=== PATIENT | female | born 1955 | race Caucasian/White ===

== ENCOUNTER → 2017-09-01 | Outpatient (CLI) | payer BC ==
--- NOTE | 2017-09-01 18:57 | RADIOLOGY REPORT (SQ) ---
EXAM DESCRIPTION: KNEE LEFT 4 VIEW COMPLETED DATE/TIME: 09/01/2017 5:53 pm REASON FOR STUDY: CHRONIC PAIN OF BOTH KNEES COMPARISON: None. NUMBER OF VIEWS: Four views. TECHNIQUE: AP, lateral, and both oblique radiographic images acquired of the left knee. LIMITATIONS: None. FINDINGS: MINERALIZATION: Normal. BONES: No acute fracture or dislocation. Benign osteoma posterior aspect of the distal femoral metad iaphysis. No worrisome bone lesions. JOINT: Mild to moderate tricompartmental osteoarthritis. No significant joint effusion. SOFT TISSUES: No soft tissue swelling. No radio-opaque foreign body. OTHER: No other significant finding. IMPRESSION: MILD TO MODERATE TRICOMPARTMENTAL OSTEOARTHRITIS WITHOUT ACUTE ABNORMALITY IDENTIFIED. TECHNICAL DOCUMENTATION: JOB ID: [id number] [employer]- All Rights Reserved
--- NOTE | 2017-09-01 18:57 | RADIOLOGY REPORT (SQ) ---
EXAM DESCRIPTION: KNEE RIGHT 4 VIEWS COMPLETED DATE/TIME: 09/01/2017 5:53 pm REASON FOR STUDY: CHRONIC PAIN OF BOTH KNEES COMPARISON: None. NUMBER OF VIEWS: Four views. TECHNIQUE: AP, lateral, and both oblique radiographic images acquired of the right knee. LIMITATIONS: None. FINDINGS: MINERALIZATION: Normal. BONES: No acute fracture or dislocation. No worrisome bone lesions. JOINT: Mild tricompartmental osteoarthritis. SOFT TISSUES: No soft tissue swelling. No radio-opaque foreign body. OTHER: No other significant finding. IMPRESSION: MILD TRICOMPARTMENTAL OSTEOARTHRITIS. NO RADIOGRAPHIC EVIDENCE OF ACUTE INJURY. TECHNICAL DOCUMENTATION: JOB ID: [id number] [employer]- All Rights Reserved
== END ==
LOC: RAD 16:57
PROVIDERS: ATTEND Nurse Practitioner
DX: M25.561 Pain in right knee (principal); M25.562 Pain in left knee; M17.0 Bilateral primary osteoarthritis of knee

== ENCOUNTER → 2017-09-03 | Outpatient (CLI) | payer BC ==
--- NOTE | 2017-09-03 16:05 | WOMENS IMAGING REPORT ---
EXAM DESCRIPTION: BILAT SCREENING MAMMO W/CAD COMPLETED DATE/TIME: 09/03/2017 3:44 pm REASON FOR STUDY: ROUTINE SCREENING; Z12.31 Z12.31 ENCNTR SCREEN MAMMOGRAM FOR MALIGNANT NEOPLASM O F MARY COMPARISON: 2015 TECHNIQUE: Standard craniocaudal and mediolateral oblique views of each breast recorded using digita l acquisition. LIMITATIONS: None. FINDINGS: No masses, calcifications or architectural distortion. No areas of suspicion. Read with the assistance of CAD. .[facility] - R2 Cenova Version 1.3 .[facility] Imaging - R2 Cenova Version 1.3 .[facility] Imaging - R2 Cenova Version 2.4 .[facility] - R2 Cenova Version 2.4 .[facility] - R2 Construction [employer]orer Version 9.2 IMPRESSION: NORMAL MAMMOGRAM. BIRADS 1. BREAST DENSITY: b. There are scattered areas of fibroglandular density. BIRAD: 1 NEGATIVE RECOMMENDATION: ROUTINE SCREENING COMMENT: The patient has been notified of the results by letter per SA requirements. Additional no tification policies are in place for contacting patient with suspicious or incomplete findings. Quality ID #[id number]: The [employer] recommends an annual screening mammogram for women aged 40 years or over. This facility utilizes a reminder system to ensure that all patients receive reminder letters, and/or direct phone calls for appointments. This includes reminders for routine scr eening mammograms, diagnostic mammograms, or other Breast Imaging Interventions when appropriate. Th is patient will be placed in the appropriate reminder system. The [employer] (ACR) has developed recommendations for screening MRI of the breast s in certain patient populations, to be used in conjunction with mammography. Breast MRI surveillanc e may be appropriate for women with more than 20% lifetime risk of developing breast cancer as deter mined by genetic testing, significant family history of the disease, or history of mantle radiation f or Hodgkins Disease. ACR Practice Guidelines 2008. TECHNICAL DOCUMENTATION: FINDING NUMBER: (1) ASSESSMENT: (1) JOB ID: [id number] [employer]- All Rights Reserved
== END ==
LOC: WI 15:37
PROVIDERS: ATTEND Nurse Practitioner
DX: Z12.31 Encounter for screening mammogram for malignant neoplasm of breast (principal)
CPT/HCPCS: 77067

== ENCOUNTER → 2018-03-04 | Outpatient (CLI) | payer BC ==
[2018-03-04 18:05] LABS: ABSOLUTE EOSINOPHILS # (AUTO) 0.3 10^3/uL (0.0-0.6); ABSOLUTE MONOCYTES (AUTO) 0.7 10^3/uL (0.1-1.4); ABSOLUTE NEUT (AUTO) 3.2 10^3/uL (1.7-8.2); BASOPHILS % (AUTO) 0.3 % (0-2); EOSINOPHILS % (AUTO) 4.3 % (0-6); HEMATOCRIT 39.1 % (36.0-47.0); LYMPHOCYTES % (AUTO) 32.7 % (13-45); MEAN CORPUSCULAR HEMOGLOBIN 27.1 pg (27.0-33.4); MEAN CORPUSCULAR HGB CONC 33.2 g/dL (32.0-36.0); MEAN CORPUSCULAR VOLUME 82 fl (80-97); MONOCYTES % (AUTO) 11.1 % (3-13); PLATELET COUNT 217 10^3/uL (150-450); RED BLOOD COUNT 4.78 10^6/uL (3.72-5.28); RED CELL DISTRIBUTION WIDTH 13.8 % (11.5-14.0); SEGMENTED NEUTROPHILS % (AUTO) 51.6 % (42-78); TOTAL CELLS COUNTED % (AUTO) 100 %; WHITE BLOOD COUNT 6.1 10^3/uL (4.0-10.5)
[2018-03-06 07:42] LABS: HEPATITIS C VIRUS AB <0.1 s/co ratio (0.0-0.9)
== END ==
LOC: OD 16:45
PROVIDERS: ATTEND Nurse Practitioner
DX: E78.5 Hyperlipidemia, unspecified (principal); E55.9 Vitamin D deficiency, unspecified; Z79.899 Other long term (current) drug therapy; M05.79 Rheumatoid arthritis with rheumatoid factor of multiple sites without organ or systems involvement; Z11.59 Encounter for screening for other viral diseases
CPT/HCPCS: 36415; 82306; 82607; 83036; 84443; 85025; 86803; 86804

== ENCOUNTER → 2018-03-16 | Outpatient (CLI) | payer BC ==
--- NOTE | 2018-03-17 12:22 | RADIOLOGY REPORT (SQ) ---
EXAM DESCRIPTION: U/S EXTREMITY NONVASCULAR LTD COMPLETED DATE/TIME: 03/16/2018 6:00 pm REASON FOR STUDY: M25.562 PAIN IN LEFT KNEE G89.29 OTHER CHRONIC PAIN M25.562 PAIN IN LEFT KNEE G89 .29 OTHER CHRONIC PAIN COMPARISON: None. TECHNIQUE: Static and real time lopez scale ultrasound Doppler spectral analysis, and color Doppler a cquired in the popliteal fossa on the left. LIMITATIONS: None. FINDINGS: POPLITEAL ARTERY: Popliteal artery is normal. No aneurysm. No significant stenosis. POPLITEAL VEIN:Popliteal vein is normal. No thrombosis. SOFT TISSUES: Probable Ayala's cyst with debris in the upper calf, about 3 x 1 cm size. OTHER:No other significant findings. IMPRESSION: Palpable abnormality likely correlates with a residua of a Ayala's cyst in the popliteal fossa. Consider MRI for further evaluation TECHNICAL DOCUMENTATION: JOB ID: [id number] [employer]- All Rights Reserved Reading location - IP/workstation name: [email or web address]
== END ==
LOC: RAD 17:45
PROVIDERS: ATTEND Nurse Practitioner
DX: M25.562 Pain in left knee (principal); G89.29 Other chronic pain
CPT/HCPCS: 76882

== ENCOUNTER → 2018-09-15 | Outpatient (CLI) | payer BC ==
--- NOTE | 2018-09-15 14:41 | WOMENS IMAGING REPORT ---
EXAM DESCRIPTION: 3D SCREENING MAMMO BILAT COMPLETED DATE/TIME: 09/15/2018 9:26 am REASON FOR STUDY: ROUTINE 3D BILATERAL SCREENING,Z12.31 Z12.31 ENCNTR SCREEN MAMMOGRAM FOR MALIGNAN T NEOPLASM OF MARY COMPARISON: 2018 TECHNIQUE: Standard craniocaudal and mediolateral oblique views of each breast recorded using digita l acquisition and breast tomosynthesis. LIMITATIONS: None. FINDINGS: No masses, calcifications or architectural distortion. No areas of suspicion. Read with the assistance of CAD. .[facility] - R2 Cenova Version 1.3 .[facility] Imaging - R2 Cenova Version 2.1 .[facility] Imaging - R2 Cenova Version 2.4 .[facility] - R2 Cenova Version 2.4 .[facility] - R2 Unit Tender Version 9.2 IMPRESSION: NORMAL MAMMOGRAM. BIRADS 1. BREAST DENSITY: b. There are scattered areas of fibroglandular density. BIRAD: 1 NEGATIVE RECOMMENDATION: ROUTINE SCREENING COMMENT: The patient has been notified of the results by letter per SA requirements. Additional no tification policies are in place for contacting patient with suspicious or incomplete findings. Quality ID #225: The [employer] recommends an annual screening mammogram for women aged 40 years or over. This facility utilizes a reminder system to ensure that all patients receive reminder letters, and/or direct phone calls for appointments. This includes reminders for routine scr eening mammograms, diagnostic mammograms, or other Breast Imaging Interventions when appropriate. Th is patient will be placed in the appropriate reminder system. The [employer] (ACR) has developed recommendations for screening MRI of the breast s in certain patient populations, to be used in conjunction with mammography. Breast MRI surveillanc e may be appropriate for women with more than 20% lifetime risk of developing breast cancer as deter mined by genetic testing, significant family history of the disease, or history of mantle radiation f or Hodgkins Disease. ACR Practice Guidelines 2008. DBT Technology DBT is a type of tomographic mammography. With conventional mammography, overlapping breast tissue ma y make lesions difficult to detect, even with good compression. DBT uses an x-ray tube that rotates a round the breast, taking images at different angles. These images are then combined to create thin sl ices of the breast that the radiologist can view as a 3D reconstruction. The Team[employer] unit can perform full-field digital mammograms (2D imaging); or DBT (3D imaging); or both, in a combination mode that quickly performs both the mammogram and the tomosynthesis scan while the breast is still compressed. PQRS 6045F: Fluoroscopic imaging is not utilized for breast tomosynthesis. TECHNICAL DOCUMENTATION: FINDING NUMBER: (1) ASSESSMENT: (1) JOB ID: [id number] [employer]- All Rights Reserved Reading location - IP/workstation name: [email or web address]-
== END ==
LOC: WI 08:55
PROVIDERS: ATTEND Nurse Practitioner
DX: Z12.31 Encounter for screening mammogram for malignant neoplasm of breast (principal)
CPT/HCPCS: 77063; 77067

== ENCOUNTER → 2019-02-02 | Outpatient (CLI) | payer BC ==
--- NOTE | 2019-02-03 10:07 | RADIOLOGY REPORT (SQ) ---
EXAM DESCRIPTION: SHOULDER LEFT 2 OR MORE VIEWS; SHOULDER RIGHT 2 OR MORE VIEWS COMPLETED DATE/TIME: 02/02/2019 5:46 pm REASON FOR STUDY: M25.511 PAIN IN RIGHT SHOULDER COMPARISON: None. FINDINGS: Three views right shoulder: Osteopenic. Otherwise no significant bone, joint or soft tis tim abnormality. Three views left shoulder: Osteopenic. Otherwise no significant bone, joint or soft tissue abnormal ity. TECHNICAL DOCUMENTATION: JOB ID: [id number] Reading location - IP/workstation name: [email or web address]
--- NOTE | 2019-02-03 10:07 | RADIOLOGY REPORT (SQ) ---
EXAM DESCRIPTION: SHOULDER LEFT 2 OR MORE VIEWS; SHOULDER RIGHT 2 OR MORE VIEWS COMPLETED DATE/TIME: 02/02/2019 5:46 pm REASON FOR STUDY: M25.511 PAIN IN RIGHT SHOULDER COMPARISON: None. FINDINGS: Three views right shoulder: Osteopenic. Otherwise no significant bone, joint or soft tis tim abnormality. Three views left shoulder: Osteopenic. Otherwise no significant bone, joint or soft tissue abnormal ity. TECHNICAL DOCUMENTATION: JOB ID: [id number] Reading location - IP/workstation name: [email or web address]
== END ==
LOC: RAD 17:15
PROVIDERS: ATTEND Physician Assistant
DX: M25.511 Pain in right shoulder (principal); W01.0XXA Fall on same level from slipping, tripping and stumbling without subsequent striking against object, initial encounter; M85.88 Other specified disorders of bone density and structure, other site

== ENCOUNTER → 2019-02-24 | Outpatient (CLI) | payer BC ==
--- NOTE | 2019-02-25 13:07 | RADIOLOGY REPORT (SQ) ---
EXAM DESCRIPTION: MRI RT UPPER JOINT WITHOUT COMPLETED DATE/TIME: 02/24/2019 7:25 pm REASON FOR STUDY: M25.511 PAIN IN RIGHT SHOULDER M25.511 PAIN IN RIGHT SHOULDER COMPARISON: None. TECHNIQUE: Right shoulder images acquired and stored on PACS. Multiplanar imaging to include fat sen sitive sequences such as T1, water sensitive sequences such as FST2/STIR, cartilage sensitive sequenc es such as FSPD/gradient-echo sequences. LIMITATIONS: None. FINDINGS: BONE MARROW AND CORTEX: No marrow signal abnormalities worrisome for occult fracture. Sma ll subcortical cysts are present in the anterior right humeral head medial to the bicipital groove, l ikely indicating impingement. JOINT OR BURSAL EFFUSION: Physiologic glenohumeral joint space fluid. There is fluid in the subacrom ial/subdeltoid bursa and along the biceps tendon sheath GLENO-HUMERAL ARTICULATION: Normal articulation. No subluxation. No cystic change. No osteophytes or cartilage loss. ACROMION AND AC JOINT: Type 1 acromion with mild acromioclavicular joint hypertrophy and synovial th ickening. Mild bony spurring narrows the subacromial space. Small amount of fluid in the subacromia l/subdeltoid bursa ROTATOR CUFF AND INTERVAL: There is a diffuse tear throughout the distal supraspinatus tendon at its greater tuberosity attachment, best shown on coronal image 13, axial image 6, and sagittal images 3-5 . There is diffuse tendinopathy of the infraspinatus tendon with a small full-thickness tear along i ts posterior at attachment best shown on coronal image 7. Subscapularis is intact. No supra or infr aspinatus muscle atrophy. No rotator interval tear. No rotator interval thickening to suggest adhesive capsulitis. LABRUM AND BICEPS LABRAL COMPLEX: Intra-articular long head biceps tendon is difficult to visualize within the groove and along the intra-articular portion. Long head biceps tendon tear with proximal retraction is suspected. Superior labrum grossly intact. Short head biceps tendon attachment to th e coracoid process is intact on coronal image 15. REMAINDER OF LABRUM AND IGHL : No gross tear or paralabral cyst formation. Labral evaluation is less than optimal without joint distention. No thickening of IGHL to suggest adhesive capsulitis. PERIARTICULAR AND ADJACENT SOFT TISSUES: No masses or abnormal nodes. OTHER: No other significant finding. IMPRESSION: Full-thickness diffuse supraspinatus tendon tear distally Infraspinatus tendinopathy with small full-thickness tear along its posterior attachment Long head biceps tendon not visualized. Suspect full-thickness tear with proximal retraction TECHNICAL DOCUMENTATION: JOB ID: [id number] [employer]- All Rights Reserved Reading location - IP/workstation name: [email or web address]
== END ==
LOC: RAD 17:21
PROVIDERS: ATTEND Nurse Practitioner
DX: M75.121 Complete rotator cuff tear or rupture of right shoulder, not specified as traumatic (principal); M25.511 Pain in right shoulder

== ENCOUNTER → 2019-08-27 | Outpatient (CLI) | payer BC ==
--- NOTE | 2019-08-27 15:49 | RADIOLOGY REPORT (SQ) ---
EXAM DESCRIPTION: CT ABD/PELVIS COMBO COMPLETED DATE/TIME: 08/27/2019 3:33 pm REASON FOR STUDY: N13.30 UNSPECIFIED HYDRONEPHROSIS N13.30 UNSPECIFIED HYDRONEPHROSIS COMPARISON: None. TECHNIQUE: CT scan of the abdomen and pelvis performed with and without intravenous contrast, and wi thout oral contrast. Contrasted imaging performed helical scanning technique and dynamic intravenous contrast injection. Images reviewed with lung, soft tissue, and bone windows. Reconstructed coronal a nd sagittal MPR images reviewed. Delayed images for evaluation of the urinary system also acquired. A ll images stored on PACS. All CT scanners at this facility use dose modulation, iterative reconstruction, and/or weight based d osing when appropriate to reduce radiation dose to as low as reasonably achievable (ALARA). [facility]: Dose Right [facility]: CareDose [facility]: Dose Right [facility]: Teradose 4D [facility]: Next Big Sound CONTRAST TYPE AND DOSE: contrast/concentration: Isovue 350.00 mg/ml; Total Contrast Delivered: 88.0 ml; Total Saline Delivered: 70.0 ml RENAL FUNCTION: Creatinine 0.7 RADIATION DOSE: CT Rad equipment meets quality standard of care and radiation dose reduction techniq ues were employed. CTDIvol: 10.9 - 12.0 mGy. DLP: 1747 mGy-cm. . LIMITATIONS: None. FINDINGS: LOWER CHEST: Cardiomegaly. No acute findings. LIVER: Normal size. No masses. No dilated ducts. SPLEEN: Normal size. No focal lesions. PANCREAS: No masses. No significant calcifications. No adjacent inflammation or peripancreatic fluid collections. Pancreatic duct not dilated. GALLBLADDER: No identified stones by CT criteria. No inflammatory changes to suggest cholecystitis. ADRENAL GLANDS: No significant masses or asymmetry. RIGHT KIDNEY AND URETER: No solid masses. No significant calcifications. Mild fullness of the ext rarenal pelvis. No caliceal dilation. LEFT KIDNEY AND URETER: No solid masses. Extrarenal pelvis and Peripelvic cyst. No caliceal dilatio n. No significant calcifications. AORTA AND VESSELS: Aortoiliac atherosclerosis without aneurysm. No dissection. Renal arteries, SMA, c eliac without stenosis. RETROPERITONEUM: No retroperitoneal adenopathy, hemorrhage or masses. BOWEL AND PERITONEAL CAVITY: Scattered colonic diverticula. No focal bowel wall thickening. No evid ence of intestinal obstruction. APPENDIX: Normal. PELVIS: Decompressed urinary bladder. No free fluid. No adenopathy. ABDOMINAL WALL: No masses. No hernias. BONES: No significant or acute findings. OTHER: No other significant finding. IMPRESSION: 1. No significant hydronephrosis. Bilateral extrarenal pelves and left peripelvic cyst s which account for ultrasound findings. 2. No other evidence of acute intra-abdominal/pelvic process. TECHNICAL DOCUMENTATION: JOB ID: [id number] Quality ID # [id number]: Final reports with documentation of one or more dose reduction techniques (e.g., Au tomated exposure control, adjustment of the mA and/or kV according to patient size, use of iterative reconstruction technique) 2010 [employer]- All Rights Reserved Reading location - IP/workstation name: [email or web address]
== END ==
LOC: RAD 14:56
PROVIDERS: ATTEND Urology
DX: N13.30 Unspecified hydronephrosis (principal); N28.1 Cyst of kidney, acquired
CPT/HCPCS: 74178; 82565

== ENCOUNTER → 2019-09-16 | Outpatient (CLI) | payer BC ==
--- NOTE | 2019-09-17 08:42 | WOMENS IMAGING REPORT ---
EXAM DESCRIPTION: 3D SCREENING MAMMO BILAT COMPLETED DATE/TIME: 09/16/2019 3:22 pm REASON FOR STUDY: Z12.31 ENCOUNTER FOR SCREENING MAMMOGRAM FOR MALIGNANT NEOPLASM OF BREAST Z12.31 ENCNTR SCREEN MAMMOGRAM FOR MALIGNANT NEOPLASM OF MARY COMPARISON: 2018, 2017 EXAM PARAMETERS: Standard craniocaudal and mediolateral oblique views of each breast recorded using digital acquisition and breast tomosynthesis. Read with the assistance of CAD. .[facility] - [employer]er Version 9.2 LIMITATIONS: None. FINDINGS: RIGHT BREAST MASSES: In the right breast 11 o'clock position about 10 cm from the nipple, a 15 mm mammographic mas s is present with architectural distortion. A second, smaller 6 to 7 mm satellite mass may be presen t. This requires further evaluation with cone compression in the MLO and exaggerated craniocaudad po sition, and ultrasound CALCIFICATIONS: No new or suspicious calcifications. ARCHITECTURAL DISTORTION: None. ASYMMETRY: None noted. OTHER: No other significant findings. LEFT BREAST MASSES: No suspicious masses. CALCIFICATIONS: No new or suspicious calcifications. ARCHITECTURAL DISTORTION: None. ASYMMETRY: None noted. OTHER: No other significant findings. IMPRESSION: Mammographic mass right breast 11 to 12 o'clock position for which additional cone compr ession mammograms and ultrasound are recommended 0 Incomplete: Needs Additional Imaging Evaluation and/or prior Mammograms for Comparison. BREAST DENSITY: b. There are scattered areas of fibroglandular density. BIRAD: ASSESSMENT: 0 Incomplete: Needs Additional Imaging Evaluation and/or prior Mammograms for C omparison. RECOMMENDATION: RECOMMENDED FOLLOW-UP: Additional right breast diagnostic mammograms and ultrasound The patient will be contacted for additional imaging. COMMENT: The patient has been notified of the results by letter per MQSA requirements. Additional no tification policies are in place for contacting patient with suspicious or incomplete findings. Quality ID #225: The [employer] recommends an annual screening mammogram for women aged 40 years or over. This facility utilizes a reminder system to ensure that all patients receive reminder letters, and/or direct phone calls for appointments. This includes reminders for routine scr eening mammograms, diagnostic mammograms, or other Breast Imaging Interventions when appropriate. Th is patient will be placed in the appropriate reminder system. TECHNICAL DOCUMENTATION: FINDING NUMBER: (1) ASSESSMENT: (1) JOB ID: [id number] 2010 [employer]- All Rights Reserved Reading location - IP/workstation name: [email or web address]
== END ==
LOC: WI 14:52
PROVIDERS: ATTEND Nurse Practitioner
DX: Z12.31 Encounter for screening mammogram for malignant neoplasm of breast (principal); N63.10 Unspecified lump in the right breast, unspecified quadrant
CPT/HCPCS: 77063; 77067

== ENCOUNTER → 2019-09-30 | Outpatient (CLI) | payer BC ==
--- NOTE | 2019-09-30 13:19 | WOMENS IMAGING REPORT ---
EXAM DESCRIPTION: RIGHT DIAGNOSTIC MAMMO W/CAD; U/S BREAST UNILAT LIMITED COMPLETED DATE/TIME: 09/30/2019 11:28 am; 09/30/2019 12:23 pm REASON FOR STUDY: R92.2 RIGHT DX; R92.2 RIGHT BREAST R92.2 INCONCLUSIVE MAMMOGRAM COMPARISON: 09/16/2019 EXAM PARAMETERS: True lateral, exaggerated CC and cone compression views. LIMITATIONS: None. FINDINGS: BREAST LATERALITY: right MASSES: Mass in the approximate 12 o'clock position posterior 3rd persists with cone compression. CALCIFICATIONS: No new or suspicious calcifications. ARCHITECTURAL DISTORTION: None. ASYMMETRY: None noted. OTHER: No other significant findings. Ultrasound the right breast demonstrates no solid cystic lesion in the area question. IMPRESSION: Indeterminate mammographic finding without ultrasound correlate. BREAST DENSITY: b. There are scattered areas of fibroglandular density. BIRAD: ASSESSMENT: 0 Incomplete: Needs additional imaging evaluation and/or prior mammograms for co mparison. RECOMMENDATION: RECOMMENDED FOLLOW UP: Birads 0: Mammographic and Ultrasound imaging did not solve t he problem. SPECIFIC INTERVENTION/IMAGING/CONSULTATION RECOMMENDED:Routine breast imaging is inconclusive. Breast MRI may be helpful. COMMUNICATION:The imaging findings were not discussed with the patient. Her referring provider has be en notified of the findings. COMMENT: The patient has been notified of the results by letter per MQSA requirements. Additional no tification policies are in place for contacting patient with suspicious or incomplete findings. Quality ID #225: The [employer] recommends an annual screening mammogram for women aged 40 years or over. This facility utilizes a reminder system to ensure that all patients receive reminder letters, and/or direct phone calls for appointments. This includes reminders for routine scr eening mammograms, diagnostic mammograms, or other Breast Imaging Interventions when appropriate. Th is patient will be placed in the appropriate reminder system. TECHNICAL DOCUMENTATION: FINDING NUMBER: (1) ASSESSMENT: (1) JOB ID: [id number] 2010 [employer]- All Rights Reserved Reading location - IP/workstation name: [email or web address]
== END ==
LOC: WI 11:00
PROVIDERS: ATTEND Nurse Practitioner
DX: N63.10 Unspecified lump in the right breast, unspecified quadrant (principal)
CPT/HCPCS: 76642; 77065

== ENCOUNTER → 2019-11-03 | Outpatient (CLI) | payer BC ==
--- NOTE | 2019-11-04 09:52 | RADIOLOGY REPORT (SQ) ---
EXAM DESCRIPTION: MRI BREAST UNILATERAL W/WO IMAGES COMPLETED DATE/TIME: 11/03/2019 9:52 am REASON FOR STUDY: (N63.10)UNSPECIFIED LUMP IN THE RIGHT BREAST, UNSPECIFIED QUADRANT N63.10 UNSPECI FIED LUMP IN THE RIGHT BREAST, UNSPECIFIED ARNOLDO COMPARISON: None. PATHOLOGIC CORRELATION: Mammograms and right breast ultrasound 09/30/2019. CONTRAST TYPE AND DOSE: 20 mL Dotarem. RENAL FUNCTION: Not indicated. TECHNIQUE: MR imaging performed with a dedicated breast coil. Pre contrast T1 and T2 weighted images . Pre contrast and post contrast enhanced T1 weighted images with fat saturation. Subtraction images, 3D thick and thin MIPS, and kinetic analysis performed on an independent workstat ion. ([employer] workstation) Magnet strength: 3.0 T LIMITATIONS: None. FINDINGS: BREAST DENSITY: b. There are scattered areas of fibroglandular density. BACKGROUND PARENCHYMAL ENHANCEMENT:Minimal. RIGHT BREAST: Focal dense tissue approximately 12 o'clock posterior 3rd corresponding to the mammogra phic finding. No underlying mass. No clumped, regional/segmental ductal enhancement. CHEST WALL: Normal tissue planes. No abnormal internal mammary nodes. AXILLA: Normal axillary and retro-pectoral nodes. LEFT BREAST:No enhancing or suspicious masses. No clumped, regional/segmental ductal enhancement. CHEST WALL: Normal tissue planes. No abnormal internal mammary nodes. AXILLA: Normal axillary and retro-pectoral nodes. OTHER:No identified liver, bone, or lung lesions. No other significant incidental findings. IMPRESSION: Benign dense tissue. BIRAD: RIGHT BREAST: 2 Benign findings. LEFT BREAST: 1 Negative. RECOMMENDATION: RECOMMENDED FOLLOW-UP: Annual mammographic follow-up. TECHNICAL DOCUMENTATION: JOB ID: [id number] 2010 [employer]- All Rights Reserved Reading location - IP/workstation name: [email or web address]
== END ==
LOC: RAD 07:20
PROVIDERS: ATTEND Nurse Practitioner
DX: N63.10 Unspecified lump in the right breast, unspecified quadrant (principal)
CPT/HCPCS: 82565; 77048; A9576

== ENCOUNTER → 2020-04-01 | Outpatient (CLI) | payer BC ==
--- NOTE | 2020-04-01 16:56 | RADIOLOGY REPORT (SQ) ---
EXAM DESCRIPTION: MRI LT LOWER JOINT WITHOUT IMAGES COMPLETED DATE/TIME: 04/01/2020 3:03 pm REASON FOR STUDY: M76.62 ACHILLES TENDONITIS, LEFT LEG M66.872 SPONTANEOUS RUPTURE OF OTHER T M76.62 ACHILLES TENDINITIS, LEFT LEG M66.872 SPONTANEOUS RUPTURE OF OTHER TENDONS, LEFT ANKLE AND COMPARISON: None. TECHNIQUE: Left ankle images acquired and stored on PACS. Multiplanar images include fat sensitive s equences as T1, fluid sensitive sequences as FST2/STIR, cartilage sensitive sequences as FSPD, and gr adient echo sequences. LIMITATIONS: None. FINDINGS: BONE MARROW: Subcortical cystic changes are seen of the posterior aspect of the distal fib mando. Trace marrow edema is seen of the posterior calcaneus. Marrow signal is otherwise normal. EFFUSIONS: No subtalar or tibiotalar effusions. No loose bodies. OSSEOUS ARTICULATIONS: Normal tibiotalar, subtalar, talonavicular and calcaneocuboid joints. TALAR DOME AND TIBIAL PLAFOND: Normal cartilage. No osteochondral defect. ACHILLES TENDON: Full-thickness tear of the Achilles tendon from its insertion on the posterior calca neus with approximately 4.5 cm of fiber retraction. TIBIALIS ANTERIOR TENDON: Intact without edema at the 1st MT attachment. TIBIALIS POSTERIOR TENDON: Normal morphology and no edema at the navicular attachment. No tendon keita th fluid. FLEXOR HALLUCIS LONGUS AND FLEXOR DIGITORUM TENDONS: Normal morphology and no tendon sheath fluid. No edema of the os trigonum. PERONEUS LONGUS AND BREVIS TENDON: The peroneus longus and brevis tendons appear thickened with incre ased intrasubstance signal. Distal attachments are maintained as visualized. ATFL, CFL, PTFL: Intact. No thickening or signal alteration. No shayy-ligamentous fluid. DELTOID LIGAMENT: Visualized components intact. TARSAL TUNNEL: No masses. No muscle atrophy. SINUS TARSI: No fluid. No reactive marrow edema or erosions. PLANTAR FASCIA: No signal alteration or tear. ADJACENT SOFT TISSUES: No masses. OTHER: No other significant finding. IMPRESSION: Distal Achilles tendon rupture with approximately 4.5 cm of fiber retraction. Tendinosi s of the peroneus longus and brevis tendons. Otherwise normal MR appearance of the ankle. TECHNICAL DOCUMENTATION: JOB ID: [id number] 2011 [employer]- All Rights Reserved Reading location - IP/workstation name: [email or web address]
== END ==
LOC: RAD 14:02
PROVIDERS: ATTEND Preventive Medicine Undersea and Hyperbaric Medicine
DX: M76.62 Achilles tendinitis, left leg (principal); M66.872 Spontaneous rupture of other tendons, left ankle and foot

== ENCOUNTER 2020-04-04 08:12 | Day surgery (SDC) | payer BC ==
[~2020-04-04 08:12] MED LIST: BUPIVACAINE HCL 0.75% INJ/PF (7.5 MG/1 ML) 10 ML SDV OS PRN; CHONDR SU A NA/HYALUR INTRAOC KIT (SURGICARE) ONE; EPINEPHRINE INJ/PF 1 MG/1 ML AMPULE ONE; KETOROLAC TROMETHAMINE 0.45% 4 DROP/0.4 ML DROPERETTE OS PRN; LIDOCAINE 1% INJ-PF (10 MG/ML) 30 ML SDV ONE; LIDOCAINE 4% INJ/PF (40 MG/ML) 5 ML AMPUL OS PRN
[2020-04-04] MEDS: CYCLOPENTOLATE 0.2%/PHENYLEPHRINE 1% OPH SOLN 2 ML OS PRN ×3 (08:46→08:54)
[2020-04-04] MEDS: TETRACAINE HCL 0.5% OPH SOLN 4 ML OS PRN ×3 (08:46→09:22)
[2020-04-04] MEDS: TROPICAMIDE 1% OPH SOLN 15 ML OS PRN ×3 (08:46→08:54)
[2020-04-04] MEDS: BESIFLOXACIN HCL 0.6% OPH SUSP 5 ML BOTTLE OS PRN ×4 (08:47→09:50)
[2020-04-04] MEDS ORDERED: FENTANYL CITRATE INJ/PF 100 MCG/2 ML AMPUL ONE (09:03)
[2020-04-04] MEDS ORDERED: MIDAZOLAM 2 MG/2 ML INJ ONE (09:03)
[2020-04-04] MEDS: DORZOLAMIDE HCL 2%/TIMOLOL MALEAT 0.5% OPH SOLN 10 ML OS PRN ×2 (09:50)
[2020-04-04] MEDS: PREDNISOLONE ACETATE 1% OPH SUSP 5 ML OS PRN ×2 (09:50)
--- NOTE | 2020-04-04 13:06 | Operative Report ---
Operative Report-[facility] Operative Report: DATE OF SURGERY: 04/04/2020 PREOPERATIVE DIAGNOSIS: CATARACT, LEFT EYE. POSTOPERATIVE DIAGNOSIS: CATARACT, LEFT EYE. PROCEDURE PERFORMED: PHACOEMULSIFICATION WITH POSTERIOR CHAMBER INTRAOCULAR LENS, LEFT EYE. Intraocular Lens Model : ZCBOO 23.5 Total Phaco Time: 3.22 CDE SURGEON: TOI HOOKER MD ANESTHESIA: TOPICAL WITH MAC. INDICATIONS FOR SURGERY: Difficultly driving at night PROCEDURE: The patient was brought to the Operating Room and placed on the operative table. Following tetracaine drops, topical anesthesia was administered. This consisted of instrument wipe pledgets soaked in a solution of 4% Xylocaine mixed with 0.75% Marcaine in a 1:2 ratio. A 2 x 1 cm pledget was placed in the superior fornix. A 1 x 1 cm pledget was placed in the inferior fornix. The eye was patched shut for 5 minutes. The patch was removed. The eye was sterilely prepped and draped in the usual manner. Lid speculum was placed in the eye. The pledgets were removed. 4-0 black silk sutures were placed around the superior and the inferior rectus muscles to be used as traction. A conjunctival peritomy was made at the 10 o'clock position. Hemostasis was obtained with bipolar cautery. A posterior limbal groove was created using a crescent knife and dissected anteriorly towards the cornea. A sharp point blade was used to create a paracentesis site at the 2 o'clock position. 0.2 cc non preserved Lidocaine was injected into the anterior chamber. A 2.4 mm keratome was used to enter the anterior chamber through the groove. Viscoelastic was injected into the anterior chamber. An anterior capsulotomy was performed using Utrata forceps in a capsulorrhexis fashion. Hydrodissection and hydrodelineation were performed. Phacoemulsification was performed in [id number] technique. Following this, the I/A unit was used to remove residual cortex. Viscoelastic was injected into the capsular bag. The Intraocular lens was placed in the capsular bag. The I/A unit was used to remove residual viscoelastic. The wound was seen to be watertight under high and low pressure, and no sutures were placed. The intraocular lens was well centered. The pressure was adjusted in the eye to normal pressure. The 4-0 black silk sutures and lid speculum were removed. The eye was shielded after Besivance,prednisolone, and Cosopt drops were placed. The patient tolerated the procedure well and was sent to the Recovery Room in good condition.
== END 2020-04-04 10:29 | disposition home or self-care (01) ==
LOC: SC 08:12
PROVIDERS: ATTEND Ophthalmology
DX: H25.813 Combined forms of age-related cataract, bilateral (principal); H43.813 Vitreous degeneration, bilateral; H35.361 Drusen (degenerative) of macula, right eye; E78.00 Pure hypercholesterolemia, unspecified; Z79.82 Long term (current) use of aspirin; Z79.899 Other long term (current) drug therapy; M06.9 Rheumatoid arthritis, unspecified
CPT/HCPCS: 00142; 66984; V2632; J2250; J3490 ×5; J0171; J3010; 142

== ENCOUNTER 2020-05-16 07:36 | Day surgery (SDC) | payer BC ==
[~2020-05-16 07:36] MED LIST changes: +BUPIVACAINE HCL 0.75% INJ/PF (7.5 MG/1 ML) 10 ML SDV OD PRN; -BUPIVACAINE HCL 0.75% INJ/PF (7.5 MG/1 ML) 10 ML SDV OS PRN; +KETOROLAC TROMETHAMINE 0.45% 4 DROP/0.4 ML DROPERETTE OD PRN; -KETOROLAC TROMETHAMINE 0.45% 4 DROP/0.4 ML DROPERETTE OS PRN; +LIDOCAINE 4% INJ/PF (40 MG/ML) 5 ML AMPUL OD PRN; -LIDOCAINE 4% INJ/PF (40 MG/ML) 5 ML AMPUL OS PRN
[2020-05-16] MEDS: CYCLOPENTOLATE 0.2%/PHENYLEPHRINE 1% OPH SOLN 2 ML OD PRN ×3 (08:12→08:32)
[2020-05-16] MEDS: BESIFLOXACIN HCL 0.6% OPH SUSP 5 ML BOTTLE OD PRN ×4 (08:12→09:21)
[2020-05-16] MEDS: TETRACAINE HCL 0.5% OPH SOLN 4 ML OD PRN ×3 (08:12→08:56)
[2020-05-16] MEDS: TROPICAMIDE 1% OPH SOLN 15 ML OD PRN ×3 (08:12→08:32)
[2020-05-16] MEDS ORDERED: MIDAZOLAM 2 MG/2 ML INJ ONE (09:03)
[2020-05-16] MEDS ORDERED: FENTANYL CITRATE INJ/PF 100 MCG/2 ML AMPUL ONE (09:04)
[2020-05-16] MEDS: PREDNISOLONE ACETATE 1% OPH SUSP 5 ML OD PRN ×2 (09:21)
[2020-05-16] MEDS: DORZOLAMIDE HCL 2%/TIMOLOL MALEAT 0.5% OPH SOLN 10 ML OD PRN ×2 (09:21)
--- NOTE | 2020-05-16 12:03 | Operative Report ---
Operative Report-[facility] Operative Report: DATE OF SURGERY: 05/16/2020 PREOPERATIVE DIAGNOSIS: CATARACT, RIGHT EYE. POSTOPERATIVE DIAGNOSIS: CATARACT, RIGHT EYE. PROCEDURE PERFORMED: PHACOEMULSIFICATION WITH POSTERIOR CHAMBER INTRAOCULAR LENS, RIGHT EYE. Intraocular Lens Model : DCBOO 24.0 Total Phaco Time: 3.94 CDE SURGEON: TOI HOOKER MD ANESTHESIA: TOPICAL WITH MAC. INDICATIONS FOR SURGERY: []. PROCEDURE: The patient was brought to the Operating Room and placed on the operative table. Following tetracaine drops, topical anesthesia was administered. This consisted of instrument wipe pledgets soaked in a solution of 4% Xylocaine mixed with 0.75% Marcaine in a 1:2 ratio. A 2 x 1 cm pledget was placed in the superior fornix. A 1 x 1 cm pledget was placed in the inferior fornix. The eye was patched shut for 5 minutes. The patch was removed. The eye was sterilely prepped and draped in the usual manner. Lid speculum was placed in the eye. The pledgets were removed. 4-0 black silk sutures were placed around the superior and the inferior rectus muscles to be used as traction. A conjunctival peritomy was made at the 10 o'clock position. Hemostasis was obtained with bipolar cautery. A posterior limbal groove was created using a crescent knife and dissected anteriorly towards the cornea. A sharp point blade was used to create a paracentesis site at the 2 o'clock position. 0.2 cc non preserved Lidocaine was injected into the anterior chamber. A 2.4 mm keratome was used to enter the anterior chamber through the groove. Viscoelastic was injected into the anterior chamber. An anterior capsulotomy was performed using Utrata forceps in a capsulorrhexis fashion. Hydrodissection and hydrodelineation were performed. Phacoemulsification was performed in [id number] technique. Following this, the I/A unit was used to remove residual cortex. Viscoelastic was injected into the capsular bag. The Intraocular lens was placed in the capsular bag. The I/A unit was used to remove residual viscoelastic. The wound was seen to be watertight under high and low pressure, and no sutures were placed. The intraocular lens was well centered. The pressure was adjusted in the eye to normal pressure. The 4-0 black silk sutures and lid speculum were removed. The eye was shielded after Besivance. prednisolone, and Cosopt drops were placed. The patient tolerated the procedure well and was sent to the Recovery Room in good condition.
== END 2020-05-16 09:53 | disposition home or self-care (01) ==
LOC: SC 07:36
PROVIDERS: ATTEND Ophthalmology
DX: H25.811 Combined forms of age-related cataract, right eye (principal); Z96.1 Presence of intraocular lens; Z79.82 Long term (current) use of aspirin; E78.00 Pure hypercholesterolemia, unspecified; M06.9 Rheumatoid arthritis, unspecified; K21.9 Gastro-esophageal reflux disease without esophagitis; G47.33 Obstructive sleep apnea (adult) (pediatric)
CPT/HCPCS: 66984; V2632; J2250; J3490 ×5; J0171; J3010; 142

== ENCOUNTER 2020-05-19 15:13 | Inpatient (IN) | payer BC ==
[~2020-05-19 15:13] MED LIST changes: -BUPIVACAINE HCL 0.75% INJ/PF (7.5 MG/1 ML) 10 ML SDV OD PRN; -CHONDR SU A NA/HYALUR INTRAOC KIT (SURGICARE) ONE; +DEXAMETHASONE SOD PHOSPHATE INJ 4 MG/1 ML VIAL ONE; -EPINEPHRINE INJ/PF 1 MG/1 ML AMPULE ONE; +GLYCOPYRROLATE 1 MG/5 ML VIAL ONE; -KETOROLAC TROMETHAMINE 0.45% 4 DROP/0.4 ML DROPERETTE OD PRN; +KETOROLAC TROMETHAMINE 60 MG/2 ML SDV ONE; -LIDOCAINE 1% INJ-PF (10 MG/ML) 30 ML SDV ONE; +LIDOCAINE 2% INJ-PF (20 MG/ML) 2 ML AMPUL ONE; -LIDOCAINE 4% INJ/PF (40 MG/ML) 5 ML AMPUL OD PRN; +NEOSTIGMINE METHYLSULFATE 10 MG/10 ML VIAL ONE; +ONDANSETRON HCL INJ/PF 4 MG/2 ML SDV ONE; +ROCURONIUM BROMIDE INJ 50 MG/5 ML VIAL IV ONE
[2020-05-19] MEDS ORDERED: ONDANSETRON HCL INJ/PF 4 MG/2 ML SDV IV ONE ×2 (16:34→20:09)
--- NOTE | 2020-05-19 16:50 | ER Document Report ---
ED Medical Screen (RME) - General Chief Complaint: Constipation Stated Complaint: CONSTIPATED/VOMITING/FEVER/CHILLS Time Seen by Provider: 05/19/20 16:23 Primary Care Provider: DAVI KINSEY NP [Primary Care Provider] - Follow up as needed TRAVEL OUTSIDE OF THE [place] IN LAST 30 DAYS: No - HPI Notes: 05/19/20 16:35 64-year-old female to the emergency department with complaints of allover abdominal pain, difficulty having a bowel movement, fevers T-max of 102, headache, body aches, neck pain, sore throat, mild cough that began on Friday and is gotten worse. She states she is not been able to hold anything down. She states it first initially started with abdominal pain. She does not think that she has had an exposure to Covid. She denies any blood in her vomit. She states she tried to give herself an enema this morning and only had some small amount of stool come out. She has TTP all over her abdomen with palpation on brief medical screening exam. I performed a brief medical screening exam on the patient determined that the patient needs further evaluation and management by main side provider. I have placed initial orders to help expedite care. - Related Data Allergies/Adverse Reactions: No Known Allergies Allergy (Verified 05/19/20 16:30) Past Medical History - Social History Chew tobacco use (# tins/day): No Drug Abuse: None - Past Medical History Cardiac Medical History: Denies: Hx Heart Attack, Hx Hypertension Pulmonary Medical History: Denies: Hx Asthma Neurological Medical History: Denies: Hx Cerebrovascular Accident, Hx Seizures GI Medical History: Reports: Hx Hiatal Hernia. Denies: Hx Hepatitis, Hx Ulcer Infectious Medical History: Denies: Hx Hepatitis Past Surgical History: Denies: Hx Hysterectomy, Hx Mastectomy, Hx Open Heart Surgery, Hx Pacemaker Physical Exam - Vital signs Vitals: Temp Pulse Resp BP Pulse Ox 98.4 F 102 H 20 117/57 L 95 05/19/20 15:22 05/19/20 15:22 05/19/20 15:22 05/19/20 15:22 05/19/20 15:22 Course - Vital Signs Vital signs: Temp Pulse Resp BP Pulse Ox 98.4 F 102 H 20 117/57 L 95 05/19/20 15:22 05/19/20 15:22 05/19/20 15:22 05/19/20 15:22 05/19/20 15:22 Doctor's Discharge - Discharge Referrals: DAVI KINSEY NP [Primary Care Provider] - Follow up as needed
--- NOTE | 2020-05-19 18:43 | RADIOLOGY REPORT (SQ) ---
EXAM DESCRIPTION: CHEST SINGLE VIEW IMAGES COMPLETED DATE/TIME: 05/19/2020 5:18 pm REASON FOR STUDY: cough. COMPARISON: None. EXAM PARAMETERS: NUMBER OF VIEWS: One view. TECHNIQUE: Single frontal radiographic view of the chest acquired. RADIATION DOSE: NA LIMITATIONS: None. FINDINGS: LUNGS AND PLEURA: Linear atelectasis left lung base. No opacities, masses or pneumothorax . No pleural effusion. MEDIASTINUM AND HILAR STRUCTURES: No masses. Contour normal. HEART AND VASCULAR STRUCTURES: Heart normal in size. Normal vasculature. BONES: Postoperative changes right shoulder. HARDWARE: None in the chest. OTHER: No other significant finding. IMPRESSION: NO ACUTE RADIOGRAPHIC FINDING IN THE CHEST. TECHNICAL DOCUMENTATION: JOB ID: [id number] 2010 [employer]- All Rights Reserved Reading location - IP/workstation name: [email or web address]
[2020-05-19 18:48] LABS: HEMOGLOBIN 13.1 g/dL (12.0-15.5); MEAN CORPUSCULAR HGB CONC 32.9 g/dL (32.0-36.0); MEAN CORPUSCULAR VOLUME 85 fl (80-97); PLATELET COUNT 258 10^3/uL (150-450); RED BLOOD COUNT 4.69 10^6/uL (3.72-5.28); RED CELL DISTRIBUTION WIDTH 14.8 % (11.5-14.0); WHITE BLOOD COUNT 28.7 10^3/uL (4.0-10.5)
[2020-05-19 18:55] LABS: APPEARANCE,URINE SLIGHTLY-CLOUDY; BILIRUBIN,URINE NEGATIVE (NEGATIVE); COLOR,URINE AMBER; GLUCOSE, URINE NEGATIVE (NEGATIVE); KETONES,URINE TRACE mg/dL (NEGATIVE); LEUKOCYTE ESTERASE,URINE NEGATIVE (NEGATIVE); NITRITE,URINE NEGATIVE (NEGATIVE); PROTEIN,URINE 100 mg/dL (NEGATIVE); URINE SPECIFIC GRAVITY 1.028; UROBILINOGEN,URINE NEGATIVE mg/dL (<2.0)
[2020-05-19 19:05] LABS: ALBUMIN 4.3 g/dL (3.5-5.0); ALKALINE PHOSPHATASE 141 U/L (38-126); ANION GAP 14 (5-19); ASPARTATE AMINO TRANSFERASE 25 U/L (14-36); BILIRUBIN,DIRECT 0.1 mg/dL (0.0-0.4); BLOOD UREA NITROGEN 15 mg/dL (7-20); CALCIUM 10.4 mg/dL (8.4-10.2); CARBON DIOXIDE 27 mmol/L (22-30); CHLORIDE 96 mmol/L (98-107); GLUCOSE 140 mg/dL (75-110); POTASSIUM 3.7 mmol/L (3.6-5.0); TOTAL PROTEIN 7.4 g/dL (6.3-8.2)
[2020-05-19 19:20] LABS: ABSOLUTE LYMPHOCYTES# (MANUAL) 1.4 10^3/uL (0.5-4.7); BAND NEUTROPHILS % (MANUAL) 1 % (3-5); BASOPHILS % (MANUAL) 0 % (0-2); EOSINOPHILS % (MANUAL) 0 % (0-6); HYPERSEGMENTED NEUTROPHILS PRESENT; LYMPHOCYTES % (MANUAL) 5 % (13-45); MONOCYTES % (MANUAL) 7 % (3-13); SEGMENTED NEUTROPHILS % (MAN) 87 % (42-78); TOTAL CELLS COUNTED 100
[2020-05-19 19:21] LABS: ANISOCYTOSIS SLIGHT; PLATELET COMMENT ADEQUATE
[2020-05-19 19:23] LABS: OVALOCYTES SLIGHT
[2020-05-19 19:24] LABS: BURR CELLS SLIGHT
[2020-05-19] MEDS ORDERED: NORMAL SALINE 1000 ML 1,000 ML IV ONE (19:29)
[2020-05-19] MEDS ORDERED: ACETAMINOPHEN 325 MG TABLET PO ONE (20:09)
[2020-05-19] MEDS ORDERED: FENTANYL CITRATE INJ/PF 100 MCG/2 ML AMPUL IV ONE (20:10)
--- NOTE | 2020-05-19 20:11 | ER Document Report ---
ED GI/ - General Chief Complaint: Constipation Stated Complaint: CONSTIPATED/VOMITING/FEVER/CHILLS Time Seen by Provider: 05/19/20 16:23 Information source: Patient Notes: Patient presents complaining of abdominal pain for the past week. Patient states that today she had a fever of 100.2. Patient states she is also had mild cough and generalized body aches. Patient states that she has not had a bowel movement for the past 6 days. Patient denies any urinary symptoms. Patient reports nausea vomiting x1 episode today and one episode yesterday. Patient complains of headache and chronic low back pain. Patient does have a history of rheumatoid arthritis although states that she was recently taken off of her Humira due to recent cataract surgery earlier this week. TRAVEL OUTSIDE OF THE [place] IN LAST 30 DAYS: No - HPI Patient complains to provider of: Abdominal pain, Vomiting Onset: Last week Timing/Duration: Worse Quality of pain: Sharp Pain Level: 5 Location: Pelvis Vaginal bleeding (Compared to normal period): None Associated symptoms: Constipation, Fever, Nausea, Vomiting. denies: Dysuria, Urinary hesitancy, Urinary frequency, Urinary retention, Urinary urgency, Vaginal discharge Exacerbated by: Movement Relieved by: Denies Similar symptoms previously: No Recently seen / treated by doctor: Yes - Related Data Allergies/Adverse Reactions: No Known Allergies Allergy (Verified 05/19/20 16:30) Past Medical History - General Information source: Patient - Social History Smoking Status: Never Smoker Chew tobacco use (# tins/day): No Drug Abuse: None Occupation: Housekeeping Lives with: Family Family History: Reviewed & Not Pertinent Patient has homicidal ideation: No - Past Medical History Cardiac Medical History: Reports: Hx Hypercholesterolemia Denies: Hx Heart Attack, Hx Hypertension Pulmonary Medical History: Denies: Hx Asthma Neurological Medical History: Denies: Hx Cerebrovascular Accident, Hx Seizures GI Medical History: Reports: Hx Gastroesophageal Reflux Disease, Hx Hiatal Hernia. Denies: Hx Hepatitis, Hx Ulcer Musculoskeletal Medical History: Reports Hx Arthritis - Rheumatoid arthritis Infectious Medical History: Denies: Hx Hepatitis Past Surgical History: Reports: Other - Cataract surgery. Denies: Hx Hysterectomy, Hx Mastectomy, Hx Open Heart Surgery, Hx Pacemaker Review of Systems - Review of Systems Constitutional: Fever EENT: No symptoms reported Cardiovascular: No symptoms reported. denies: Chest pain Respiratory: Cough. denies: Short of breath Gastrointestinal: Abdominal pain, Nausea, Vomiting, Constipation. denies: Diarrhea Genitourinary: No symptoms reported. denies: Dysuria, Flank pain Female Genitourinary: No symptoms reported Musculoskeletal: Back pain Skin: No symptoms reported Hematologic/Lymphatic: No symptoms reported Neurological/Psychological: Headaches. denies: Confusion, Weakness Physical Exam - Vital signs Vitals: Temp Pulse Resp BP Pulse Ox 98.4 F 102 H 20 117/57 L 95 05/19/20 15:22 05/19/20 15:22 05/19/20 15:22 05/19/20 15:22 05/19/20 15:22 - General General appearance: Alert In distress: Mild - HEENT Head: Normocephalic, Atraumatic Eyes: Normal Conjunctiva: Normal Nasal: Normal Mouth/Lips: Normal Mucous membranes: Normal Neck: Normal, Supple. No: Lymphadenopathy, Meningismus - Respiratory Respiratory status: No respiratory distress Chest status: Nontender Breath sounds: Nonproductive cough Chest palpation: Normal - Cardiovascular Rhythm: Regular Heart sounds: S1 appreciated, S2 appreciated - Abdominal Inspection: Normal Distension: No distension Bowel sounds: Normal Tenderness: Tender - Diffuse lower abdominal tenderness, Guarding Organomegaly: No organomegaly - Back Back: Normal, Nontender. No: CVA tenderness - Extremities General upper extremity: Normal inspection, Normal strength General lower extremity: Other - Walking boot to left lower extremity - Neurological Neuro grossly intact: Yes Cognition: Normal Aaliyah Coma Scale Eye Opening: Spontaneous Aaliyah Coma Scale Verbal: Oriented [place] Coma Scale Motor: Obeys Commands [place] Coma Scale Total: 15 - Psychological Associated symptoms: Normal affect, Normal mood - Skin Skin Temperature: Warm Skin Moisture: Dry Skin Color: Normal Course - Re-evaluation Re-evalutation: 05/19/20 20:00 Vital signs were rechecked, patient's oxygen saturation 87% on room air. Patient repositioned in bed, patient's oxygen saturation ranged from 89-92. Orders for oxygen were placed. Additional pain medication ordered as patient continues with lower pelvic tenderness. 05/19/20 20:[address] report, patient with acute perforated diverticulum. Call placed to Dr. Roca who agrees to come and evaluate patient. 05/19/20 21:09 Dr. Roca into room to evaluate patient, plans to take patient to the OR although is requesting a rapid Covid test given patient's respiratory symptoms. Call placed to supervisor plastics who agrees to provide a rapid Covid test. - Vital Signs Vital signs: Temp Pulse Resp BP Pulse Ox 98.7 F 91 22 H 125/59 L 94 05/19/20 23:06 05/19/20 23:06 05/19/20 23:06 05/19/20 23:06 05/19/20 23:06 - Laboratory Result Diagrams: 05/19/20 18:00 05/19/20 18:00 Laboratory results interpreted by me: 05/19/20 05/19/20 05/19/20 17:50 18:00 18:00 WBC 28.7 H RDW 14.8 H Seg Neuts % (Manual) 87 H Band Neutrophils % 1 L Lymphocytes % (Manual) 5 L Abs Neuts (Manual) 25.3 H Abs Monocytes (Manual) 2.0 H ABG pO2 ABG HCO3 ABG Total CO2 ABG O2 Saturation Sodium 136.9 L Chloride 96 L Glucose 140 H Calcium 10.4 H Alkaline Phosphatase 141 H Urine Protein 100 H Urine Ketones TRACE H Urine Ascorbic Acid 40 H 05/19/20 20:35 WBC RDW Seg Neuts % (Manual) Band Neutrophils % Lymphocytes % (Manual) Abs Neuts (Manual) Abs Monocytes (Manual) ABG pO2 52.0 L ABG HCO3 26.1 H ABG Total CO2 27.3 H ABG O2 Saturation 87.8 L Sodium Chloride Glucose Calcium Alkaline Phosphatase Urine Protein Urine Ketones Urine Ascorbic Acid 05/19/20 20:48 Labs- All tests 24 hr 05/19/20 05/19/20 05/19/20 17:50 18:00 18:00 WBC 28.7 H RBC 4.69 Hgb 13.1 Hct 40.0 MCV 85 MCH 28.0 MCHC 32.9 RDW 14.8 H Plt Count 258 Lymph % (Auto) Not Reportable [place] % (Auto) Not Reportable Eos % (Auto) Not Reportable Baso % (Auto) Not Reportable Absolute Neuts (auto) Not Reportable Absolute Lymphs (auto) Not Reportable Absolute Monos (auto) Not Reportable Absolute Eos (auto) Not Reportable Absolute Basos (auto) Not Reportable Total Counted 100 Seg Neutrophils % Not Reportable Seg Neuts % (Manual) 87 H Band Neutrophils % 1 L Lymphocytes % (Manual) 5 L Monocytes % (Manual) 7 Eosinophils % (Manual) 0 Basophils % (Manual) 0 Abs Neuts (Manual) 25.3 H Abs Lymphs (Manual) 1.4 Abs Monocytes (Manual) 2.0 H Absolute Eos (Manual) 0.0 Abs Basophils (Manual) 0.0 Hypersegmented Neuts PRESENT Platelet Comment ADEQUATE Anisocytosis SLIGHT Ovalocytes SLIGHT [place] Cells SLIGHT Sodium 136.9 L Potassium 3.7 Chloride 96 L Carbon Dioxide 27 Anion Gap 14 BUN 15 Creatinine 0.80 Est GFR ( Amer) > 60 Est GFR (MDRD) Non-Af > 60 Glucose 140 H Calcium 10.4 H Total Bilirubin 1.0 Direct Bilirubin 0.1 Neonat Total Bilirubin Not Reportable Neonat Direct Bilirubin Not Reportable Neonat Indirect Bili Not Reportable AST 25 ALT 26 Alkaline Phosphatase 141 H Total Protein 7.4 Albumin 4.3 Lipase 40.3 Urine Color CARL Urine Appearance SLIGHTLY-CLOUDY Urine pH 5.0 Ur Specific [place] 1.028 Urine Protein 100 H Urine Glucose (UA) NEGATIVE Urine Ketones TRACE H Urine Blood NEGATIVE Urine Nitrite NEGATIVE Urine Bilirubin NEGATIVE Urine Urobilinogen NEGATIVE Ur Leukocyte Esterase NEGATIVE Urine WBC (Auto) 5 Urine RBC (Auto) 5 U Hyaline Cast (Auto) 7 Squamous Epi Cells Auto 2 Urine Mucus (Auto) MANY Urine Ascorbic Acid 40 H COVID-19 Source 05/19/20 18:10 WBC RBC Hgb Hct MCV MCH MCHC RDW Plt Count Lymph % (Auto) [facility] % (Auto) Eos % (Auto) Baso % (Auto) Absolute Neuts (auto) Absolute Lymphs (auto) Absolute Monos (auto) Absolute Eos (auto) Absolute Basos (auto) Total Counted Seg Neutrophils % Seg Neuts % (Manual) Band Neutrophils % Lymphocytes % (Manual) Monocytes % (Manual) Eosinophils % (Manual) Basophils % (Manual) Abs Neuts (Manual) Abs Lymphs (Manual) Abs Monocytes (Manual) Absolute Eos (Manual) Abs Basophils (Manual) Hypersegmented Neuts Platelet Comment Anisocytosis Ovalocytes [place] Cells Sodium Potassium Chloride Carbon Dioxide Anion Gap BUN Creatinine Est GFR ( Amer) Est GFR (MDRD) Non-Af Glucose Calcium Total Bilirubin Direct Bilirubin Neonat Total Bilirubin Neonat Direct Bilirubin Neonat Indirect Bili AST ALT Alkaline Phosphatase Total Protein Albumin Lipase Urine Color Urine Appearance Urine pH Ur Specific [place] Urine Protein Urine Glucose (UA) Urine Ketones Urine Blood Urine Nitrite Urine Bilirubin Urine Urobilinogen Ur Leukocyte Esterase Urine WBC (Auto) Urine RBC (Auto) U Hyaline Cast (Auto) Squamous Epi Cells Auto Urine Mucus (Auto) Urine Ascorbic Acid COVID-19 Source See comment - Diagnostic Test Radiology reviewed: Reports reviewed Discharge - Discharge Clinical Impression: Perforated diverticulum, Hypoxia Abdominal pain Qualifiers: Abdominal location: lower abdomen, unspecified Qualified Code(s): R10.30 - Lower abdominal pain, unspecified Condition: Fair Disposition: ADMITTED INPATIENT Admitting Provider: Surgicalist Unit Admitted: Surgical Floor
--- NOTE | 2020-05-19 20:25 | RADIOLOGY REPORT (SQ) ---
COMPLETED DATE/TME: 05/19/2020 16:35 EXAM: CT abdomen and pelvis with contrast. INDICATION: Abdominal pain, acute. TECHNIQUE: Contiguous axial CT images of the abdomen and pelvis. Intravenous contrast: Present. Oral contrast: Absent. DLP 1077 mGy-cm. This exam was performed according to our departmental dose-optimization program, which includes automated exposure control, adjustment of the mA and/or kV according to patient size and/or use of iterative reconstruction technique. COMPARISON: 08/27/2019. FINDINGS: Lower chest: Partially imaged. Lung bases: Unremarkable. Cardiac apex: Unremarkable. Solid abdominal viscera: Liver: Mild fatty infiltration. Gallbladder: Unremarkable. Pancreas: Unremarkable. Spleen: Unremarkable. Adrenal glands: Unremarkable. Right kidney: No hydronephrosis. Parapelvic cysts are noted. Left kidney: No hydronephrosis. Parapelvic cysts are noted. Urinary bladder: Unremarkable. Abdominal aorta: Unremarkable. Peritoneal: Free fluid: None. Free air: Moderate Other: No pathologic sized lymph nodes in the upper abdomen. Bowel: Stomach: Unremarkable. Small bowel: Measures up to 4.1 cm in diameter along the left upper quadrant with no transition point. Appendix: Unremarkable. Colon: Perforated sigmoid diverticulitis of the proximal sigmoid colon. No evidence of an abscess formation. Rectum: Unremarkable. Uterus: Unremarkable. Bones: Unremarkable. IMPRESSION: Acute perforated sigmoid diverticulitis. Mildly dilated loops of small bowel likely secondary to an ileus.
[2020-05-19] MEDS ORDERED: PIPERACILLIN/TAZOBACTAM 3.375 GM VIAL IV ONE (20:41)
[2020-05-19 21:01] LABS: ARTERIAL BLOOD BASE EXCESS 1.7 mmol/L; ARTERIAL BLOOD H2CO3 1.21 mmol/L (1.05-1.35); ARTERIAL BLOOD HCO3 26.1 mmol/L (20-24); ARTERIAL BLOOD O2 SATURATION 87.8 % (94-98); ARTERIAL BLOOD PCO2 40.3 mmHg (35-45); ARTERIAL BLOOD PH 7.43 (7.35-7.45); ARTERIAL BLOOD TOTAL CO2 27.3 mmol/L (21-25)
[2020-05-19 21:03] LABS: ARTERIAL BLOOD FIO2 ROOM AIR
[2020-05-19] MEDS ORDERED: MORPHINE SULFATE 10 MG/ML INJ IV ONE (21:17)
[2020-05-19] MEDS ORDERED: DEXTROSE 40% GEL 15 GM TUBE PO PRN ×2 (22:24)
[2020-05-19] MEDS ORDERED: GLUCAGON,HUMAN RECOMB 1 MG INJ SUBCUT PRN (22:24)
[2020-05-19] MEDS ORDERED: DEXTROSE 50%-WATER 25 GM/50 ML DISP.SYRIN IV PRN ×2 (22:24)
--- NOTE | 2020-05-19 22:24 | PDOC H&P ---
History of Present Illness Admission Date/PCP: 05/19/20 21:34 DAVI KISNEY NP Patient complains of: Lower abdominal pain History of Present Illness: YVETTE HOYT is a 64 year old female with a history of rheumatoid arthritis, on Humira, presenting with abdominal pain. Abdominal pain started approximately 2 days ago, and has significantly worsened over the last 48 hours. Her pain began in her lower abdomen, and has now spread throughout. She reports nausea and vomiting. She also reports fevers and chills. She finds it difficult to take a deep breath, due to the abdominal pain. The pain is sharp and stabbing, and 10 out of 10. It radiates throughout her abdomen. Nothing makes it better. Movement and palpation make it worse. Past Medical History Cardiac Medical History: Denies: Myocardial Infarction, Hypertension Pulmonary Medical History: Denies: Asthma Neurological Medical History: Denies: Seizures GI Medical History: Reports: Hiatal Hernia Denies: Hepatitis Hematology: Denies: Anemia, Sickle Cell Disease Past Surgical History Past Surgical History: Denies: Amputation, Hysterectomy, Mastectomy, Pacemaker Social History Smoking Status: Never Smoker Electronic Cigarette use?: No Family History Parental Family History Reviewed: Yes Children Family History Reviewed: Yes Sibling(s) Family History Reviewed.: Yes Medication/Allergy Home Medications: Adalimumab [Humira] 40 mg SQ .Q 2 WKS 03/30/20 Aspirin [Aspirin 81 mg Chewable Tablet] 81 mg PO DAILY 03/30/20 Atorvastatin Calcium [Lipitor 40 mg Tablet] 40 mg PO QHS 03/30/20 Besifloxacin HCl [Besivance 0.6% Oph Susp 5 ml] 1 drop OP ASDIR PRN 03/30/20 Bromfenac Sodium [Prolensa] 1 drop OP ASDIR 03/30/20 Cholecalciferol (Vitamin D3) [Vitamin D3] 50 mcg PO DAILY 03/30/20 Difluprednate [Durezol] 1 drop OP ASDIR 03/30/20 Lutein/Zeaxanthin [Ocuvite Lutein 25-5 mg Softgel] 1 each PO BID 03/30/20 Meloxicam [Mobic] 7.5 mg PO DAILY 03/30/20 Methylprednisolone [Medrol] 4 mg PO ASDIR PRN 03/30/20 Pantoprazole Sodium 40 mg PO DAILY 03/30/20 Tramadol HCl [Ultram] 50 mg PO ASDIR PRN 03/30/20 Cetirizine HCl [Cetirizine 5 mg Tablet] 5 mg PO DAILY 05/09/20 Oxycodone HCl [Oxy-Ir 5 mg Tablet] 5 mg PO Q6HP PRN 05/09/20 Allergies/Adverse Reactions: No Known Allergies Allergy (Verified 05/19/20 16:30) Review of Systems Constitutional: PRESENT: anorexia, chills, fatigue, fever(s). ABSENT: headache(s), weakness Eyes: ABSENT: visual disturbances Ears: ABSENT: hearing changes Nose, Mouth, and Throat: ABSENT: sore throat Cardiovascular: ABSENT: chest pain Respiratory: ABSENT: cough Gastrointestinal: PRESENT: abdominal pain, bloating, nausea, vomiting Genitourinary: ABSENT: dysuria Musculoskeletal: ABSENT: back pain Integumentary: ABSENT: pruritus, rash Neurological: ABSENT: confusion, convulsions, dizziness Psychiatric: ABSENT: anxiety, depression Endocrine: ABSENT: cold intolerance, heat intolerance Hematologic/Lymphatic: ABSENT: easy bleeding, easy bruising Physical Exam Vital Signs: Temp Pulse Resp BP Pulse Ox 100.1 F 103 H 20 131/68 H 87 L 05/19/20 20:07 05/19/20 20:07 05/19/20 20:07 05/19/20 20:07 05/19/20 20:07 Intake & Output 05/18/20 05/19/20 05/20/20 06:59 06:59 06:59 Intake Total 100 Balance 100 Weight 74.2 kg General appearance: PRESENT: cooperative, mild distress - Abdominal pain Head exam: PRESENT: atraumatic, normocephalic Eye exam: PRESENT: EOMI, PERRLA. ABSENT: scleral icterus Mouth exam: PRESENT: moist, neck supple Neck exam: ABSENT: meningismus, tenderness, thyromegaly, tracheal deviation Respiratory exam: PRESENT: clear to auscultation juliocesar, tachypnea - Mild. ABSENT: wheezes Cardiovascular exam: PRESENT: tachycardia - Mild Vascular exam: PRESENT: normal capillary refill GI/Abdominal exam: PRESENT: guarding, rebound, tenderness - All 4 abdominal quadrants, worst in the left lower quadrant. ABSENT: distended Rectal exam: PRESENT: deferred Extremities exam: ABSENT: clubbing Musculoskeletal exam: ABSENT: deformity Neurological exam: PRESENT: alert, awake, oriented to person, oriented to place, oriented to time, oriented to situation Psychiatric exam: PRESENT: anxious. ABSENT: agitated, depressed Focused psych exam: ABSENT: delusional Skin exam: ABSENT: cyanosis, erythema, jaundice Results Laboratory Results: 05/19/20 18:00 05/19/20 18:00 05/19/20 05/19/20 05/19/20 17:50 18:00 18:00 WBC 28.7 H RBC 4.69 Hgb 13.1 Hct 40.0 MCV 85 MCH 28.0 MCHC 32.9 RDW 14.8 H Plt Count 258 Seg Neutrophils % Not Reportable Carbonic Acid HCO3/H2CO3 Ratio ABG pH ABG pCO2 ABG pO2 ABG HCO3 ABG O2 Saturation ABG Base Excess FiO2 Sodium 136.9 L Potassium 3.7 Chloride 96 L Carbon Dioxide 27 Anion Gap 14 BUN 15 Creatinine 0.80 Est GFR ( Amer) > 60 Glucose 140 H Calcium 10.4 H Total Bilirubin 1.0 AST 25 Alkaline Phosphatase 141 H Total Protein 7.4 Albumin 4.3 Lipase 40.3 Urine Color CARL Urine Appearance SLIGHTLY-CLOUDY Urine pH 5.0 Ur Specific [place] 1.028 Urine Protein 100 H Urine Glucose (UA) NEGATIVE Urine Ketones TRACE H Urine Blood NEGATIVE Urine Nitrite NEGATIVE Ur Leukocyte Esterase NEGATIVE Urine WBC (Auto) 5 Urine RBC (Auto) 5 05/19/20 20:35 WBC RBC Hgb Hct MCV MCH MCHC RDW Plt Count Seg Neutrophils % Carbonic Acid 1.21 HCO3/H2CO3 Ratio 21:1 ABG pH 7.43 ABG pCO2 40.3 ABG pO2 52.0 L ABG HCO3 26.1 H ABG O2 Saturation 87.8 L ABG Base Excess 1.7 FiO2 ROOM AIR Sodium Potassium Chloride Carbon Dioxide Anion Gap BUN Creatinine Est GFR ( Amer) Glucose Calcium Total Bilirubin AST Alkaline Phosphatase Total Protein Albumin Lipase Urine Color Urine Appearance Urine pH Ur Specific [place] Urine Protein Urine Glucose (UA) Urine Ketones Urine Blood Urine Nitrite Ur Leukocyte Esterase Urine WBC (Auto) Urine RBC (Auto) Impressions: Abdomen/Pelvis CT 05/19/20 16:35 IMPRESSION: Acute perforated sigmoid diverticulitis. Mildly dilated loops of small bowel likely secondary to an ileus. Chest X-Ray 05/19/20 17:31 IMPRESSION: NO ACUTE RADIOGRAPHIC FINDING IN THE CHEST. Assessment & Plan - Diagnosis (1) Acute abdomen Is this a current diagnosis for this admission?: Yes (2) Colon perforation Is this a current diagnosis for this admission?: Yes - Time Anticipated Discharge Disposition: unknown Anticipated Discharge Timeframe: unknown - Plan Summary Plan Summary: This is a 64-year-old female presenting with abdominal pain and acute abdomen. She has involuntary guarding, and signs of peritonitis. She has a CT scan showing free air throughout the abdomen. The majority of the area surrounding the sigmoid colon. I suspect this represents perforated diverticulitis. I have recommended exploration with sigmoid colectomy and ascending colostomy. I have discussed this with the patient, and several of her family members. They are in agreement with the treatment plan. Risks/benefits discussed, informed consent obtained, and all questions answered.
[2020-05-19] MEDS ORDERED: MIDAZOLAM 2 MG/2 ML INJ ONE (22:41)
[2020-05-19] MEDS ORDERED: PROPOFOL INJ 200 MG/20 ML VIAL IV ONE (22:41)
[2020-05-19] MEDS ORDERED: HYDROMORPHONE HCL INJ/PF 2 MG/ML AMPULE ONE (22:41)
[2020-05-19] MEDS ORDERED: BUPIVACAINE HCL 0.25 % INJ/PF (2.5 MG/1 ML) 30 ML VIAL ONE (23:19)
[2020-05-19] MEDS ORDERED: DEXAMETHASONE SOD PHOSPHATE INJ 4 MG/1 ML VIAL ONE (23:44)
[2020-05-19] MEDS ORDERED: MEPERIDINE HCL/PF INJ 25 MG/1 ML DISP.SYRIN IV PRN (23:59)
[2020-05-19] MEDS ORDERED: ONDANSETRON HCL INJ/PF 4 MG/2 ML SDV IV PRN (23:59)
[2020-05-19] MEDS ORDERED: DIPHENHYDRAMINE HCL 50 MG/ML VIAL IV PRN (23:59)
[2020-05-19] MEDS ORDERED: PROMETHAZINE HCL INJ 25 MG/1 ML VIAL IV PRN ×2 (23:59)
[2020-05-19] MEDS ORDERED: OXYCODONE-ACETAMINOPHEN 5-325 MG TABLET PO PRN ×2 (23:59)
[2020-05-19] MEDS ORDERED: FENTANYL CITRATE INJ/PF 100 MCG/2 ML AMPUL IV PRN ×3 (23:59)
[2020-05-20] MEDS ORDERED: FENTANYL CITRATE INJ/PF 100 MCG/2 ML AMPUL ONE (01:47)
[2020-05-20] MEDS ORDERED: PIPERACILLIN/TAZOBACTAM 3.375 GM VIAL IV PRN (02:09)
[2020-05-20] MEDS: DEXTROSE 5%-LACTATED RINGERS 1,000 ML IV PRN ×3 (02:44→23:52)
[2020-05-20 03:14] LABS: MEAN CORPUSCULAR HEMOGLOBIN 29.1 pg (27.0-33.4); MEAN CORPUSCULAR HGB CONC 34.3 g/dL (32.0-36.0); MEAN CORPUSCULAR VOLUME 85 fl (80-97); PLATELET COUNT 186 10^3/uL (150-450); RED BLOOD COUNT 4.12 10^6/uL (3.72-5.28); RED CELL DISTRIBUTION WIDTH 15.1 % (11.5-14.0); WHITE BLOOD COUNT 9.3 10^3/uL (4.0-10.5)
[2020-05-20 03:30] LABS: ABSOLUTE LYMPHOCYTES# (MANUAL) 0.9 10^3/uL (0.5-4.7); ABSOLUTE MONOCYTES # (MANUAL) 0.8 10^3/uL (0.1-1.4); ANION GAP 8 (5-19); BASOPHILS % (MANUAL) 0 % (0-2); BLOOD UREA NITROGEN 15 mg/dL (7-20); CALCIUM 8.6 mg/dL (8.4-10.2); CARBON DIOXIDE 25 mmol/L (22-30); CHLORIDE 103 mmol/L (98-107); EOSINOPHILS % (MANUAL) 0 % (0-6); GLUCOSE 165 mg/dL (75-110); LYMPHOCYTES % (MANUAL) 10 % (13-45); MONOCYTES % (MANUAL) 9 % (3-13); POTASSIUM 3.8 mmol/L (3.6-5.0); SEGMENTED NEUTROPHILS % (MAN) 81 % (42-78); TOTAL CELLS COUNTED 100
[2020-05-20 03:31] LABS: BURR CELLS 1+; OVALOCYTES 1+; PLATELET COMMENT ADEQUATE; POIKILOCYTOSIS 1+
[2020-05-20] MEDS ORDERED: PIPERACILLIN/TAZOBACTAM 3.375 GM VIAL IV ONE (05:00)
[2020-05-20] MEDS ORDERED: ACETAMINOPHEN 1,000 MG/100 ML RTUPB IV ONE (05:00)
[2020-05-20] MEDS: KETOROLAC TROMETHAMINE INJ/PF 30 MG/1 ML SDV IV SCH ×3 (05:14→21:10)
[2020-05-20] MEDS: ACETAMINOPHEN 1,000 MG/100 ML RTUPB IV SCH ×3 (05:18→21:12)
[2020-05-20] MEDS: PIPERACILLIN SODIUM/TAZOBACTAM 3.375 GM in NORMAL SALINE 100 ML IV SCH ×4 (06:26→23:51)
--- NOTE | 2020-05-20 08:21 | Operative Report ---
Nonrecallable Operative Report DATE OF SURGERY: 05/20/20 PREOPERATIVE DIAGNOSIS: 1. Free air. 2. Acute abdomen POSTOPERATIVE DIAGNOSIS: Sigmoid perforation on the antimesenteric side, causing feculent peritonitis. OPERATION: 1. Exploratory laparotomy. 2. Sigmoid colectomy with end colostomy (Blackmon's procedure). 3. Mobilization of the splenic flexure SURGEON: JUDSON JENSEN ANESTHESIA: GA TISSUE REMOVED OR ALTERED: Sigmoid colon COMPLICATIONS: None apparent ESTIMATED BLOOD LOSS: 50 cc PROCEDURE: Drains/implants: None. Procedure in detail: After informed consent was obtained, the patient was brought to the operating room and laid in the supine position. The area of the abdomen was prepped and draped in a normal sterile fashion. An incision was created from just above the umbilicus, down to the pubic symphysis. Dissection was carried through the subcutaneous tissues using sharp and blunt dissection. The linea alba fascia was incised sharply, the abdomen was entered sharply. Upon entry into the abdomen, there was noted to be feculent/turbid fluid present. The abdomen was opened, and copiously irrigated with saline solution. There was a large amount of inflammation in the sigmoid colon. The contour stapler was then used to divide the distal sigmoid colon, distal to the area of inflammation. This was then marked with a #1 Prolene suture for later identification. Next attention was turned to exposure and mobilization of the colon. The white line of Toldt was taken down using Metzenbaum scissors. The colon was rotated medially. A portion on the distal descending colon was found to be free of any active inflammation. This was divided using the contour stapler. The sigmoid colon was then removed from its mesentery using the LigaSure device. A large, greater than 1 cm perforation was identified on the mesenteric border of the sigmoid colon. This is the cause of her free air and feculent peritonitis. The bowel was inspected. There is no evidence for colon cancer or tumor. After the diseased colon was removed, the abdomen was copiously irrigated and suctioned, until the effluent was clear. Next attention was turned to placement of the colostomy. The cut end of the distal descending colon would not reach up and out of the abdominal wall. In light of this, mobilization of the splenic flexure would be necessary. The white line of Toldt was further divided proximally, the omentum was freed from the distal transverse colon. The splenic flexure was freed using a mixture of blunt dissection, sharp dissection, and electrocautery. Once the splenic flexure was fully mobilized, the descending colon would have no problem reaching the anterior abdominal wall for a colostomy. A point between the umbilicus and ASIS was chosen for the colostomy. A small ring of skin was removed. Dissection was carried down to the fascia using blunt dissection. A cruciate incision was created in the anterior fascia. The rectus muscle was spread, and a cruciate incision was performed on the posterior layers. The colon was brought out through the newly created defect. Attention was then turned to more irrigation of the abdomen, and closure. The abdomen was again copiously irrigated and suctioned. The midline fascia was closed using #1 double-stranded looped PDS suture in simple running fashion. The overlying skin was closed using skin eloy with intervening packing. Next, the colostomy was matured in Marleni fashion. This was performed using 3-0 Vicryl pop-off sutures. Once the colostomy was matured, an ostomy appliance was placed. Next, dressings were fabricated, and the procedure was concluded. All sponge, instrument, and needle counts were correct x2. Condition: Stable.
[2020-05-20] MEDS: ENOXAPARIN SODIUM INJ 40 MG/0.4 ML DISP.SYRIN SUBCUT SCH (10:12)
[2020-05-20] MEDS: FAMOTIDINE INJ/PF 20 MG/2 ML SDV IV SCH ×4 (10:16→21:10)
[2020-05-20] MEDS: ONDANSETRON HCL INJ/PF 4 MG/2 ML SDV IV PRN (14:40)
--- NOTE | 2020-05-20 18:27 | RADIOLOGY REPORT (SQ) ---
EXAM DESCRIPTION: KUB/ABDOMEN (SINGLE VIEW) IMAGES COMPLETED DATE/TIME: 05/20/2020 6:15 pm REASON FOR STUDY: NGT PLACEMENT COMPARISON: None. NUMBER OF VIEWS: One view. TECHNIQUE: Supine radiographic image of the abdomen acquired. LIMITATIONS: None. FINDINGS: BOWEL GAS PATTERN: Mildly dilated loops of small bowel to left of midline most likely post op ileus. CALCIFICATIONS: No suspicious calcifications. SOFT TISSUES: No gross mass or suggestion of organomegaly. HARDWARE: None in the abdomen. BONES: No acute fracture. No worrisome bone lesions. OTHER: Lower midline skin eloy. Nasogastric tube tip overlying stomach. IMPRESSION: Good position of nasogastric tube. TECHNICAL DOCUMENTATION: JOB ID: [id number] 2010 [employer]- All Rights Reserved Reading location - IP/workstation name: [email or web address]
[2020-05-20] MEDS: MORPHINE SULFATE 10 MG/ML INJ IV PRN (18:40)
[2020-05-21] MEDS: MORPHINE SULFATE 10 MG/ML INJ IV PRN ×3 (03:12→21:35)
[2020-05-21] MEDS: ACETAMINOPHEN 1,000 MG/100 ML RTUPB IV SCH ×3 (05:05→21:36)
[2020-05-21] MEDS: PIPERACILLIN SODIUM/TAZOBACTAM 3.375 GM in NORMAL SALINE 100 ML IV SCH ×4 (05:19→23:54)
[2020-05-21] MEDS: KETOROLAC TROMETHAMINE INJ/PF 30 MG/1 ML SDV IV SCH ×3 (05:19→21:36)
--- NOTE | 2020-05-21 08:03 | PDOC PROGRESS REPORT ---
Subjective Progress Note for:: 05/21/20 Subjective:: vomited yesterday, required ng tube Reason For Visit: COLONIC PERFORATION,FREE AIR,ACUTE ABDOMEN Physical Exam Vital Signs: Temp Pulse Resp BP Pulse Ox 97.5 F 88 17 140/77 H 90 L 05/21/20 04:52 05/21/20 04:52 05/21/20 04:52 05/21/20 04:52 05/21/20 04:52 Intake & Output 05/20/20 05/21/20 05/22/20 07:59 06:59 06:59 Intake Total Output Total Balance Weight General appearance: PRESENT: no acute distress, obese Head exam: PRESENT: normocephalic Eye exam: PRESENT: EOMI Ear exam: PRESENT: normal external ear exam Mouth exam: PRESENT: moist Neck exam: PRESENT: full ROM Respiratory exam: PRESENT: clear to auscultation juliocesar Cardiovascular exam: PRESENT: RRR Pulses: PRESENT: normal radial pulses, normal femoral pulses Vascular exam: PRESENT: normal capillary refill Breast: PRESENT: Normal GI/Abdominal exam: PRESENT: soft, other - stoma pink, productive of gas Rectal exam: PRESENT: deferred Gentrourinary exam: PRESENT: indwelling catheter Extremities exam: PRESENT: full ROM Musculoskeletal exam: PRESENT: full ROM Neurological exam: PRESENT: alert, awake, oriented to person, oriented to place Psychiatric exam: PRESENT: appropriate affect Skin exam: PRESENT: dry Results Laboratory Results: 05/20/20 03:01 05/20/20 03:01 Impressions: Abdomen/Pelvis CT 05/19/20 16:35 IMPRESSION: Acute perforated sigmoid diverticulitis. Mildly dilated loops of small bowel likely secondary to an ileus. Chest X-Ray 05/19/20 17:31 IMPRESSION: NO ACUTE RADIOGRAPHIC FINDING IN THE CHEST. KUB X-Ray 05/20/20 00:00 IMPRESSION: Good position of nasogastric tube. Assessment & Plan - Time Anticipated Discharge Disposition: Home, Self Care Anticipated Discharge Timeframe: unk - Plan Summary Plan Summary: pod 1 s/p sigmoid colectomy doing ok required ng yesterday for vomiting, however feels sbetter today passing flatus via stoma plan cont ng today, cont viveros and abx out of bed today dressing changed and nilda removed.
[2020-05-21] MEDS: DEXTROSE 5%-LACTATED RINGERS 1,000 ML IV PRN ×2 (09:01→19:49)
[2020-05-21] MEDS: ENOXAPARIN SODIUM INJ 40 MG/0.4 ML DISP.SYRIN SUBCUT SCH (09:04)
[2020-05-21] MEDS: FAMOTIDINE INJ/PF 20 MG/2 ML SDV IV SCH ×2 (09:04→21:36)
[2020-05-22] MEDS: DEXTROSE 5%-LACTATED RINGERS 1,000 ML IV PRN (05:04)
[2020-05-22] MEDS: KETOROLAC TROMETHAMINE INJ/PF 30 MG/1 ML SDV IV SCH ×3 (05:05→23:08)
[2020-05-22] MEDS: ACETAMINOPHEN 1,000 MG/100 ML RTUPB IV SCH ×2 (05:06→13:31)
[2020-05-22] MEDS: PIPERACILLIN SODIUM/TAZOBACTAM 3.375 GM in NORMAL SALINE 100 ML IV SCH ×4 (05:06→23:09)
[2020-05-22 08:53] LABS: ABSOLUTE EOSINOPHILS # (AUTO) 0.5 10^3/uL (0.0-0.6); ABSOLUTE LYMPHOCYTES (AUTO) 0.9 10^3/uL (0.5-4.7); ABSOLUTE MONOCYTES (AUTO) 0.6 10^3/uL (0.1-1.4); ABSOLUTE NEUT (AUTO) 6.2 10^3/uL (1.7-8.2); BASOPHILS % (AUTO) 0.2 % (0-2); EOSINOPHILS % (AUTO) 5.6 % (0-6); HEMATOCRIT 28.9 % (36.0-47.0); LYMPHOCYTES % (AUTO) 11.5 % (13-45); MEAN CORPUSCULAR HEMOGLOBIN 28.5 pg (27.0-33.4); MEAN CORPUSCULAR HGB CONC 33.6 g/dL (32.0-36.0); MEAN CORPUSCULAR VOLUME 85 fl (80-97); MONOCYTES % (AUTO) 6.9 % (3-13); PLATELET COUNT 220 10^3/uL (150-450); RED BLOOD COUNT 3.41 10^6/uL (3.72-5.28); RED CELL DISTRIBUTION WIDTH 15.7 % (11.5-14.0); SEGMENTED NEUTROPHILS % (AUTO) 75.8 % (42-78); TOTAL CELLS COUNTED % (AUTO) 100 %; WHITE BLOOD COUNT 8.1 10^3/uL (4.0-10.5)
[2020-05-22 08:57] LABS: ANION GAP 5 (5-19); BLOOD UREA NITROGEN 14 mg/dL (7-20); CALCIUM 8.3 mg/dL (8.4-10.2); CARBON DIOXIDE 29 mmol/L (22-30); CHLORIDE 106 mmol/L (98-107); GLUCOSE 84 mg/dL (75-110); POTASSIUM 3.6 mmol/L (3.6-5.0)
[2020-05-22 08:59] LABS: HEMOGLOBIN 9.7 g/dL (12.0-15.5)
[2020-05-22] MEDS: MORPHINE SULFATE 10 MG/ML INJ IV PRN (11:47)
[2020-05-22] MEDS: FAMOTIDINE INJ/PF 20 MG/2 ML SDV IV SCH ×2 (11:47→23:09)
[2020-05-22] MEDS: ENOXAPARIN SODIUM INJ 40 MG/0.4 ML DISP.SYRIN SUBCUT SCH (11:48)
--- NOTE | 2020-05-22 18:26 | PDOC PROGRESS REPORT ---
Subjective Progress Note for:: 05/22/20 Reason For Visit: COLONIC PERFORATION,FREE AIR,ACUTE ABDOMEN Physical Exam Vital Signs: Temp Pulse Resp BP Pulse Ox 97.6 F 78 17 101/58 L 90 L 05/22/20 15:28 05/22/20 15:28 05/22/20 15:28 05/22/20 15:28 05/22/20 15:28 Intake & Output 05/21/20 05/22/20 05/23/20 06:59 06:59 06:59 Intake Total 2750 Output Total 1025 400 Balance 1725 -400 Weight 80.2 kg Results Laboratory Results: 05/22/20 08:19 05/22/20 08:19 05/22/20 05/22/20 08:19 08:19 WBC 8.1 RBC 3.41 L Hgb 9.7 L D Hct 28.9 L MCV 85 MCH 28.5 MCHC 33.6 RDW 15.7 H Plt Count 220 Seg Neutrophils % 75.8 Sodium 140.1 Potassium 3.6 Chloride 106 Carbon Dioxide 29 Anion Gap 5 BUN 14 Creatinine 0.66 Est GFR ( Amer) > 60 Glucose 84 Calcium 8.3 L 05/19/20 21:45 Blood Blood Culture - Final Escherichia Coli Impressions: Abdomen/Pelvis CT 05/19/20 16:35 IMPRESSION: Acute perforated sigmoid diverticulitis. Mildly dilated loops of small bowel likely secondary to an ileus. Chest X-Ray 05/19/20 17:31 IMPRESSION: NO ACUTE RADIOGRAPHIC FINDING IN THE CHEST. KUB X-Ray 05/20/20 00:00 IMPRESSION: Good position of nasogastric tube. Assessment & Plan - Diagnosis (1) Acute abdomen Is this a current diagnosis for this admission?: Yes (2) Colon perforation Is this a current diagnosis for this admission?: Yes - Time Anticipated Discharge Disposition: Home, Self Care Anticipated Discharge Timeframe: within 72 hours - Plan Summary Plan Summary: 64-year-old female status post Blackmon's procedure for perforated diverticulitis. Her ostomy is pink. Her NG tube is minimally productive. She is seeing flatus in the colostomy bag. There is no stool yet. I will discontinue her NG tube, and allow her to have ice chips, popsicles, and sips of clear liquids. No tray yet. Discontinue Kitchen. Awaiting bowel function. Out of bed, ambulate. Aggressive pulmonary toilet. Lovenox for DVT prophylaxis. Add oral pain medicine.
[2020-05-22] MEDS: HYDROCODONE/ACETAMINOPHEN 10-325 MG TABLET PO PRN ×2 (18:56→23:07)
[2020-05-23] MEDS: DEXTROSE 5%-LACTATED RINGERS 1,000 ML IV PRN ×2 (01:45→23:34)
[2020-05-23] MEDS: KETOROLAC TROMETHAMINE INJ/PF 30 MG/1 ML SDV IV SCH ×3 (06:06→22:00)
[2020-05-23] MEDS: PIPERACILLIN SODIUM/TAZOBACTAM 3.375 GM in NORMAL SALINE 100 ML IV SCH ×4 (06:06→23:34)
[2020-05-23 07:53] LABS: ANION GAP 6 (5-19); BLOOD UREA NITROGEN 15 mg/dL (7-20); CALCIUM 8.4 mg/dL (8.4-10.2); CARBON DIOXIDE 29 mmol/L (22-30); CHLORIDE 107 mmol/L (98-107); GLUCOSE 100 mg/dL (75-110); POTASSIUM 3.2 mmol/L (3.6-5.0)
--- NOTE | 2020-05-23 09:16 | PDOC PROGRESS REPORT ---
Subjective Progress Note for:: 05/23/20 Subjective:: Has gas in colostomy bag per nurses. Mild LLQ pains Reason For Visit: COLONIC PERFORATION,FREE AIR,ACUTE ABDOMEN Physical Exam Vital Signs: Temp Pulse Resp BP Pulse Ox 97.8 F 89 17 131/59 H 92 05/23/20 00:10 05/23/20 00:10 05/23/20 00:10 05/23/20 00:10 05/23/20 00:10 Intake & Output 05/22/20 05/23/20 05/24/20 06:59 06:59 06:59 Intake Total 2750 1620 Output Total 1025 400 Balance 1725 1220 Weight 80.2 kg 85.1 kg Exam: Afrebrile,Colostomy pink with 5 ccs of clear light bloody drainage. About 3 are as in the abdominal incision skin open 1-2". Results Laboratory Results: 05/22/20 08:19 05/23/20 06:28 05/23/20 06:28 Sodium 142.2 Potassium 3.2 L Chloride 107 Carbon Dioxide 29 Anion Gap 6 BUN 15 Creatinine 0.59 Est GFR ( Amer) > 60 Glucose 100 Calcium 8.4 05/19/20 21:45 Blood Blood Culture - Final Escherichia Coli Impressions: Abdomen/Pelvis CT 05/19/20 16:35 IMPRESSION: Acute perforated sigmoid diverticulitis. Mildly dilated loops of small bowel likely secondary to an ileus. Chest X-Ray 05/19/20 17:31 IMPRESSION: NO ACUTE RADIOGRAPHIC FINDING IN THE CHEST. KUB X-Ray 05/20/20 00:00 IMPRESSION: Good position of nasogastric tube. Assessment & Plan - Diagnosis (1) Perforateed acute diverticulitis Is this a current diagnosis for this admission?: Yes (2) Peritonitis Is this a current diagnosis for this admission?: Yes - Time Critical Time spent with patient: 15-24 minutes Anticipated Discharge Disposition: Home, Self Care Anticipated Discharge Timeframe: 1 week - Inpatient Certification Medical Necessity: Need for IV Antibiotics - Plan Summary Plan Summary: POD 4. open sigmoid resection with colostomy. Has passed gas in colostomy bag. WBC normal Plans: Start clears and increase as tolerated. Continue IV [id number] hrs.
[2020-05-23] MEDS ORDERED: POTASSI CL 20 MEQ/50 ML RIDER 20 MEQ/50 ML RTUPB IV ONE (09:30)
[2020-05-23] MEDS: FAMOTIDINE INJ/PF 20 MG/2 ML SDV IV SCH ×2 (10:33→22:00)
[2020-05-23] MEDS: ENOXAPARIN SODIUM INJ 40 MG/0.4 ML DISP.SYRIN SUBCUT SCH (10:34)
[2020-05-23] MEDS: ONDANSETRON HCL INJ/PF 4 MG/2 ML SDV IV PRN (10:59)
[2020-05-23] MEDS: HYDROCODONE/ACETAMINOPHEN 10-325 MG TABLET PO PRN (23:49)
[2020-05-24] MEDS: PIPERACILLIN SODIUM/TAZOBACTAM 3.375 GM in NORMAL SALINE 100 ML IV SCH ×4 (06:00→23:05)
[2020-05-24] MEDS: KETOROLAC TROMETHAMINE INJ/PF 30 MG/1 ML SDV IV SCH ×3 (06:01→22:59)
[2020-05-24] MEDS: ENOXAPARIN SODIUM INJ 40 MG/0.4 ML DISP.SYRIN SUBCUT SCH (10:22)
[2020-05-24] MEDS: FAMOTIDINE INJ/PF 20 MG/2 ML SDV IV SCH ×2 (10:23→22:59)
[2020-05-24] MEDS: MORPHINE SULFATE 10 MG/ML INJ IV PRN ×2 (12:36→22:59)
[2020-05-24] MEDS: DEXTROSE 5%-LACTATED RINGERS 1,000 ML IV PRN ×2 (14:14→14:17)
--- NOTE | 2020-05-24 21:46 | PDOC PROGRESS REPORT ---
Subjective Progress Note for:: 05/24/20 Subjective:: Less pains. Some discomfort on the pubic area. Colostomies appears to be functioning well with saw formed stool and gas. Reason For Visit: COLONIC PERFORATION,FREE AIR,ACUTE ABDOMEN Physical Exam Vital Signs: Temp Pulse Resp BP Pulse Ox 98.6 F 89 16 145/62 H 90 L 05/24/20 19:21 05/24/20 19:21 05/24/20 19:21 05/24/20 19:21 05/24/20 19:21 Intake & Output 05/23/20 05/24/20 05/25/20 06:59 06:59 06:59 Intake Total 1620 1450 1526 Output Total 400 950 Balance 1220 1450 576 Weight 85.1 kg 87.2 kg Exam: The incision site appears to be erythematous and old incision eloy were removed except for a couple on the umbilical area. There was some slight purulent material that was removed and the wound was then packed with wet-to-dry saline dressings. There is some mild redness on the skin on the pubic area with mild tenderness. Results Laboratory Results: 05/22/20 08:19 05/23/20 06:28 Impressions: Abdomen/Pelvis CT 05/19/20 16:35 IMPRESSION: Acute perforated sigmoid diverticulitis. Mildly dilated loops of small bowel likely secondary to an ileus. Chest X-Ray 05/19/20 17:31 IMPRESSION: NO ACUTE RADIOGRAPHIC FINDING IN THE CHEST. KUB X-Ray 05/20/20 00:00 IMPRESSION: Good position of nasogastric tube. Assessment & Plan - Diagnosis (1) Perforateed acute diverticulitis Is this a current diagnosis for this admission?: Yes (2) Peritonitis Is this a current diagnosis for this admission?: Yes - Time Critical Time spent with patient: 15-24 minutes Anticipated Discharge Disposition: Home, Self Care Anticipated Discharge Timeframe: within 72 hours - Inpatient Certification Medical Necessity: Need for IV Antibiotics - Plan Summary Plan Summary: Fourth postop day post sigmoid colon resection with end sigmoid colostomy for perforated diverticulitis with peritonitis. Patient is doing fairly well with her colostomy starting to function well today. We will increase her diet to regular. The wound appears to be infected but appears to be not involving the fascia after removal of practically all the eloy. Continue with wet-to-dry dressings twice a day. Continue with IV antibiotics for the next 48 to 72 hours.
[2020-05-25] MEDS: HYDROCODONE/ACETAMINOPHEN 10-325 MG TABLET PO PRN ×4 (05:34→21:13)
[2020-05-25] MEDS: PIPERACILLIN SODIUM/TAZOBACTAM 3.375 GM in NORMAL SALINE 100 ML IV SCH ×4 (05:34→23:42)
[2020-05-25] MEDS: FAMOTIDINE INJ/PF 20 MG/2 ML SDV IV SCH ×2 (09:39→21:13)
[2020-05-25] MEDS: ENOXAPARIN SODIUM INJ 40 MG/0.4 ML DISP.SYRIN SUBCUT SCH (09:40)
[2020-05-25] MEDS: MORPHINE SULFATE 10 MG/ML INJ IV PRN (15:43)
--- NOTE | 2020-05-25 16:22 | PDOC PROGRESS REPORT ---
Subjective Progress Note for:: 05/25/20 Reason For Visit: COLONIC PERFORATION,FREE AIR,ACUTE ABDOMEN Patient tolerating p.o., having some ostomy output; complaining of abdominal pain. Voiding with Kitchen out; no drains. Physical Exam Vital Signs: Temp Pulse Resp BP Pulse Ox 98.3 F 90 16 138/67 H 92 05/25/20 11:24 05/25/20 11:24 05/25/20 11:24 05/25/20 11:24 05/25/20 11:24 Intake & Output 05/24/20 05/25/20 05/26/20 06:59 06:59 06:59 Intake Total 1450 1926 557 Output Total 950 Balance 1450 976 557 Weight 87.2 kg 83.7 kg General appearance: PRESENT: other - Mild distress GI/Abdominal exam: PRESENT: other - Abdominal wall dressing removed. Marked edema and erythema in various areas of the abdominal wall including supraumbilical skin flaps, suprapubic area and between the open midline incision and the colostomy. All packing removed, remaining eloy removed, and at bedside all subcutaneous loculations and purulent discharge broken up, wound irrigated with peroxide and repacked. Results Laboratory Results: 05/22/20 08:19 05/23/20 06:28 05/20/20 03:01 Blood Blood Culture - Final NO GROWTH IN 5 DAYS Impressions: Abdomen/Pelvis CT 05/19/20 16:35 IMPRESSION: Acute perforated sigmoid diverticulitis. Mildly dilated loops of small bowel likely secondary to an ileus. Chest X-Ray 05/19/20 17:31 IMPRESSION: NO ACUTE RADIOGRAPHIC FINDING IN THE CHEST. KUB X-Ray 05/20/20 00:00 IMPRESSION: Good position of nasogastric tube. Assessment & Plan - Diagnosis (1) Wound, surgical, infected Is this a current diagnosis for this admission?: Yes Plan: Impression: Anterior abdominal wall of cellulitis, and superficial surgical wound site infection, now open to the fascia, with wound packed. Patient otherwise doing well with ostomy functioning. Plan: 1. Explained to patient she now has an open wound which will require packing and closure by secondary intention. Patient understands she will be here through the weekend 2. We will increase antibiotic spectrum by adding Flagyl IV every 8 hours 3. Formal dressing changes have been ordered. (2) Status post exploratory laparotomy Is this a current diagnosis for this admission?: Yes (3) Colon perforation Is this a current diagnosis for this admission?: Yes - Time Time Spent: 30 to 50 Minutes Critical Time spent with patient: 15-24 minutes Smoking Cessation Education: 3 to 10 minutes Medications reviewed and adjusted accordingly: Yes Anticipated Discharge Disposition: Home, Self Care Anticipated Discharge Timeframe: within 72 hours
[2020-05-25] MEDS: METRONIDAZOLE 500 MG/NS RTU 500 MG/100 ML RTUPB IV SCH (17:07)
[2020-05-26] MEDS: METRONIDAZOLE 500 MG/NS RTU 500 MG/100 ML RTUPB IV SCH ×3 (02:50→17:35)
[2020-05-26] MEDS: MORPHINE SULFATE 10 MG/ML INJ IV PRN (05:18)
[2020-05-26] MEDS: PIPERACILLIN SODIUM/TAZOBACTAM 3.375 GM in NORMAL SALINE 100 ML IV SCH ×4 (05:18→23:19)
[2020-05-26] MEDS: FAMOTIDINE INJ/PF 20 MG/2 ML SDV IV SCH ×2 (09:00→21:05)
[2020-05-26] MEDS: ENOXAPARIN SODIUM INJ 40 MG/0.4 ML DISP.SYRIN SUBCUT SCH (09:00)
[2020-05-26] MEDS: HYDROCODONE/ACETAMINOPHEN 10-325 MG TABLET PO PRN ×4 (09:16→23:20)
[2020-05-26] MEDS: DEXTROSE 5%-LACTATED RINGERS 1,000 ML IV PRN ×2 (13:17→23:19)
--- NOTE | 2020-05-26 14:42 | PDOC PROGRESS REPORT ---
Subjective Progress Note for:: 05/26/20 Subjective:: Abdominal incisional pains. Colostomy has been functioning a lot better today. Patient tolerating regular diet but has some anorexia or she does not really like the food I told her to order what food she wants to eat Reason For Visit: COLONIC PERFORATION,FREE AIR,ACUTE ABDOMEN Physical Exam Vital Signs: Temp Pulse Resp BP Pulse Ox 97.9 F 80 17 144/68 H 92 05/26/20 11:30 05/26/20 11:30 05/26/20 11:30 05/26/20 11:30 05/26/20 11:30 Intake & Output 05/25/20 05/26/20 05/27/20 06:59 06:59 06:59 Intake Total 2926 1565 556 Output Total 950 100 Balance 1975 1565 456 Weight 83.7 kg 84.7 kg 84.7 kg Exam: Abdominal skin incision opened up completely by Dr. Hunter yesterday. The wound looks relatively good. The bottom part appears to be intact. The subcu part is red. No drainage. Results Laboratory Results: 05/22/20 08:19 05/23/20 06:28 Impressions: Abdomen/Pelvis CT 05/19/20 16:35 IMPRESSION: Acute perforated sigmoid diverticulitis. Mildly dilated loops of small bowel likely secondary to an ileus. Chest X-Ray 05/19/20 17:31 IMPRESSION: NO ACUTE RADIOGRAPHIC FINDING IN THE CHEST. KUB X-Ray 05/20/20 00:00 IMPRESSION: Good position of nasogastric tube. Assessment & Plan - Diagnosis (1) Perforateed acute diverticulitis Is this a current diagnosis for this admission?: Yes (2) Peritonitis Is this a current diagnosis for this admission?: Yes - Time Critical Time spent with patient: 15-24 minutes Anticipated Discharge Disposition: Home, Self Care Anticipated Discharge Timeframe: 1 week - Inpatient Certification Medical Necessity: Need for IV Antibiotics, Risk of Complication if Not Cared For in Hospital - Plan Summary Plan Summary: Postop day #7 post Blackmon's procedure. Cellulitis of the abdominal incision and all the eloy were removed and undergoing wet-to-dry dressings every 12 hours. Colostomy is functioning well and patient able to tolerate a regular diet. However intake is still quite low since she does not like the food. I told her she can order the food that she likes. Plans: Continue to increase her diet. Wet-to-dry dressings to abdominal incision every 12 hours. Continue IV antibiotics for now
[2020-05-27] MEDS: METRONIDAZOLE 500 MG/NS RTU 500 MG/100 ML RTUPB IV SCH ×2 (03:29→09:21)
[2020-05-27] MEDS: HYDROCODONE/ACETAMINOPHEN 10-325 MG TABLET PO PRN ×2 (03:29→09:25)
[2020-05-27 06:35] LABS: HEMATOCRIT 28.4 % (36.0-47.0); HEMOGLOBIN 9.5 g/dL (12.0-15.5); MEAN CORPUSCULAR HGB CONC 33.5 g/dL (32.0-36.0); MEAN CORPUSCULAR VOLUME 84 fl (80-97); PLATELET COUNT 429 10^3/uL (150-450); RED BLOOD COUNT 3.39 10^6/uL (3.72-5.28); RED CELL DISTRIBUTION WIDTH 15.4 % (11.5-14.0); WHITE BLOOD COUNT 12.6 10^3/uL (4.0-10.5)
[2020-05-27 07:21] LABS: ABSOLUTE LYMPHOCYTES# (MANUAL) 1.6 10^3/uL (0.5-4.7); ABSOLUTE MONOCYTES # (MANUAL) 1.3 10^3/uL (0.1-1.4); BASOPHILS % (MANUAL) 0 % (0-2); EOSINOPHILS % (MANUAL) 1 % (0-6); LYMPHOCYTES % (MANUAL) 13 % (13-45); MONOCYTES % (MANUAL) 10 % (3-13); SEGMENTED NEUTROPHILS % (MAN) 76 % (42-78); TOTAL CELLS COUNTED 100
[2020-05-27 07:26] LABS: ANISOCYTOSIS SLIGHT; PLATELET COMMENT ADEQUATE
[2020-05-27] MEDS: ONDANSETRON HCL INJ/PF 4 MG/2 ML SDV IV PRN ×2 (08:04→17:28)
[2020-05-27] MEDS: ENOXAPARIN SODIUM INJ 40 MG/0.4 ML DISP.SYRIN SUBCUT SCH (09:21)
[2020-05-27] MEDS: FAMOTIDINE INJ/PF 20 MG/2 ML SDV IV SCH (09:21)
[2020-05-27] MEDS: DEXTROSE 5%-LACTATED RINGERS 1,000 ML IV PRN (09:29)
[2020-05-27] MEDS ORDERED: ACETAMINOPHEN 325 MG TABLET PO PRN (10:19)
--- NOTE | 2020-05-27 10:36 | PDOC PROGRESS REPORT ---
Subjective Progress Note for:: 05/27/20 Subjective:: Patient comfortable, ready to be discharged to home, tolerating p.o. well, reports to be able to replace the colostomy bag, she feels uncomfortable in replacing the wet-to-dry dressings of the abdominal wound Reason For Visit: COLONIC PERFORATION,FREE AIR,ACUTE ABDOMEN Physical Exam Vital Signs: Temp Pulse Resp BP Pulse Ox 98.3 F 78 18 167/81 H 100 05/27/20 07:24 05/27/20 07:24 05/27/20 07:24 05/27/20 07:24 05/27/20 07:24 Intake & Output 05/26/20 05/27/20 05/28/20 06:59 06:59 06:59 Intake Total 1565 2256 1000 Output Total 150 Balance 1565 2106 1000 Weight 84.7 kg 83.7 kg General appearance: PRESENT: no acute distress Head exam: PRESENT: atraumatic Respiratory exam: PRESENT: clear to auscultation [email or web address] Cardiovascular exam: PRESENT: RRR GI/Abdominal exam: PRESENT: soft, other - Midline incision open, fascia visible underneath and dehisced, no evidence of evisceration, wound edges granulating wi th no drainage and no odor, no surrounding erythema; colostomy pink, viable, with gas and stool in the colostomy bag Results Laboratory Results: 05/27/20 05:46 05/23/20 06:28 05/27/20 05:46 WBC 12.6 H RBC 3.39 L Hgb 9.5 L Hct 28.4 L MCV 84 MCH 28.0 MCHC 33.5 RDW 15.4 H Plt Count 429 Seg Neutrophils % Not Reportable Impressions: Abdomen/Pelvis CT 05/19/20 16:35 IMPRESSION: Acute perforated sigmoid diverticulitis. Mildly dilated loops of small bowel likely secondary to an ileus. Chest X-Ray 05/19/20 17:31 IMPRESSION: NO ACUTE RADIOGRAPHIC FINDING IN THE CHEST. KUB X-Ray 05/20/20 00:00 IMPRESSION: Good position of nasogastric tube. Assessment & Plan - Diagnosis (1) Perforateed acute diverticulitis Is this a current diagnosis for this admission?: Yes (2) Wound, surgical, infected Is this a current diagnosis for this admission?: Yes - Time Anticipated Discharge Disposition: Home with Home Health Anticipated Discharge Timeframe: within 72 hours - Plan Summary Plan Summary: Assessment: Postop day #8 following sigmoidectomy with Suzanna pouch for perforated sigmoid diverticulitis Patient feeling well Vital signs stable, patient afebrile Physical exam demonstrates a soft abdomen with midline incision completely open, fascia visible dehisced without evisceration, granulating Colostomy pink and well working Slight leukocytosis 12.1, cause unknown Patient uncomfortable with dressing changes by herself Plan: Hep-Lock IV fluids Stop narcotics Start Tylenol and Aleve as needed for pain Ambulate 3 times a day Incentive spirometer to be used 10 times each hour Stop Flagyl Start Augmentin 875 mg p.o. twice a day Obtain chest x-ray PA and lateral views stat Obtain UA with reflex test start Teach patient and family members colostomy bag replacement as well as dressing changes technique Home health involved Plan discharge on Friday
--- NOTE | 2020-05-27 12:04 | RADIOLOGY REPORT (SQ) ---
EXAM DESCRIPTION: CHEST 2 VIEWS IMAGES COMPLETED DATE/TIME: 05/27/2020 11:49 am REASON FOR STUDY: S/p colostomy, leukocytosis, rule out pneumonia COMPARISON: 05/19/2020 EXAM PARAMETERS: NUMBER OF VIEWS: two views TECHNIQUE: Digital Frontal and Lateral radiographic views of the chest acquired. RADIATION DOSE: NA LIMITATIONS: none FINDINGS: LUNGS AND PLEURA: Linear atelectasis at the bases. No acute opacities. MEDIASTINUM AND HILAR STRUCTURES: No masses or contour abnormalities. HEART AND VASCULAR STRUCTURES: Heart normal size. No evidence for failure. BONES: No acute findings. HARDWARE: None in the chest. OTHER: No other significant finding. IMPRESSION: Linear atelectasis at the lung bases. TECHNICAL DOCUMENTATION: JOB ID: [id number] 2010 [employer]- All Rights Reserved Reading location - IP/workstation name: [email or web address]
[2020-05-27] MEDS: AMOXICILLIN TR/POT CLAVULANATE 875-125 MG TAB PO SCH ×2 (12:14→21:24)
[2020-05-27] MEDS: HYDROCODONE/ACETAMINOPHEN 5-325 MG TABLET PO PRN (17:24)
[2020-05-27] MEDS: NAPROXEN 250 MG TABLET PO SCH (18:06)
[2020-05-27] MEDS: FAMOTIDINE 20 MG TABLET PO SCH (21:24)
[2020-05-28] MEDS: HYDROCODONE/ACETAMINOPHEN 5-325 MG TABLET PO PRN ×4 (00:45→22:16)
--- NOTE | 2020-05-28 09:08 | PDOC PROGRESS REPORT ---
Subjective Progress Note for:: 05/28/20 Subjective:: Patient comfortable, without complaints tolerating p.o. well Reason For Visit: COLONIC PERFORATION,FREE AIR,ACUTE ABDOMEN Physical Exam Vital Signs: Temp Pulse Resp BP Pulse Ox 98.1 F 91 18 170/84 H 94 05/28/20 08:28 05/28/20 07:43 05/28/20 07:43 05/28/20 07:43 05/28/20 07:43 Intake & Output 05/27/20 05/28/20 05/29/20 06:59 06:59 06:59 Intake Total 2256 2625 Output Total 150 1150 Balance 2106 1475 Weight 83.7 kg 83.3 kg General appearance: PRESENT: no acute distress, obese Respiratory exam: PRESENT: clear to auscultation [email or web address] Cardiovascular exam: PRESENT: RRR GI/Abdominal exam: PRESENT: soft, other - Obese, not distended, not tender, midline incision pink and granulating without erythema, colostomy pink and viable with gas and stools in the colostomy bag Results Laboratory Results: 05/27/20 05:46 05/23/20 06:28 Impressions: Abdomen/Pelvis CT 05/19/20 16:35 IMPRESSION: Acute perforated sigmoid diverticulitis. Mildly dilated loops of small bowel likely secondary to an ileus. KUB X-Ray 05/20/20 00:00 IMPRESSION: Good position of nasogastric tube. Chest X-Ray 05/27/20 00:00 IMPRESSION: Linear atelectasis at the lung bases. Assessment & Plan - Diagnosis (1) Perforateed acute diverticulitis Is this a current diagnosis for this admission?: Yes (2) Wound, surgical, infected Is this a current diagnosis for this admission?: Yes - Time Anticipated Discharge Disposition: Home with Home Health Anticipated Discharge Timeframe: within 24 hours - Plan Summary Plan Summary: Assessment: Postop day #9 following sigmoidectomy with Suzanna pouch for perforated sigmoid diverticulitis Patient feeling well Vital signs stable, patient afebrile Physical exam demonstrates a soft abdomen with midline incision completely open, fascia visible dehisced without evisceration, granulating Colostomy pink and well working Chest x-ray negative UA negative Line: Patient to start training for dressing changes by herself with the assistance Continue current care Patient to be discharged home tomorrow Home health on consult
[2020-05-28] MEDS: FAMOTIDINE 20 MG TABLET PO SCH ×2 (09:25→22:16)
[2020-05-28] MEDS: ENOXAPARIN SODIUM INJ 40 MG/0.4 ML DISP.SYRIN SUBCUT SCH (09:25)
[2020-05-28] MEDS: AMOXICILLIN TR/POT CLAVULANATE 875-125 MG TAB PO SCH ×2 (09:25→22:16)
[2020-05-28] MEDS: NAPROXEN 250 MG TABLET PO SCH ×2 (09:31→17:12)
[2020-05-29] MEDS: HYDROCODONE/ACETAMINOPHEN 5-325 MG TABLET PO PRN ×3 (04:23→18:16)
[2020-05-29] MEDS: FAMOTIDINE 20 MG TABLET PO SCH ×2 (09:13→23:25)
[2020-05-29] MEDS: NAPROXEN 250 MG TABLET PO SCH ×2 (09:14→18:17)
[2020-05-29] MEDS: ENOXAPARIN SODIUM INJ 40 MG/0.4 ML DISP.SYRIN SUBCUT SCH (09:15)
[2020-05-29] MEDS: AMOXICILLIN TR/POT CLAVULANATE 875-125 MG TAB PO SCH ×2 (10:36→23:24)
--- NOTE | 2020-05-29 16:01 | PDOC PROGRESS REPORT ---
Subjective Date:: 05/29/20 Reason For Visit: COLONIC PERFORATION,FREE AIR,ACUTE ABDOMEN Patient complaining of some abdominal wall; diet, voiding. States she is not ready to go home yet Physical Exam Vital Signs: Temp Pulse Resp BP Pulse Ox 98.1 F 90 16 140/80 H 98 05/29/20 08:15 05/29/20 08:15 05/29/20 08:15 05/29/20 08:15 05/29/20 08:15 Intake & Output 05/28/20 05/29/20 05/30/20 06:59 06:59 06:59 Intake Total 2625 1085 Output Total 1150 Balance 1475 1085 Weight 83.3 kg 77.2 kg General appearance: PRESENT: no acute distress GI/Abdominal exam: PRESENT: other - Abdominal exam reveals midline wound with all packing removed. This is a contained, partially dehisced midline wound, clean, with no foul smell and emerging granulation tissue; ostomy functioning satisfactorily Results Laboratory Results: 05/27/20 05:46 05/23/20 06:28 Impressions: Abdomen/Pelvis CT 05/19/20 16:35 IMPRESSION: Acute perforated sigmoid diverticulitis. Mildly dilated loops of small bowel likely secondary to an ileus. KUB X-Ray 05/20/20 00:00 IMPRESSION: Good position of nasogastric tube. Chest X-Ray 05/27/20 00:00 IMPRESSION: Linear atelectasis at the lung bases. Assessment & Plan - Diagnosis (1) Wound, surgical, infected Is this a current diagnosis for this admission?: Yes (2) Status post exploratory laparotomy Is this a current diagnosis for this admission?: Yes Plan: Impression: Patient is 10 days status post oratory laparotomy, sigmoid colectomy, colostomy for complicated diverticulitis with partially dehisced wound, contained, with good bowel function, no evidence of sepsis. Plan: 1. Patient can be managed on outpatient basis with local wound care under home health supervision which has been arranged for her to start tomorrow. Patient wants to go home tomorrow not today due to domestic reasons 2. This is a metastable wound. Hopefully we can keep her from dehiscing completely with an abdominal binder. 3. Anticipate discharge home tomorrow (3) Colon perforation Is this a current diagnosis for this admission?: Yes - Time Anticipated Discharge Disposition: Home with Home Health Anticipated Discharge Timeframe: within 24 hours Time Spent: 30 to 50 Minutes Critical Time spent with patient: Less than 15 minutes Smoking Cessation Education: 3 to 10 minutes Medications reviewed and adjusted accordingly: Yes
--- NOTE | 2020-05-30 09:14 | PDOC DISCHARGE SUMMARY ---
General - Admit/Disc Date/PCP Admission Date/Primary Care Provider: 05/19/20 21:34 DAVI KINSEY NP Discharge Date: 05/30/20 - Discharge Diagnosis Final Diagnosis: Perforated colon diverticulitis, abdominal wound dehiscence - Assessment Summary: 64-year-old female admitted on April for perforated colonic diverticulitis, she underwent surgery on the same day she underwent a colectomy Suzanna pouch and colostomy. The abdominal wound was closed. However, postop with abdominal wound opened and she presented with dehiscence of the abdominal wall fascia and she was treated conservatively with IV antibiotics as well as local wound care with frequent dressing changes. On the day of discharge, the patient was doing well, tolerating p.o. well, vital signs are stable, physical exam revealed a soft abdomen with abdominal wound granulating clean, minimal odor, remaining physical exam unremarkable, colostomy pink, viable, and working. She was given discharge orders of dressing changes twice a day wet-to-dry technique, follow-up with Dr. Roca in the office in 2 weeks, Augmentin 875 mg by mouth twice a day for 7 days. Tylenol and Aleve for pain needed. - Additional Information Resuscitation Status: Full Code Discharge Diet: Regular Discharge Activity: Activity As Tolerated, Balance Activity w/Rest, No Lifting Over 10 Pounds, No Lifting/Push/Pulling, No tub bath - Patient can shower after she removes the bandages to be replaced after shower, Other - Saline wet-to-dry dressing changes of the abdominal wound twice a day Referrals: DAVI KINSEY NP [Primary Care Provider] - 06/19/20 8:30 am Prescriptions: Acetaminophen 500 mg PO Q6 PRN #60 capsule PRN Reason: Amoxicillin/Potassium Clav [Augmentin 875-125 Tablet] 1 tab PO Q12 #20 tablet Home Medications: Atorvastatin Calcium [Lipitor 40 mg Tablet] 40 mg PO QHS 03/30/20 Bromfenac Sodium [Prolensa] 1 drop OP DAILY 03/30/20 Lutein/Zeaxanthin [Ocuvite Lutein 25-5 mg Softgel] 1 each PO BID 03/30/20 Meloxicam [Mobic] 7.5 mg PO DAILY 03/30/20 Methylprednisolone [Medrol] 4 mg PO ASDIR PRN 03/30/20 Pantoprazole Sodium 40 mg PO DAILY 03/30/20 Cholecalciferol (Vitamin D3) [Vitamin D3 1000 Unit Tablet] 2,000 unit PO DAILY 05/20/20 Moxifloxacin HCl [Moxifloxacin] 1 drop OP TID 05/20/20 Multivitamin [Tab-A-Candido] 1 each PO DAILY 05/20/20 Ondansetron HCl [Zofran 8 mg Tablet] 4 mg PO BIDP PRN 05/20/20 Prednisolone Acetate [Pred Forte] 1 drop OS TID 05/20/20 Acetaminophen 500 mg PO Q6 PRN #60 capsule 05/30/20 Amoxicillin/Potassium Clav [Augmentin 875-125 Tablet] 1 tab PO Q12 #20 tablet 05/30/20 Naproxen [Naprosyn 250 mg Tablet] 250 mg PO BID tablet 05/30/20 Additional Information: Follow-up with surgery office Dr. Roca in 2 weeks Normal saline wet-to-dry dressing changes of the abdominal wall twice a day or 3 times a day if tolerated History of Present Illiness History of Present Illness: YVETTE HOYT is a 64 year old female Physical Exam Vital Signs: Temp Pulse Resp BP Pulse Ox 98.2 F 84 18 142/79 H 96 05/30/20 00:42 05/30/20 00:42 05/30/20 00:42 05/30/20 00:42 05/30/20 00:42 Intake & Output 05/29/20 05/30/20 05/31/20 06:59 06:59 06:59 Intake Total 1085 1075 Balance 1085 1075 Weight 77.2 kg 72.4 kg Results Laboratory Results: WBC 12.6 10^3/uL (4.0-10.5) H 05/27/20 05:46 RBC 3.39 10^6/uL (3.72-5.28) L 05/27/20 05:46 Hgb 9.5 g/dL (12.0-15.5) L 05/27/20 05:46 Hct 28.4 % (36.0-47.0) L 05/27/20 05:46 MCV 84 fl (80-97) 05/27/20 05:46 MCH 28.0 pg (27.0-33.4) 05/27/20 05:46 MCHC 33.5 g/dL (32.0-36.0) 05/27/20 05:46 RDW 15.4 % (11.5-14.0) H 05/27/20 05:46 Plt Count 429 10^3/uL (150-450) 05/27/20 05:46 Lymph % (Auto) Not Reportable 05/27/20 05:46 [place]y % (Auto) Not Reportable 05/27/20 05:46 Eos % (Auto) Not Reportable 05/27/20 05:46 Baso % (Auto) Not Reportable 05/27/20 05:46 Absolute Neuts (auto) Not Reportable 05/27/20 05:46 Absolute Lymphs (auto) Not Reportable 05/27/20 05:46 Absolute Monos (auto) Not Reportable 05/27/20 05:46 Absolute Eos (auto) Not Reportable 05/27/20 05:46 Absolute Basos (auto) Not Reportable 05/27/20 05:46 Total Counted 100 05/27/20 05:46 Seg Neutrophils % Not Reportable 05/27/20 05:46 Seg Neuts % (Manual) 76 % (42-78) 05/27/20 05:46 Band Neutrophils % 1 % (3-5) L 05/19/20 18:00 Lymphocytes % (Manual) 13 % (13-45) 05/27/20 05:46 Monocytes % (Manual) 10 % (3-13) 05/27/20 05:46 Eosinophils % (Manual) 1 % (0-6) 05/27/20 05:46 Basophils % (Manual) 0 % (0-2) 05/27/20 05:46 Abs Neuts (Manual) 9.6 10^3/uL (1.7-8.2) H 05/27/20 05:46 Abs Lymphs (Manual) 1.6 10^3/uL (0.5-4.7) 05/27/20 05:46 Abs Monocytes (Manual) 1.3 10^3/uL (0.1-1.4) 05/27/20 05:46 Absolute Eos (Manual) 0.1 10^3/uL (0.0-0.6) 05/27/20 05:46 Abs Basophils (Manual) 0.0 10^3/uL (0.0-0.2) 05/27/20 05:46 Hypersegmented Neuts PRESENT 05/19/20 18:00 Platelet Comment ADEQUATE 05/27/20 05:46 Poikilocytosis 1+ 05/20/20 03:01 Anisocytosis SLIGHT 05/27/20 05:46 Ovalocytes 1+ 05/20/20 03:01 Bryson Cells 1+ 05/20/20 03:01 Carbonic Acid 1.21 mmol/L (1.05-1.35) 05/19/20 20:35 HCO3/H2CO3 Ratio 21:1 05/19/20 20:35 ABG pH 7.43 (7.35-7.45) 05/19/20 20:35 ABG pCO2 40.3 mmHg (35-45) 05/19/20 20:35 ABG pO2 52.0 mmHg (80-100) L 05/19/20 20:35 ABG HCO3 26.1 mmol/L (20-24) H 05/19/20 20:35 ABG Total CO2 27.3 mmol/L (21-25) H 05/19/20 20:35 ABG O2 Saturation 87.8 % (94-98) L 05/19/20 20:35 ABG Base Excess 1.7 mmol/L 05/19/20 20:35 FiO2 ROOM AIR 05/19/20 20:35 Sodium 142.2 mmol/L (137-145) 05/23/20 06:28 Potassium 3.2 mmol/L (3.6-5.0) L 05/23/20 06:28 Chloride 107 mmol/L (98-107) 05/23/20 06:28 Carbon Dioxide 29 mmol/L (22-30) 05/23/20 06:28 Anion Gap 6 (5-19) 05/23/20 06:28 BUN 15 mg/dL (7-20) 05/23/20 06:28 Creatinine 0.59 mg/dL (0.52-1.25) 05/23/20 06:28 Est GFR ( Amer) > 60 (>60) 05/23/20 06:28 Est GFR (MDRD) Non-Af > 60 (>60) 05/23/20 06:28 Glucose 100 mg/dL (75-110) 05/23/20 06:28 POC Glucose 118 mg/dL (70-110) H 05/27/20 07:26 Calcium 8.4 mg/dL (8.4-10.2) 05/23/20 06:28 Total Bilirubin 1.0 mg/dL (0.2-1.3) 05/19/20 18:00 Direct Bilirubin 0.1 mg/dL (0.0-0.4) 05/19/20 18:00 Neonat Total Bilirubin Not Reportable 05/19/20 18:00 Neonat Direct Bilirubin Not Reportable 05/19/20 18:00 Neonat Indirect Bili Not Reportable 05/19/20 18:00 AST 25 U/L (14-36) 05/19/20 18:00 ALT 26 U/L (<35) 05/19/20 18:00 Alkaline Phosphatase 141 U/L (38-126) H 05/19/20 18:00 Total Protein 7.4 g/dL (6.3-8.2) 05/19/20 18:00 Albumin 4.3 g/dL (3.5-5.0) 05/19/20 18:00 Lipase 40.3 U/L (23-300) 05/19/20 18:00 Urine Color CARL 05/19/20 17:50 Urine Appearance SLIGHTLY-CLOUDY 05/19/20 17:50 Urine pH 5.0 (5.0-9.0) 05/19/20 17:50 Ur Specific [place] 1.028 05/19/20 17:50 Urine Protein 100 mg/dL (NEGATIVE) H 05/19/20 17:50 Urine Glucose (UA) NEGATIVE mg/dL (NEGATIVE) 05/19/20 17:50 Urine Ketones TRACE mg/dL (NEGATIVE) H 05/19/20 17:50 Urine Blood NEGATIVE (NEGATIVE) 05/19/20 17:50 Urine Nitrite NEGATIVE (NEGATIVE) 05/19/20 17:50 Urine Bilirubin NEGATIVE (NEGATIVE) 05/19/20 17:50 Urine Urobilinogen NEGATIVE mg/dL (<2.0) 05/19/20 17:50 Ur Leukocyte Esterase NEGATIVE (NEGATIVE) 05/19/20 17:50 Urine WBC (Auto) 5 /HPF 05/19/20 17:50 Urine RBC (Auto) 5 /HPF 05/19/20 17:50 U Hyaline Cast (Auto) 7 /LPF 05/19/20 17:50 Squamous Epi Cells Auto 2 /HPF 05/19/20 17:50 Urine Mucus (Auto) MANY /LPF 05/19/20 17:50 Urine Ascorbic Acid 40 (NEGATIVE) H 05/19/20 17:50 COVID-19 Source Cancelled 05/19/20 18:10 COVID-19 ([facility]) Cancelled 05/19/20 18:10 SARS-CoV-2 (PCR) NEGATIVE (NEGATIVE) 05/19/20 18:10 Impressions: Abdomen/Pelvis CT 05/19/20 16:35 IMPRESSION: Acute perforated sigmoid diverticulitis. Mildly dilated loops of small bowel likely secondary to an ileus. Chest X-Ray 05/19/20 17:31 IMPRESSION: NO ACUTE RADIOGRAPHIC FINDING IN THE CHEST. KUB X-Ray 05/20/20 00:00 IMPRESSION: Good position of nasogastric tube. Chest X-Ray 05/27/20 00:00 IMPRESSION: Linear atelectasis at the lung bases.
[2020-05-30] MEDS: HYDROCODONE/ACETAMINOPHEN 5-325 MG TABLET PO PRN (09:26)
[2020-05-30] MEDS: FAMOTIDINE 20 MG TABLET PO SCH (09:26)
[2020-05-30] MEDS: AMOXICILLIN TR/POT CLAVULANATE 875-125 MG TAB PO SCH (09:26)
[2020-05-30] MEDS: NAPROXEN 250 MG TABLET PO SCH (09:40)
[2020-05-30] MEDS: ENOXAPARIN SODIUM INJ 40 MG/0.4 ML DISP.SYRIN SUBCUT SCH (09:40)
[2020-05-30 10:44] VITALS: BP 137/63
== END 2020-05-30 14:00 | disposition home health service (06) | DRG 329 ==
LOC: ER 15:13 → EH 21:34 → 5 05-20 02:57
PROVIDERS: ADMIT Surgery; ATTEND Surgery
PROC: 0DTN0ZZ Resection of Sigmoid Colon, Open Approach (ICD-10-PCS; principal; 2020-05-20 00:15)
PROC: 0D1N0Z4 Bypass Sigmoid Colon to Cutaneous, Open Approach (ICD-10-PCS; 2020-05-20 00:15)
DX: K57.20 Diverticulitis of large intestine with perforation and abscess without bleeding (principal); K65.9 Peritonitis, unspecified; T81.31XA Disruption of external operation (surgical) wound, not elsewhere classified, initial encounter; B96.20 Unspecified Escherichia coli [E. coli] as the cause of diseases classified elsewhere; M06.9 Rheumatoid arthritis, unspecified; E78.00 Pure hypercholesterolemia, unspecified; R09.02 Hypoxemia; K21.9 Gastro-esophageal reflux disease without esophagitis; Z79.899 Other long term (current) drug therapy; Z79.82 Long term (current) use of aspirin
CPT/HCPCS: 00840; 36415; 71045; 71046; 74018; 74177; 80048; 80053; 81001; 82803; 82962; 83690; 85025; 87040; 87077; 87186; 87635; 88305; 94799; 96361; 96365; 96375; 99140; 99285; C1758; C9803; J0131; J1100; J1170; J1650; J1885; J2250; J2270; J2405; J2543; J2704; J2710; J3010; J3480; J3490; J7030; J7050; J7121; S0028

== ENCOUNTER 2020-05-31 15:18 | Inpatient (IN) | payer BC ==
[2020-05-31] MEDS ORDERED: RINGERS SOLUTION,LACTATED 1,000 ML IV ONE (15:55)
[2020-05-31] MEDS ORDERED: ONDANSETRON HCL INJ/PF 4 MG/2 ML SDV IV ONE ×2 (15:55→20:22)
--- NOTE | 2020-05-31 16:01 | ER Document Report ---
ED Medical Screen (RME) - General Chief Complaint: Nausea Stated Complaint: NAUSEA Time Seen by Provider: 05/31/20 15:51 Primary Care Provider: DAVI KINSEY NP [Primary Care Provider] - Follow up as needed Mode of Arrival: Wheelchair Information source: Patient Notes: HPI; 64-year-old female postop colostomy presents to the emergency room complaining of nausea that started earlier this morning. States she does not have any medication at home. Also complaining of worsening abdominal pain. Taking Tylenol without relief. Denies fevers. Denies chest pain, denies shortness of breath, denies any urinary symptoms. States she is past due for a dressing change to her abdomen. States home health came out and was told they could not see her as she is already being seen for a chronic foot issue and they are unable to combine the 2 services. Patient states she called her surgeon he was in the OR and was referred to the emergency room. PE: Alert and oriented x3. Mild distress noted. Lungs: Scattered rhonchi no wheezes no rales. Heart: Regular rate rhythm without murmurs, rubs, gallops. I have greeted and performed a rapid initial assessment of this patient. A comprehensive ED assessment and evaluation of the patient, analysis of test results and completion of the medical decision making process will be conducted by additional ED providers. I have specifically instructed the patient or family members with the patient to immediately return to any nursing staff should anything change in the patient's condition or with their chief complaint. TRAVEL OUTSIDE OF THE [place] IN LAST 30 DAYS: No - Related Data Allergies/Adverse Reactions: No Known Allergies Allergy (Verified 05/19/20 16:30) Past Medical History - Past Medical History Cardiac Medical History: Reports: Hx Hypercholesterolemia Denies: Hx Heart Attack, Hx Hypertension Pulmonary Medical History: Denies: Hx Asthma Neurological Medical History: Denies: Hx Cerebrovascular Accident, Hx Seizures GI Medical History: Reports: Hx Gastroesophageal Reflux Disease, Hx Hiatal Hernia. Denies: Hx Hepatitis, Hx Ulcer Musculoskeltal Medical History: Reports Hx Arthritis - Rheumatoid arthritis Psychiatric Medical History: Denies: Hx Depression Infectious Medical History: Denies: Hx Hepatitis Past Surgical History: Reports: Other - Cataract surgery. Denies: Hx Hysterectomy, Hx Mastectomy, Hx Open Heart Surgery, Hx Pacemaker Physical Exam - Vital signs Vitals: Temp Pulse Resp BP Pulse Ox 98.4 F 99 24 H 125/72 97 05/31/20 15:34 05/31/20 15:34 05/31/20 15:34 05/31/20 15:34 05/31/20 15:34 Course - Vital Signs Vital signs: Temp Pulse Resp BP Pulse Ox 98.4 F 99 24 H 125/72 97 05/31/20 15:34 05/31/20 15:34 05/31/20 15:34 05/31/20 15:34 05/31/20 15:34 Doctor's Discharge - Discharge Referrals: DVAI KINSEY NP [Primary Care Provider] - Follow up as needed
--- NOTE | 2020-05-31 16:29 | RADIOLOGY REPORT (SQ) ---
EXAM DESCRIPTION: CHEST SINGLE VIEW IMAGES COMPLETED DATE/TIME: 05/31/2020 4:19 pm REASON FOR STUDY: cough COMPARISON: 05/27/2020 EXAM PARAMETERS: NUMBER OF VIEWS: One view. TECHNIQUE: Single frontal radiographic view of the chest acquired. RADIATION DOSE: NA LIMITATIONS: None. FINDINGS: LUNGS AND PLEURA: Linear atelectasis in the left base. Lung fuentes are otherwise clear. No consolidation. No effusions or pneumothorax. MEDIASTINUM AND HILAR STRUCTURES: No masses. Contour normal. HEART AND VASCULAR STRUCTURES: Heart normal in size. Normal vasculature. BONES: No acute findings. HARDWARE: None in the chest. OTHER: No other significant finding. IMPRESSION: Linear atelectasis in the left base. No other significant findings. TECHNICAL DOCUMENTATION: JOB ID: [id number] 2010 [employer]- All Rights Reserved Reading location - IP/workstation name: [email or web address]
[2020-05-31 17:12] LABS: HEMATOCRIT 34.1 % (36.0-47.0); HEMOGLOBIN 11.4 g/dL (12.0-15.5); MEAN CORPUSCULAR HEMOGLOBIN 28.2 pg (27.0-33.4); MEAN CORPUSCULAR HGB CONC 33.4 g/dL (32.0-36.0); MEAN CORPUSCULAR VOLUME 85 fl (80-97); PLATELET COUNT 867 10^3/uL (150-450); RED BLOOD COUNT 4.04 10^6/uL (3.72-5.28); RED CELL DISTRIBUTION WIDTH 15.7 % (11.5-14.0); WHITE BLOOD COUNT 14.3 10^3/uL (4.0-10.5)
[2020-05-31 17:30] LABS: ALBUMIN 3.6 g/dL (3.5-5.0); ALKALINE PHOSPHATASE 218 U/L (38-126); ANION GAP 10 (5-19); ASPARTATE AMINO TRANSFERASE 33 U/L (14-36); BILIRUBIN,TOTAL 0.3 mg/dL (0.2-1.3); BLOOD UREA NITROGEN 9 mg/dL (7-20); CALCIUM 9.7 mg/dL (8.4-10.2); CARBON DIOXIDE 23 mmol/L (22-30); CHLORIDE 107 mmol/L (98-107); GLUCOSE 123 mg/dL (75-110); POTASSIUM 4.5 mmol/L (3.6-5.0)
[2020-05-31 17:43] LABS: ABSOLUTE LYMPHOCYTES# (MANUAL) 1.1 10^3/uL (0.5-4.7); ABSOLUTE MONOCYTES # (MANUAL) 1.4 10^3/uL (0.1-1.4); ANISOCYTOSIS SLIGHT; BASOPHILS % (MANUAL) 0 % (0-2); EOSINOPHILS % (MANUAL) 0 % (0-6); LYMPHOCYTES % (MANUAL) 8 % (13-45); MONOCYTES % (MANUAL) 10 % (3-13); NUCLEATED RED BLOOD CELLS 1 /100 WBC (0); PLATELET COMMENT INCREASED; SEGMENTED NEUTROPHILS % (MAN) 82 % (42-78); TOTAL CELLS COUNTED 100
[2020-05-31 17:44] LABS: OVALOCYTES SLIGHT; POLYCHROMASIA SLIGHT
[2020-05-31 17:45] LABS: TOXIC VACUOLATION PRESENT
[2020-05-31 18:25] LABS: APPEARANCE,URINE CLOUDY; BILIRUBIN,URINE NEGATIVE (NEGATIVE); COLOR,URINE YELLOW; GLUCOSE, URINE NEGATIVE (NEGATIVE); KETONES,URINE NEGATIVE (NEGATIVE); LEUKOCYTE ESTERASE,URINE NEGATIVE (NEGATIVE); NITRITE,URINE NEGATIVE (NEGATIVE); PROTEIN,URINE 30 mg/dL (NEGATIVE); URINE SPECIFIC GRAVITY 1.019; UROBILINOGEN,URINE NEGATIVE mg/dL (<2.0)
[2020-05-31] MEDS ORDERED: MORPHINE SULFATE 10 MG/ML INJ IV ONE (20:22)
[2020-05-31] MEDS ORDERED: SODIUM HYPOCHLORITE 0.25% SOLN 473 ML BOTTLE TP ONE (20:32)
[2020-05-31] MEDS ORDERED: SILVER SULFADIAZINE 1% CREAM 400 GM TP ONE (20:33)
--- NOTE | 2020-05-31 20:55 | ER Document Report ---
ED General - General Chief Complaint: Post Surgical Pain Stated Complaint: NAUSEA Time Seen by Provider: 05/31/20 15:51 Mode of Arrival: Wheelchair TRAVEL OUTSIDE OF THE [place] IN LAST 30 DAYS: No - HPI Notes: Patient is a 64-year-old female who presents to the emergency department for evaluation of abdominal pain, nausea, problems with her abdominal wound. The patient had a perforated sigmoid diverticulitis, resultant colostomy. The wound dehisced, and she has been receiving wound care inpatient. She was sent home with home health nursing to help change the bandage. It has not been changed since she left the hospital yesterday. She states that the home health nurse "r efused to touch it." She relates something about the physical therapy she is receiving for her left foot injury. The patient states she is had some chills today some nausea but no emesis. She really does not feel much different from yesterday, but there is worsened smelling drainage from the area so she comes to the ER for further evaluation. She has been able to change the ostomy site without difficulty. She is getting good output there. - Related Data Allergies/Adverse Reactions: No Known Allergies Allergy (Verified 05/19/20 16:30) Home Medications: Augmentin, Tylenol Past Medical History - General Information source: Patient - Social History Smoking Status: Never Smoker Family History: Reviewed & Not Pertinent Patient has homicidal ideation: No - Past Medical History Cardiac Medical History: Reports: Hx Hypercholesterolemia Denies: Hx Heart Attack, Hx Hypertension Pulmonary Medical History: Denies: Hx Asthma Neurological Medical History: Denies: Hx Cerebrovascular Accident, Hx Seizures GI Medical History: Reports: Hx Diverticulitis, Hx Gastroesophageal Reflux Disease, Hx Hiatal Hernia. Denies: Hx Hepatitis, Hx Ulcer Musculoskeletal Medical History: Reports Hx Arthritis - Rheumatoid arthritis Psychiatric Medical History: Denies: Hx Depression Infectious Medical History: Denies: Hx Hepatitis Past Surgical History: Reports: Hx Colostomy, Other - Cataract surgery. Denies: Hx Hysterectomy, Hx Mastectomy, Hx Open Heart Surgery, Hx Pacemaker Review of Systems - Review of Systems Constitutional: See HPI EENT: No symptoms reported Cardiovascular: No symptoms reported Respiratory: No symptoms reported Gastrointestinal: See HPI Genitourinary: No symptoms reported Musculoskeletal: No symptoms reported Skin: See HPI Neurological/Psychological: No symptoms reported Physical Exam - Vital signs Vitals: Temp Pulse Resp BP Pulse Ox 98.4 F 99 24 H 125/72 97 05/31/20 15:34 05/31/20 15:34 05/31/20 15:34 05/31/20 15:34 05/31/20 15:34 - Notes Notes: This is a 64-year-old female who appears her stated age, no acute distress. Vital signs reviewed, please refer to chart. Head is normocephalic, atraumatic. Pupils equal round, reactive to light. Neck is supple without meningismus. Heart is regular rate and rhythm. Lungs are clear to auscultation bilaterally. Abdomen i reveals ostomy site to the left abdomen with pink stoma. Open wound with granulation tissue, pink and viable edges, and extremely foul-smelling bandages in place noted to the abdominal wall. Abdomen is diffusely tender without rebound or guarding. Extremities without cyanosis, clubbing. Posterior calves are nontender. Walking boot on left foot in place. Patient is awake alert, cooperative with examiner. Course - Re-evaluation Re-evalutation: 05/31/20 20:59 Patient presents to the emergency department for evaluation. She has a dehisced wound status post colostomy for perforated diverticulitis. She just went home 24 hours ago. She is only taken 1 dose of her antibiotics. She has not been vomiting. She is having difficulty with dressing changes. Dr. Klein was kind enough to come to the department. He asked that Dakin's solution and Silvadene be available to help her with dressing change, continue to educate her, and he will follow-up with wound care/home health care for home. Otherwise, blood work shows mild leukocytosis, but again she has not been taking her antibiotic. I will order her dose of Augmentin here. 05/31/20 21:39 Dr. Klein came and evaluated the patient. He reviewed her chart. She does in fact have a new leukocytosis. Her heart rate was 99. Her respiratory rate is increased. He is concerned about the possibility of an occult infection. He requests that at CT the abdomen contrast with IV and oral contrast be performed. 05/31/20 21:48 Wound culture obtained. Patient took part in wound care and dressing change with the nurse. She has started drinking oral contrast. 05/31/20 22:39 Dr. Klein had an opportunity to review the chart personally. He is concerned about her leukocytosis and the possibility of sepsis/wound infection. Admission orders placed. CAT scan still not performed at this time. We will contact him with results. - Vital Signs Vital signs: Temp Pulse Resp BP Pulse Ox 98.4 F 99 24 H 125/72 97 05/31/20 15:34 05/31/20 15:34 05/31/20 15:34 05/31/20 15:34 05/31/20 15:34 - Laboratory Result Diagrams: 05/31/20 16:52 05/31/20 16:52 Laboratory results interpreted by me: 05/31/20 05/31/20 05/31/20 16:52 16:52 17:52 WBC 14.3 H Hgb 11.4 L Hct 34.1 L RDW 15.7 H Plt Count 867 H Seg Neuts % (Manual) 82 H Lymphocytes % (Manual) 8 L Abs Neuts (Manual) 11.7 H Glucose 123 H ALT 44 H Alkaline Phosphatase 218 H Urine Protein 30 H Discharge - Discharge Clinical Impression: Wound, surgical, infected Condition: Stable Disposition: ADMITTED INPATIENT Admitting Provider: Surgicalist - Dr. Klein Unit Admitted: Surgical Floor
[2020-05-31] MEDS ORDERED: AMOXICILLIN TR/POT CLAVULANATE 875-125 MG TAB PO ONE (21:00)
[2020-05-31] MEDS ORDERED: ACETAMINOPHEN 325 MG TABLET PO ONE (21:00)
[2020-05-31] MEDS: SILVER SULFADIAZINE 1% CREAM 400 GM TP SCH (22:41)
--- NOTE | 2020-05-31 22:50 | PDOC CONSULTATION ---
Consultation Consult Date: 05/31/20 Attending physician:: GUNJAN GALINDO Provider Consulted: TORRI LEONARDO Consult reason:: rheumatoid arthritis History of Present Illness Admission Date/PCP: 05/31/20 22:13 DAVI KINSEY NP History of Present Illness: YVETTE HOYT is a 64 year old female with past medical history significant for rheumatoid arthritis, HLD, chronic pain who presents to the ED with a complication related to her recent admission for bowel perforation which resulted in a colostomy. Per my discussion with Dr. Galindo and with the patient, she experienced a wound dehiscence and surgical site infection after she was discharged yesterday. Patient states she has had a great deal of increased pain at the surgical site and it has become foul-smelling with purulent discharge. Patient was readmitted by Dr. Galindo. According to patient, she has been off all of her rheumatoid arthritis medications which included Humira and a steroid taper for the past few weeks at the instruction of her surgeon to ensure the best chance of wound healing. Per general surgery, hospital medicine consult is requested for management of rheumatoid arthritis and hyperlipidemia. Past Medical History Cardiac Medical History: Reports: Hyperlipidema Denies: Myocardial Infarction, Hypertension Pulmonary Medical History: Denies: Asthma Neurological Medical History: Denies: Seizures GI Medical History: Reports: Diverticulitis, Gastroesophageal Reflux Disease, Hiatal Hernia Denies: Hepatitis Musculoskeltal Medical History: Reports: Arthritis - Rheumatoid arthritis Psychiatric Medical History: Denies: Depression Hematology: Denies: Anemia, Sickle Cell Disease Past Surgical History Past Surgical History: Reports: Colostomy, Other - Cataract surgery Denies: Amputation, Hysterectomy, Mastectomy, Pacemaker Social History Information Source: Patient, Emergency Med Personnel Smoking Status: Never Smoker Hx Recreational Drug Use: No Drugs: None Hx Prescription Drug Abuse: No - Advance Directive Resuscitation Status: Full Code Surrogate healthcare decision maker:: Admitting diagnosis: Bowel perforation with colostomy wound dehiscence All aspects of code status discussed with patient/POA including cardioversion, chest compressions, and intubation and the patient/POA indicated they wish to be full code MPOA is designated as: , Dickson Time spent: Greater than 16 minutes Family History Family History: Reviewed & Not Pertinent, CAD, CVA Parental Family History Reviewed: Yes Children Family History Reviewed: Yes Sibling(s) Family History Reviewed.: Yes Medication/Allergy Home Medications: Atorvastatin Calcium [Lipitor 40 mg Tablet] 40 mg PO QHS 03/30/20 Bromfenac Sodium [Prolensa] 1 drop OP DAILY 03/30/20 Lutein/Zeaxanthin [Ocuvite Lutein 25-5 mg Softgel] 1 each PO BID 03/30/20 Meloxicam [Mobic] 7.5 mg PO DAILY 03/30/20 Methylprednisolone [Medrol] 4 mg PO ASDIR PRN 03/30/20 Pantoprazole Sodium 40 mg PO DAILY 03/30/20 Cholecalciferol (Vitamin D3) [Vitamin D3 1000 Unit Tablet] 2,000 unit PO DAILY 05/20/20 Moxifloxacin HCl [Moxifloxacin] 1 drop OP TID 05/20/20 Multivitamin [Tab-A-Candido] 1 each PO DAILY 05/20/20 Ondansetron HCl [Zofran 8 mg Tablet] 4 mg PO BIDP PRN 05/20/20 Prednisolone Acetate [Pred Forte] 1 drop OS TID 05/20/20 Acetaminophen 500 mg PO Q6 PRN #60 capsule 05/30/20 Amoxicillin/Potassium Clav [Augmentin 875-125 Tablet] 1 tab PO Q12 #20 tablet 05/30/20 Naproxen [Naprosyn 250 mg Tablet] 250 mg PO BID tablet 05/30/20 Allergies/Adverse Reactions: No Known Allergies Allergy (Verified 05/19/20 16:30) Review of Systems All systems: reviewed and no additional remarkable complaints except as stated - Per HPI otherwise negative Physical Exam Vital Signs: Temp Pulse Resp BP Pulse Ox 98.4 F 99 24 H 125/72 97 05/31/20 15:34 05/31/20 15:34 05/31/20 15:34 05/31/20 15:34 05/31/20 15:34 Intake & Output 05/30/20 05/31/20 06/01/20 06:59 06:59 06:59 Intake Total 1000 Balance 1000 Weight 69 kg Exam: General appearance: PRESENT: no acute distress, well-developed, well-nourished, white female Head exam: PRESENT: atraumatic, normocephalic Eye exam: PRESENT: conjunctiva pink. ABSENT: scleral icterus Mouth exam: PRESENT: moist Respiratory exam: PRESENT: clear to auscultation juliocesar. ABSENT: rales, rhonchi, wheezes Cardiovascular exam: PRESENT: RRR. ABSENT: diastolic murmur, rubs, systolic murmur GI/Abdominal exam: PRESENT: normal bowel sounds, soft, moderate tenderness along midline surgical site which appears infected, colostomy pink and healthy- appearing ABSENT: distended, guarding, mass, organolmegaly, rebound Neurological exam: PRESENT: alert, awake, oriented to person, oriented to place, oriented to time, oriented to situation Psychiatric exam: PRESENT: appropriate affect, normal mood Skin exam: PRESENT: dry, intact, warm Results Laboratory Results: 05/31/20 16:52 05/31/20 16:52 05/31/20 05/31/20 05/31/20 16:52 16:52 17:52 WBC 14.3 H RBC 4.04 Hgb 11.4 L Hct 34.1 L MCV 85 MCH 28.2 MCHC 33.4 RDW 15.7 H Plt Count 867 H Seg Neutrophils % Not Reportable Sodium 139.8 Potassium 4.5 Chloride 107 Carbon Dioxide 23 Anion Gap 10 BUN 9 Creatinine 0.54 Est GFR ( Amer) > 60 Glucose 123 H Calcium 9.7 Total Bilirubin 0.3 AST 33 Alkaline Phosphatase 218 H Total Protein 7.0 Albumin 3.6 Urine Color YELLOW Urine Appearance CLOUDY Urine pH 6.0 Ur Specific [place] 1.019 Urine Protein 30 H Urine Glucose (UA) NEGATIVE Urine Ketones NEGATIVE Urine Blood NEGATIVE Urine Nitrite NEGATIVE Ur Leukocyte Esterase NEGATIVE Urine WBC (Auto) 5 Urine RBC (Auto) 4 Impressions: Chest X-Ray 05/31/20 16:01 IMPRESSION: Linear atelectasis in the left base. No other significant findings. Assessment and Plan - Diagnosis (1) Wound, surgical, infected Is this a current diagnosis for this admission?: Yes Plan: Recent admission for perforated bowel status post colostomy and exploratory laparotomy; readmitted 05/31 for wound dehiscence by general surgery General surgery is primary, medicine is consulted Agree with antibiotics to include gram-negative anaerobic coverage No fevers but white blood cell count is 14.7 Blood culture Surgical site culture Consider wound care consult (2) Rheumatoid arthritis Is this a current diagnosis for this admission?: Yes Plan: Per patient, complicated by Achilles tendinitis Okay to continue Mobic Patient has been off rheumatoid arthritis medications including Humira and prednisone for approximately 2 weeks per patient Continue holding RA specific medications that will impair wound healing Needs follow-up with rheumatology after surgical wound infection is cleared Per patient, she is not on long-term steroids (3) HLD (hyperlipidemia) Is this a current diagnosis for this admission?: Yes Plan: Continue statin (4) Chronic pain Is this a current diagnosis for this admission?: Yes Plan: Continue home pain medication, tramadol, when she is able to take p.o. Okay to use IV narcotics while she is n.p.o. Specific pain management medications per general surgery discretion - Time Time Spent with patient: 35 or more minutes Medications reviewed and adjusted accordingly: Yes Anticipated Discharge Disposition: Home with Home Health Anticipated Discharge Timeframe: within 72 hours
[2020-05-31] MEDS: NORMAL SALINE 1000 ML 1,000 ML IV PRN (23:05)
[2020-05-31] MEDS: FAMOTIDINE INJ/PF 20 MG/2 ML SDV IV SCH (23:07)
[2020-05-31] MEDS: CLINDAMYCIN 600 MG/D5W RTU 600 MG/50 ML RTUPB IV SCH (23:10)
[2020-06-01] MEDS: CEFTRIAXONE 1 GM/D5W RTU 1 GM/50 ML RTUPB IV SCH ×3 (01:14→21:16)
--- NOTE | 2020-06-01 01:29 | RADIOLOGY REPORT (SQ) ---
EXAM DESCRIPTION: CT ABD/PELVIS WITH IV ORAL CLINICAL HISTORY: 64 years Female; leukocytosis, abdominal pain, recent surgery colostomy 05/12/20 TECHNIQUE: CT of the abdomen and pelvis with intravenous contrast.. Oral contrast was used. Delayed imaging of the abdomen and pelvis was also performed. All CT scans at this facility use dose modulation, iterative reconstruction, and/or weight based dosing when appropriate to reduce radiation dose to as low as reasonably achievable. This exam was performed according to our department optimization program which includes automated exposure control, adjustment of the mA and/or kv according to patient size and/or use of iterative reconstruction technique. COMPARISON: CT scan of the abdomen and pelvis May 19, 2020 FINDINGS: Lower chest: Minimal linear volume loss in the lung bases. No pneumothorax or pleural effusion. Heart size is within normal limits. Abdomen: Liver and biliary tree: Mild diffuse fatty infiltration of the liver. The gallbladder is unremarkable. Portal vein is patent. Pancreas: Normal Spleen:Within normal limits Kidneys: There are multiple parapelvic renal cysts. Kidneys are normal in size shape and position. No stones or hydronephrosis. Symmetric renal enhancement. On delayed images there is symmetric contrast excretion. Adrenal glands:Within normal limits Vascular structures:Within normal limits Retroperitoneum: Small amount of edema is present in the retroperitoneum predominantly in the left lower abdomen. No mass or lymphadenopathy Abdominal wall: In the interval the patient is undergone laparotomy and there is a large midline open wound involving the subcutaneous fat and extending to the level of the abdominal wall fascia. In addition there is a left lower quadrant colostomy. GI: There is been interval resection of the sigmoid colon with placement of a left lower quadrant diverting colostomy. Some residual stool is seen in the Blackmon's pouch. No bowel obstruction. There is oral contrast which extends from the stomach through the small bowel, the right colon and out the ostomy. No contrast extravasation into the retroperitoneum. Appendix: The appendix is not clearly seen General: In the previous examination there was free intraperitoneal air as well as retroperitoneal air related to the colonic perforation. This is not identified. There is a small amount of fluid in the left paracolic gutter and this may have mildly enhancing bryan raising the possibility of postop abscess. This area of fluid measures 3.6 x 2.1 x 2.3 cm. So that the level of the mid left abdomen. In the operative bed in the pelvis there is no loculated fluid collection seen. Pelvis: Lymph nodes: No mass or lymphadenopathy Bladder: Unremarkable. Pelvis: No pelvic mass or adenopathy. Bones: No acute bone findings. IMPRESSION: 1. Interval laparotomy with Blackmon's pouch procedure and left lower quadrant diverting colostomy. There is no bowel obstruction. 2. Small loculated fluid collection with mild enhancing rim in the left side of the abdomen which may represent residual postop fluid versus an abscess. This area measures 3.6 x 2.1 x 2.3 cm. 3. Large midline ventral abdominal wall soft tissue wound which extends to the level of the fascia but does not extend through the fascia.
[2020-06-01] MEDS: CLINDAMYCIN 600 MG/D5W RTU 600 MG/50 ML RTUPB IV SCH ×3 (05:48→21:21)
[2020-06-01 07:04] LABS: ABSOLUTE BASOPHILS # (AUTO) 0.1 10^3/uL (0.0-0.2); ABSOLUTE EOSINOPHILS # (AUTO) 0.2 10^3/uL (0.0-0.6); ABSOLUTE LYMPHOCYTES (AUTO) 1.6 10^3/uL (0.5-4.7); ABSOLUTE MONOCYTES (AUTO) 1.6 10^3/uL (0.1-1.4); ABSOLUTE NEUT (AUTO) 8.4 10^3/uL (1.7-8.2); BASOPHILS % (AUTO) 0.5 % (0-2); EOSINOPHILS % (AUTO) 1.5 % (0-6); HEMATOCRIT 29.3 % (36.0-47.0); HEMOGLOBIN 10.1 g/dL (12.0-15.5); LYMPHOCYTES % (AUTO) 13.6 % (13-45); MEAN CORPUSCULAR HGB CONC 34.5 g/dL (32.0-36.0); MEAN CORPUSCULAR VOLUME 84 fl (80-97); MONOCYTES % (AUTO) 13.5 % (3-13); PLATELET COUNT 775 10^3/uL (150-450); RED BLOOD COUNT 3.49 10^6/uL (3.72-5.28); RED CELL DISTRIBUTION WIDTH 15.3 % (11.5-14.0); SEGMENTED NEUTROPHILS % (AUTO) 70.9 % (42-78); TOTAL CELLS COUNTED % (AUTO) 100 %; WHITE BLOOD COUNT 11.8 10^3/uL (4.0-10.5)
[2020-06-01 07:28] LABS: ANION GAP 12 (5-19); BLOOD UREA NITROGEN 6 mg/dL (7-20); CALCIUM 9.2 mg/dL (8.4-10.2); CARBON DIOXIDE 21 mmol/L (22-30); CHLORIDE 108 mmol/L (98-107); GLUCOSE 101 mg/dL (75-110); POTASSIUM 4.3 mmol/L (3.6-5.0)
[2020-06-01] MEDS: FAMOTIDINE INJ/PF 20 MG/2 ML SDV IV SCH ×2 (09:01→21:19)
[2020-06-01] MEDS: SILVER SULFADIAZINE 1% CREAM 400 GM TP SCH ×2 (09:02→21:09)
--- NOTE | 2020-06-01 09:38 | PDOC H&P ---
History of Present Illness Admission Date/PCP: DAVI KINSEY NP Patient complains of: Foul odor from abdominal wound History of Present Illness: YVETTE HOYT is a 64 year old female, with history of rheumatoid arthritis on Humira and oral prednisone, hypertension, hypercholesterolemia, chronic pain, who presents to the emergency room 1 day following discharge on May 30, 2020. The patient was seen on May 19, 2020 because of a history of severe abdominal pain found to have a fair and peritonitis due to perforated sigmoid diverticulitis. She underwent sigmoidectomy with Suzanna pouch and colostomy on May 20, 2020 and she was admitted after melgar. Her postop course was complicated by wound infection with fascial dehiscence and controlled evisceration. Her colostomy was pink and working. She was discharged to home in satisfactory conditions on May 30, 2020, on oral Augmentin 875 mg p.o. twice daily and dressing changes twice a day with normal saline wet-to-dry technique to be done with assistance of the home health nurse. This patient was also instructed to resume her home oral medications. The patient returns to the emergency room today complaining of drainage and a foul smell from the abdominal wound. She denies any fever chills sweats or systemic symptoms. Blood work reveals a white blood cell count 14.6. Past Medical History Cardiac Medical History: Reports: Hyperlipidema Denies: Myocardial Infarction, Hypertension Pulmonary Medical History: Denies: Asthma Neurological Medical History: Denies: Seizures GI Medical History: Reports: Diverticulitis, Gastroesophageal Reflux Disease, Hiatal Hernia Denies: Hepatitis Musculoskeltal Medical History: Reports: Arthritis - Rheumatoid arthritis Psychiatric Medical History: Denies: Depression Hematology: Denies: Anemia, Sickle Cell Disease Past Surgical History Past Surgical History: Reports: Colostomy, Other - Cataract surgery Denies: Amputation, Hysterectomy, Mastectomy, Pacemaker Social History Smoking Status: Never Smoker Family History Family History: Reviewed & Not Pertinent Parental Family History Reviewed: No Children Family History Reviewed: No Sibling(s) Family History Reviewed.: No Medication/Allergy Home Medications: Atorvastatin Calcium [Lipitor 40 mg Tablet] 40 mg PO QHS 03/30/20 Bromfenac Sodium [Prolensa] 1 drop OP DAILY 03/30/20 Meloxicam [Mobic] 7.5 mg PO DAILY 03/30/20 Pantoprazole Sodium 40 mg PO DAILY 03/30/20 Cholecalciferol (Vitamin D3) [Vitamin D3 1000 Unit Tablet] 2,000 unit PO DAILY 05/20/20 Moxifloxacin HCl [Moxifloxacin] 1 drop OP TID 05/20/20 Multivitamin [Tab-A-Candido] 1 each PO DAILY 05/20/20 Ondansetron HCl [Zofran 8 mg Tablet] 4 mg PO BIDP PRN 05/20/20 Prednisolone Acetate [Pred Forte] 1 drop OS TID 05/20/20 Amoxicillin/Potassium Clav [Augmentin 875-125 Tablet] 1 tab PO Q12 #20 tablet 05/30/20 Acetaminophen 500 mg PO Q6HP PRN 06/01/20 Aspirin [Adult Aspirin Regimen] 81 mg PO DAILY 06/01/20 Tramadol HCl [Ultram 50 mg Tablet] 50 mg PO DAILYP PRN 06/01/20 Allergies/Adverse Reactions: No Known Allergies Allergy (Verified 05/19/20 16:30) Physical Exam Vital Signs: Temp Pulse Resp BP Pulse Ox 98.4 F 99 24 H 125/72 97 05/31/20 15:34 05/31/20 15:34 05/31/20 15:34 05/31/20 15:34 05/31/20 15:34 Intake & Output 05/30/20 05/31/20 06/01/20 06:59 06:59 06:59 Intake Total 1000 Balance 1000 Weight 69 kg General appearance: PRESENT: no acute distress, obese Head exam: PRESENT: atraumatic, normocephalic Eye exam: PRESENT: EOMI Mouth exam: PRESENT: moist, neck supple Teeth exam: PRESENT: poor dentation Neck exam: PRESENT: full ROM Respiratory exam: PRESENT: clear to auscultation juliocesar Cardiovascular exam: PRESENT: RRR GI/Abdominal exam: PRESENT: normal bowel sounds, soft, tenderness - None, other - Midline incision open, granulating, with serous drainage and foul smell, dehisced abdominal wall muscle fascia with granulation on the bottom of the wound as well as fibrinous material. Rectal exam: PRESENT: deferred Extremities exam: PRESENT: full ROM Musculoskeletal exam: PRESENT: full ROM Neurological exam: PRESENT: alert, awake, oriented to time, CN II-XII grossly intact Psychiatric exam: PRESENT: appropriate affect Skin exam: PRESENT: warm Results Laboratory Results: 05/31/20 16:52 05/31/20 16:52 05/31/20 05/31/20 05/31/20 16:52 16:52 17:52 WBC 14.3 H RBC 4.04 Hgb 11.4 L Hct 34.1 L MCV 85 MCH 28.2 MCHC 33.4 RDW 15.7 H Plt Count 867 H Seg Neutrophils % Not Reportable Sodium 139.8 Potassium 4.5 Chloride 107 Carbon Dioxide 23 Anion Gap 10 BUN 9 Creatinine 0.54 Est GFR ( Amer) > 60 Glucose 123 H Calcium 9.7 Total Bilirubin 0.3 AST 33 Alkaline Phosphatase 218 H Total Protein 7.0 Albumin 3.6 Urine Color YELLOW Urine Appearance CLOUDY Urine pH 6.0 Ur Specific [place] 1.019 Urine Protein 30 H Urine Glucose (UA) NEGATIVE Urine Ketones NEGATIVE Urine Blood NEGATIVE Urine Nitrite NEGATIVE Ur Leukocyte Esterase NEGATIVE Urine WBC (Auto) 5 Urine RBC (Auto) 4 Impressions: Chest X-Ray 05/31/20 16:01 IMPRESSION: Linear atelectasis in the left base. No other significant findings. Assessment & Plan - Diagnosis (1) Wound, surgical, infected Is this a current diagnosis for this admission?: Yes (2) Perforateed acute diverticulitis Is this a current diagnosis for this admission?: Yes (3) Status post exploratory laparotomy Is this a current diagnosis for this admission?: Yes - Time Anticipated Discharge Disposition: Home with Home Health Anticipated Discharge Timeframe: when medically stable - Plan Summary Plan Summary: Assessment: 64-year-old female postop day #11 follow laparotomy, sigmoidectomy, Suzanna pouch, and colostomy secondary to perforated sigmoid diverticulitis, done on May 10, 2020 Operative course complicated by laparotomy wound infection and fascial dehiscence Wound is currently treated with normal saline wet-to-dry dressing changes twice a day Augmentin 875 mg p.o. twice a day Patient discharged to home on May 30 and sterile dressings Kerlix roll with recommendation to continue dressing changes and oral antibiotics with follow-up in the surgical office in 2 weeks Patient returns to the office today complaining of foul-smelling wound drainage Physical exam demonstrates a soft abdomen with a granulating abdominal wound Blood work reveals a white blood cell count 14.3, H&H of 11 and 3 4, respectively Normal BMP except for slight elevated fasting blood sugar (123) and alkaline phosphatase (218), normal urinalysis (except for proteinuria) and normal chest x-ray Plan: Obtain wound culture Dress wound with Silvadene soaked Kerlix roll, followed by ABDs and tape Obtain CT scan abdomen pelvis with IV and oral contrast to r/o intra-abdominal process Admit NPO IVF IV Rocephin/Clindamycin
--- NOTE | 2020-06-01 10:16 | PDOC CONSULTATION ---
Consultation Consult Date: 06/01/20 Provider Consulted: ERASMO SHARP JR History of Present Illness Admission Date/PCP: 05/31/20 22:13 DAVI KINSEY NP History of Present Illness: YVETTE HOYT is a 64 year old female who presents to the emergency department for ongoing care from the general surgery team. In addition she has a prior left Achilles tendon repair that was performed by Dr. Escobar in [place] late in March. She last saw him on 11 May and was placed in a cam walker boot and was told his protocol which included subsequently removing the boot approximately 2 weeks after her visit with ongoing passive and active range of motion. However the patient explains that she has been in the boot since that time without removal. Given that she is now hospitalized and will potentially go to a rehab, she is concerned that her ability to follow-up with Dr. Escobar for further instructions or proceed with physical therapy as he had previously instructed. She denies any pain in the left lower extremity, she denies any interval symptoms of infection. She has occasionally weight bared in her cam walker boot. Past Medical History Cardiac Medical History: Reports: Hyperlipidema Denies: Myocardial Infarction, Hypertension Pulmonary Medical History: Denies: Asthma Neurological Medical History: Denies: Seizures GI Medical History: Reports: Diverticulitis, Gastroesophageal Reflux Disease, Hiatal Hernia Denies: Hepatitis Musculoskeltal Medical History: Reports: Arthritis - Rheumatoid arthritis Psychiatric Medical History: Denies: Depression Hematology: Denies: Anemia, Sickle Cell Disease Past Surgical History Past Surgical History: Reports: Colostomy, Other - Cataract surgery Denies: Amputation, Hysterectomy, Mastectomy, Pacemaker Social History Smoking Status: Never Smoker Hx Recreational Drug Use: No Drugs: None Hx Prescription Drug Abuse: No - Advance Directive Resuscitation Status: Full Code Family History Family History: Reviewed & Not Pertinent Parental Family History Reviewed: No Children Family History Reviewed: NA Sibling(s) Family History Reviewed.: NA Medication/Allergy Home Medications: Atorvastatin Calcium [Lipitor 40 mg Tablet] 40 mg PO QHS 03/30/20 Bromfenac Sodium [Prolensa] 1 drop OP DAILY 03/30/20 Meloxicam [Mobic] 7.5 mg PO DAILY 03/30/20 Pantoprazole Sodium 40 mg PO DAILY 03/30/20 Cholecalciferol (Vitamin D3) [Vitamin D3 1000 Unit Tablet] 2,000 unit PO DAILY 05/20/20 Moxifloxacin HCl [Moxifloxacin] 1 drop OP TID 05/20/20 Multivitamin [Tab-A-Candido] 1 each PO DAILY 05/20/20 Ondansetron HCl [Zofran 8 mg Tablet] 4 mg PO BIDP PRN 05/20/20 Prednisolone Acetate [Pred Forte] 1 drop OS TID 05/20/20 Amoxicillin/Potassium Clav [Augmentin 875-125 Tablet] 1 tab PO Q12 #20 tablet 05/30/20 Acetaminophen 500 mg PO Q6HP PRN 06/01/20 Aspirin [Adult Aspirin Regimen] 81 mg PO DAILY 06/01/20 Tramadol HCl [Ultram 50 mg Tablet] 50 mg PO DAILYP PRN 06/01/20 Allergies/Adverse Reactions: No Known Allergies Allergy (Verified 05/19/20 16:30) Review of Systems Review of Systems: Constitutional: ABSENT: anorexia, chills, night sweats Cardiovascular: ABSENT: chest pain Respiratory: ABSENT: dyspnea Gastrointestinal: ABSENT: vomiting Genitourinary: ABSENT: dysuria Integumentary: ABSENT: rash Neurological: ABSENT: confusion, memory loss, numbness Psychiatric: ABSENT: hallucinations Hematologic/Lymphatic: ABSENT: easy bleeding Physical Exam Vital Signs: Temp Pulse Resp BP Pulse Ox 98.2 F 90 18 147/75 H 96 06/01/20 05:45 06/01/20 05:45 06/01/20 05:45 06/01/20 05:45 06/01/20 05:45 Intake & Output 05/31/20 06/01/20 06/02/20 06:59 06:59 06:59 Intake Total 1100 1050 Balance 1100 1050 Weight 69 kg Physical Exam: General appearance: PRESENT: no acute distress, cooperative, well-nourished Head exam: PRESENT: atraumatic, normocephalic Eye exam: PRESENT: EOMI Ear exam: PRESENT: normal external ear exam Mouth exam: PRESENT: neck supple Neck exam: ABSENT: tracheal deviation Respiratory exam: PRESENT: symmetrical, unlabored. ABSENT: accessory muscle use, wheezes Pulses: PRESENT: normal radial pulses, normal dorsalis pedis pulse Vascular exam: PRESENT: normal capillary refill GI/Abdominal exam: ABSENT: distended, firm Extremities exam: PRESENT: full ROM of bilateral shoulders, elbows wrists, knees, hips and ankles without pain Musculoskeletal exam: PRESENT: full ROM, normal inspection of all 4 extremities aside from that noted below. Neurological exam: PRESENT: alert, awake, oriented to person, oriented to place, oriented to time Psychiatric exam: PRESENT: appropriate affect. ABSENT: agitated Focused psych exam: ABSENT: catatonic Skin exam: PRESENT: intact. ABSENT: dry All as above aside from that noted in the HPI and the following: Left lower extremity exam The boot was removed in the hospital today. The wound was explored. There is no signs of infection. This is well-healed at this time without any drainage. She has dorsiflexion to approximately 5 degrees plantar flexion to approximately 10 degrees with pain at the endpoints. There is minimal swelling. The Achilles repair appears to be intact. Results Laboratory Results: 06/01/20 06:10 06/01/20 06:10 05/31/20 05/31/20 05/31/20 16:52 16:52 17:52 WBC 14.3 H RBC 4.04 Hgb 11.4 L Hct 34.1 L MCV 85 MCH 28.2 MCHC 33.4 RDW 15.7 H Plt Count 867 H Seg Neutrophils % Not Reportable Sodium 139.8 Potassium 4.5 Chloride 107 Carbon Dioxide 23 Anion Gap 10 BUN 9 Creatinine 0.54 Est GFR ( Amer) > 60 Glucose 123 H Calcium 9.7 Total Bilirubin 0.3 AST 33 Alkaline Phosphatase 218 H Total Protein 7.0 Albumin 3.6 Urine Color YELLOW Urine Appearance CLOUDY Urine pH 6.0 Ur Specific [place] 1.019 Urine Protein 30 H Urine Glucose (UA) NEGATIVE Urine Ketones NEGATIVE Urine Blood NEGATIVE Urine Nitrite NEGATIVE Ur Leukocyte Esterase NEGATIVE Urine WBC (Auto) 5 Urine RBC (Auto) 4 06/01/20 06/01/20 06:10 06:10 WBC 11.8 H RBC 3.49 L Hgb 10.1 L Hct 29.3 L MCV 84 MCH 29.0 MCHC 34.5 RDW 15.3 H Plt Count 775 H Seg Neutrophils % 70.9 Sodium 140.6 Potassium 4.3 Chloride 108 H Carbon Dioxide 21 L Anion Gap 12 BUN 6 L Creatinine 0.52 Est GFR ( Amer) > 60 Glucose 101 Calcium 9.2 Total Bilirubin AST Alkaline Phosphatase Total Protein Albumin Urine Color Urine Appearance Urine pH Ur Specific [place] Urine Protein Urine Glucose (UA) Urine Ketones Urine Blood Urine Nitrite Ur Leukocyte Esterase Urine WBC (Auto) Urine RBC (Auto) Impressions: Chest X-Ray 05/31/20 16:01 IMPRESSION: Linear atelectasis in the left base. No other significant findings. Abdomen/Pelvis CT 06/01/20 00:00 IMPRESSION: 1. Interval laparotomy with Blackmon's pouch procedure and left lower quadrant diverting colostomy. There is no bowel obstruction. 2. Small loculated fluid collection with mild enhancing rim in the left side of the abdomen which may represent residual postop fluid versus an abscess. This area measures 3.6 x 2.1 x 2.3 cm. 3. Large midline ventral abdominal wall soft tissue wound which extends to the level of the fascia but does not extend through the fascia. Assessment & Plan - Diagnosis (1) Achilles rupture, left Is this a current diagnosis for this admission?: Yes Plan: Patient is status post left Achilles repair I discussed with her my protocol for postoperative management of Achilles repair She has approximately 6 weeks out and as per my protocol, she is now allowed to be full weightbearing in a sneaker. She is encouraged to do passive range of motion, active range of motion, active assisted range of motion of the ankle with progressive dorsiflexion up to 10 degree intervals. By postop week 8 she should be at 10 degrees of dorsiflexion followed by 20 degrees at postoperative week 10 followed by 30 degrees at postoperative week 12. She is encouraged to perform standing heel raises, single-leg eccentric l owering, step ups, sidesteps, proprioception exercises on a balance board I would encourage the patient have physical therapy ordered and they can follow the above
[2020-06-01] MEDS: NORMAL SALINE 1000 ML 1,000 ML IV PRN (13:50)
[2020-06-01] MEDS: ONDANSETRON HCL INJ/PF 4 MG/2 ML SDV IV PRN (13:51)
[2020-06-01] MEDS ORDERED: MORPHINE SULFATE 10 MG/ML INJ IV ONE (17:15)
[2020-06-01] MEDS ORDERED: TRAMADOL HCL 50 MG TABLET PO PRN (17:27)
--- NOTE | 2020-06-01 17:31 | PDOC PROGRESS REPORT ---
Subjective Date:: 06/01/20 Subjective:: Patient is just getting ready to eat dinner. She is having pain. Most of it is due to the aggressive cleansing of the wound bed. Reason For Visit: INFECTED ABDOMINAL WOUND Physical Exam Vital Signs: Temp Pulse Resp BP Pulse Ox 97.9 F 88 18 116/64 94 06/01/20 15:21 06/01/20 15:21 06/01/20 15:21 06/01/20 15:21 06/01/20 15:21 Intake & Output 05/31/20 06/01/20 06/02/20 06:59 06:59 06:59 Intake Total 1100 1272 Balance 1100 1272 Weight 69 kg General appearance: PRESENT: cooperative, mild distress, well-developed Head exam: PRESENT: atraumatic, normocephalic Ear exam: PRESENT: normal external ear exam. ABSENT: bleeding, drainage Mouth exam: PRESENT: moist, tongue midline Neck exam: ABSENT: carotid bruit, JVD, lymphadenopathy Respiratory exam: PRESENT: clear to auscultation juliocesar, symmetrical, unlabored. ABSENT: rales, rhonchi, tachypnea, wheezes Cardiovascular exam: PRESENT: RRR, +S1, +S2. ABSENT: bradycardia, diastolic murmur, irregular rhythm, systolic murmur, tachycardia GI/Abdominal exam: PRESENT: normal bowel sounds, soft, tenderness Rectal exam: PRESENT: deferred Gentrourinary exam: ABSENT: indwelling catheter Extremities exam: ABSENT: pedal edema Musculoskeletal exam: PRESENT: ambulatory. ABSENT: deformity, dislocation Neurological exam: PRESENT: alert, awake, oriented to person, oriented to place, oriented to time, oriented to situation, CN II-XII grossly intact. ABSENT: altered Psychiatric exam: PRESENT: appropriate affect - Affect reflects her clinical state. ABSENT: agitated, anxious Focused psych exam: ABSENT: delusional, paranoid, restlessness Results Laboratory Results: 06/01/20 06:10 06/01/20 06:10 05/31/20 05/31/20 05/31/20 16:52 16:52 17:52 WBC 14.3 H RBC 4.04 Hgb 11.4 L Hct 34.1 L MCV 85 MCH 28.2 MCHC 33.4 RDW 15.7 H Plt Count 867 H Seg Neutrophils % Not Reportable Sodium 139.8 Potassium 4.5 Chloride 107 Carbon Dioxide 23 Anion Gap 10 BUN 9 Creatinine 0.54 Est GFR ( Amer) > 60 Glucose 123 H Calcium 9.7 Total Bilirubin 0.3 AST 33 Alkaline Phosphatase 218 H Total Protein 7.0 Albumin 3.6 Urine Color YELLOW Urine Appearance CLOUDY Urine pH 6.0 Ur Specific [place] 1.019 Urine Protein 30 H Urine Glucose (UA) NEGATIVE Urine Ketones NEGATIVE Urine Blood NEGATIVE Urine Nitrite NEGATIVE Ur Leukocyte Esterase NEGATIVE Urine WBC (Auto) 5 Urine RBC (Auto) 4 06/01/20 06/01/20 06:10 06:10 WBC 11.8 H RBC 3.49 L Hgb 10.1 L Hct 29.3 L MCV 84 MCH 29.0 MCHC 34.5 RDW 15.3 H Plt Count 775 H Seg Neutrophils % 70.9 Sodium 140.6 Potassium 4.3 Chloride 108 H Carbon Dioxide 21 L Anion Gap 12 BUN 6 L Creatinine 0.52 Est GFR ( Amer) > 60 Glucose 101 Calcium 9.2 Total Bilirubin AST Alkaline Phosphatase Total Protein Albumin Urine Color Urine Appearance Urine pH Ur Specific [place] Urine Protein Urine Glucose (UA) Urine Ketones Urine Blood Urine Nitrite Ur Leukocyte Esterase Urine WBC (Auto) Urine RBC (Auto) Impressions: Chest X-Ray 05/31/20 16:01 IMPRESSION: Linear atelectasis in the left base. No other significant findings. Abdomen/Pelvis CT 06/01/20 00:00 IMPRESSION: 1. Interval laparotomy with Blackmon's pouch procedure and left lower quadrant diverting colostomy. There is no bowel obstruction. 2. Small loculated fluid collection with mild enhancing rim in the left side of the abdomen which may represent residual postop fluid versus an abscess. This area measures 3.6 x 2.1 x 2.3 cm. 3. Large midline ventral abdominal wall soft tissue wound which extends to the level of the fascia but does not extend through the fascia. Assessment and Plan - Diagnosis (1) Wound, surgical, infected Is this a current diagnosis for this admission?: Yes (2) Rheumatoid arthritis Qualifiers: Rheumatoid arthritis location: multiple sites Rheumatoid factor presence: unspecified presence Qualified Code(s): M06.9 - Rheumatoid arthritis, unspecified Is this a current diagnosis for this admission?: Yes (3) Chronic pain Qualifiers: Chronic pain type: other chronic pain Qualified Code(s): G89.29 - Other chronic pain Is this a current diagnosis for this admission?: Yes (4) HLD (hyperlipidemia) Qualifiers: Hyperlipidemia type: unspecified Qualified Code(s): E78.5 - Hyperlipidemia, unspecified Is this a current diagnosis for this admission?: Yes (5) Achilles rupture, left Is this a current diagnosis for this admission?: Yes - Plan Summary Summary: (1) Wound, surgical, infected Is this a current diagnosis for this admission?: Yes Plan: Recent admission for perforated bowel status post colostomy and exploratory laparotomy; readmitted 05/31 for wound dehiscence by general surgery General surgery is primary, medicine is consulted Agree with antibiotics to include gram-negative anaerobic coverage No fevers but white blood cell count is 14.7 Blood culture Surgical site culture Consider wound care consult 06/01/2020-I have added zinc, vitamin C and the patient is already on a multivitamin to maximize healing. I also added protein drinks to her meal trays. (2) Rheumatoid arthritis Is this a current diagnosis for this admission?: Yes Plan: Per patient, complicated by Achilles tendinitis Okay to continue Mobic Patient has been off rheumatoid arthritis medications including Humira and prednisone for approximately 2 weeks per patient Continue holding RA specific medications that will impair wound healing Needs follow-up with rheumatology after surgical wound infection is cleared Per patient, she is not on long-term steroids 06/01/2020-we will focus on NSAIDs for the time being. (3) HLD (hyperlipidemia) Is this a current diagnosis for this admission?: Yes Plan: Continue statin (4) Chronic pain Is this a current diagnosis for this admission?: Yes Plan: Continue home pain medication, tramadol, when she is able to take p.o. Okay to use IV narcotics while she is n.p.o. Specific pain management medications per general surgery discretion 06/01/2020-I did expand her tramadol dosing somewhat. Will monitor closely and courage minimal use. (5) Ruptured achilles tendon left The patient was seen by Dr. Wheeler. Will work with physical therapy. She is keeping the walking boot off at this time. - Time Time Spent with patient: 15-24 minutes Medications reviewed and adjusted accordingly: Yes Anticipated Discharge Disposition: Home with Home Health Anticipated Discharge Timeframe: Unknown
[2020-06-01] MEDS ORDERED: MOXIFLOXACIN HCL OP SCH (18:00)
[2020-06-01] MEDS: ASCORBIC ACID 500 MG TABLET PO SCH (18:21)
[2020-06-01] MEDS: PREDNISOLONE ACETATE 1% OPH SUSP 5 ML OS SCH (18:25)
[2020-06-01] MEDS: PANTOT AC/MIN OIL/PET HY-PHL OINT 50 GM TOP SCH (18:33)
--- NOTE | 2020-06-01 19:42 | PDOC PROGRESS REPORT ---
Subjective Date:: 06/01/20 Subjective:: 64-year old female readmitted for a postoperative wound infection. The wound is open. She reports that she cannot care for herself at home. Her is on the phone today, and relays similar information. Currently, she reports abdominal pain, but denies headache, nausea, vomiting, fevers, chills, chest pain, shortness of breath, dizziness, orthostasis. She is concerned about the walking boot on her left foot. Reason For Visit: INFECTED ABDOMINAL WOUND Physical Exam Vital Signs: Temp Pulse Resp BP Pulse Ox 97.9 F 88 18 116/64 94 06/01/20 15:21 06/01/20 15:21 06/01/20 15:21 06/01/20 15:21 06/01/20 15:21 Intake & Output 05/31/20 06/01/20 06/02/20 06:59 06:59 06:59 Intake Total 1100 1608 Balance 1100 1608 Weight 69 kg General appearance: PRESENT: no acute distress, cooperative Head exam: PRESENT: atraumatic, normocephalic Eye exam: PRESENT: EOMI, PERRLA Mouth exam: PRESENT: moist, neck supple Neck exam: ABSENT: meningismus, tenderness, thyromegaly, tracheal deviation Respiratory exam: PRESENT: unlabored. ABSENT: tachypnea, wheezes Cardiovascular exam: ABSENT: tachycardia GI/Abdominal exam: PRESENT: other - Lower quadrant colostomy is pink. Her midline wound is open with fibrinous slough in the base.. ABSENT: distended, firm Rectal exam: PRESENT: deferred Extremities exam: ABSENT: clubbing Musculoskeletal exam: PRESENT: other - Boot on the left foot. Neurological exam: PRESENT: alert, awake, oriented to person, oriented to place, oriented to time, oriented to situation, CN II-XII grossly intact Psychiatric exam: ABSENT: agitated, anxious, depressed Focused psych exam: ABSENT: delusional Skin exam: ABSENT: cyanosis, jaundice Results Laboratory Results: 06/01/20 06:10 06/01/20 06:10 06/01/20 06/01/20 06:10 06:10 WBC 11.8 H RBC 3.49 L Hgb 10.1 L Hct 29.3 L MCV 84 MCH 29.0 MCHC 34.5 RDW 15.3 H Plt Count 775 H Seg Neutrophils % 70.9 Sodium 140.6 Potassium 4.3 Chloride 108 H Carbon Dioxide 21 L Anion Gap 12 BUN 6 L Creatinine 0.52 Est GFR ( Amer) > 60 Glucose 101 Calcium 9.2 Impressions: Chest X-Ray 05/31/20 16:01 IMPRESSION: Linear atelectasis in the left base. No other significant findings. Abdomen/Pelvis CT 06/01/20 00:00 IMPRESSION: 1. Interval laparotomy with Blackmon's pouch procedure and left lower quadrant diverting colostomy. There is no bowel obstruction. 2. Small loculated fluid collection with mild enhancing rim in the left side of the abdomen which may represent residual postop fluid versus an abscess. This area measures 3.6 x 2.1 x 2.3 cm. 3. Large midline ventral abdominal wall soft tissue wound which extends to the level of the fascia but does not extend through the fascia. Assessment & Plan - Diagnosis (1) Wound, surgical, infected Is this a current diagnosis for this admission?: Yes - Time Anticipated Discharge Disposition: Longterm Facility Anticipated Discharge Timeframe: within 48 hours - Plan Summary Plan Summary: 64-year-old female with a postoperative surgical wound infection. The wound is open. There is a large amount of fibrinous slough, but it is easily cleaned at the bedside today. Initiate damp to dry dressing changes 3 times daily. Consult social work for SNF placement. Medicine following. I will consult orthopedics for help with management of her left lower extremity (previous Achilles tendon rupture).
[2020-06-01] MEDS: ATORVASTATIN CALCIUM 40 MG TABLET PO SCH (21:16)
[2020-06-01] MEDS: TRAMADOL HCL 50 MG TABLET PO PRN (21:25)
[2020-06-02] MEDS: TRAMADOL HCL 50 MG TABLET PO PRN ×2 (05:16→22:59)
[2020-06-02] MEDS: CLINDAMYCIN 600 MG/D5W RTU 600 MG/50 ML RTUPB IV SCH ×3 (05:16→22:58)
[2020-06-02 05:53] LABS: ABSOLUTE BASOPHILS # (AUTO) 0.1 10^3/uL (0.0-0.2); ABSOLUTE EOSINOPHILS # (AUTO) 0.4 10^3/uL (0.0-0.6); ABSOLUTE LYMPHOCYTES (AUTO) 2.6 10^3/uL (0.5-4.7); ABSOLUTE MONOCYTES (AUTO) 1.6 10^3/uL (0.1-1.4); ABSOLUTE NEUT (AUTO) 6.6 10^3/uL (1.7-8.2); BASOPHILS % (AUTO) 0.5 % (0-2); EOSINOPHILS % (AUTO) 3.6 % (0-6); HEMATOCRIT 31.5 % (36.0-47.0); HEMOGLOBIN 10.3 g/dL (12.0-15.5); LYMPHOCYTES % (AUTO) 23.1 % (13-45); MEAN CORPUSCULAR HEMOGLOBIN 27.8 pg (27.0-33.4); MEAN CORPUSCULAR HGB CONC 32.7 g/dL (32.0-36.0); MEAN CORPUSCULAR VOLUME 85 fl (80-97); PLATELET COUNT 583 10^3/uL (150-450); RED BLOOD COUNT 3.71 10^6/uL (3.72-5.28); RED CELL DISTRIBUTION WIDTH 15.4 % (11.5-14.0); SEGMENTED NEUTROPHILS % (AUTO) 58.8 % (42-78); TOTAL CELLS COUNTED % (AUTO) 100 %; WHITE BLOOD COUNT 11.2 10^3/uL (4.0-10.5)
[2020-06-02 06:14] LABS: ANION GAP 12 (5-19); BLOOD UREA NITROGEN 7 mg/dL (7-20); CALCIUM 9.2 mg/dL (8.4-10.2); CARBON DIOXIDE 21 mmol/L (22-30); CHLORIDE 104 mmol/L (98-107); GLUCOSE 102 mg/dL (75-110); POTASSIUM 4.4 mmol/L (3.6-5.0)
[2020-06-02] MEDS: CHOLECALCIFEROL (D3) 1,000 UNIT (25 MCG) TABLET PO SCH (09:34)
[2020-06-02] MEDS: ASCORBIC ACID 500 MG TABLET PO SCH ×2 (09:34→18:41)
[2020-06-02] MEDS: ASPIRIN 81 MG TABLET, ENT COATED PO SCH (09:34)
[2020-06-02] MEDS: PANTOPRAZOLE SODIUM 40 MG TABLET.DR PO SCH (09:34)
[2020-06-02] MEDS: MELOXICAM 7.5 MG TABLET PO SCH (09:34)
[2020-06-02] MEDS: ZINC SULFATE 220 MG CAPSULE PO SCH (09:34)
[2020-06-02] MEDS: MULTIVITAMIN TABLET PO SCH (09:34)
[2020-06-02] MEDS: PANTOT AC/MIN OIL/PET HY-PHL OINT 50 GM TOP SCH ×2 (09:35→18:40)
[2020-06-02] MEDS: FAMOTIDINE INJ/PF 20 MG/2 ML SDV IV SCH ×2 (09:35→22:58)
[2020-06-02] MEDS: PREDNISOLONE ACETATE 1% OPH SUSP 5 ML OS SCH ×3 (09:35→18:41)
[2020-06-02] MEDS: CEFTRIAXONE 1 GM/D5W RTU 1 GM/50 ML RTUPB IV SCH ×2 (09:36→22:58)
[2020-06-02] MEDS ORDERED: (PENDING PHARMACY ID) (Bromfenac Sodium [Prolensa] 1 DROP) OP SCH (10:00)
[2020-06-02] MEDS: KETOROLAC TROMETHAMINE INJ/PF 30 MG/1 ML SDV IV PRN (11:38)
[2020-06-02] MEDS ORDERED: METHOCARBAMOL 500 MG TABLET PO PRN (12:35)
--- NOTE | 2020-06-02 12:35 | PDOC PROGRESS REPORT ---
Subjective Date:: 06/02/20 Subjective:: She is complaining of back stiffness. Her Humira and steroid therapies have been on hold for her abdominal surgery. Reason For Visit: INFECTED ABDOMINAL WOUND Physical Exam Vital Signs: Temp Pulse Resp BP Pulse Ox 98.2 F 90 18 130/67 H 92 06/01/20 23:59 06/01/20 23:59 06/01/20 23:59 06/01/20 23:59 06/01/20 23:59 Intake & Output 06/01/20 06/02/20 06/03/20 06:59 06:59 06:59 Intake Total 1100 2858 100 Balance 1100 2858 100 Weight 69 kg 70.2 kg 70.2 kg Respiratory exam: PRESENT: clear to auscultation juliocesar Cardiovascular exam: PRESENT: RRR. ABSENT: systolic murmur GI/Abdominal exam: PRESENT: soft. ABSENT: tenderness Results Laboratory Results: 06/02/20 04:48 06/02/20 04:48 06/02/20 06/02/20 04:48 04:48 WBC 11.2 H RBC 3.71 L Hgb 10.3 L Hct 31.5 L MCV 85 MCH 27.8 MCHC 32.7 RDW 15.4 H Plt Count 583 H Seg Neutrophils % 58.8 Sodium 136.7 L Potassium 4.4 Chloride 104 Carbon Dioxide 21 L Anion Gap 12 BUN 7 Creatinine 0.55 Est GFR ( Amer) > 60 Glucose 102 Calcium 9.2 05/31/20 21:30 Abdomen - Post Surgical Site Gram Stain - Final Impressions: Chest X-Ray 05/31/20 16:01 IMPRESSION: Linear atelectasis in the left base. No other significant findings. Abdomen/Pelvis CT 06/01/20 00:00 IMPRESSION: 1. Interval laparotomy with Blackmon's pouch procedure and left lower quadrant diverting colostomy. There is no bowel obstruction. 2. Small loculated fluid collection with mild enhancing rim in the left side of the abdomen which may represent residual postop fluid versus an abscess. This area measures 3.6 x 2.1 x 2.3 cm. 3. Large midline ventral abdominal wall soft tissue wound which extends to the level of the fascia but does not extend through the fascia. Assessment and Plan - Diagnosis (1) Wound, surgical, infected Is this a current diagnosis for this admission?: Yes (2) Rheumatoid arthritis Qualifiers: Rheumatoid arthritis location: multiple sites Rheumatoid factor presence: unspecified presence Qualified Code(s): M06.9 - Rheumatoid arthritis, unspecified Is this a current diagnosis for this admission?: Yes (3) Chronic pain Qualifiers: Chronic pain type: other chronic pain Qualified Code(s): G89.29 - Other chronic pain Is this a current diagnosis for this admission?: Yes (4) HLD (hyperlipidemia) Qualifiers: Hyperlipidemia type: unspecified Qualified Code(s): E78.5 - Hyperlipidemia, unspecified Is this a current diagnosis for this admission?: Yes (5) Achilles rupture, left Is this a current diagnosis for this admission?: Yes - Plan Summary Summary: (1) Wound, surgical, infected Is this a current diagnosis for this admission?: Yes Plan: Recent admission for perforated bowel status post colostomy and exploratory laparotomy; readmitted 05/31 for wound dehiscence by general surgery General surgery is primary, medicine is consulted Agree with antibiotics to include gram-negative anaerobic coverage No fevers but white blood cell count is 14.7 Blood culture Surgical site culture Consider wound care consult 06/01/2020-I have added zinc, vitamin C and the patient is already on a multivitamin to maximize healing. I also added protein drinks to her meal trays. (2) Rheumatoid arthritis Is this a current diagnosis for this admission?: Yes Plan: Per patient, complicated by Achilles tendinitis Okay to continue Mobic Patient has been off rheumatoid arthritis medications including Humira and prednisone for approximately 2 weeks per patient Continue holding RA specific medications that will impair wound healing Needs follow-up with rheumatology after surgical wound infection is cleared Per patient, she is not on long-term steroids 06/01/2020-we will focus on NSAIDs for the time being. (3) HLD (hyperlipidemia) Is this a current diagnosis for this admission?: Yes Plan: Continue statin (4) Chronic pain Is this a current diagnosis for this admission?: Yes Plan: Continue home pain medication, tramadol, when she is able to take p.o. Okay to use IV narcotics while she is n.p.o. Specific pain management medications per general surgery discretion 06/01/2020-I did expand her tramadol dosing somewhat. Will monitor closely and courage minimal use. (5) Ruptured achilles tendon left The patient was seen by Dr. Wheeler. Will work with physical therapy. She is keeping the walking boot off at this time.
--- OUTSIDE RECORDS SUMMARY | 2020-06-02 14:47 | XMS REPORT ---
:1955 [facility] [address] [place] [address] Care Team Providers Name Role Phone Zaria Primary Care Physician Unavailable Allergies, Adverse Reactions, Alerts Allergy Allergy Status Severity Reaction(s) Onset Inactive Treating C omments Name Type Date Date Clinician No Known Allergy to Active Allergies substance Medications Ordered Filled Start Stop Current Ordering Indication Dosage Frequency Signature Comments Components Medication Medication Date Date Medication? Clinician (SIG) Name Name pantoprazol No pantoprazo e 40 mg 8-21 le 40 mg tablet,vinicius 00:00: tablet,del yed release 00 ayed TAKE ONE release TABLET BY TAKE ONE MOUTH EVERY TABLET BY DAY STOP MOUTH OMEPRAZOLE EVERY DAY STOP OMEPRAZOLE meloxicam 2020- 7.5mg meloxicam 7.5 mg - 03-04 7.5 mg tablet 7.5 00:00: 00:00 tablet 7.5 mg by oral 00 :00 mg by oral route. route. atorvastati No atorvastat n 40 mg in 40 mg tablet TAKE tablet ONE TABLET TAKE ONE BY MOUTH TABLET BY EVERY DAY MOUTH FOR EVERY DAY CHOLESTEROL FOR CHOLESTERO L Humira Pen No Humira Pen Humira(CF) No Humira(CF) Pen 40 Pen 40 mg/0.4 mL mg/0.4 mL subcutaneou subcutaneo s kit us kit hydrocodone No hydrocodon 5 e 5 mg-acetamin mg-acetami ophen 325 nophen 325 mg tablet mg tablet TAKE 1 TO 2 TAKE 1 TO TABLETS BY 2 TABLETS MOUTH EVERY BY MOUTH 4 HOURS EVERY 4 NEEDED FOR HOURS PAIN NEEDED FOR PAIN meloxicam No meloxicam 15 mg 15 mg tablet TAKE tablet 1 - 2 TAKE 1 - 2 TABLETS TABLETS daily WITH daily WITH food food needed needed omeprazole No omeprazole 20 mg 20 mg capsule,del capsule,de ayed layed release release TAKE 1 TAKE 1 CAPSULE CAPSULE DAILY 1/2 DAILY 1/2 HOUR PRIOR HOUR PRIOR TO TO BREAKFAST BREAKFAST omeprazole No omeprazole 20 mg 20 mg tablet,vinicius tablet,del yed release ayed release prednisone No prednisone 5 mg tablet 5 mg TAKE 1/2 tablet TABLET BY TAKE 1/2 MOUTH EVERY TABLET BY DAY WITH MOUTH FOOD EVERY DAY WITH FOOD tramadol 50 No tramadol mg tablet 50 mg Take 1 tablet tablet (50 Take 1 mg total) tablet (50 by mouth mg total) every 8 by mouth (eight) every 8 hours as (eight) needed for hours as Pain. needed for Pain. pantoprazol No pantoprazo e 40 mg le 40 mg tablet,vinicius tablet,del yed release ayed TAKE ONE release TABLET BY TAKE ONE MOUTH EVERY TABLET BY DAY STOP MOUTH OMEPRAZOLE EVERY DAY STOP OMEPRAZOLE amoxicillin No amoxicilli 500 mg n 500 mg capsule capsule TAKE 2 TAKE 2 CAPSULES BY CAPSULES MOUTH TWICE BY MOUTH DAILY for TWICE 10 DAYS DAILY for 10 DAYS Claritin-D No Claritin-D 12 Hour 5 12 Hour 5 mg-120 mg mg-120 mg tablet,exte tablet,ext nded ended release release Take 1 Take 1 tablet by tablet by mouth 2 mouth 2 (two) times (two) daily.For times sinus daily.For congestion sinus and congestion allergies; and drink lots allergies; of water drink lots of water gentamicin No gentamicin 0.3 % eye 0.3 % eye drops Place drops [address] 1 both eyes 4 drop into (four) both eyes times 4 (four) daily. times daily. meloxicam No meloxicam 7.5 mg 7.5 mg tablet TAKE tablet ONE TABLET TAKE ONE BY MOUTH TABLET BY EVERY DAY MOUTH EVERY DAY oxycodone 5 No oxycodone mg tablet 5 mg Take 1 tablet tablet Take 1 EVERY 6-8 tablet HOURS by EVERY 6-8 oral route. HOURS by FOR USE oral AFTER route. FOR SURGERY USE AFTER ONLY SURGERY ONLY prednisolon No prednisolo e acetate 1 ne acetate % eye 1 % eye drops,suspe drops,susp nsion ension Prolensa No Prolensa 0.07 % eye 0.07 % eye drops drops Instill 1 Instill 1 drop in drop in left eye left eye daily daily beginning beginning one day one day prior to prior to surgery surgery Zofran 4 mg No 1 BID Zofran 4 tablet Take mg tablet 1 tablet Take 1 twice a day tablet by oral twice a route as day by needed for oral route nausea. as needed for nausea. ciprofloxac No ciprofloxa in 500 mg shayy 500 mg tablet tablet aspirin 81 No 81mg aspirin 81 mg mg tablet,vinicius tablet,del yed release ayed 81 mg by release 81 oral route. mg by oral route. cholecalcif No 1000U cholecalci viviana ferol (vitamin (vitamin D3) 25 mcg D3) 25 mcg (1,000 (1,000 unit) unit) tablet tablet 1000 units 1000 units by oral by oral route. route. Humira 40 No 40mg Q2W Humira 40 mg/0.8 mL mg/0.8 mL subcutaneou subcutaneo s syringe us syringe kit 40 mg kit 40 mg every 2 every 2 weeks by weeks by sub-q sub-q route. route. Keflex 500 No Keflex 500 mg capsule mg capsule Take 1 Take 1 capsule(s) capsule(s) EVERY 6 EVERY 6 hours for 2 hours for days 2 days following following surgery surgery methylpredn No methylpred isolone 4 nisolone 4 mg tablet mg tablet TAKE ONE TAKE ONE TABLET BY TABLET BY MOUTH EVERY MOUTH DAY EVERY DAY DIRECTED DIRECTED moxifloxaci No moxifloxac n 0.5 % eye in 0.5 % drops eye drops Instill 1 Instill 1 drop in drop in left eye left eye three times three a day times a beginning day one day beginning prior to one day surgery prior to replaces surgery besivance replaces besivance oxybutynin No oxybutynin chloride ER chloride 10 mg ER 10 mg tablet,exte tablet,ext nded ended release 24 release 24 hr TAKE ONE hr TAKE TABLET BY ONE TABLET MOUTH EVERY BY MOUTH DAY EVERY DAY oxybutynin No oxybutynin chloride ER chloride 5 mg ER 5 mg tablet,exte tablet,ext nded ended release 24 release 24 hr hr Problems Condition Condition Condition Status Onset Resolution Last Treatin g Comments Name Details Category Date Date Treatment Clinician Date Obstructive Obstructive Problem Active sleep apnea Sleep Apnea 01-17 syndrome Syndrome 00:00: 00 Urinary Urinary Problem Active incontinenc Incontinenc 01-06 e e 00:00: 00 Breast Breast Problem Active finding Finding 6-19 00:00: 00 Lump in Lump in Problem Active right Right 3-17 breast Breast 00:00: 00 Full Full Problem Active thickness Thickness 9-09 rotator Rotator 00:00: cuff tear Cuff Tear 00 Osteopenia Osteopenia Problem Active 7-19 00:00: 00 Family Family Problem Active history of History of 4-11 premature Premature 00:00: coronary Coronary 00 heart Heart disease Disease Knee pain Knee Pain Problem Active 2-09 00:00: 00 Atypical Atypical Problem Active chest pain Chest Pain 2 00:00: 00 Finding Finding Problem Active related to Related to 209 ability to Ability to 00:00: cope with [place] with 00 pain Pain Shoulder Shoulder Problem Active 2016-07 pain Pain 0-17 00:00: 00 Bilateral Bilateral Problem Active heel pain Heel Pain 9 00:00: 00 Vitamin D Vitamin D Problem Active deficiency Deficiency 2-07 00:00: 00 Dyslipidemi Dyslipidemi Problem Active a a 2-07 00:00: 00 Rheumatoid Rheumatoid Problem Active arthritis Arthritis 2-07 of multiple of Multiple 00:00: joints Joints 00 Bilateral Bilateral Problem Active osteoarthri Osteoarthri 2-07 tis of tis of 00:00: knees Knees 00 Patient Patient Problem Active encounter Encounter 2-07 status Status 00:00: 00 Procedures Procedure Date / Time Performed Performing Clinician Devic e orthopaedic surgery (SURG) 2020-04-18 00:00:00 XR, ankle 2020-04-10 00:00:00 XR, shoulder 2019-10-28 00:00:00 XR, shoulder 2019-07-29 00:00:00 Shoulder Arthroscopy (Surg) 2019-03-29 00:00:00 Colonoscopy 2018-07-21 00:00:00 Other 2018-07-21 00:00:00 Results This patient has no known results. Assessments Condition Name Status Diagnosis Date Treating Clinici an Postoperative visit Active 2020-05-17 15:26:38 Postoperative visit Active 2020-05-02 16:24:36 Ankle pain Active 2020-04-10 14:44:07 Rupture of left Achilles tendon Active 2020-04-10 15:29 :27 Shoulder pain Active 2019-10-28 10:13:27 Partial thickness rotator cuff tear Active 2019-10-28 1 4:27:27 Arthritis of acromioclavicular joint Active 2019-10-28 14:27:35 Shoulder pain Active 2019-07-28 13:35:55 History of arthroscopic procedure on Active 2019-07-28 13:36:24 shoulder Biceps tendinitis Active 2019-07-29 10:05:04 Shoulder pain Active 2019-07-20 08:41:08 Shoulder stiff Active 2019-07-20 08:41:08 Difficulty lifting Active 2019-07-20 08:41:08 Difficulty carrying Active 2019-07-20 08:41:08 Shoulder pain Active 2019-07-13 09:12:33 Shoulder stiff Active 2019-07-13 09:12:33 Difficulty lifting Active 2019-07-13 09:12:33 Difficulty carrying Active 2019-07-13 09:12:33 Shoulder pain Active 2019-07-06 07:58:44 Shoulder stiff Active 2019-07-06 07:58:44 Difficulty lifting Active 2019-07-06 07:58:44 Difficulty carrying Active 2019-07-06 07:58:44 Shoulder pain Active 2019-06-29 09:03:11 Shoulder stiff Active 2019-06-29 09:03:11 Difficulty lifting Active 2019-06-29 09:03:11 Difficulty carrying Active 2019-06-29 09:03:11 Shoulder pain Active 2019-06-22 08:54:13 Shoulder stiff Active 2019-06-22 08:54:13 Difficulty lifting Active 2019-06-22 08:54:13 Difficulty carrying Active 2019-06-22 08:54:13 Shoulder pain Active 2019-06-15 08:18:03 Shoulder stiff Active 2019-06-15 08:18:03 Difficulty lifting Active 2019-06-15 08:18:03 Difficulty carrying Active 2019-06-15 08:18:03 Shoulder pain Active 2019-06-08 07:47:30 Shoulder stiff Active 2019-06-08 07:47:30 Difficulty lifting Active 2019-06-08 07:47:30 Difficulty carrying Active 2019-06-08 07:47:30 Shoulder pain Active 2019-06-01 07:37:00 Shoulder stiff Active 2019-06-01 07:37:00 Difficulty lifting Active 2019-06-01 07:37:00 Difficulty carrying Active 2019-06-01 07:37:00 Shoulder pain Active 2019-05-25 07:32:50 Shoulder stiff Active 2019-05-25 07:32:50 Difficulty lifting Active 2019-05-25 07:32:50 Difficulty carrying Active 2019-05-25 07:32:50 Shoulder pain Active 2019-05-18 08:15:33 Shoulder stiff Active 2019-05-18 08:15:33 Difficulty lifting Active 2019-05-18 08:15:33 Difficulty carrying Active 2019-05-18 08:15:33 Shoulder pain Active 2019-05-14 08:18:16 Shoulder stiff Active 2019-05-14 08:18:16 Difficulty lifting Active 2019-05-14 08:18:16 Difficulty carrying Active 2019-05-14 08:18:16 Shoulder pain Active 2019-05-13 08:13:15 History of arthroscopic procedure on Active 2019-05-14 10:58:54 shoulder Full thickness rotator cuff tear Active 2019-05-14 10:5 8:59 Shoulder stiff Active 2019-05-11 08:37:08 Difficulty lifting Active 2019-05-11 08:37:08 Difficulty carrying Active 2019-05-11 08:37:08 Shoulder pain Active 2019-05-11 08:37:08 Shoulder pain Active 2019-05-06 08:12:11 Shoulder stiff Active 2019-05-06 08:12:11 Difficulty lifting Active 2019-05-06 08:12:11 Difficulty carrying Active 2019-05-06 08:12:11 Shoulder pain Active 2019-05-04 07:47:42 Shoulder stiff Active 2019-05-04 07:47:42 Difficulty lifting Active 2019-05-04 07:47:42 Difficulty carrying Active 2019-05-04 07:47:42 Shoulder pain Active 2019-04-29 07:40:43 Shoulder stiff Active 2019-04-29 07:40:43 Difficulty lifting Active 2019-04-29 07:40:43 Difficulty carrying Active 2019-04-29 07:40:43 Shoulder pain Active 2019-04-27 07:31:50 Shoulder stiff Active 2019-04-27 07:31:50 Difficulty lifting Active 2019-04-27 07:31:50 Difficulty carrying Active 2019-04-27 07:31:50 Encounters Start End Encounter Admission Attending Care Care Encounter Date/Time Date/Time Type Type Clinicians Facility Department ID 2020-05-18 2020-05-18 [facility] [id number] 00:00:00 00:00:00 MD Shawn: Nessa edwards , P.A. [id number] [address] [place] [address], Ph. 2020-05-03 2020-05-03 Mirza Jeffrey [facility] 1 [id number] 00:00:00 00:00:00 grace Esquivel P.A. , P.A. [id number] MD: [address] [place] [phone], Ph. 2020-05-02 2020-05-02 Sami Oquendo [facility] [id number] 00:00:00 00:00:00 grace Moe P.A. , P.A. [id number] PA-C: [address] [place] [phone], Ph. 2020-04-10 2020-04-10 Sami Oquendo [facility] [id number] 00:00:00 00:00:00 grace Moe P.A. , P.A. [id number] PA-C: [address] [place] [address], Ph. 2019-10-28 2019-10-28 Rogelio [facility] [id number] 00:00:00 00:00:00 MD Charley: Nessa edwards , P.A. [id number] [address] [address], Ph. 2019-07-29 2019-07-29 Rogelio [facility] [id number] 00:00:00 00:00:00 MD Charley: Nessa edwards , P.A. [id number] [address] [address], Ph. 2019-07-20 2019-07-20 Priscilla [facility] [id number] 00:00:00 00:00:00 grace Gomez P.A. , P.A. [id number] [facility] [address] [facility] [place] [address], Ph. 2019-07-13 2019-07-13 Susan [facility] [id number] 00:00:00 00:00:00 grace Reyes P.A. , P.A. [id number] DICTAPHONE TRANSCRIBER: [address] [facility] [place] [address], Ph. 2019-07-06 2019-07-06 Priscilla Valdez [facility] [id number] 00:00:00 00:00:00 grace Gomez P.A. , P.A. [id number] PT: [address] [facility] [place] [address], Ph. 2019-06-29 2019-06-29 Susan Valdez [facility] [id number] 00:00:00 00:00:00 grace Reyes P.A. , P.A. [id number] DICTAPHONE TRANSCRIBER: [address] [facility] [place] [address], Ph. 2019-06-22 2019-06-22 Priscilla [facility] [id number] 00:00:00 00:00:00 grace Gomez P.A. , P.A. [id number] PT: [address] [facility] [address], [facility] [place] [address], Ph. 2019-06-15 2019-06-15 Susan Valdez [facility] [id number] 00:00:00 00:00:00 grace Reyes P.A. , P.A. [id number] DICTAPHONE TRANSCRIBER: [address] [facility] [place] [address], Ph. 2019-06-08 2019-06-08 Priscilla [facility] [id number] 00:00:00 00:00:00 grace Gomez P.A. , P.A. [id number] PT: [address] [facility] [address], [place] [address], Ph. 2019-06-01 2019-06-01 Priscilla [facility] [id number] 00:00:00 00:00:00 grace Gomez P.A. , P.A. [id number] PT: [address] [facility] [address], [place] [address], Ph. 2019-05-25 2019-05-25 Priscilla [facility] [id number] 00:00:00 00:00:00 grace Gomez P.A. , P.A. [id number] PT: [address] [facility] [address], [place] [address], Ph. 2019-05-18 2019-05-18 Priscilla [facility] [id number] 00:00:00 00:00:00 grace Gomez P.A. , P.A. [id number] PT: [address] [address], [place] [address], Ph. 2019-05-14 2019-05-14 Susan [facility] [id number] 00:00:00 00:00:00 grace Reyes P.A. , P.A. [id number] DICTAPHONE TRANSCRIBER: [address] [address], Ph. 2019-05-13 2019-05-13 Rogelio [facility] [id number]_20 00:00:00 00:00:00 MD Charley: Nessa edwards , P.A. [id number] [address] [place] [address], Ph. 2019-05-11 2019-05-11 Susan [facility] [id number] 101_20 00:00:00 00:00:00 grace Reyes P.A. , P.A. [id number] DICTAPHONE TRANSCRIBER: [address] [facility], [place] [address], Ph. 2019-05-06 2019-05-06 [facility] [id number]_20 00:00:00 00:00:00 grace Reyes P.A. , P.A. [id number] DICTAPHONE TRANSCRIBER: [address] [facility] [address], [place] [address], Ph. 2019-05-04 2019-05-04 [facility] [id number] 101_20 00:00:00 00:00:00 grace Reyes P.A. , P.A. [id number] DICTAPHONE TRANSCRIBER: [address] [facility], [place] [address], Ph. 2019-04-29 2019-04-29 [facility]20 00:00:00 00:00:00 grace Gomez P.A. , P.A. [id number] PT: [address] [facility] [address], [place] [address], Ph. 2019-04-27 2019-04-27 [facility] 101_20 00:00:00 00:00:00 grace Reyes P.A. , P.A. [id number] DICTAPHONE TRANSCRIBER: [address] [facility] [address], [place] [address], Ph. Immunizations Ordered Immunization Filled Immunization Date Status Commen ts Refusal Reason Name Name influenza, 2019-04-28 Completed injectable, 00:00:00 quadrivalent Plan of Treatment Planned Activity Planned Date Details Comments Future Appointment 2020-06-13 14:00:00 Sami Moe, [address] [place] [address] Social History Smoking Status Start Date Stop Date Never Smoker Vital Signs Vital Name Observation Time Observation Value Comments Height 2020-05-18 00:00:00 62 [in_i] BMI (Body Mass Index) 2020-05-18 00:00:00 29.6 kg/m2 Body Weight 2020-05-18 00:00:00 162 [lb_av] Height 2020-05-03 00:00:00 62 [in_i] BMI (Body Mass Index) 2020-05-03 00:00:00 29.6 kg/m2 Body Weight 2020-05-03 00:00:00 162 [lb_av] Height 2019-10-28 00:00:00 62 [in_i] BMI (Body Mass Index) 2019-10-28 00:00:00 29.6 kg/m2 Body Weight 2019-10-28 00:00:00 162 [lb_av] Height 2019-07-29 00:00:00 62 [in_i] BMI (Body Mass Index) 2019-07-29 00:00:00 29.3 kg/m2 Body Weight 2019-07-29 00:00:00 160 [lb_av] Hospital Discharge Instructions 1. Ankle pain XR, ankle 2. Rupture of left Achilles tendon orthopaedic surgery (SURG) Keflex 500 mg capsule Zofran 4 mg tablet oxycodone 5 mg tablet Discussion Note: None recorded. Patient educational handouts: No information available.1. Shoulder pain XR, shoulder 2. Partial thickness rotator cuff tear 3. Arthritis of acromioclavicular joint Discussion Note: None recorded. Patient educational handouts: No information available.
[2020-06-02] MEDS: SILVER SULFADIAZINE 1% CREAM 400 GM TP SCH ×2 (16:27→23:25)
--- NOTE | 2020-06-02 20:11 | PDOC PROGRESS REPORT ---
Subjective Date:: 06/02/20 Subjective:: 64-year old female readmitted for a postoperative wound infection. The wound is open. She reports that she cannot care for herself at home. Currently, she reports abdominal pain, but denies headache, nausea, vomiting, fevers, chills, chest pain, shortness of breath, dizziness, orthostasis. Reason For Visit: INFECTED ABDOMINAL WOUND Physical Exam Vital Signs: Temp Pulse Resp BP Pulse Ox 98.2 F 91 17 129/61 H 95 06/02/20 15:31 06/02/20 15:31 06/02/20 15:31 06/02/20 15:31 06/02/20 15:31 Intake & Output 06/01/20 06/02/20 06/03/20 06:59 06:59 06:59 Intake Total 1100 2858 1260 Output Total 100 Balance 1100 2858 1160 Weight 69 kg 70.2 kg 70.2 kg Exam: General appearance: PRESENT: no acute distress, cooperative Head exam: PRESENT: atraumatic, normocephalic Eye exam: PRESENT: EOMI, PERRLA Mouth exam: PRESENT: moist, neck supple Neck exam: ABSENT: meningismus, tenderness, thyromegaly, tracheal deviation Respiratory exam: PRESENT: unlabored. ABSENT: tachypnea, wheezes Cardiovascular exam: ABSENT: tachycardia GI/Abdominal exam: PRESENT: other - Lower quadrant colostomy is pink. Her midline wound is open with granulation present. ABSENT: distended, firm Rectal exam: PRESENT: deferred Extremities exam: ABSENT: clubbing Musculoskeletal exam: PRESENT: other - Boot on the left foot. Neurological exam: PRESENT: alert, awake, oriented to person, oriented to place, oriented to time, oriented to situation, CN II-XII grossly intact Psychiatric exam: ABSENT: agitated, anxious, depressed Focused psych exam: ABSENT: delusional Skin exam: ABSENT: cyanosis, jaundice Results Laboratory Results: 06/02/20 04:48 06/02/20 04:48 06/02/20 06/02/20 04:48 04:48 WBC 11.2 H RBC 3.71 L Hgb 10.3 L Hct 31.5 L MCV 85 MCH 27.8 MCHC 32.7 RDW 15.4 H Plt Count 583 H Seg Neutrophils % 58.8 Sodium 136.7 L Potassium 4.4 Chloride 104 Carbon Dioxide 21 L Anion Gap 12 BUN 7 Creatinine 0.55 Est GFR ( Amer) > 60 Glucose 102 Calcium 9.2 05/31/20 21:30 Abdomen - Post Surgical Site Gram Stain - Final Impressions: Chest X-Ray 05/31/20 16:01 IMPRESSION: Linear atelectasis in the left base. No other significant findings. Abdomen/Pelvis CT 06/01/20 00:00 IMPRESSION: 1. Interval laparotomy with Blackmon's pouch procedure and left lower quadrant diverting colostomy. There is no bowel obstruction. 2. Small loculated fluid collection with mild enhancing rim in the left side of the abdomen which may represent residual postop fluid versus an abscess. This area measures 3.6 x 2.1 x 2.3 cm. 3. Large midline ventral abdominal wall soft tissue wound which extends to the level of the fascia but does not extend through the fascia. Assessment & Plan - Diagnosis (1) Wound, surgical, infected Is this a current diagnosis for this admission?: Yes - Time Anticipated Discharge Disposition: Alf Facility Anticipated Discharge Timeframe: when bed available - Plan Summary Plan Summary: 64-year-old female with a postoperative surgical wound infection. The wound is open. There is granulation tissue at the base. Marginal tissue at the wound edge was debrided at the bedside today. Cont damp to dry dressing changes 3 times daily. Awaiting SNF placement. Medicine following.
--- NOTE | 2020-06-02 22:30 | PDOC PROGRESS REPORT ---
Subjective Date:: 06/02/20 Subjective:: Patient was just up to the bathroom and is now sitting in a chair eating lunch. She states that her back is stiff and sore. She is not on the Humira for her rheumatoid arthritis due to the wound healing issues. Reason For Visit: INFECTED ABDOMINAL WOUND Physical Exam Vital Signs: Temp Pulse Resp BP Pulse Ox 98.2 F 91 17 129/61 H 95 06/02/20 15:31 06/02/20 15:31 06/02/20 15:31 06/02/20 15:31 06/02/20 15:31 Intake & Output 06/01/20 06/02/20 06/03/20 06:59 06:59 06:59 Intake Total 1100 2858 1260 Output Total 100 Balance 1100 2858 1160 Weight 69 kg 70.2 kg 70.2 kg General appearance: PRESENT: cooperative, mild distress, well-developed Head exam: PRESENT: atraumatic, normocephalic Respiratory exam: PRESENT: clear to auscultation juliocesar, symmetrical, unlabored. A BSENT: rales, rhonchi, tachypnea, wheezes Cardiovascular exam: PRESENT: RRR, +S1, +S2. ABSENT: bradycardia, diastolic murmur, systolic murmur, tachycardia GI/Abdominal exam: PRESENT: normal bowel sounds, soft, tenderness, other - Surgical dressing in place. Colostomy in place. Rectal exam: PRESENT: deferred Gentrourinary exam: ABSENT: indwelling catheter Extremities exam: ABSENT: pedal edema Musculoskeletal exam: PRESENT: ambulatory, other - Cam walking boot on the left leg. ABSENT: deformity, dislocation Neurological exam: PRESENT: alert, awake, oriented to person, oriented to place, oriented to time, oriented to situation, CN II-XII grossly intact. ABSENT: altered Psychiatric exam: PRESENT: appropriate affect. ABSENT: agitated, anxious Focused psych exam: ABSENT: delusional, paranoid, restlessness Results Laboratory Results: 06/02/20 04:48 06/02/20 04:48 06/02/20 06/02/20 04:48 04:48 WBC 11.2 H RBC 3.71 L Hgb 10.3 L Hct 31.5 L MCV 85 MCH 27.8 MCHC 32.7 RDW 15.4 H Plt Count 583 H Seg Neutrophils % 58.8 Sodium 136.7 L Potassium 4.4 Chloride 104 Carbon Dioxide 21 L Anion Gap 12 BUN 7 Creatinine 0.55 Est GFR ( Amer) > 60 Glucose 102 Calcium 9.2 05/31/20 21:30 Abdomen - Post Surgical Site Gram Stain - Final Impressions: Chest X-Ray 05/31/20 16:01 IMPRESSION: Linear atelectasis in the left base. No other significant findings. Abdomen/Pelvis CT 06/01/20 00:00 IMPRESSION: 1. Interval laparotomy with Blackmon's pouch procedure and left lower quadrant diverting colostomy. There is no bowel obstruction. 2. Small loculated fluid collection with mild enhancing rim in the left side of the abdomen which may represent residual postop fluid versus an abscess. This area measures 3.6 x 2.1 x 2.3 cm. 3. Large midline ventral abdominal wall soft tissue wound which extends to the level of the fascia but does not extend through the fascia. Assessment and Plan - Diagnosis (1) Wound, surgical, infected Is this a current diagnosis for this admission?: Yes (2) Rheumatoid arthritis Qualifiers: Rheumatoid arthritis location: multiple sites Rheumatoid factor presence: unspecified presence Qualified Code(s): M06.9 - Rheumatoid arthritis, unspecif ied Is this a current diagnosis for this admission?: Yes (3) Chronic pain Qualifiers: Chronic pain type: other chronic pain Qualified Code(s): G89.29 - Other chronic pain Is this a current diagnosis for this admission?: Yes (4) HLD (hyperlipidemia) Qualifiers: Hyperlipidemia type: unspecified Qualified Code(s): E78.5 - Hyperlipidemia, unspecified Is this a current diagnosis for this admission?: Yes (5) Achilles rupture, left Is this a current diagnosis for this admission?: Yes - Plan Summary Summary: (1) Wound, surgical, infected Is this a current diagnosis for this admission?: Yes Plan: Recent admission for perforated bowel status post colostomy and exploratory laparotomy; readmitted 05/31 for wound dehiscence by general surgery General surgery is primary, medicine is consulted Agree with antibiotics to include gram-negative anaerobic coverage No fevers but white blood cell count is 14.7 Blood culture Surgical site culture Consider wound care consult 06/01/2020-I have added zinc, vitamin C and the patient is already on a multivitamin to maximize healing. I also added protein drinks to her meal trays. (2) Rheumatoid arthritis Is this a current diagnosis for this admission?: Yes Plan: Per patient, complicated by Achilles tendinitis Okay to continue Mobic Patient has been off rheumatoid arthritis medications including Humira and prednisone for approximately 2 weeks per patient Continue holding RA specific medications that will impair wound healing Needs follow-up with rheumatology after surgical wound infection is cleared Per patient, she is not on long-term steroids 06/01/2020-we will focus on NSAIDs for the time being. (3) HLD (hyperlipidemia) Is this a current diagnosis for this admission?: Yes Plan: Continue statin (4) Chronic pain Is this a current diagnosis for this admission?: Yes Plan: Continue home pain medication, tramadol, when she is able to take p.o. Okay to use IV narcotics while she is n.p.o. Specific pain management medications per general surgery discretion 06/01/2020-I did expand her tramadol dosing somewhat. Will monitor closely and courage minimal use. 06/02/2020-we will add K pad for her back pain. (5) Ruptured achilles tendon left The patient was seen by Dr. Wheeler. Will work with physical therapy. She is keeping the walking boot off at this time. - Time Time Spent with patient: Less than 15 minutes Medications reviewed and adjusted accordingly: Yes Anticipated Discharge Disposition: Home with Home Health Anticipated Discharge Timeframe: within 72 hours
[2020-06-02] MEDS: ATORVASTATIN CALCIUM 40 MG TABLET PO SCH (22:59)
[2020-06-03] MEDS: TRAMADOL HCL 50 MG TABLET PO PRN ×2 (05:22→18:07)
[2020-06-03] MEDS: CLINDAMYCIN 600 MG/D5W RTU 600 MG/50 ML RTUPB IV SCH ×3 (05:22→22:43)
[2020-06-03] MEDS: KETOROLAC TROMETHAMINE INJ/PF 30 MG/1 ML SDV IV PRN ×2 (06:22→22:43)
[2020-06-03 07:19] LABS: ABSOLUTE BASOPHILS # (AUTO) 0.1 10^3/uL (0.0-0.2); ABSOLUTE EOSINOPHILS # (AUTO) 0.5 10^3/uL (0.0-0.6); ABSOLUTE LYMPHOCYTES (AUTO) 1.9 10^3/uL (0.5-4.7); ABSOLUTE MONOCYTES (AUTO) 1.6 10^3/uL (0.1-1.4); ABSOLUTE NEUT (AUTO) 7.5 10^3/uL (1.7-8.2); EOSINOPHILS % (AUTO) 3.9 % (0-6); HEMATOCRIT 29.6 % (36.0-47.0); HEMOGLOBIN 9.4 g/dL (12.0-15.5); LYMPHOCYTES % (AUTO) 16.2 % (13-45); MEAN CORPUSCULAR HEMOGLOBIN 27.2 pg (27.0-33.4); MEAN CORPUSCULAR HGB CONC 31.9 g/dL (32.0-36.0); MEAN CORPUSCULAR VOLUME 85 fl (80-97); PLATELET COUNT 734 10^3/uL (150-450); RED BLOOD COUNT 3.47 10^6/uL (3.72-5.28); RED CELL DISTRIBUTION WIDTH 15.3 % (11.5-14.0); SEGMENTED NEUTROPHILS % (AUTO) 64.9 % (42-78); TOTAL CELLS COUNTED % (AUTO) 100 %; WHITE BLOOD COUNT 11.5 10^3/uL (4.0-10.5)
[2020-06-03 07:45] LABS: ANION GAP 10 (5-19); BLOOD UREA NITROGEN 6 mg/dL (7-20); CARBON DIOXIDE 21 mmol/L (22-30); CHLORIDE 106 mmol/L (98-107); GLUCOSE 105 mg/dL (75-110); POTASSIUM 4.2 mmol/L (3.6-5.0)
--- NOTE | 2020-06-03 09:08 | PDOC PROGRESS REPORT ---
Subjective Date:: 06/03/20 Subjective:: 64-year old female readmitted for a postoperative wound infection. The wound is open. She reports that she cannot care for herself at home. Currently, she reports abdominal pain, but denies headache, nausea, vomiting, fevers, chills, chest pain, shortness of breath, dizziness, orthostasis. Reason For Visit: INFECTED ABDOMINAL WOUND Physical Exam Vital Signs: Temp Pulse Resp BP Pulse Ox 93 F L 93 18 141/67 H 93 06/03/20 07:45 06/03/20 01:00 06/03/20 01:00 06/03/20 01:00 06/03/20 01:00 Intake & Output 06/02/20 06/03/20 06/04/20 06:59 06:59 06:59 Intake Total 2858 1810 Output Total 115 Balance 2858 1695 Weight 70.2 kg 71.1 kg Exam: General appearance: PRESENT: no acute distress, cooperative Head exam: PRESENT: atraumatic, normocephalic Eye exam: PRESENT: EOMI, PERRLA Mouth exam: PRESENT: moist, neck supple Neck exam: ABSENT: meningismus, tenderness, thyromegaly, tracheal deviation Respiratory exam: PRESENT: unlabored. ABSENT: tachypnea, wheezes Cardiovascular exam: ABSENT: tachycardia GI/Abdominal exam: PRESENT: other - Lower quadrant colostomy is pink. Her midline wound is open with granulation present. ABSENT: distended, firm Rectal exam: PRESENT: deferred Extremities exam: ABSENT: clubbing Musculoskeletal exam: PRESENT: other - Boot on the left foot. Neurological exam: PRESENT: alert, awake, oriented to person, oriented to place, oriented to time, oriented to situation, CN II-XII grossly intact Psychiatric exam: ABSENT: agitated, anxious, depressed Focused psych exam: ABSENT: delusional Skin exam: ABSENT: cyanosis, jaundice Results Laboratory Results: 06/03/20 06:43 06/03/20 06:43 06/03/20 06/03/20 06:43 06:43 WBC 11.5 H RBC 3.47 L Hgb 9.4 L Hct 29.6 L MCV 85 MCH 27.2 MCHC 31.9 L RDW 15.3 H Plt Count 734 H Seg Neutrophils % 64.9 Sodium 136.9 L Potassium 4.2 Chloride 106 Carbon Dioxide 21 L Anion Gap 10 BUN 6 L Creatinine 0.43 L Est GFR ( Amer) > 60 Glucose 105 Calcium 9.0 05/31/20 21:30 Abdomen - Post Surgical Site Gram Stain - Final 05/31/20 21:30 Abdomen - Post Surgical Site Wound Culture - Final Proteus Mirabilis Enterobacter Cloacae Bacteroides Fragilis Group Impressions: Chest X-Ray 05/31/20 16:01 IMPRESSION: Linear atelectasis in the left base. No other significant findings. Abdomen/Pelvis CT 06/01/20 00:00 IMPRESSION: 1. Interval laparotomy with Blackmon's pouch procedure and left lower quadrant diverting colostomy. There is no bowel obstruction. 2. Small loculated fluid collection with mild enhancing rim in the left side of the abdomen which may represent residual postop fluid versus an abscess. This area measures 3.6 x 2.1 x 2.3 cm. 3. Large midline ventral abdominal wall soft tissue wound which extends to the level of the fascia but does not extend through the fascia. Assessment & Plan - Diagnosis (1) Wound, surgical, infected Is this a current diagnosis for this admission?: Yes - Time Anticipated Discharge Disposition: Custodial Facility Anticipated Discharge Timeframe: when bed available - Plan Summary Plan Summary: 64-year-old female with a postoperative surgical wound infection. The wound is open. There is granulation tissue at the base. Cont damp to dry dressing changes 3 times daily. Awaiting SNF placement. Medicine following.
[2020-06-03] MEDS: SILVER SULFADIAZINE 1% CREAM 400 GM TP SCH ×2 (09:41→17:23)
[2020-06-03] MEDS: FAMOTIDINE INJ/PF 20 MG/2 ML SDV IV SCH ×2 (09:45→22:42)
[2020-06-03] MEDS: ASCORBIC ACID 500 MG TABLET PO SCH ×2 (09:45→17:26)
[2020-06-03] MEDS: ZINC SULFATE 220 MG CAPSULE PO SCH (09:45)
[2020-06-03] MEDS: MULTIVITAMIN TABLET PO SCH (09:45)
[2020-06-03] MEDS: CHOLECALCIFEROL (D3) 1,000 UNIT (25 MCG) TABLET PO SCH (09:45)
[2020-06-03] MEDS: MELOXICAM 7.5 MG TABLET PO SCH (09:45)
[2020-06-03] MEDS: ASPIRIN 81 MG TABLET, ENT COATED PO SCH (09:45)
[2020-06-03] MEDS: CEFTRIAXONE 1 GM/D5W RTU 1 GM/50 ML RTUPB IV SCH ×2 (09:45→22:42)
[2020-06-03] MEDS: PANTOPRAZOLE SODIUM 40 MG TABLET.DR PO SCH (09:45)
[2020-06-03] MEDS: PREDNISOLONE ACETATE 1% OPH SUSP 5 ML OS SCH ×3 (09:46→17:26)
[2020-06-03] MEDS: PANTOT AC/MIN OIL/PET HY-PHL OINT 50 GM TOP SCH ×2 (09:46→17:26)
--- NOTE | 2020-06-03 11:31 | PDOC PROGRESS REPORT ---
Subjective Date:: 06/03/20 Subjective:: Patient still with discomfort. Pain with the abdominal wound but also musculosk eletal pain. Chronic back pain is her primary affliction. Reason For Visit: INFECTED ABDOMINAL WOUND Physical Exam Vital Signs: Temp Pulse Resp BP Pulse Ox 97.7 F 88 16 116/64 95 06/03/20 07:58 06/03/20 07:58 06/03/20 07:58 06/03/20 07:58 06/03/20 07:58 Intake & Output 06/02/20 06/03/20 06/04/20 06:59 06:59 06:59 Intake Total 2858 1810 50 Output Total 115 Balance 2858 1695 50 Weight 70.2 kg 71.1 kg General appearance: PRESENT: cooperative, mild distress, well-developed Head exam: PRESENT: atraumatic, normocephalic Ear exam: PRESENT: normal external ear exam. ABSENT: bleeding, drainage Mouth exam: PRESENT: moist, tongue midline Neck exam: ABSENT: carotid bruit, JVD, lymphadenopathy Respiratory exam: PRESENT: clear to auscultation juliocesar, symmetrical, unlabored. ABSENT: rales, rhonchi, tachypnea, wheezes Cardiovascular exam: PRESENT: RRR, +S1, +S2 GI/Abdominal exam: PRESENT: normal bowel sounds, soft, tenderness, other - Open wound down to the peritoneum. Good granulation tissue is forming. Deep recesses on either side of the opening. Rectal exam: PRESENT: other - Colostomy present. Gentrourinary exam: ABSENT: indwelling catheter Extremities exam: ABSENT: pedal edema Musculoskeletal exam: PRESENT: ambulatory, normal inspection Neurological exam: PRESENT: alert, awake, oriented to person, oriented to place, oriented to time, oriented to situation, CN II-XII grossly intact. ABSENT: altered Psychiatric exam: PRESENT: appropriate affect. ABSENT: agitated, anxious Focused psych exam: ABSENT: delusional, paranoid, restlessness Results Laboratory Results: 06/03/20 06:43 06/03/20 06:43 06/03/20 06/03/20 06:43 06:43 WBC 11.5 H RBC 3.47 L Hgb 9.4 L Hct 29.6 L MCV 85 MCH 27.2 MCHC 31.9 L RDW 15.3 H Plt Count 734 H Seg Neutrophils % 64.9 Sodium 136.9 L Potassium 4.2 Chloride 106 Carbon Dioxide 21 L Anion Gap 10 BUN 6 L Creatinine 0.43 L Est GFR ( Amer) > 60 Glucose 105 Calcium 9.0 05/31/20 21:30 Abdomen - Post Surgical Site Gram Stain - Final 05/31/20 21:30 Abdomen - Post Surgical Site Wound Culture - Final Proteus Mirabilis Enterobacter Cloacae Bacteroides Fragilis Group Impressions: Chest X-Ray 05/31/20 16:01 IMPRESSION: Linear atelectasis in the left base. No other significant findings. Abdomen/Pelvis CT 06/01/20 00:00 IMPRESSION: 1. Interval laparotomy with Blackmon's pouch procedure and left lower quadrant diverting colostomy. There is no bowel obstruction. 2. Small loculated fluid collection with mild enhancing rim in the left side of the abdomen which may represent residual postop fluid versus an abscess. This area measures 3.6 x 2.1 x 2.3 cm. 3. Large midline ventral abdominal wall soft tissue wound which extends to the level of the fascia but does not extend through the fascia. Assessment and Plan - Diagnosis (1) Wound, surgical, infected Is this a current diagnosis for this admission?: Yes (2) Rheumatoid arthritis Qualifiers: Rheumatoid arthritis location: multiple sites Rheumatoid factor presence: unspecified presence Qualified Code(s): M06.9 - Rheumatoid arthritis, unspecified Is this a current diagnosis for this admission?: Yes (3) Chronic pain Qualifiers: Chronic pain type: other chronic pain Qualified Code(s): G89.29 - Other chronic pain Is this a current diagnosis for this admission?: Yes (4) HLD (hyperlipidemia) Qualifiers: Hyperlipidemia type: unspecified Qualified Code(s): E78.5 - Hyperlipidemia, unspecified Is this a current diagnosis for this admission?: Yes (5) Achilles rupture, left Is this a current diagnosis for this admission?: Yes - Plan Summary Summary: (1) Wound, surgical, infected Is this a current diagnosis for this admission?: Yes Plan: Recent admission for perforated bowel status post colostomy and exploratory laparotomy; readmitted 05/31 for wound dehiscence by general surgery General surgery is primary, medicine is consulted Agree with antibiotics to include gram-negative anaerobic coverage No fevers but white blood cell count is 14.7 Blood culture Surgical site culture Consider wound care consult 06/01/2020-I have added zinc, vitamin C and the patient is already on a multivitamin to maximize healing. I also added protein drinks to her meal trays. 06/03/2020-I was present at the bedside with the wound dressing change. Good granulation tissue. Ongoing wound care per surgery. (2) Rheumatoid arthritis Is this a current diagnosis for this admission?: Yes Plan: Per patient, complicated by Achilles tendinitis Okay to continue Mobic Patient has been off rheumatoid arthritis medications including Humira and prednisone for approximately 2 weeks per patient Continue holding RA specific medications that will impair wound healing Needs follow-up with rheumatology after surgical wound infection is cleared Per patient, she is not on long-term steroids 06/01/2020-we will focus on NSAIDs for the time being. (3) HLD (hyperlipidemia) Is this a current diagnosis for this admission?: Yes Plan: Continue statin (4) Chronic pain Is this a current diagnosis for this admission?: Yes Plan: Continue home pain medication, tramadol, when she is able to take p.o. Okay to use IV narcotics while she is n.p.o. Specific pain management medications per general surgery discretion 06/01/2020-I did expand her tramadol dosing somewhat. Will monitor closely and courage minimal use. 06/02/2020-we will add K pad for her back pain. 06/03/2020-the K pad is helping somewhat. We will try and position it appropriately. (5) Ruptured achilles tendon left The patient was seen by Dr. Wheeler. Will work with physical therapy. She is keeping the walking boot off at this time. 06/03/2020-continue conservative care. Continue Aquaphor. - Time Time Spent with patient: Less than 15 minutes Medications reviewed and adjusted accordingly: Yes Anticipated Discharge Disposition: Home with Home Health Anticipated Discharge Timeframe: Unknown
[2020-06-03] MEDS: LIDOCAINE 5% (700 MG) TRANSDERMAL ADH..PATCH TP SCH (12:35)
[2020-06-03] MEDS: METHOCARBAMOL 500 MG TABLET PO SCH ×2 (13:08→17:26)
[2020-06-03] MEDS: ONDANSETRON HCL INJ/PF 4 MG/2 ML SDV IV PRN (16:29)
[2020-06-03] MEDS: ATORVASTATIN CALCIUM 40 MG TABLET PO SCH (22:43)
[2020-06-04] MEDS: TRAMADOL HCL 50 MG TABLET PO PRN ×3 (03:31→21:59)
[2020-06-04 06:22] LABS: HEMATOCRIT 27.7 % (36.0-47.0); HEMOGLOBIN 9.3 g/dL (12.0-15.5); MEAN CORPUSCULAR HEMOGLOBIN 28.1 pg (27.0-33.4); MEAN CORPUSCULAR HGB CONC 33.7 g/dL (32.0-36.0); MEAN CORPUSCULAR VOLUME 83 fl (80-97); PLATELET COUNT 755 10^3/uL (150-450); RED BLOOD COUNT 3.32 10^6/uL (3.72-5.28); RED CELL DISTRIBUTION WIDTH 15.3 % (11.5-14.0); WHITE BLOOD COUNT 9.2 10^3/uL (4.0-10.5)
[2020-06-04 06:37] LABS: ANION GAP 8 (5-19); BLOOD UREA NITROGEN 10 mg/dL (7-20); CALCIUM 9.2 mg/dL (8.4-10.2); CARBON DIOXIDE 26 mmol/L (22-30); CHLORIDE 105 mmol/L (98-107); GLUCOSE 93 mg/dL (75-110); POTASSIUM 4.7 mmol/L (3.6-5.0)
[2020-06-04 07:38] LABS: ABSOLUTE LYMPHOCYTES# (MANUAL) 1.2 10^3/uL (0.5-4.7); BASOPHILS % (MANUAL) 0 % (0-2); EOSINOPHILS % (MANUAL) 5 % (0-6); LYMPHOCYTES % (MANUAL) 13 % (13-45); MONOCYTES % (MANUAL) 11 % (3-13); SEGMENTED NEUTROPHILS % (MAN) 71 % (42-78); TOTAL CELLS COUNTED 100
[2020-06-04 07:40] LABS: ANISOCYTOSIS SLIGHT; OVALOCYTES SLIGHT; PLATELET COMMENT INCREASED
[2020-06-04] MEDS: KETOROLAC TROMETHAMINE INJ/PF 30 MG/1 ML SDV IV PRN ×2 (07:55→16:28)
--- NOTE | 2020-06-04 08:55 | PDOC PROGRESS REPORT ---
Subjective Date:: 06/04/20 Subjective:: feels better, eating reg diet Reason For Visit: INFECTED ABDOMINAL WOUND Physical Exam Vital Signs: Temp Pulse Resp BP Pulse Ox 98.2 F 90 18 117/69 94 06/04/20 07:54 06/04/20 07:54 06/04/20 07:54 06/04/20 07:54 06/04/20 07:54 Intake & Output 06/03/20 06/04/20 06/05/20 06:59 06:59 06:59 Intake Total 1810 1721 Output Total 115 100 Balance 1695 1621 Weight 71.1 kg 70.1 kg General appearance: PRESENT: no acute distress Head exam: PRESENT: normocephalic Eye exam: PRESENT: EOMI Ear exam: PRESENT: normal external ear exam Mouth exam: PRESENT: moist Teeth exam: PRESENT: poor dentation Neck exam: PRESENT: full ROM Respiratory exam: PRESENT: clear to auscultation juliocesar Cardiovascular exam: PRESENT: RRR Pulses: PRESENT: normal radial pulses, normal femoral pulses Breast: PRESENT: Normal GI/Abdominal exam: PRESENT: soft, other - minline wound wide open granulation tissue clean Rectal exam: PRESENT: deferred Gentrourinary exam: PRESENT: other Extremities exam: PRESENT: full ROM Neurological exam: PRESENT: alert, awake, oriented to person, oriented to place Psychiatric exam: PRESENT: appropriate affect Skin exam: PRESENT: dry Results Laboratory Results: 06/04/20 05:00 06/04/20 05:00 06/04/20 06/04/20 05:00 05:00 WBC 9.2 RBC 3.32 L Hgb 9.3 L Hct 27.7 L MCV 83 MCH 28.1 MCHC 33.7 RDW 15.3 H Plt Count 755 H Seg Neutrophils % Not Reportable Sodium 139.1 Potassium 4.7 Chloride 105 Carbon Dioxide 26 Anion Gap 8 BUN 10 Creatinine 0.48 L Est GFR ( Amer) > 60 Glucose 93 Calcium 9.2 05/31/20 21:30 Abdomen - Post Surgical Site Gram Stain - Final 05/31/20 21:30 Abdomen - Post Surgical Site Wound Culture - Final Proteus Mirabilis Enterobacter Cloacae Bacteroides Fragilis Group Impressions: Chest X-Ray 05/31/20 16:01 IMPRESSION: Linear atelectasis in the left base. No other significant findings. Abdomen/Pelvis CT 06/01/20 00:00 IMPRESSION: 1. Interval laparotomy with Blackmon's pouch procedure and left lower quadrant diverting colostomy. There is no bowel obstruction. 2. Small loculated fluid collection with mild enhancing rim in the left side of the abdomen which may represent residual postop fluid versus an abscess. This area measures 3.6 x 2.1 x 2.3 cm. 3. Large midline ventral abdominal wall soft tissue wound which extends to the level of the fascia but does not extend through the fascia. Assessment & Plan - Time Anticipated Discharge Disposition: Intermediate Care Facility Anticipated Discharge Timeframe: within 24 hours - Plan Summary Plan Summary: 64-year old female readmitted for a postoperative wound infection. The wound is open. She reports that she cannot care for herself at home. Currently, she reports abdominal pain, but denies headache, nausea, vomiting, fevers, chills, chest pain, shortness of breath, dizziness, orthostasis would plan on wound vac here, however was informed that the intermediate facililty will not accept with hosp wound vac aqnd will place there own. therefore will cont with wet to dry dressing changes] it appears pt is uncomfortable going home
[2020-06-04] MEDS: ASCORBIC ACID 500 MG TABLET PO SCH ×2 (11:11→18:44)
[2020-06-04] MEDS: PANTOPRAZOLE SODIUM 40 MG TABLET.DR PO SCH (11:11)
[2020-06-04] MEDS: CHOLECALCIFEROL (D3) 1,000 UNIT (25 MCG) TABLET PO SCH (11:11)
[2020-06-04] MEDS: ASPIRIN 81 MG TABLET, ENT COATED PO SCH (11:11)
[2020-06-04] MEDS: MULTIVITAMIN TABLET PO SCH (11:11)
[2020-06-04] MEDS: FAMOTIDINE INJ/PF 20 MG/2 ML SDV IV SCH ×2 (11:12→21:59)
[2020-06-04] MEDS: PANTOT AC/MIN OIL/PET HY-PHL OINT 50 GM TOP SCH ×2 (11:55→18:45)
[2020-06-04] MEDS: MELOXICAM 7.5 MG TABLET PO SCH (11:55)
[2020-06-04] MEDS: METHOCARBAMOL 500 MG TABLET PO SCH ×3 (11:55→18:44)
[2020-06-04] MEDS: LIDOCAINE 5% (700 MG) TRANSDERMAL ADH..PATCH TP SCH (11:55)
[2020-06-04] MEDS: PREDNISOLONE ACETATE 1% OPH SUSP 5 ML OS SCH ×3 (11:56→18:45)
[2020-06-04] MEDS: ZINC SULFATE 220 MG CAPSULE PO SCH (11:56)
[2020-06-04] MEDS: CEFTRIAXONE 1 GM/D5W RTU 1 GM/50 ML RTUPB IV SCH ×2 (12:06→21:59)
--- NOTE | 2020-06-04 12:44 | PDOC PROGRESS REPORT ---
Subjective Date:: 06/04/20 Subjective:: The patient reports a significant improvement in her back pain after the addition of muscle relaxant and NSAID. She is more mobile. The dressing changes to the abdominal wound are not as painful. Reason For Visit: INFECTED ABDOMINAL WOUND Physical Exam Vital Signs: Temp Pulse Resp BP Pulse Ox 98.2 F 90 18 117/69 94 06/04/20 07:54 06/04/20 07:54 06/04/20 07:54 06/04/20 07:54 06/04/20 07:54 Intake & Output 06/03/20 06/04/20 06/05/20 06:59 06:59 06:59 Intake Total 1810 1721 Output Total 115 100 Balance 1695 1621 Weight 71.1 kg 70.1 kg General appearance: PRESENT: no acute distress, cooperative, well-developed Head exam: PRESENT: atraumatic, normocephalic Respiratory exam: PRESENT: clear to auscultation juliocesar, symmetrical, unlabored. ABSENT: rales, rhonchi, tachypnea, wheezes Cardiovascular exam: PRESENT: RRR, +S1, +S2. ABSENT: bradycardia, diastolic murmur, irregular rhythm, systolic murmur, tachycardia GI/Abdominal exam: PRESENT: normal bowel sounds, soft, other - Bulky dressing in place Rectal exam: PRESENT: deferred Gentrourinary exam: ABSENT: indwelling catheter Extremities exam: ABSENT: pedal edema Musculoskeletal exam: PRESENT: ambulatory, other - Scab over the left Achilles surgical site. ABSENT: deformity, dislocation Neurological exam: PRESENT: alert, awake, oriented to person, oriented to place, oriented to time, oriented to situation, CN II-XII grossly intact. ABSENT: altered Psychiatric exam: PRESENT: appropriate affect. ABSENT: agitated, anxious Focused psych exam: ABSENT: delusional, paranoid, restlessness Results Laboratory Results: 06/04/20 05:00 06/04/20 05:00 06/04/20 06/04/20 05:00 05:00 WBC 9.2 RBC 3.32 L Hgb 9.3 L Hct 27.7 L MCV 83 MCH 28.1 MCHC 33.7 RDW 15.3 H Plt Count 755 H Seg Neutrophils % Not Reportable Sodium 139.1 Potassium 4.7 Chloride 105 Carbon Dioxide 26 Anion Gap 8 BUN 10 Creatinine 0.48 L Est GFR ( Amer) > 60 Glucose 93 Calcium 9.2 05/31/20 21:30 Abdomen - Post Surgical Site Gram Stain - Final 05/31/20 21:30 Abdomen - Post Surgical Site Wound Culture - Final Proteus Mirabilis Enterobacter Cloacae Bacteroides Fragilis Group Impressions: Chest X-Ray 05/31/20 16:01 IMPRESSION: Linear atelectasis in the left base. No other significant findings. Abdomen/Pelvis CT 06/01/20 00:00 IMPRESSION: 1. Interval laparotomy with Blackmon's pouch procedure and left lower quadrant diverting colostomy. There is no bowel obstruction. 2. Small loculated fluid collection with mild enhancing rim in the left side of the abdomen which may represent residual postop fluid versus an abscess. This area measures 3.6 x 2.1 x 2.3 cm. 3. Large midline ventral abdominal wall soft tissue wound which extends to the level of the fascia but does not extend through the fascia. Assessment and Plan - Diagnosis (1) Wound, surgical, infected Is this a current diagnosis for this admission?: Yes (2) Rheumatoid arthritis Qualifiers: Rheumatoid arthritis location: multiple sites Rheumatoid factor presence: unspecified presence Qualified Code(s): M06.9 - Rheumatoid arthritis, unspecified Is this a current diagnosis for this admission?: Yes (3) Chronic pain Qualifiers: Chronic pain type: other chronic pain Qualified Code(s): G89.29 - Other chronic pain Is this a current diagnosis for this admission?: Yes (4) HLD (hyperlipidemia) Qualifiers: Hyperlipidemia type: unspecified Qualified Code(s): E78.5 - Hyperlipidemia, unspecified Is this a current diagnosis for this admission?: Yes (5) Achilles rupture, left Is this a current diagnosis for this admission?: Yes - Plan Summary Summary: (1) Wound, surgical, infected Is this a current diagnosis for this admission?: Yes Plan: Recent admission for perforated bowel status post colostomy and exploratory laparotomy; readmitted 05/31 for wound dehiscence by general surgery General surgery is primary, medicine is consulted Agree with antibiotics to include gram-negative anaerobic coverage No fevers but white blood cell count is 14.7 Blood culture Surgical site culture Consider wound care consult 06/01/2020-I have added zinc, vitamin C and the patient is already on a multivitamin to maximize healing. I also added protein drinks to her meal trays. 06/03/2020-I was present at the bedside with the wound dressing change. Good granulation tissue. Ongoing wound care per surgery. 06/04/2020-she reports less discomfort with dressing changes. (2) Rheumatoid arthritis Is this a current diagnosis for this admission?: Yes Plan: Per patient, complicated by Achilles tendinitis Okay to continue Mobic Patient has been off rheumatoid arthritis medications including Humira and prednisone for approximately 2 weeks per patient Continue holding RA specific medications that will impair wound healing Needs follow-up with rheumatology after surgical wound infection is cleared Per patient, she is not on long-term steroids 06/01/2020-we will focus on NSAIDs for the time being. 06/04/2020-improved symptomatology with NSAIDs and muscle relaxant (3) HLD (hyperlipidemia) Is this a current diagnosis for this admission?: Yes Plan: Continue statin (4) Chronic pain Is this a current diagnosis for this admission?: Yes Plan: Continue home pain medication, tramadol, when she is able to take p.o. Okay to use IV narcotics while she is n.p.o. Specific pain management medications per general surgery discretion 06/01/2020-I did expand her tramadol dosing somewhat. Will monitor closely and courage minimal use. 06/02/2020-we will add K pad for her back pain. 06/03/2020-the K pad is helping somewhat. We will try and position it appropriately. 06/04/2020-continue K pad and medication changes (5) Ruptured achilles tendon left The patient was seen by Dr. Wheeler. Will work with physical therapy. She is keeping the walking boot off at this time. 06/03/2020-continue conservative care. Continue Aquaphor. 06/04/2020-surgical incision intact - Time Time Spent with patient: Less than 15 minutes Medications reviewed and adjusted accordingly: Yes Anticipated Discharge Disposition: Residential Facility Anticipated Discharge Timeframe: within 48 hours
[2020-06-04] MEDS: CLINDAMYCIN 600 MG/D5W RTU 600 MG/50 ML RTUPB IV SCH ×3 (16:29→21:59)
[2020-06-04] MEDS: ATORVASTATIN CALCIUM 40 MG TABLET PO SCH (21:59)
[2020-06-05] MEDS: KETOROLAC TROMETHAMINE INJ/PF 30 MG/1 ML SDV IV PRN (02:25)
[2020-06-05] MEDS: ONDANSETRON HCL INJ/PF 4 MG/2 ML SDV IV PRN (02:25)
[2020-06-05 06:21] LABS: ANION GAP 8 (5-19); BLOOD UREA NITROGEN 13 mg/dL (7-20); CALCIUM 9.4 mg/dL (8.4-10.2); CARBON DIOXIDE 25 mmol/L (22-30); CHLORIDE 103 mmol/L (98-107); GLUCOSE 111 mg/dL (75-110); POTASSIUM 4.7 mmol/L (3.6-5.0)
[2020-06-05 06:51] LABS: HEMATOCRIT 27.6 % (36.0-47.0); HEMOGLOBIN 9.4 g/dL (12.0-15.5); MEAN CORPUSCULAR HEMOGLOBIN 28.2 pg (27.0-33.4); MEAN CORPUSCULAR HGB CONC 33.9 g/dL (32.0-36.0); MEAN CORPUSCULAR VOLUME 83 fl (80-97); RED BLOOD COUNT 3.32 10^6/uL (3.72-5.28); RED CELL DISTRIBUTION WIDTH 15.3 % (11.5-14.0); WHITE BLOOD COUNT 10.2 10^3/uL (4.0-10.5)
[2020-06-05 07:03] LABS: ABSOLUTE LYMPHOCYTES# (MANUAL) 1.4 10^3/uL (0.5-4.7); ABSOLUTE MONOCYTES # (MANUAL) 0.3 10^3/uL (0.1-1.4); BASOPHILS % (MANUAL) 0 % (0-2); EOSINOPHILS % (MANUAL) 2 % (0-6); LYMPHOCYTES % (MANUAL) 14 % (13-45); MONOCYTES % (MANUAL) 3 % (3-13); SEGMENTED NEUTROPHILS % (MAN) 81 % (42-78); TOTAL CELLS COUNTED 100
[2020-06-05 07:05] LABS: POLYCHROMASIA SLIGHT
[2020-06-05 07:06] LABS: ANISOCYTOSIS SLIGHT; PLATELET CLUMPS PRESENT; PLATELET COMMENT INCREASED; PLATELET COUNT 612 10^3/uL (150-450); TOXIC GRANULATION SLIGHT
[2020-06-05] MEDS: CLINDAMYCIN 600 MG/D5W RTU 600 MG/50 ML RTUPB IV SCH (07:45)
[2020-06-05] MEDS: TRAMADOL HCL 50 MG TABLET PO PRN ×3 (09:28→23:57)
[2020-06-05] MEDS: ASPIRIN 81 MG TABLET, ENT COATED PO SCH (09:29)
[2020-06-05] MEDS: ZINC SULFATE 220 MG CAPSULE PO SCH (09:29)
[2020-06-05] MEDS: ASCORBIC ACID 500 MG TABLET PO SCH ×2 (09:29→17:39)
[2020-06-05] MEDS: MULTIVITAMIN TABLET PO SCH (09:29)
[2020-06-05] MEDS: MELOXICAM 7.5 MG TABLET PO SCH (09:29)
[2020-06-05] MEDS: CEFTRIAXONE 1 GM/D5W RTU 1 GM/50 ML RTUPB IV SCH (09:29)
[2020-06-05] MEDS: PANTOPRAZOLE SODIUM 40 MG TABLET.DR PO SCH (09:29)
[2020-06-05] MEDS: PREDNISOLONE ACETATE 1% OPH SUSP 5 ML OS SCH ×3 (09:30→17:39)
[2020-06-05] MEDS: LIDOCAINE 5% (700 MG) TRANSDERMAL ADH..PATCH TP SCH (09:30)
[2020-06-05] MEDS: FAMOTIDINE INJ/PF 20 MG/2 ML SDV IV SCH ×2 (09:30→22:28)
[2020-06-05] MEDS: CHOLECALCIFEROL (D3) 1,000 UNIT (25 MCG) TABLET PO SCH (09:31)
[2020-06-05] MEDS: METHOCARBAMOL 500 MG TABLET PO SCH ×3 (09:31→17:39)
[2020-06-05] MEDS: PANTOT AC/MIN OIL/PET HY-PHL OINT 50 GM TOP SCH ×2 (09:32→17:40)
--- NOTE | 2020-06-05 11:07 | PDOC PROGRESS REPORT ---
Subjective Date:: 06/05/20 Subjective:: Patient is resting in the chair. Transition to care home pending at this time. Reason For Visit: INFECTED ABDOMINAL WOUND Physical Exam Vital Signs: Temp Pulse Resp BP Pulse Ox 97.8 F 86 18 120/73 98 06/05/20 10:00 06/05/20 08:00 06/05/20 08:00 06/05/20 08:00 06/05/20 08:00 Intake & Output 06/04/20 06/05/20 06/06/20 06:59 06:59 06:59 Intake Total 1721 1851 50 Output Total 100 Balance 1621 1851 50 Weight 70.1 kg 70.5 kg General appearance: PRESENT: no acute distress, cooperative, well-developed Head exam: PRESENT: atraumatic, normocephalic Ear exam: PRESENT: normal external ear exam. ABSENT: bleeding, drainage Mouth exam: PRESENT: moist, tongue midline Respiratory exam: PRESENT: clear to auscultation juliocesar, symmetrical, unlabored. ABSENT: rales, rhonchi, tachypnea, wheezes Cardiovascular exam: PRESENT: RRR, +S1, +S2. ABSENT: bradycardia, diastolic murmur, irregular rhythm, systolic murmur, tachycardia GI/Abdominal exam: PRESENT: normal bowel sounds, soft, tenderness - Abdominal binder in place. Patient reports the wound is not as tender Rectal exam: PRESENT: deferred Extremities exam: PRESENT: other - The left achilles surgical site is well healed. The skin is supple.. ABSENT: pedal edema Musculoskeletal exam: PRESENT: ambulatory, normal inspection Neurological exam: PRESENT: alert, awake, oriented to person, oriented to place, oriented to time, oriented to situation, CN II-XII grossly intact. ABSENT: altered Psychiatric exam: PRESENT: appropriate affect. ABSENT: agitated, anxious Focused psych exam: ABSENT: delusional, paranoid, restlessness Skin exam: PRESENT: dry, normal color, warm Results Laboratory Results: 06/05/20 05:15 06/05/20 05:15 06/05/20 06/05/20 05:15 05:15 WBC 10.2 RBC 3.32 L Hgb 9.4 L Hct 27.6 L MCV 83 MCH 28.2 MCHC 33.9 RDW 15.3 H Plt Count 612 H Seg Neutrophils % Not Reportable Sodium 136.2 L Potassium 4.7 Chloride 103 Carbon Dioxide 25 Anion Gap 8 BUN 13 Creatinine 0.51 L Est GFR ( Amer) > 60 Glucose 111 H Calcium 9.4 Impressions: Chest X-Ray 05/31/20 16:01 IMPRESSION: Linear atelectasis in the left base. No other significant finding s. Abdomen/Pelvis CT 06/01/20 00:00 IMPRESSION: 1. Interval laparotomy with Blackmon's pouch procedure and left lower quadrant diverting colostomy. There is no bowel obstruction. 2. Small loculated fluid collection with mild enhancing rim in the left side of the abdomen which may represent residual postop fluid versus an abscess. This area measures 3.6 x 2.1 x 2.3 cm. 3. Large midline ventral abdominal wall soft tissue wound which extends to the level of the fascia but does not extend through the fascia. Assessment and Plan - Diagnosis (1) Wound, surgical, infected Is this a current diagnosis for this admission?: Yes (2) Rheumatoid arthritis Qualifiers: Rheumatoid arthritis location: multiple sites Rheumatoid factor presence: unspecified presence Qualified Code(s): M06.9 - Rheumatoid arthritis, unspecified Is this a current diagnosis for this admission?: Yes (3) Chronic pain Qualifiers: Chronic pain type: other chronic pain Qualified Code(s): G89.29 - Other chronic pain Is this a current diagnosis for this admission?: Yes (4) HLD (hyperlipidemia) Qualifiers: Hyperlipidemia type: unspecified Qualified Code(s): E78.5 - Hyperlipidemia, unspecified Is this a current diagnosis for this admission?: Yes (5) Achilles rupture, left Is this a current diagnosis for this admission?: Yes - Plan Summary Summary: (1) Wound, surgical, infected Is this a current diagnosis for this admission?: Yes Plan: Recent admission for perforated bowel status post colostomy and exploratory laparotomy; readmitted 05/31 for wound dehiscence by general surgery General surgery is primary, medicine is consulted Agree with antibiotics to include gram-negative anaerobic coverage No fevers but white blood cell count is 14.7 Blood culture Surgical site culture Consider wound care consult 06/01/2020-I have added zinc, vitamin C and the patient is already on a multivitamin to maximize healing. I also added protein drinks to her meal trays. 06/03/2020-I was present at the bedside with the wound dressing change. Good granulation tissue. Ongoing wound care per surgery. 06/04/2020-she reports less discomfort with dressing changes. (2) Rheumatoid arthritis Is this a current diagnosis for this admission?: Yes Plan: Per patient, complicated by Achilles tendinitis Okay to continue Mobic Patient has been off rheumatoid arthritis medications including Humira and prednisone for approximately 2 weeks per patient Continue holding RA specific medications that will impair wound healing Needs follow-up with rheumatology after surgical wound infection is cleared Per patient, she is not on long-term steroids 06/01/2020-we will focus on NSAIDs for the time being. 06/04/2020-improved symptomatology with NSAIDs and muscle relaxant 06/05/2020-continue current regimen as it seems to be effective (3) HLD (hyperlipidemia) Is this a current diagnosis for this admission?: Yes Plan: Continue statin 06/05/2020-tolerating statin therapy (4) Chronic pain Is this a current diagnosis for this admission?: Yes Plan: Continue home pain medication, tramadol, when she is able to take p.o. Okay to use IV narcotics while she is n.p.o. Specific pain management medications per general surgery discretion 06/01/2020-I did expand her tramadol dosing somewhat. Will monitor closely and courage minimal use. 06/02/2020-we will add K pad for her back pain. 06/03/2020-the K pad is helping somewhat. We will try and position it appropriately. 06/04/2020-continue K pad and medication changes 06/05/2020-new medication regimen seems to be helping her (5) Ruptured achilles tendon left The patient was seen by Dr. Wheeler. Will work with physical therapy. She is keeping the walking boot off at this time. 06/03/2020-continue conservative care. Continue Aquaphor. 06/04/2020-surgical incision intact 06/[id number] surgical incision. No more scaling skin. Small areas of scab scattered but no erythema or drainage - Time Time Spent with patient: Less than 15 minutes Medications reviewed and adjusted accordingly: Yes Anticipated Discharge Disposition: Longterm Facility Anticipated Discharge Timeframe: within 48 hours
--- NOTE | 2020-06-05 15:28 | PDOC PROGRESS REPORT ---
Subjective Date:: 06/05/20 Reason For Visit: INFECTED ABDOMINAL WOUND Hospital day 5 for patient with wound management issues now coming under control. Patient tolerating diet, on IV antibiotics, no evidence of sepsis. Physical Exam Vital Signs: Temp Pulse Resp BP Pulse Ox 97.8 F 88 20 128/58 H 98 06/05/20 12:00 06/05/20 12:00 06/05/20 12:00 06/05/20 12:00 06/05/20 12:00 Intake & Output 06/04/20 06/05/20 06/06/20 06:59 06:59 06:59 Intake Total 1721 1851 50 Output Total 100 Balance 1621 1851 50 Weight 70.1 kg 70.5 kg General appearance: PRESENT: no acute distress GI/Abdominal exam: PRESENT: other - Patient examined in the chair. All packing removed. Wound granulating in nicely. Full dehiscence stable, filling in nicely with no undrained pockets. Ostomy working satisfactorily. Results Laboratory Results: 06/05/20 05:15 06/05/20 05:15 06/05/20 06/05/20 05:15 05:15 WBC 10.2 RBC 3.32 L Hgb 9.4 L Hct 27.6 L MCV 83 MCH 28.2 MCHC 33.9 RDW 15.3 H Plt Count 612 H Seg Neutrophils % Not Reportable Sodium 136.2 L Potassium 4.7 Chloride 103 Carbon Dioxide 25 Anion Gap 8 BUN 13 Creatinine 0.51 L Est GFR ( Amer) > 60 Glucose 111 H Calcium 9.4 Impressions: Chest X-Ray 05/31/20 16:01 IMPRESSION: Linear atelectasis in the left base. No other significant findings. Abdomen/Pelvis CT 06/01/20 00:00 IMPRESSION: 1. Interval laparotomy with Blackmon's pouch procedure and left lower quadrant diverting colostomy. There is no bowel obstruction. 2. Small loculated fluid collection with mild enhancing rim in the left side of the abdomen which may represent residual postop fluid versus an abscess. This area measures 3.6 x 2.1 x 2.3 cm. 3. Large midline ventral abdominal wall soft tissue wound which extends to the level of the fascia but does not extend through the fascia. Assessment & Plan - Diagnosis (1) Status post exploratory laparotomy Is this a current diagnosis for this admission?: Yes Plan: Impression: Patient is a hospital day 5 due to readmission for wound management. Abdominal wound open, packed, with no evidence of sepsis. Good GI function. Plan: 1. Discontinue IV antibiotics 2. NG to p.o. medication. 3. Await placement at SNF - Time Anticipated Discharge Disposition: [facility] Facility Anticipated Discharge Timeframe: within 48 hours Time Spent: 30 to 50 Minutes Critical Time spent with patient: Less than 15 minutes
[2020-06-05] MEDS: DOCUSATE SODIUM 100 MG CAPSULE PO SCH (17:39)
[2020-06-05] MEDS: ATORVASTATIN CALCIUM 40 MG TABLET PO SCH (22:28)
[2020-06-06 05:52] LABS: HEMATOCRIT 28.8 % (36.0-47.0); HEMOGLOBIN 9.7 g/dL (12.0-15.5); MEAN CORPUSCULAR HEMOGLOBIN 27.9 pg (27.0-33.4); MEAN CORPUSCULAR HGB CONC 33.7 g/dL (32.0-36.0); MEAN CORPUSCULAR VOLUME 83 fl (80-97); PLATELET COUNT 777 10^3/uL (150-450); RED BLOOD COUNT 3.48 10^6/uL (3.72-5.28); RED CELL DISTRIBUTION WIDTH 15.3 % (11.5-14.0); WHITE BLOOD COUNT 10.6 10^3/uL (4.0-10.5)
[2020-06-06 06:08] LABS: ANION GAP 9 (5-19); BLOOD UREA NITROGEN 13 mg/dL (7-20); CALCIUM 9.6 mg/dL (8.4-10.2); CARBON DIOXIDE 26 mmol/L (22-30); CHLORIDE 101 mmol/L (98-107); GLUCOSE 107 mg/dL (75-110); POTASSIUM 4.7 mmol/L (3.6-5.0)
[2020-06-06 06:45] LABS: ABSOLUTE LYMPHOCYTES# (MANUAL) 2.5 10^3/uL (0.5-4.7); ABSOLUTE MONOCYTES # (MANUAL) 1.7 10^3/uL (0.1-1.4); ANISOCYTOSIS SLIGHT; BASOPHILS % (MANUAL) 1 % (0-2); EOSINOPHILS % (MANUAL) 2 % (0-6); LYMPHOCYTES % (MANUAL) 23 % (13-45); MONOCYTES % (MANUAL) 16 % (3-13); PLATELET COMMENT INCREASED; POLYCHROMASIA SLIGHT; SEGMENTED NEUTROPHILS % (MAN) 57 % (42-78); TOTAL CELLS COUNTED 100
[2020-06-06] MEDS: PREDNISOLONE ACETATE 1% OPH SUSP 5 ML OS SCH ×3 (09:43→18:32)
[2020-06-06] MEDS: ASPIRIN 81 MG TABLET, ENT COATED PO SCH (09:44)
[2020-06-06] MEDS: MELOXICAM 7.5 MG TABLET PO SCH (09:44)
[2020-06-06] MEDS: LIDOCAINE 5% (700 MG) TRANSDERMAL ADH..PATCH TP SCH (09:44)
[2020-06-06] MEDS: METHOCARBAMOL 500 MG TABLET PO SCH ×3 (09:44→18:32)
[2020-06-06] MEDS: ZINC SULFATE 220 MG CAPSULE PO SCH (09:44)
[2020-06-06] MEDS: PANTOPRAZOLE SODIUM 40 MG TABLET.DR PO SCH (09:45)
[2020-06-06] MEDS: MULTIVITAMIN TABLET PO SCH (09:45)
[2020-06-06] MEDS: TRAMADOL HCL 50 MG TABLET PO PRN ×2 (09:45→18:34)
[2020-06-06] MEDS: PANTOT AC/MIN OIL/PET HY-PHL OINT 50 GM TOP SCH ×2 (09:45→18:33)
[2020-06-06] MEDS: FAMOTIDINE INJ/PF 20 MG/2 ML SDV IV SCH ×2 (09:45→21:41)
[2020-06-06] MEDS: DOCUSATE SODIUM 100 MG CAPSULE PO SCH ×2 (09:45→18:32)
[2020-06-06] MEDS: ASCORBIC ACID 500 MG TABLET PO SCH ×2 (09:45→18:32)
[2020-06-06] MEDS: CHOLECALCIFEROL (D3) 1,000 UNIT (25 MCG) TABLET PO SCH (09:46)
--- NOTE | 2020-06-06 10:09 | PDOC PROGRESS REPORT ---
Subjective Date:: 06/06/20 Subjective:: Feels well. Tolerating a diet well. Reason For Visit: INFECTED ABDOMINAL WOUND Physical Exam Vital Signs: Temp Pulse Resp BP Pulse Ox 97.7 F 92 16 112/65 94 06/06/20 07:49 06/06/20 07:49 06/06/20 07:49 06/06/20 07:49 06/06/20 07:49 Intake & Output 06/05/20 06/06/20 06/07/20 06:59 06:59 06:59 Intake Total 1851 270 Balance 1851 270 Weight 70.5 kg 68.5 kg General appearance: PRESENT: no acute distress, cooperative Respiratory exam: PRESENT: clear to auscultation juliocesar Cardiovascular exam: PRESENT: RRR GI/Abdominal exam: PRESENT: other - Soft, nondistended, nontender to palpation. Wound is wide but granulating. Ostomy is pink and functioning well. Extremities exam: PRESENT: other - No right leg swelling nor tenderness. Left leg in brace. Results Laboratory Results: 06/06/20 05:03 06/06/20 05:03 06/06/20 06/06/20 05:03 05:03 WBC 10.6 H RBC 3.48 L Hgb 9.7 L Hct 28.8 L MCV 83 MCH 27.9 MCHC 33.7 RDW 15.3 H Plt Count 777 H Seg Neutrophils % Not Reportable Sodium 135.9 L Potassium 4.7 Chloride 101 Carbon Dioxide 26 Anion Gap 9 BUN 13 Creatinine 0.53 Est GFR ( Amer) > 60 Glucose 107 Calcium 9.6 05/31/20 23:00 Blood Blood Culture - Final NO GROWTH IN 5 DAYS 05/31/20 22:50 Blood Blood Culture - Final NO GROWTH IN 5 DAYS Impressions: Chest X-Ray 05/31/20 16:01 IMPRESSION: Linear atelectasis in the left base. No other significant findings. Abdomen/Pelvis CT 06/01/20 00:00 IMPRESSION: 1. Interval laparotomy with Blackmon's pouch procedure and left lower quadrant diverting colostomy. There is no bowel obstruction. 2. Small loculated fluid collection with mild enhancing rim in the left side of the abdomen which may represent residual postop fluid versus an abscess. This area measures 3.6 x 2.1 x 2.3 cm. 3. Large midline ventral abdominal wall soft tissue wound which extends to the level of the fascia but does not extend through the fascia. Assessment & Plan - Diagnosis (1) Perforateed acute diverticulitis Is this a current diagnosis for this admission?: Yes Plan: Status post Blackmon's procedure. Patient looks good. Awaiting halfway placement. - Time Anticipated Discharge Disposition: [facility] Facility Anticipated Discharge Timeframe: within 48 hours
--- NOTE | 2020-06-06 12:51 | PDOC PROGRESS REPORT ---
Subjective Date:: 06/06/20 Subjective:: Mild nausea. Just getting out of bed for lunch. Discussed the Achilles tendon repair. Reason For Visit: INFECTED ABDOMINAL WOUND Physical Exam Vital Signs: Temp Pulse Resp BP Pulse Ox 97.7 F 88 16 114/64 94 06/06/20 11:27 06/06/20 11:27 06/06/20 11:27 06/06/20 11:27 06/06/20 11:27 Intake & Output 06/05/20 06/06/20 06/07/20 06:59 06:59 06:59 Intake Total 1851 270 Balance 1851 270 Weight 70.5 kg 68.5 kg General appearance: PRESENT: no acute distress Respiratory exam: PRESENT: clear to auscultation juliocesar, symmetrical, unlabored. ABSENT: rales, rhonchi, tachypnea, wheezes Cardiovascular exam: PRESENT: RRR, +S1, +S2. ABSENT: bradycardia, diastolic murmur, irregular rhythm, systolic murmur, tachycardia GI/Abdominal exam: PRESENT: normal bowel sounds, soft, other - Abdominal binder over gauze dressing Rectal exam: PRESENT: deferred Gentrourinary exam: ABSENT: indwelling catheter Extremities exam: PRESENT: other - Wearing a Cam walking boot. ABSENT: pedal ed kendra Musculoskeletal exam: PRESENT: ambulatory Neurological exam: PRESENT: alert, awake, oriented to person, oriented to place, oriented to time, oriented to situation, CN II-XII grossly intact. ABSENT: altered Psychiatric exam: PRESENT: appropriate affect. ABSENT: agitated, anxious Results Laboratory Results: 06/06/20 05:03 06/06/20 05:03 06/06/20 06/06/20 05:03 05:03 WBC 10.6 H RBC 3.48 L Hgb 9.7 L Hct 28.8 L MCV 83 MCH 27.9 MCHC 33.7 RDW 15.3 H Plt Count 777 H Seg Neutrophils % Not Reportable Sodium 135.9 L Potassium 4.7 Chloride 101 Carbon Dioxide 26 Anion Gap 9 BUN 13 Creatinine 0.53 Est GFR ( Amer) > 60 Glucose 107 Calcium 9.6 05/31/20 23:00 Blood Blood Culture - Final NO GROWTH IN 5 DAYS 05/31/20 22:50 Blood Blood Culture - Final NO GROWTH IN 5 DAYS Impressions: Chest X-Ray 05/31/20 16:01 IMPRESSION: Linear atelectasis in the left base. No other significant findings. Abdomen/Pelvis CT 06/01/20 00:00 IMPRESSION: 1. Interval laparotomy with Blackmon's pouch procedure and left lower quadrant diverting colostomy. There is no bowel obstruction. 2. Small loculated fluid collection with mild enhancing rim in the left side of the abdomen which may represent residual postop fluid versus an abscess. This area measures 3.6 x 2.1 x 2.3 cm. 3. Large midline ventral abdominal wall soft tissue wound which extends to the level of the fascia but does not extend through the fascia. Assessment and Plan - Diagnosis (1) Wound, surgical, infected Is this a current diagnosis for this admission?: Yes (2) Rheumatoid arthritis Qualifiers: Rheumatoid arthritis location: multiple sites Rheumatoid factor presence: unspecified presence Qualified Code(s): M06.9 - Rheumatoid arthritis, unspecified Is this a current diagnosis for this admission?: Yes (3) Chronic pain Qualifiers: Chronic pain type: other chronic pain Qualified Code(s): G89.29 - Other chronic pain Is this a current diagnosis for this admission?: Yes (4) HLD (hyperlipidemia) Qualifiers: Hyperlipidemia type: unspecified Qualified Code(s): E78.5 - Hyperlipidemia, unspecified Is this a current diagnosis for this admission?: Yes (5) Achilles rupture, left Is this a current diagnosis for this admission?: Yes - Plan Summary Summary: (1) Wound, surgical, infected Is this a current diagnosis for this admission?: Yes Plan: Recent admission for perforated bowel status post colostomy and exploratory laparotomy; readmitted 05/31 for wound dehiscence by general surgery General surgery is primary, medicine is consulted Agree with antibiotics to include gram-negative anaerobic coverage No fevers but white blood cell count is 14.7 Blood culture Surgical site culture Consider wound care consult 06/01/2020-I have added zinc, vitamin C and the patient is already on a multivitamin to maximize healing. I also added protein drinks to her meal trays. 06/03/2020-I was present at the bedside with the wound dressing change. Good granulation tissue. Ongoing wound care per surgery. 06/04/2020-she reports less discomfort with dressing changes. 06/06/2020-antibiotic therapy completed. Continue current dressing changes. (2) Rheumatoid arthritis Is this a current diagnosis for this admission?: Yes Plan: Per patient, complicated by Achilles tendinitis Okay to continue Mobic Patient has been off rheumatoid arthritis medications including Humira and prednisone for approximately 2 weeks per patient Continue holding RA specific medications that will impair wound healing Needs follow-up with rheumatology after surgical wound infection is cleared Per patient, she is not on long-term steroids 06/01/2020-we will focus on NSAIDs for the time being. 06/04/2020-improved symptomatology with NSAIDs and muscle relaxant 06/05/2020-continue current regimen as it seems to be effective 06/06/2020-continue current regimen. No changes at this time because it seems to be effective. (3) HLD (hyperlipidemia) Is this a current diagnosis for this admission?: Yes Plan: Continue statin 06/05/2020-tolerating statin therapy (4) Chronic pain Is this a current diagnosis for this admission?: Yes Plan: Continue home pain medication, tramadol, when she is able to take p.o. Okay to use IV narcotics while she is n.p.o. Specific pain management medications per general surgery discretion 06/01/2020-I did expand her tramadol dosing somewhat. Will monitor closely and courage minimal use. 06/02/2020-we will add K pad for her back pain. 06/03/2020-the K pad is helping somewhat. We will try and position it appropriately. 06/04/2020-continue K pad and medication changes 06/05/2020-new medication regimen seems to be helping her 06/06/2020-reports feeling stiffness in the ankle. (5) Ruptured achilles tendon left The patient was seen by Dr. Wheeler. Will work with physical therapy. She is keeping the walking boot off at this time. 06/03/2020-continue conservative care. Continue Aquaphor. 06/04/2020-surgical incision intact 06/[id number] surgical incision. No more scaling skin. Small areas of scab scattered but no erythema or drainage 06/06/2020-as noted above ankle is starting to feel stiff. I have requested records from her [facility] discharge specifically with weightbearing and therapy instructions from Dr. Gutiérrez. We will institute when available. - Time Time Spent with patient: 15-24 minutes Medications reviewed and adjusted accordingly: Yes Anticipated Discharge Disposition: [facility]ial Facility Anticipated Discharge Timeframe: when bed available
[2020-06-06] MEDS: ATORVASTATIN CALCIUM 40 MG TABLET PO SCH (21:41)
[2020-06-07] MEDS: TRAMADOL HCL 50 MG TABLET PO PRN ×3 (01:09→20:08)
[2020-06-07] MEDS: PANTOT AC/MIN OIL/PET HY-PHL OINT 50 GM TOP SCH ×2 (09:40→18:02)
[2020-06-07] MEDS: PREDNISOLONE ACETATE 1% OPH SUSP 5 ML OS SCH ×3 (09:40→18:02)
[2020-06-07] MEDS: LIDOCAINE 5% (700 MG) TRANSDERMAL ADH..PATCH TP SCH (09:40)
[2020-06-07] MEDS: MELOXICAM 7.5 MG TABLET PO SCH (09:41)
[2020-06-07] MEDS: ASCORBIC ACID 500 MG TABLET PO SCH ×2 (09:41→18:02)
[2020-06-07] MEDS: PANTOPRAZOLE SODIUM 40 MG TABLET.DR PO SCH (09:41)
[2020-06-07] MEDS: MULTIVITAMIN TABLET PO SCH (09:41)
[2020-06-07] MEDS: FAMOTIDINE INJ/PF 20 MG/2 ML SDV IV SCH ×2 (09:41→21:41)
[2020-06-07] MEDS: ZINC SULFATE 220 MG CAPSULE PO SCH (09:41)
[2020-06-07] MEDS: DOCUSATE SODIUM 100 MG CAPSULE PO SCH ×2 (09:41→18:02)
[2020-06-07] MEDS: ASPIRIN 81 MG TABLET, ENT COATED PO SCH (09:41)
[2020-06-07] MEDS: METHOCARBAMOL 500 MG TABLET PO SCH ×3 (09:41→18:02)
[2020-06-07] MEDS: CHOLECALCIFEROL (D3) 1,000 UNIT (25 MCG) TABLET PO SCH (09:41)
--- NOTE | 2020-06-07 12:16 | PDOC PROGRESS REPORT ---
Subjective Date:: 06/07/20 Subjective:: 06/07/2020-patient able to walk around without any problems. Tolerating the t well. No complaints. As per the nurse antibiotics are discontinued by the surgical team. Patient is admitted with perforated acute diverticulitis status post Blackmon's procedure. Reason For Visit: INFECTED ABDOMINAL WOUND Physical Exam Vital Signs: Temp Pulse Resp BP Pulse Ox 97.3 F 99 16 115/72 94 06/07/20 10:00 06/07/20 07:59 06/07/20 07:59 06/07/20 07:59 06/07/20 07:59 Intake & Output 06/06/20 06/07/20 06/08/20 06:59 06:59 06:59 Intake Total 270 1130 Output Total 220 Balance 270 910 Weight 68.5 kg 68.8 kg General appearance: PRESENT: no acute distress, well-developed Head exam: PRESENT: atraumatic Eye exam: PRESENT: PERRLA Ear exam: PRESENT: normal external ear exam Teeth exam: PRESENT: poor dentation Neck exam: ABSENT: carotid bruit, JVD, lymphadenopathy, thyromegaly Cardiovascular exam: PRESENT: RRR. ABSENT: diastolic murmur, rubs, systolic murmur Pulses: PRESENT: normal dorsalis pedis pul GI/Abdominal exam: PRESENT: normal bowel sounds, soft. ABSENT: distended, guarding, mass, organolmegaly, rebound, tenderness Rectal exam: PRESENT: deferred Extremities exam: PRESENT: full ROM. ABSENT: calf tenderness, clubbing, pedal edema Neurological exam: PRESENT: alert, awake, oriented to person, oriented to place, oriented to time, oriented to situation, CN II-XII grossly intact. ABSENT: motor sensory deficit Psychiatric exam: PRESENT: appropriate affect, normal mood. ABSENT: homicidal ideation, suicidal ideation Skin exam: PRESENT: dry, intact, warm. ABSENT: cyanosis, rash Results Laboratory Results: 06/06/20 05:03 06/06/20 05:03 05/31/20 22:50 Blood Blood Culture (PCR) - Final 05/31/20 23:00 Blood Blood Culture - Final NO GROWTH IN 5 DAYS Impressions: Chest X-Ray 05/31/20 16:01 IMPRESSION: Linear atelectasis in the left base. No other significant findings. Abdomen/Pelvis CT 06/01/20 00:00 IMPRESSION: 1. Interval laparotomy with Blackmon's pouch procedure and left lower quadrant diverting colostomy. There is no bowel obstruction. 2. Small loculated fluid collection with mild enhancing rim in the left side of the abdomen which may represent residual postop fluid versus an abscess. This area measures 3.6 x 2.1 x 2.3 cm. 3. Large midline ventral abdominal wall soft tissue wound which extends to the level of the fascia but does not extend through the fascia. Assessment and Plan - Diagnosis (1) Wound, surgical, infected Is this a current diagnosis for this admission?: Yes Plan: Recent admission for perforated bowel status post colostomy and exploratory laparotomy; readmitted 05/31 for wound dehiscence by general surgery General surgery is primary, medicine is consulted Agree with antibiotics to include gram-negative anaerobic coverage No fevers but white blood cell count is 14.7 Blood culture Surgical site culture Consider wound care consult 06/07/2020-patient has abdominal binder. Antibiotics are discontinued by the surgical team. Blood cultures are positive for Gram positive rods, wound cultures are positive for Proteus mirabilis, Enterobacter. (2) Rheumatoid arthritis Qualifiers: Rheumatoid arthritis location: multiple sites Rheumatoid factor presence: unspecified presence Qualified Code(s): M06.9 - Rheumatoid arthritis, unspecified Is this a current diagnosis for this admission?: Yes Plan: Per patient, complicated by Achilles tendinitis Okay to continue Mobic Patient has been off rheumatoid arthritis medications including Humira and prednisone for approximately 2 weeks per patient Continue holding RA specific medications that will impair wound healing Needs follow-up with rheumatology after surgical wound infection is cleared Per patient, she is not on long-term steroids (3) HLD (hyperlipidemia) Qualifiers: Hyperlipidemia type: unspecified Qualified Code(s): E78.5 - Hyperlipidemia, unspecified Is this a current diagnosis for this admission?: Yes Plan: Continue statin (4) Achilles rupture, left Is this a current diagnosis for this admission?: No Plan: The patient was seen by Dr. Wheeler. Will work with physical therapy. She is keeping the walking boot off at this time. 06/03/2020-continue conservative care. Continue Aquaphor. 06/04/2020-surgical incision intact 06/05/[id number] surgical incision. No more scaling skin. Small areas of scab scattered but no erythema or drainage 06/06/2020-as noted above ankle is starting to feel stiff. I have requested records from her [facility] discharge specifically with weightbearing and therapy instructions from Dr. Gutiérrez. We will institute when available. - Plan Summary Summary: (1) Wound, surgical, infected Is this a current diagnosis for this admission?: Yes Plan: Recent admission for perforated bowel status post colostomy and exploratory laparotomy; readmitted 05/31 for wound dehiscence by general surgery General surgery is primary, medicine is consulted Agree with antibiotics to include gram-negative anaerobic coverage No fevers but white blood cell count is 14.7 Blood culture Surgical site culture Consider wound care consult 06/01/2020-I have added zinc, vitamin C and the patient is already on a multivitamin to maximize healing. I also added protein drinks to her meal trays. 06/03/2020-I was present at the bedside with the wound dressing change. Good granulation tissue. Ongoing wound care per surgery. 06/04/2020-she reports less discomfort with dressing changes. 06/06/2020-antibiotic therapy completed. Continue current dressing changes. (2) Rheumatoid arthritis Is this a current diagnosis for this admission?: Yes Plan: Per patient, complicated by Achilles tendinitis Okay to continue Mobic Patient has been off rheumatoid arthritis medications including Humira and prednisone for approximately 2 weeks per patient Continue holding RA specific medications that will impair wound healing Needs follow-up with rheumatology after surgical wound infection is cleared Per patient, she is not on long-term steroids 06/01/2020-we will focus on NSAIDs for the time being. 06/04/2020-improved symptomatology with NSAIDs and muscle relaxant 06/05/2020-continue current regimen as it seems to be effective 06/06/2020-continue current regimen. No changes at this time because it seems to be effective. (3) HLD (hyperlipidemia) Is this a current diagnosis for this admission?: Yes Plan: Continue statin 06/05/2020-tolerating statin therapy (4) Chronic pain Is this a current diagnosis for this admission?: Yes Plan: Continue home pain medication, tramadol, when she is able to take p.o. Okay to use IV narcotics while she is n.p.o. Specific pain management medications per general surgery discretion 06/01/2020-I did expand her tramadol dosing somewhat. Will monitor closely and courage minimal use. 06/02/2020-we will add K pad for her back pain. 06/03/2020-the K pad is helping somewhat. We will try and position it appropriately. 06/04/2020-continue K pad and medication changes 06/05/2020-new medication regimen seems to be helping her 06/06/2020-reports feeling stiffness in the ankle. (5) Ruptured achilles tendon left The patient was seen by Dr. Wheeler. Will work with physical therapy. She is keeping the walking boot off at this time. 06/03/2020-continue conservative care. Continue Aquaphor. 06/04/2020-surgical incision intact 06/[id number] surgical incision. No more scaling skin. Small areas of scab scattered but no erythema or drainage 06/06/2020-as noted above ankle is starting to feel stiff. I have requested records from her [facility] discharge specifically with weightbearing and therapy instructions from Dr. Gutiérrez. We will institute when available. - Time Anticipated Discharge Disposition: Home, Self Care Anticipated Discharge Timeframe: within 48 hours
[2020-06-07] MEDS ORDERED: ACETAMINOPHEN 325 MG TABLET PO PRN (14:20)
--- NOTE | 2020-06-07 16:34 | PDOC PROGRESS REPORT ---
Subjective Date:: 06/07/20 Subjective:: 64-year old female readmitted for a postoperative wound infection. The wound is open. She reports that she cannot care for herself at home. Currently, she reports abdominal pain, but denies headache, nausea, vomiting, fevers, chills, chest pain, shortness of breath, dizziness, orthostasis. Reason For Visit: INFECTED ABDOMINAL WOUND Physical Exam Vital Signs: Temp Pulse Resp BP Pulse Ox 97.3 F 99 16 115/72 94 06/07/20 10:00 06/07/20 07:59 06/07/20 07:59 06/07/20 07:59 06/07/20 07:59 Intake & Output 06/06/20 06/07/20 06/08/20 06:59 06:59 06:59 Intake Total 270 1130 608 Output Total 220 Balance 270 910 608 Weight 68.5 kg 68.8 kg 68.8 kg Exam: General appearance: PRESENT: no acute distress, cooperative Head exam: PRESENT: atraumatic, normocephalic Eye exam: PRESENT: EOMI, PERRLA Mouth exam: PRESENT: moist, neck supple Neck exam: ABSENT: meningismus, tenderness, thyromegaly, tracheal deviation Respiratory exam: PRESENT: unlabored. ABSENT: tachypnea, wheezes Cardiovascular exam: ABSENT: tachycardia GI/Abdominal exam: PRESENT: other - Lower quadrant colostomy is pink. Her midline wound is open with granulation present. ABSENT: distended, firm Rectal exam: PRESENT: deferred Extremities exam: ABSENT: clubbing Musculoskeletal exam: PRESENT: other - Boot on the left foot. Neurological exam: PRESENT: alert, awake, oriented to person, oriented to place, oriented to time, oriented to situation, CN II-XII grossly intact Psychiatric exam: ABSENT: agitated, anxious, depressed Focused psych exam: ABSENT: delusional Skin exam: ABSENT: cyanosis, jaundice Results Laboratory Results: 06/06/20 05:03 06/06/20 05:03 05/31/20 22:50 Blood Blood Culture (PCR) - Final 05/31/20 22:50 Blood Blood Culture - Final Corynebacterium Species 05/31/20 23:00 Blood Blood Culture - Final NO GROWTH IN 5 DAYS Impressions: Chest X-Ray 05/31/20 16:01 IMPRESSION: Linear atelectasis in the left base. No other significant findings. Abdomen/Pelvis CT 06/01/20 00:00 IMPRESSION: 1. Interval laparotomy with Blackmon's pouch procedure and left lower quadrant diverting colostomy. There is no bowel obstruction. 2. Small loculated fluid collection with mild enhancing rim in the left side of the abdomen which may represent residual postop fluid versus an abscess. This area measures 3.6 x 2.1 x 2.3 cm. 3. Large midline ventral abdominal wall soft tissue wound which extends to the level of the fascia but does not extend through the fascia. Assessment & Plan - Diagnosis (1) Wound, surgical, infected Is this a current diagnosis for this admission?: Yes - Time Anticipated Discharge Disposition: [facility] Facility Anticipated Discharge Timeframe: when bed available - Plan Summary Plan Summary: 64-year-old female with a postoperative surgical wound infection. The wound is open. There is granulation tissue at the base. Cont damp to dry dressing changes. Awaiting SNF placement. Medicine following.
[2020-06-07] MEDS: ATORVASTATIN CALCIUM 40 MG TABLET PO SCH (21:41)
[2020-06-08] MEDS: TRAMADOL HCL 50 MG TABLET PO PRN ×2 (04:20→18:11)
[2020-06-08 05:23] LABS: HEMATOCRIT 31.3 % (36.0-47.0); HEMOGLOBIN 10.5 g/dL (12.0-15.5); MEAN CORPUSCULAR HEMOGLOBIN 27.7 pg (27.0-33.4); MEAN CORPUSCULAR HGB CONC 33.5 g/dL (32.0-36.0); MEAN CORPUSCULAR VOLUME 83 fl (80-97); PLATELET COUNT 735 10^3/uL (150-450); RED BLOOD COUNT 3.79 10^6/uL (3.72-5.28); RED CELL DISTRIBUTION WIDTH 15.8 % (11.5-14.0); WHITE BLOOD COUNT 10.6 10^3/uL (4.0-10.5)
[2020-06-08 05:45] LABS: ALBUMIN 3.5 g/dL (3.5-5.0); ALKALINE PHOSPHATASE 166 U/L (38-126); ANION GAP 9 (5-19); ASPARTATE AMINO TRANSFERASE 24 U/L (14-36); BILIRUBIN,DIRECT 0.2 mg/dL (0.0-0.4); BILIRUBIN,TOTAL 0.5 mg/dL (0.2-1.3); BLOOD UREA NITROGEN 13 mg/dL (7-20); CALCIUM 10.1 mg/dL (8.4-10.2); CARBON DIOXIDE 26 mmol/L (22-30); CHLORIDE 101 mmol/L (98-107); GLUCOSE 119 mg/dL (75-110); POTASSIUM 4.6 mmol/L (3.6-5.0); TOTAL PROTEIN 6.7 g/dL (6.3-8.2)
[2020-06-08 06:07] LABS: ABSOLUTE LYMPHOCYTES# (MANUAL) 1.6 10^3/uL (0.5-4.7); ABSOLUTE MONOCYTES # (MANUAL) 1.2 10^3/uL (0.1-1.4); BASOPHILS % (MANUAL) 2 % (0-2); EOSINOPHILS % (MANUAL) 6 % (0-6); LYMPHOCYTES % (MANUAL) 15 % (13-45); MONOCYTES % (MANUAL) 11 % (3-13); SEGMENTED NEUTROPHILS % (MAN) 66 % (42-78); TOTAL CELLS COUNTED 100
[2020-06-08 06:10] LABS: ANISOCYTOSIS SLIGHT; BURR CELLS SLIGHT; OVALOCYTES SLIGHT; PLATELET CLUMPS PRESENT; PLATELET COMMENT INCREASED; POLYCHROMASIA SLIGHT; TOXIC GRANULATION SLIGHT; TOXIC VACUOLATION PRESENT
--- NOTE | 2020-06-08 09:41 | PDOC PROGRESS REPORT ---
Subjective Date:: 06/08/20 Subjective:: Feels well. No complaints. Reason For Visit: INFECTED ABDOMINAL WOUND Physical Exam Vital Signs: Temp Pulse Resp BP Pulse Ox 98.0 F 91 16 116/66 95 06/07/20 23:40 06/07/20 23:40 06/07/20 23:40 06/07/20 23:40 06/07/20 23:40 Intake & Output 06/07/20 06/08/20 06/09/20 06:59 06:59 06:59 Intake Total 1130 1974 Output Total 220 50 Balance 910 1924 Weight 68.8 kg 69 kg General appearance: PRESENT: no acute distress, cooperative Respiratory exam: PRESENT: clear to auscultation juliocesar Cardiovascular exam: PRESENT: RRR GI/Abdominal exam: PRESENT: other - Soft, nondistended, minimal tenderness. Ostomy functioning well. Results Laboratory Results: 06/08/20 04:58 06/08/20 04:58 06/08/20 06/08/20 04:58 04:58 WBC 10.6 H RBC 3.79 Hgb 10.5 L Hct 31.3 L MCV 83 MCH 27.7 MCHC 33.5 RDW 15.8 H Plt Count 735 H Seg Neutrophils % Not Reportable Sodium 136.0 L Potassium 4.6 Chloride 101 Carbon Dioxide 26 Anion Gap 9 BUN 13 Creatinine 0.49 L Est GFR ( Amer) > 60 Glucose 119 H Calcium 10.1 Magnesium 1.8 Total Bilirubin 0.5 AST 24 Alkaline Phosphatase 166 H Total Protein 6.7 Albumin 3.5 05/31/20 22:50 Blood Blood Culture (PCR) - Final 05/31/20 22:50 Blood Blood Culture - Final Corynebacterium Species Impressions: Chest X-Ray 05/31/20 16:01 IMPRESSION: Linear atelectasis in the left base. No other significant findings. Abdomen/Pelvis CT 06/01/20 00:00 IMPRESSION: 1. Interval laparotomy with Blackmon's pouch procedure and left lower quadrant diverting colostomy. There is no bowel obstruction. 2. Small loculated fluid collection with mild enhancing rim in the left side of the abdomen which may represent residual postop fluid versus an abscess. This area measures 3.6 x 2.1 x 2.3 cm. 3. Large midline ventral abdominal wall soft tissue wound which extends to the level of the fascia but does not extend through the fascia. Assessment & Plan - Diagnosis (1) Perforateed acute diverticulitis Is this a current diagnosis for this admission?: Yes Plan: Status post Blackmon's procedure. Patient looks good. Awaiting custodial placement. - Time Anticipated Discharge Disposition: [facility] Facility Anticipated Discharge Timeframe: within 72 hours
[2020-06-08] MEDS: FAMOTIDINE INJ/PF 20 MG/2 ML SDV IV SCH ×2 (10:34→21:09)
[2020-06-08] MEDS: CHOLECALCIFEROL (D3) 1,000 UNIT (25 MCG) TABLET PO SCH (10:35)
[2020-06-08] MEDS: ASCORBIC ACID 500 MG TABLET PO SCH ×2 (10:35→18:11)
[2020-06-08] MEDS: PREDNISOLONE ACETATE 1% OPH SUSP 5 ML OS SCH ×3 (10:35→18:11)
[2020-06-08] MEDS: PANTOPRAZOLE SODIUM 40 MG TABLET.DR PO SCH (10:35)
[2020-06-08] MEDS: MULTIVITAMIN TABLET PO SCH (10:35)
[2020-06-08] MEDS: ASPIRIN 81 MG TABLET, ENT COATED PO SCH (10:35)
[2020-06-08] MEDS: DOCUSATE SODIUM 100 MG CAPSULE PO SCH ×2 (10:35→18:11)
[2020-06-08] MEDS: PANTOT AC/MIN OIL/PET HY-PHL OINT 50 GM TOP SCH ×2 (10:37→18:12)
[2020-06-08] MEDS: ZINC SULFATE 220 MG CAPSULE PO SCH (10:37)
[2020-06-08] MEDS: MELOXICAM 7.5 MG TABLET PO SCH (10:37)
[2020-06-08] MEDS: METHOCARBAMOL 500 MG TABLET PO SCH ×3 (10:37→18:13)
[2020-06-08] MEDS: LIDOCAINE 5% (700 MG) TRANSDERMAL ADH..PATCH TP SCH (10:49)
--- NOTE | 2020-06-08 10:52 | PDOC PROGRESS REPORT ---
Subjective Date:: 06/08/20 Subjective:: 06/07/2020-patient able to walk around without any problems. Tolerating the t well. No complaints. As per the nurse antibiotics are discontinued by the surgical team. Patient is admitted with perforated acute diverticulitis status post Blackmon's procedure. 06/08/2020-patient is waiting for placement. Patient admitted for perforated acute diverticulitis status post Suzanna procedure. Patient has a colostomy bag present. Comfortably in the air, communicating well. Reason For Visit: INFECTED ABDOMINAL WOUND Physical Exam Vital Signs: Temp Pulse Resp BP Pulse Ox 97.7 F 99 16 119/69 93 06/08/20 07:55 06/08/20 07:55 06/08/20 07:55 06/08/20 07:55 06/08/20 07:55 Intake & Output 06/07/20 06/08/20 06/09/20 06:59 06:59 06:59 Intake Total 1130 1974 Output Total 220 50 Balance 910 1924 Weight 68.8 kg 69 kg General appearance: PRESENT: no acute distress Head exam: PRESENT: atraumatic Eye exam: PRESENT: PERRLA Neck exam: ABSENT: carotid bruit, JVD, lymphadenopathy, thyromegaly Cardiovascular exam: PRESENT: RRR. ABSENT: diastolic murmur, rubs, systolic murmur GI/Abdominal exam: PRESENT: normal bowel sounds, soft, other - Surgical wound is healing okay. Colostomy bag in place.. ABSENT: distended, guarding, mass, organolmegaly, rebound, tenderness Rectal exam: PRESENT: deferred Extremities exam: PRESENT: full ROM. ABSENT: calf tenderness, clubbing, pedal edema Neurological exam: PRESENT: alert, awake, oriented to person, oriented to place, oriented to time, oriented to situation, CN II-XII grossly intact. ABSENT: motor sensory deficit Psychiatric exam: PRESENT: appropriate affect, normal mood. ABSENT: homicidal ideation, suicidal ideation Results Laboratory Results: 06/08/20 04:58 06/08/20 04:58 06/08/20 06/08/20 04:58 04:58 WBC 10.6 H RBC 3.79 Hgb 10.5 L Hct 31.3 L MCV 83 MCH 27.7 MCHC 33.5 RDW 15.8 H Plt Count 735 H Seg Neutrophils % Not Reportable Sodium 136.0 L Potassium 4.6 Chloride 101 Carbon Dioxide 26 Anion Gap 9 BUN 13 Creatinine 0.49 L Est GFR ( Amer) > 60 Glucose 119 H Calcium 10.1 Magnesium 1.8 Total Bilirubin 0.5 AST 24 Alkaline Phosphatase 166 H Total Protein 6.7 Albumin 3.5 05/31/20 22:50 Blood Blood Culture (PCR) - Final 05/31/20 22:50 Blood Blood Culture - Final Corynebacterium Species Impressions: Chest X-Ray 05/31/20 16:01 IMPRESSION: Linear atelectasis in the left base. No other significant findings. Abdomen/Pelvis CT 06/01/20 00:00 IMPRESSION: 1. Interval laparotomy with Blackmon's pouch procedure and left lower quadrant diverting colostomy. There is no bowel obstruction. 2. Small loculated fluid collection with mild enhancing rim in the left side of the abdomen which may represent residual postop fluid versus an abscess. This area measures 3.6 x 2.1 x 2.3 cm. 3. Large midline ventral abdominal wall soft tissue wound which extends to the level of the fascia but does not extend through the fascia. Assessment and Plan - Diagnosis (1) Wound, surgical, infected Is this a current diagnosis for this admission?: Yes Plan: Recent admission for perforated bowel status post colostomy and exploratory laparotomy; readmitted 05/31 for wound dehiscence by general surgery General surgery is primary, medicine is consulted Agree with antibiotics to include gram-negative anaerobic coverage No fevers but white blood cell count is 14.7 Blood culture Surgical site culture Consider wound care consult 06/07/2020-patient has abdominal binder. Antibiotics are discontinued by the surgical team. Blood cultures are positive for Gram positive rods, wound cultures are positive for Proteus mirabilis, Enterobacter. 06/08/2020-patient is waiting for placement. Abdominal binder in place. Colostomy bag present. Bowel sounds are present. not On antibiotics at this time. (2) Rheumatoid arthritis Qualifiers: Rheumatoid arthritis location: multiple sites Rheumatoid factor presence: unspecified presence Qualified Code(s): M06.9 - Rheumatoid arthritis, unspecified Is this a current diagnosis for this admission?: Yes Plan: Per patient, complicated by Achilles tendinitis Okay to continue Mobic Patient has been off rheumatoid arthritis medications including Humira and prednisone for approximately 2 weeks per patient Continue holding RA specific medications that will impair wound healing Needs follow-up with rheumatology after surgical wound infection is cleared Per patient, she is not on long-term steroids (3) HLD (hyperlipidemia) Qualifiers: Hyperlipidemia type: unspecified Qualified Code(s): E78.5 - Hyperlipidemia, unspecified Is this a current diagnosis for this admission?: Yes Plan: Continue statin (4) Achilles rupture, left Is this a current diagnosis for this admission?: No Plan: The patient was seen by Dr. Wheeler. Will work with physical therapy. She is keeping the walking boot off at this time. 06/03/2020-continue conservative care. Continue Aquaphor. 06/04/2020-surgical incision intact 06/05/[id number] surgical incision. No more scaling skin. Small areas of scab scattered but no erythema or drainage 06/06/2020-as noted above ankle is starting to feel stiff. I have requested records from her [facility] discharge specifically with weightbearing and therapy instructions from Dr. Gutiérrez. We will institute when available. - Plan Summary Summary: (1) Wound, surgical, infected Is this a current diagnosis for this admission?: Yes Plan: Recent admission for perforated bowel status post colostomy and exploratory laparotomy; readmitted 05/31 for wound dehiscence by general surgery General surgery is primary, medicine is consulted Agree with antibiotics to include gram-negative anaerobic coverage No fevers but white blood cell count is 14.7 Blood culture Surgical site culture Consider wound care consult 06/01/2020-I have added zinc, vitamin C and the patient is already on a multivitamin to maximize healing. I also added protein drinks to her meal trays. 06/03/2020-I was present at the bedside with the wound dressing change. Good granulation tissue. Ongoing wound care per surgery. 06/04/2020-she reports less discomfort with dressing changes. 06/06/2020-antibiotic therapy completed. Continue current dressing changes. (2) Rheumatoid arthritis Is this a current diagnosis for this admission?: Yes Plan: Per patient, complicated by Achilles tendinitis Okay to continue Mobic Patient has been off rheumatoid arthritis medications including Humira and prednisone for approximately 2 weeks per patient Continue holding RA specific medications that will impair wound healing Needs follow-up with rheumatology after surgical wound infection is cleared Per patient, she is not on long-term steroids 06/01/2020-we will focus on NSAIDs for the time being. 06/04/2020-improved symptomatology with NSAIDs and muscle relaxant 06/05/2020-continue current regimen as it seems to be effective 06/06/2020-continue current regimen. No changes at this time because it seems to be effective. (3) HLD (hyperlipidemia) Is this a current diagnosis for this admission?: Yes Plan: Continue statin 06/05/2020-tolerating statin therapy (4) Chronic pain Is this a current diagnosis for this admission?: Yes Plan: Continue home pain medication, tramadol, when she is able to take p.o. Okay to use IV narcotics while she is n.p.o. Specific pain management medications per general surgery discretion 06/01/2020-I did expand her tramadol dosing somewhat. Will monitor closely and courage minimal use. 06/02/2020-we will add K pad for her back pain. 06/03/2020-the K pad is helping somewhat. We will try and position it appropriately. 06/04/2020-continue K pad and medication changes 06/05/2020-new medication regimen seems to be helping her 06/06/2020-reports feeling stiffness in the ankle. (5) Ruptured achilles tendon left The patient was seen by Dr. Wheeler. Will work with physical therapy. She is keeping the walking boot off at this time. 06/03/2020-continue conservative care. Continue Aquaphor. 06/04/2020-surgical incision intact 06/05/[id number] surgical incision. No more scaling skin. Small areas of scab scattered but no erythema or drainage 06/06/2020-as noted above ankle is starting to feel stiff. I have requested records from her [facility] discharge specifically with weightbearing and therapy instructions from Dr. Gutiérrez. We will institute when available. - Time Anticipated Discharge Disposition: [facility] Anticipated Discharge Timeframe: within 48 hours
[2020-06-08] MEDS: ONDANSETRON HCL INJ/PF 4 MG/2 ML SDV IV PRN (18:18)
[2020-06-08] MEDS: ATORVASTATIN CALCIUM 40 MG TABLET PO SCH (21:09)
[2020-06-09] MEDS: ONDANSETRON HCL INJ/PF 4 MG/2 ML SDV IV PRN (08:43)
--- NOTE | 2020-06-09 09:42 | PDOC DISCHARGE SUMMARY ---
General - Admit/Disc Date/PCP Admission Date/Primary Care Provider: 05/31/20 22:13 DAVI KINSEY NP Discharge Date: 06/09/20 - Discharge Diagnosis Final Diagnosis: wound infection - Assessment Summary: (1) Wound, surgical, infected Is this a current diagnosis for this admission?: Yes Plan: Recent admission for perforated bowel status post colostomy and exploratory laparotomy; readmitted 05/31 for wound dehiscence by general surgery General surgery is primary, medicine is consulted Agree with antibiotics to include gram-negative anaerobic coverage No fevers but white blood cell count is 14.7 Blood culture Surgical site culture Consider wound care consult 06/01/2020-I have added zinc, vitamin C and the patient is already on a multivitamin to maximize healing. I also added protein drinks to her meal trays. 06/03/2020-I was present at the bedside with the wound dressing change. Good granulation tissue. Ongoing wound care per surgery. 06/04/2020-she reports less discomfort with dressing changes. 06/06/2020-antibiotic therapy completed. Continue current dressing changes. (2) Rheumatoid arthritis Is this a current diagnosis for this admission?: Yes Plan: Per patient, complicated by Achilles tendinitis Okay to continue Mobic Patient has been off rheumatoid arthritis medications including Humira and prednisone for approximately 2 weeks per patient Continue holding RA specific medications that will impair wound healing Needs follow-up with rheumatology after surgical wound infection is cleared Per patient, she is not on long-term steroids 06/01/2020-we will focus on NSAIDs for the time being. 06/04/2020-improved symptomatology with NSAIDs and muscle relaxant 06/05/2020-continue current regimen as it seems to be effective 06/06/2020-continue current regimen. No changes at this time because it seems to be effective. (3) HLD (hyperlipidemia) Is this a current diagnosis for this admission?: Yes Plan: Continue statin 06/05/2020-tolerating statin therapy (4) Chronic pain Is this a current diagnosis for this admission?: Yes Plan: Continue home pain medication, tramadol, when she is able to take p.o. Okay to use IV narcotics while she is n.p.o. Specific pain management medications per general surgery discretion 06/01/2020-I did expand her tramadol dosing somewhat. Will monitor closely and courage minimal use. 06/02/2020-we will add K pad for her back pain. 06/03/2020-the K pad is helping somewhat. We will try and position it appropriately. 06/04/2020-continue K pad and medication changes 06/05/2020-new medication regimen seems to be helping her 06/06/2020-reports feeling stiffness in the ankle. (5) Ruptured achilles tendon left The patient was seen by Dr. Wheeler. Will work with physical therapy. She is keeping the walking boot off at this time. 06/03/2020-continue conservative care. Continue Aquaphor. 06/04/2020-surgical incision intact 06/05/[id number] surgical incision. No more scaling skin. Small areas of scab scattered but no erythema or drainage 06/06/2020-as noted above ankle is starting to feel stiff. I have requested records from her [facility] discharge specifically with weightbearing and therapy instructions from Dr. Gutiérrez. We will institute when available. - Additional Information Resuscitation Status: Full Code Discharge Diet: As Tolerated Discharge Activity: No Lifting Over 10 Pounds Referrals: [facility] [Provider Group] [facility] [Provider Group] Home Medications: Atorvastatin Calcium [Lipitor 40 mg Tablet] 40 mg PO QHS 03/30/20 Bromfenac Sodium [Prolensa] 1 drop OP DAILY 03/30/20 Meloxicam [Mobic] 7.5 mg PO DAILY 03/30/20 Pantoprazole Sodium 40 mg PO DAILY 03/30/20 Cholecalciferol (Vitamin D3) [Vitamin D3 1000 Unit Tablet] 2,000 unit PO DAILY 05/20/20 Moxifloxacin HCl [Moxifloxacin] 1 drop OP TID 05/20/20 Multivitamin with Folic Acid [Tab-A-Candido Tablet] 1 each PO DAILY 05/20/20 Ondansetron HCl [Zofran 8 mg Tablet] 4 mg PO BIDP PRN 05/20/20 Prednisolone Acetate [Pred Forte] 1 drop OS TID 05/20/20 Amoxicillin/Potassium Clav [Augmentin 875-125 Tablet] 1 tab PO Q12 #20 tablet 05/30/20 Acetaminophen 500 mg PO Q6HP PRN 06/01/20 Aspirin [Adult Aspirin Regimen] 81 mg PO DAILY 06/01/20 Tramadol HCl [Ultram 50 mg Tablet] 50 mg PO DAILYP PRN 06/01/20 Additional Information: Patient's wound is now granulating well and has a clean granulation base. She has been undergoing wet-to-dry wet dressing changes in the hospital here awaiting placement in long term. She will be discharged home today after discussion with the skilled facility has been decided that she will be discharged with wet-to-dry dressings in place and they will place a wound VAC in the next day or 2. She will be followed up in surgical clinic in 2 to 3 weeks. She is tolerating a regular diet and has normal bowel function via colostomy. She is also to get stomal care and colostomy care at the intermediate facility. History of Present Illiness History of Present Illness: YVETTE HOYT is a 64 year old female Physical Exam Vital Signs: Temp Pulse Resp BP Pulse Ox 97.1 F 99 18 123/78 95 06/09/20 07:54 06/09/20 07:54 06/09/20 07:54 06/09/20 07:54 06/09/20 07:54 Intake & Output 06/08/20 06/09/20 06/10/20 06:59 06:59 06:59 Intake Total 1974 1792 Output Total 50 Balance 1924 1792 Weight 69 kg 73 kg Results Laboratory Results: WBC 10.6 10^3/uL (4.0-10.5) H 06/08/20 04:58 RBC 3.79 10^6/uL (3.72-5.28) 06/08/20 04:58 Hgb 10.5 g/dL (12.0-15.5) L 06/08/20 04:58 Hct 31.3 % (36.0-47.0) L 06/08/20 04:58 MCV 83 fl (80-97) 06/08/20 04:58 MCH 27.7 pg (27.0-33.4) 06/08/20 04:58 MCHC 33.5 g/dL (32.0-36.0) 06/08/20 04:58 RDW 15.8 % (11.5-14.0) H 06/08/20 04:58 Plt Count 735 10^3/uL (150-450) H 06/08/20 04:58 Lymph % (Auto) Not Reportable 06/08/20 04:58 [place] % (Auto) Not Reportable 06/08/20 04:58 Eos % (Auto) Not Reportable 06/08/20 04:58 Baso % (Auto) Not Reportable 06/08/20 04:58 Absolute Neuts (auto) Not Reportable 06/08/20 04:58 Absolute Lymphs (auto) Not Reportable 06/08/20 04:58 Absolute Monos (auto) Not Reportable 06/08/20 04:58 Absolute Eos (auto) Not Reportable 06/08/20 04:58 Absolute Basos (auto) Not Reportable 06/08/20 04:58 Total Counted 100 06/08/20 04:58 Seg Neutrophils % Not Reportable 06/08/20 04:58 Seg Neuts % (Manual) 66 % (42-78) 06/08/20 04:58 Lymphocytes % (Manual) 15 % (13-45) 06/08/20 04:58 Atypical Lymphs % 1 % (0) 06/06/20 05:03 Monocytes % (Manual) 11 % (3-13) 06/08/20 04:58 Eosinophils % (Manual) 6 % (0-6) 06/08/20 04:58 Basophils % (Manual) 2 % (0-2) 06/08/20 04:58 Abs Neuts (Manual) 7.0 10^3/uL (1.7-8.2) 06/08/20 04:58 Abs Lymphs (Manual) 1.6 10^3/uL (0.5-4.7) 06/08/20 04:58 Abs Monocytes (Manual) 1.2 10^3/uL (0.1-1.4) 06/08/20 04:58 Absolute Eos (Manual) 0.6 10^3/uL (0.0-0.6) 06/08/20 04:58 Abs Basophils (Manual) 0.2 10^3/uL (0.0-0.2) 06/08/20 04:58 Nucleated RBCs 1 /100 WBC (0) 05/31/20 16:52 Toxic Granulation SLIGHT 06/08/20 04:58 Toxic Vacuolation PRESENT 06/08/20 04:58 Clumped Platelets PRESENT 06/08/20 04:58 Platelet Comment INCREASED 06/08/20 04:58 Polychromasia SLIGHT 06/08/20 04:58 Basophilic Stippling PRESENT 06/06/20 05:03 Anisocytosis SLIGHT 06/08/20 04:58 Ovalocytes SLIGHT 06/08/20 04:58 [place] Cells SLIGHT 06/08/20 04:58 Sodium 136.0 mmol/L (137-145) L 06/08/20 04:58 Potassium 4.6 mmol/L (3.6-5.0) 06/08/20 04:58 Chloride 101 mmol/L (98-107) 06/08/20 04:58 Carbon Dioxide 26 mmol/L (22-30) 06/08/20 04:58 Anion Gap 9 (5-19) 06/08/20 04:58 BUN 13 mg/dL (7-20) 06/08/20 04:58 Creatinine 0.49 mg/dL (0.52-1.25) L 06/08/20 04:58 Est GFR ( Amer) > 60 (>60) 06/08/20 04:58 Est GFR (MDRD) Non-Af > 60 (>60) 06/08/20 04:58 Glucose 119 mg/dL (75-110) H 06/08/20 04:58 POC Glucose 152 mg/dL (70-110) H 06/01/20 15:20 Calcium 10.1 mg/dL (8.4-10.2) 06/08/20 04:58 Magnesium 1.8 mg/dL (1.6-2.3) 06/08/20 04:58 Total Bilirubin 0.5 mg/dL (0.2-1.3) 06/08/20 04:58 Direct Bilirubin 0.2 mg/dL (0.0-0.4) 06/08/20 04:58 Neonat Total Bilirubin Not Reportable 06/08/20 04:58 Neonat Direct Bilirubin Not Reportable 06/08/20 04:58 Neonat Indirect Bili Not Reportable 06/08/20 04:58 AST 24 U/L (14-36) 06/08/20 04:58 ALT 22 U/L (<35) 06/08/20 04:58 Alkaline Phosphatase 166 U/L (38-126) H 06/08/20 04:58 Total Protein 6.7 g/dL (6.3-8.2) 06/08/20 04:58 Albumin 3.5 g/dL (3.5-5.0) 06/08/20 04:58 Urine Color YELLOW 05/31/20 17:52 Urine Appearance CLOUDY 05/31/20 17:52 Urine pH 6.0 (5.0-9.0) 05/31/20 17:52 Ur Specific [place] 1.019 05/31/20 17:52 Urine Protein 30 mg/dL (NEGATIVE) H 05/31/20 17:52 Urine Glucose (UA) NEGATIVE mg/dL (NEGATIVE) 05/31/20 17:52 Urine Ketones NEGATIVE mg/dL (NEGATIVE) 05/31/20 17:52 Urine Blood NEGATIVE (NEGATIVE) 05/31/20 17:52 Urine Nitrite NEGATIVE (NEGATIVE) 05/31/20 17:52 Urine Bilirubin NEGATIVE (NEGATIVE) 05/31/20 17:52 Urine Urobilinogen NEGATIVE mg/dL (<2.0) 05/31/20 17:52 Ur Leukocyte Esterase NEGATIVE (NEGATIVE) 05/31/20 17:52 Urine WBC (Auto) 5 /HPF 05/31/20 17:52 Urine RBC (Auto) 4 /HPF 05/31/20 17:52 U Hyaline Cast (Auto) 10 /LPF 05/31/20 17:52 Squamous Epi Cells Auto 9 /HPF 05/31/20 17:52 Urine Mucus (Auto) MOD /LPF 05/31/20 17:52 Urine Ascorbic Acid NEGATIVE (NEGATIVE) 05/31/20 17:52 SARS-CoV-2 (PCR) NEGATIVE (NEGATIVE) 05/31/20 23:15 Impressions: Chest X-Ray 05/31/20 16:01 IMPRESSION: Linear atelectasis in the left base. No other significant findings. Abdomen/Pelvis CT 06/01/20 00:00 IMPRESSION: 1. Interval laparotomy with Blackmon's pouch procedure and left lower quadrant diverting colostomy. There is no bowel obstruction. 2. Small loculated fluid collection with mild enhancing rim in the left side of the abdomen which may represent residual postop fluid versus an abscess. This area measures 3.6 x 2.1 x 2.3 cm. 3. Large midline ventral abdominal wall soft tissue wound which extends to the level of the fascia but does not extend through the fascia.
--- NOTE | 2020-06-09 10:03 | PDOC PROGRESS REPORT ---
Subjective Date:: 06/09/20 Subjective:: 06/07/2020-patient able to walk around without any problems. Tolerating the t well. No complaints. As per the nurse antibiotics are discontinued by the surgical team. Patient is admitted with perforated acute diverticulitis status post Blackmon's procedure. 06/08/2020-patient is waiting for placement. Patient admitted for perforated acute diverticulitis status post Suzanna procedure. Patient has a colostomy bag present. Comfortably in the air, communicating well. 06/09/2020-patient is going home today as per Dr. Young. No acute events in the last 24 hours. Afebrile. Reason For Visit: INFECTED ABDOMINAL WOUND Physical Exam Vital Signs: Temp Pulse Resp BP Pulse Ox 97.1 F 99 18 123/78 95 06/09/20 07:54 06/09/20 07:54 06/09/20 07:54 06/09/20 07:54 06/09/20 07:54 Intake & Output 06/08/20 06/09/20 06/10/20 06:59 06:59 06:59 Intake Total 1974 1792 Output Total 50 Balance 1923 179 Weight 69 kg 73 kg General appearance: PRESENT: no acute distress, cooperative, well-developed Head exam: PRESENT: atraumatic Eye exam: PRESENT: PERRLA Mouth exam: PRESENT: moist, tongue midline Teeth exam: PRESENT: poor dentation Neck exam: ABSENT: carotid bruit, JVD, lymphadenopathy, thyromegaly Respiratory exam: PRESENT: decreased breath sounds Cardiovascular exam: PRESENT: RRR. ABSENT: diastolic murmur, rubs, systolic murmur GI/Abdominal exam: PRESENT: other - Abdominal binder is present colostomy bag in place. Rectal exam: PRESENT: deferred Extremities exam: PRESENT: full ROM. ABSENT: calf tenderness, clubbing, pedal edema Neurological exam: PRESENT: alert, awake, oriented to person, oriented to place, oriented to time, oriented to situation, CN II-XII grossly intact. ABSENT: motor sensory deficit Psychiatric exam: PRESENT: appropriate affect, normal mood. ABSENT: homicidal ideation, suicidal ideation Results Laboratory Results: 06/08/20 04:58 06/08/20 04:58 Impressions: Chest X-Ray 05/31/20 16:01 IMPRESSION: Linear atelectasis in the left base. No other significant findings. Abdomen/Pelvis CT 06/01/20 00:00 IMPRESSION: 1. Interval laparotomy with Blackmon's pouch procedure and left lower quadrant diverting colostomy. There is no bowel obstruction. 2. Small loculated fluid collection with mild enhancing rim in the left side of the abdomen which may represent residual postop fluid versus an abscess. This area measures 3.6 x 2.1 x 2.3 cm. 3. Large midline ventral abdominal wall soft tissue wound which extends to the level of the fascia but does not extend through the fascia. Assessment and Plan - Diagnosis (1) Wound, surgical, infected Is this a current diagnosis for this admission?: Yes Plan: Recent admission for perforated bowel status post colostomy and exploratory laparotomy; readmitted 05/31 for wound dehiscence by general surgery General surgery is primary, medicine is consulted Agree with antibiotics to include gram-negative anaerobic coverage No fevers but white blood cell count is 14.7 Blood culture Surgical site culture Consider wound care consult 06/07/2020-patient has abdominal binder. Antibiotics are discontinued by the surgical team. Blood cultures are positive for Gram positive rods, wound cultures are positive for Proteus mirabilis, Enterobacter. 06/08/2020-patient is waiting for placement. Abdominal binder in place. Colostomy bag present. Bowel sounds are present. not On antibiotics at this time. 06/09/2020-patient is going home today as per the surgical team. (2) Rheumatoid arthritis Qualifiers: Rheumatoid arthritis location: multiple sites Rheumatoid factor presence: unspecified presence Qualified Code(s): M06.9 - Rheumatoid arthritis, unspecified Is this a current diagnosis for this admission?: Yes Plan: Per patient, complicated by Achilles tendinitis Okay to continue Mobic Patient has been off rheumatoid arthritis medications including Humira and prednisone for approximately 2 weeks per patient Continue holding RA specific medications that will impair wound healing Needs follow-up with rheumatology after surgical wound infection is cleared Per patient, she is not on long-term steroids 06/09/2020-patient is advised to continue to follow-up with bobbin inspector as an outpatient. (3) HLD (hyperlipidemia) Qualifiers: Hyperlipidemia type: unspecified Qualified Code(s): E78.5 - Hyperlipidemia, unspecified Is this a current diagnosis for this admission?: Yes Plan: Continue statin (4) Achilles rupture, left Is this a current diagnosis for this admission?: No Plan: The patient was seen by Dr. Wheeler. Will work with physical therapy. She is keeping the walking boot off at this time. 06/03/2020-continue conservative care. Continue Aquaphor. 06/04/2020-surgical incision intact 06/05/[id number] surgical incision. No more scaling skin. Small areas of scab scattered but no erythema or drainage 06/06/2020-as noted above ankle is starting to feel stiff. I have requested records from her [facility] discharge specifically with weightbearing and therapy instructions from Dr. Gutiérrez. We will institute when available. - Plan Summary Summary: (1) Wound, surgical, infected Is this a current diagnosis for this admission?: Yes Plan: Recent admission for perforated bowel status post colostomy and exploratory laparotomy; readmitted 05/31 for wound dehiscence by general surgery General surgery is primary, medicine is consulted Agree with antibiotics to include gram-negative anaerobic coverage No fevers but white blood cell count is 14.7 Blood culture Surgical site culture Consider wound care consult 06/01/2020-I have added zinc, vitamin C and the patient is already on a multivitamin to maximize healing. I also added protein drinks to her meal trays. 06/03/2020-I was present at the bedside with the wound dressing change. Good granulation tissue. Ongoing wound care per surgery. 06/04/2020-she reports less discomfort with dressing changes. 06/06/2020-antibiotic therapy completed. Continue current dressing changes. (2) Rheumatoid arthritis Is this a current diagnosis for this admission?: Yes Plan: Per patient, complicated by Achilles tendinitis Okay to continue Mobic Patient has been off rheumatoid arthritis medications including Humira and prednisone for approximately 2 weeks per patient Continue holding RA specific medications that will impair wound healing Needs follow-up with rheumatology after surgical wound infection is cleared Per patient, she is not on long-term steroids 06/01/2020-we will focus on NSAIDs for the time being. 06/04/2020-improved symptomatology with NSAIDs and muscle relaxant 06/05/2020-continue current regimen as it seems to be effective 06/06/2020-continue current regimen. No changes at this time because it seems to be effective. (3) HLD (hyperlipidemia) Is this a current diagnosis for this admission?: Yes Plan: Continue statin 06/05/2020-tolerating statin therapy (4) Chronic pain Is this a current diagnosis for this admission?: Yes Plan: Continue home pain medication, tramadol, when she is able to take p.o. Okay to use IV narcotics while she is n.p.o. Specific pain management medications per general surgery discretion 06/01/2020-I did expand her tramadol dosing somewhat. Will monitor closely and courage minimal use. 06/02/2020-we will add K pad for her back pain. 06/03/2020-the K pad is helping somewhat. We will try and position it appropriately. 06/04/2020-continue K pad and medication changes 06/05/2020-new medication regimen seems to be helping her 06/06/2020-reports feeling stiffness in the ankle. (5) Ruptured achilles tendon left The patient was seen by Dr. Wheeler. Will work with physical therapy. She is keeping the walking boot off at this time. 06/03/2020-continue conservative care. Continue Aquaphor. 06/04/2020-surgical incision intact 06/05/[id number] surgical incision. No more scaling skin. Small areas of scab scattered but no erythema or drainage 06/06/2020-as noted above ankle is starting to feel stiff. I have requested records from her [facility] discharge specifically with weightbearing and therapy instructions from Dr. Gutiérrez. We will institute when available. - Time Anticipated Discharge Disposition: Home, Self Care Anticipated Discharge Timeframe: within 24 hours
[2020-06-09] MEDS: ASCORBIC ACID 500 MG TABLET PO SCH (11:31)
[2020-06-09] MEDS: CHOLECALCIFEROL (D3) 1,000 UNIT (25 MCG) TABLET PO SCH (11:31)
[2020-06-09] MEDS: ASPIRIN 81 MG TABLET, ENT COATED PO SCH (11:31)
[2020-06-09] MEDS: DOCUSATE SODIUM 100 MG CAPSULE PO SCH (11:31)
[2020-06-09] MEDS: PANTOPRAZOLE SODIUM 40 MG TABLET.DR PO SCH (11:31)
[2020-06-09] MEDS: FAMOTIDINE INJ/PF 20 MG/2 ML SDV IV SCH (11:31)
[2020-06-09] MEDS: ZINC SULFATE 220 MG CAPSULE PO SCH (11:32)
[2020-06-09] MEDS: MELOXICAM 7.5 MG TABLET PO SCH (11:32)
[2020-06-09] MEDS: MULTIVITAMIN TABLET PO SCH (11:32)
[2020-06-09] MEDS: LIDOCAINE 5% (700 MG) TRANSDERMAL ADH..PATCH TP SCH (11:33)
[2020-06-09] MEDS: METHOCARBAMOL 500 MG TABLET PO SCH (11:33)
[2020-06-09] MEDS: PREDNISOLONE ACETATE 1% OPH SUSP 5 ML OS SCH (11:34)
[2020-06-09] MEDS: PANTOT AC/MIN OIL/PET HY-PHL OINT 50 GM TOP SCH (11:43)
[2020-06-09 12:22] VITALS: BP 107/65
== END 2020-06-09 12:51 | DRG 920 ==
LOC: ER 15:18 → EH 22:13 → 4W 06-01 12:13
PROVIDERS: ADMIT Surgery; ATTEND Surgery
DX: T81.32XA Disruption of internal operation (surgical) wound, not elsewhere classified, initial encounter (principal); T81.49XA Infection following a procedure, other surgical site, initial encounter; Y83.8 Other surgical procedures as the cause of abnormal reaction of the patient, or of later complication, without mention of misadventure at the time of the procedure; M06.9 Rheumatoid arthritis, unspecified; E78.5 Hyperlipidemia, unspecified; M54.9 Dorsalgia, unspecified; G89.29 Other chronic pain; S86.012A Strain of left Achilles tendon, initial encounter; E66.9 Obesity, unspecified; Z79.82 Long term (current) use of aspirin; Z79.52 Long term (current) use of systemic steroids; Z79.899 Other long term (current) drug therapy; K21.9 Gastro-esophageal reflux disease without esophagitis; K44.9 Diaphragmatic hernia without obstruction or gangrene; Z93.3 Colostomy status; Z68.27 Body mass index [BMI] 27.0-27.9, adult; Z11.59 Encounter for screening for other viral diseases
CPT/HCPCS: 36415; 71045; 74177; 80048; 80053; 81001; 82962; 83735; 85025; 87040; 87070; 87075; 87077; 87150; 87186; 87205; 87635; 96361; 96374; 96375; 99285; C9803; J0696; J1885; J2270; J2405; J3490; J7030; J7120; S0028

== ENCOUNTER 2020-06-18 14:38 | Observation (INO) | payer BC ==
--- NOTE | 2020-06-18 15:23 | RADIOLOGY REPORT (SQ) ---
EXAM DESCRIPTION: CT HEAD WITHOUT IMAGES COMPLETED DATE/TIME: 06/18/2020 3:04 pm REASON FOR STUDY: bed 7 stroke alert with right arm weak COMPARISON: None. TECHNIQUE: Axial images acquired through the brain without intravenous contrast. Images reviewed wi th bone, brain and subdural windows. Additional sagittal and coronal reconstructions were generated. Images stored on PACS. All CT scanners at this facility use dose modulation, iterative reconstruction, and/or weight based d osing when appropriate to reduce radiation dose to as low as reasonably achievable (ALARA). [facility]: Dose Right [facility]: CareDose [facility]: Dose Right [facility]: Teradose 4D [facility]: Smart KUBOO RADIATION DOSE: CT Rad equipment meets quality standard of care and radiation dose reduction techniq ues were employed. CTDIvol: 53.2 mGy. DLP: 1070 mGy-cm. mGy. LIMITATIONS: None. FINDINGS: VENTRICLES: Normal size and contour. CEREBRUM: No masses. No hemorrhage. No midline shift. No evidence for acute infarction. Normal gra y/white matter differentiation. No areas of low density in the white matter. CEREBELLUM: No masses. No hemorrhage. Old right cerebellar infarct axial image 6. No evidence for acute infarction. EXTRAAXIAL SPACES: No fluid collections. No masses. ORBITS AND GLOBE: No intra- or extraconal masses. Normal contour of globe without masses. CALVARIUM: No fracture. PARANASAL SINUSES: No fluid or mucosal thickening. SOFT TISSUES: No mass or hematoma. OTHER: No other significant finding. IMPRESSION: Old right cerebellar infarct. No acute large territory supratentorial infarct. EVIDENCE OF ACUTE STROKE: NO. COMMENT: Pertinent findings on the imaging study reported as a CRITICAL RESULT to INGRID Pisano at15:10 on 06/18/2020. Category of Critical Result: CT code stroke Quality ID # [id number]: Final reports with documentation of one or more dose reduction techniques (e.g., Au tomated exposure control, adjustment of the mA and/or kV according to patient size, use of iterative reconstruction technique) TECHNICAL DOCUMENTATION: JOB ID: [id number] [employer]- All Rights Reserved Reading location - IP/workstation name: [id number]
--- NOTE | 2020-06-18 15:26 | RADIOLOGY REPORT (SQ) ---
EXAM DESCRIPTION: CHEST SINGLE VIEW IMAGES COMPLETED DATE/TIME: 06/18/2020 2:02 pm REASON FOR STUDY: bed 7 stroke alert with right arm weak COMPARISON: 05/31/2020 EXAM PARAMETERS: NUMBER OF VIEWS: One view. TECHNIQUE: Single frontal radiographic view of the chest acquired. RADIATION DOSE: NA LIMITATIONS: None. FINDINGS: LUNGS AND PLEURA: No opacities, masses or pneumothorax. No pleural effusion. MEDIASTINUM AND HILAR STRUCTURES: No masses. Contour normal. HEART AND VASCULAR STRUCTURES: Heart normal in size. Normal vasculature. BONES: No acute findings. HARDWARE: None in the chest. OTHER: No other significant finding. IMPRESSION: NO ACUTE RADIOGRAPHIC FINDING IN THE CHEST. TECHNICAL DOCUMENTATION: JOB ID: [id number] 2010 [employer]- All Rights Reserved Reading location - IP/workstation name: [email or web address]
[2020-06-18 15:31] LABS: ABSOLUTE EOSINOPHILS # (AUTO) 0.6 10^3/uL (0.0-0.6); ABSOLUTE LYMPHOCYTES (AUTO) 1.5 10^3/uL (0.5-4.7); ABSOLUTE MONOCYTES (AUTO) 1.2 10^3/uL (0.1-1.4); ABSOLUTE NEUT (AUTO) 9.4 10^3/uL (1.7-8.2); BASOPHILS % (AUTO) 0.2 % (0-2); EOSINOPHILS % (AUTO) 4.6 % (0-6); HEMATOCRIT 31.8 % (36.0-47.0); HEMOGLOBIN 10.5 g/dL (12.0-15.5); LYMPHOCYTES % (AUTO) 11.7 % (13-45); MEAN CORPUSCULAR HGB CONC 32.9 g/dL (32.0-36.0); MEAN CORPUSCULAR VOLUME 82 fl (80-97); MONOCYTES % (AUTO) 9.1 % (3-13); PLATELET COUNT 433 10^3/uL (150-450); RED BLOOD COUNT 3.87 10^6/uL (3.72-5.28); RED CELL DISTRIBUTION WIDTH 15.2 % (11.5-14.0); SEGMENTED NEUTROPHILS % (AUTO) 74.4 % (42-78); TOTAL CELLS COUNTED % (AUTO) 100 %; WHITE BLOOD COUNT 12.7 10^3/uL (4.0-10.5)
[2020-06-18 15:35] LABS: INTERNATIONAL RATION (INR) 0.96
[2020-06-18 15:36] LABS: PARTIAL THROMBOPLASTIN TIME 32.7 SEC (23.5-35.8)
[2020-06-18 15:49] LABS: ALBUMIN 3.7 g/dL (3.5-5.0); ALKALINE PHOSPHATASE 146 U/L (38-126); ANION GAP 9 (5-19); ASPARTATE AMINO TRANSFERASE 23 U/L (14-36); BILIRUBIN,DIRECT 0.2 mg/dL (0.0-0.4); BILIRUBIN,TOTAL 0.3 mg/dL (0.2-1.3); BLOOD UREA NITROGEN 12 mg/dL (7-20); CALCIUM 10.1 mg/dL (8.4-10.2); CARBON DIOXIDE 27 mmol/L (22-30); CHLORIDE 102 mmol/L (98-107); GLUCOSE 147 mg/dL (75-110); POTASSIUM 3.9 mmol/L (3.6-5.0); TOTAL PROTEIN 7.1 g/dL (6.3-8.2)
[2020-06-18 15:50] LABS: CREATINE KINASE < 20 U/L (30-135)
[2020-06-18 16:02] LABS: TROPONIN I 0.027 ng/mL
[2020-06-18 16:04] LABS: CREATINE KINASE MB < 0.22 ng/mL (<4.55)
--- NOTE | 2020-06-18 16:27 | ER Document Report ---
ED General - General Chief Complaint: S/S of Possible Stroke Stated Complaint: RIGHT ARM WEAKNESS Time Seen by Provider: 06/18/20 14:52 Primary Care Provider: DAVI KINSEY NP [Primary Care Provider] - Follow up as needed TRAVEL OUTSIDE OF THE [place] IN LAST 30 DAYS: No - HPI Notes: Chief complaint: Impairment right upper extremity History of present illness: 64-year-old female followed by CINDY Waggoner with history of rheumatoid arthritis and diverticular disease of the colon with previous surgical complications but no known history of stroke or TIA presents now for evaluation of sudden onset of sensory and motor impairment of the domina nt right upper extremity with last known well time 1415 hrs. today. Patient states that this occurred very suddenly as she was getting ready to eat some lunch. She was unable to lift her fork independently. She presented to the emergency department within 30 minutes of onset of symptoms and the symptoms had essentially resolved at that point. She states she has never had such an incident previously. She does complain of some dull left-sided headache which she has had intermittently for several days. Patient from [facility]. History of rheumatoid arthritis. History of diverticulitis with perforation of the colon and colostomy complicated by wound infection. Patient has had a previous Achilles tendon rupture which is being treated by orthopedics with a walking boot. - Related Data Allergies/Adverse Reactions: No Known Allergies Allergy (Verified 05/19/20 16:30) Past Medical History - General Information source: [facility], [facility] - Social History Smoking Status: Never Smoker Chew tobacco use (# tins/day): No Frequency of alcohol use: None Drug Abuse: None Family History: Reviewed & Not Pertinent Patient has homicidal ideation: No - Past Medical History Cardiac Medical History: Reports: Hx Hypercholesterolemia Denies: Hx Heart Attack, Hx Hypertension Pulmonary Medical History: Denies: Hx Asthma Neurological Medical History: Denies: Hx Cerebrovascular Accident, Hx Seizures Endocrine Medical History: Denies: Hx Diabetes Mellitus Type 1, Hx Diabetes Mellitus Type 2 GI Medical History: Reports: Hx Diverticulitis, Hx Gastroesophageal Reflux D isease, Hx Hiatal Hernia. Denies: Hx Hepatitis, Hx Ulcer Musculoskeletal Medical History: Reports Hx Arthritis - Rheumatoid arthritis Psychiatric Medical History: Denies: Hx Depression Infectious Medical History: Denies: Hx Hepatitis Past Surgical History: Reports: Hx Colostomy, Other - Cataract surgery. Denies: Hx Hysterectomy, Hx Mastectomy, Hx Open Heart Surgery, Hx Pacemaker Review of Systems - Review of Systems Notes: Constitutional: Negative for fever. HENT: Negative for sore throat. Eyes: Negative for visual changes. Cardiovascular: Negative for chest pain. Respiratory: Negative for shortness of breath. Gastrointestinal: As per HPI. Genitourinary: Negative for dysuria. Musculoskeletal: As per HPI. Skin: Negative for rash. Neurological: As per HPI. 10 point ROS negative except as marked above and in HPI. Physical Exam - Vital signs Vitals: Pulse Ox 91 L 06/18/20 14:40 - Notes Notes: GENERAL: Female patient approximately stated age appearing in no acute distress. SKIN: Good turgor no rashes. HEAD: Normocephalic atraumatic. EYES: PERRLA. EOMI. Conjunctivae and sclerae clear. EARS: CANALS AND TMS CLEAR. NOSE: CLEAR. MOUTH: Moist mucosa. Good dentition. No stridor or edema. No drooling. NECK: Supple. No masses or thyromegaly. No adenopathy. Carotids 2+ without bruits. No JVD. BACK: Symmetrical without tenderness. CHEST: Respirations unlabored. Breath sounds clear and symmetrical. HEART: Regular rhythm. No murmur gallop or rub. ABDOMEN: Patient has a colostomy in left upper quadrant. She has a wound VAC in the left upper quadrant. Soft nontender without masses, organomegaly or rebound. Bowel sounds normally active. No bruits. GENITALIA: Deferred. EXTREMITIES: Patient has a walking boot splint on the left ankle as treatment for recent Achilles tendon rupture. No edema. No calf tenderness. Cap refill less than 1.5 seconds. Dorsalis pedis and posterior tibial pulses 3+ and symmetrical. NEUROLOGICAL: GCS 15. Alert and oriented x3. Fluent speech. Cranial nerves II through XII intact. Sensory testing is normal and symmetrical. Motor testing is normal and there is no motor impairment of the right upper extremity at this time. Symptoms have totally resolved. PSYCHIATRIC: Appropriate affect. Course - Vital Signs Vital signs: Temp Pulse Resp BP Pulse Ox 98.2 F 20 133/72 H 92 06/18/20 15:08 06/18/20 15:05 06/18/20 15:05 06/18/20 15:05 - Laboratory Result Diagrams: 06/18/20 15:12 06/18/20 15:12 Laboratory results interpreted by me: 06/18/20 06/18/20 06/18/20 15:12 15:12 15:18 WBC 12.7 H Hgb 10.5 L Hct 31.8 L RDW 15.2 H Lymph % (Auto) 11.7 L Absolute Neuts (auto) 9.4 H Glucose 147 H POC Glucose 144 H Alkaline Phosphatase 146 H Creatine Kinase < 20 L - Diagnostic Test Radiology reviewed: Image reviewed, Reports reviewed Radiology results interpreted by me: 06/18/20 16:31 Chest X-Ray 06/18/20 14:40 IMPRESSION: NO ACUTE RADIOGRAPHIC FINDING IN THE CHEST. Head CT 06/18/20 14:40 IMPRESSION: Old right cerebellar infarct. No acute large territory supratentorial infarct. EVIDENCE OF ACUTE STROKE: NO. - EKG Interpretation by Me Additional EKG results interpreted by me: 06/18/20 16:32 Twelve-lead EKG reviewed by me contemporaneously: 1534 hrs. Indication for study: TIA Rhythm: Normal sinus Rate: 92 Intervals: Normal intervals QRS axis: +[address]/T wave changes: None Comparison with prior tracing: None Interpretation: Normal EKG Discharge - Discharge Clinical Impression: TIA new onset Condition: Good Disposition: ADMITTED INPATIENT Admitting Provider: Jovanny (Hospitalist) Unit Admitted: Telemetry Referrals: DAVI KINSEY NP [Primary Care Provider] - Follow up as needed
[2020-06-18] MEDS ORDERED: OXYCODONE-ACETAMINOPHEN 5-325 MG TABLET PO PRN (17:19)
[2020-06-18] MEDS ORDERED: ONDANSETRON HCL INJ/PF 4 MG/2 ML SDV IV PRN (17:19)
[2020-06-18] MEDS ORDERED: PROMETHAZINE HCL INJ 25 MG/1 ML VIAL IV PRN (17:19)
[2020-06-18] MEDS ORDERED: ACETAMINOPHEN 325 MG TABLET PO PRN (17:19)
[2020-06-18] MEDS ORDERED: NORMAL SALINE 1000 ML 1,000 ML IV PRN (17:19)
--- NOTE | 2020-06-18 17:19 | PDOC H&P ---
History of Present Illness Admission Date/PCP: DAVI KINSEY NP History of Present Illness: YVETTE HOYT is a 64 year old female past medical history of rheumatoid arthritis, hyperlipidemia, complicated diverticulitis with perforation status post colostomy which was complicated by abdominal wound infection currently wound VAC in place, Achilles tendon rupture currently wearing an orthopedic boot, who is staying at [facility] presenting to ED complaining of sudden onset right upper extremity weakness and numbness. Patient is stating that she was sleeping on her back, she was called for lunch, she got up and tried to have her lunch noted that she could not open her right fist and was feeling numb on the proximal right upper extremity, when she open her hand with the help of the left hand, she was not able to grab the fork, it lasted about 10 to 15 minutes and resolved spontaneously, patient denied having any slurred speech, dysarthria, aphasia, headache, vision changes, syncope or presyncope, EMS was called and patient was brought to ED. In ED a CT head showed old right cerebellar infarct, otherwise negative for any acute stroke. By the time she got to ED all her symptoms had resolved, EKG was sinus rhythm but troponin was mildly elevated at 0.027. Patient denies any previous history of CVA or CAD but states that CAD runs in her family and rec ently she was worked up by a fruit or nut picker and was a started on aspirin and statins. On my encounter patient comfortable resting in bed, in no apparent distress, stating that all her neurologic symptoms has resolved, denies any headache, vision changes, slurred speech, aphasia, dysarthria, numbness, tingling, chest pain, shortness of breath, nausea, vomiting or any urinary symptoms. Patient has a wound VAC and colostomy in place and supposed to follow-up with surgery tomorrow. Past Medical History Cardiac Medical History: Reports: Hyperlipidema Denies: Myocardial Infarction, Hypertension Pulmonary Medical History: Denies: Asthma Neurological Medical History: Denies: Seizures Endocrine Medical History: Denies: Diabetes Mellitus Type 1, Diabetes Mellitus Type 2 GI Medical History: Reports: Diverticulitis, Gastroesophageal Reflux Disease, Hiatal Hernia Denies: Hepatitis Musculoskeltal Medical History: Reports: Arthritis - Rheumatoid arthritis Psychiatric Medical History: Denies: Depression Hematology: Denies: Anemia, Sickle Cell Disease Past Surgical History Past Surgical History: Reports: Colostomy, Other - Cataract surgery Denies: Amputation, Hysterectomy, Mastectomy, Pacemaker Social History Smoking Status: Never Smoker Electronic Cigarette use?: No Frequency of Alcohol Use: Rare Hx Recreational Drug Use: No Drugs: None Hx Prescription Drug Abuse: No Family History Family History: CAD, Hyperlipidemia Parental Family History Reviewed: Yes Children Family History Reviewed: Yes Sibling(s) Family History Reviewed.: Yes Medication/Allergy Home Medications: Atorvastatin Calcium [Lipitor 40 mg Tablet] 40 mg PO QHS 03/30/20 Bromfenac Sodium [Prolensa] 1 drop OP DAILY 03/30/20 Meloxicam [Mobic] 7.5 mg PO DAILY 03/30/20 Pantoprazole Sodium 40 mg PO DAILY 03/30/20 Cholecalciferol (Vitamin D3) [Vitamin D3 1000 Unit Tablet] 2,000 unit PO DAILY 05/20/20 Moxifloxacin HCl [Moxifloxacin] 1 drop OP TID 05/20/20 Multivitamin with Folic Acid [Tab-A-Candido Tablet] 1 each PO DAILY 05/20/20 Ondansetron HCl [Zofran 8 mg Tablet] 4 mg PO BIDP PRN 05/20/20 Prednisolone Acetate [Pred Forte] 1 drop OS TID 05/20/20 Amoxicillin/Potassium Clav [Augmentin 875-125 Tablet] 1 tab PO Q12 #20 tablet 05/30/20 Acetaminophen 500 mg PO Q6HP PRN 06/01/20 Aspirin [Adult Aspirin Regimen] 81 mg PO DAILY 06/01/20 Tramadol HCl [Ultram 50 mg Tablet] 50 mg PO DAILYP PRN 06/01/20 Allergies/Adverse Reactions: No Known Allergies Allergy (Verified 05/19/20 16:30) Review of Systems Review of Systems: as per hpi Physical Exam Vital Signs: Temp Pulse Resp BP Pulse Ox 98.2 F 20 133/72 H 92 06/18/20 15:08 06/18/20 15:05 06/18/20 15:05 06/18/20 15:05 Intake & Output 06/17/20 06/18/20 06/19/20 06:59 06:59 06:59 Weight 71.6 kg General appearance: PRESENT: no acute distress, well-developed, well-nourished Head exam: PRESENT: atraumatic, normocephalic Neck exam: ABSENT: carotid bruit, JVD, lymphadenopathy, thyromegaly Respiratory exam: PRESENT: clear to auscultation juliocesar. ABSENT: rales, rhonchi, wheezes Cardiovascular exam: PRESENT: RRR. ABSENT: diastolic murmur, rubs, systolic murmur GI/Abdominal exam: PRESENT: normal bowel sounds, soft, other - Wound VAC in place, colostomy intact, filled with feculent material.. ABSENT: distended, guarding, mass, organolmegaly, rebound, tenderness Neurological exam: PRESENT: alert, awake, oriented to person, oriented to place, oriented to time, oriented to situation, reflexes normal, CN II-XII grossly intact. ABSENT: motor sensory deficit - Left lower extremity strength could not be examined as patient is wearing orthopedic shoe. Results Laboratory Results: 06/18/20 15:12 06/18/20 15:12 06/18/20 06/18/20 15:12 15:12 WBC 12.7 H RBC 3.87 Hgb 10.5 L Hct 31.8 L MCV 82 MCH 27.0 MCHC 32.9 RDW 15.2 H Plt Count 433 Seg Neutrophils % 74.4 Sodium 138.4 Potassium 3.9 Chloride 102 Carbon Dioxide 27 Anion Gap 9 BUN 12 Creatinine 0.65 Est GFR ( Amer) > 60 Glucose 147 H Calcium 10.1 Total Bilirubin 0.3 AST 23 Alkaline Phosphatase 146 H Total Protein 7.1 Albumin 3.7 06/18/20 06/18/20 15:12 15:12 Creatine Kinase < 20 L CK-MB (CK-2) < 0.22 Troponin I 0.027 Impressions: Chest X-Ray 06/18/20 14:40 IMPRESSION: NO ACUTE RADIOGRAPHIC FINDING IN THE CHEST. Head CT 06/18/20 14:40 IMPRESSION: Old right cerebellar infarct. No acute large territory supratentorial infarct. EVIDENCE OF ACUTE STROKE: NO. Assessment and Plan - Diagnosis (1) TIA (transient ischemic attack) Is this a current diagnosis for this admission?: Yes Plan: Complaining of right upper extremity weakness and numbness. Currently resolved. CT head negative for any acute abnormality except for left cerebellar infarct. Admit to IMCU, MRI brain, carotid Doppler, statins, aspirin, PT, OT, ST, telemetry, monitor BP and optimize if needed, neurochecks, fall, aspiration and seizure precautions. (2) Elevated troponin Is this a current diagnosis for this admission?: Yes Plan: Denies any history of CAD. Endorses family history of CAD. Denies any chest pain. EKG sinus rhythm. Troponin 0.027. Admit to telemetry, antiplatelets, statins, trend troponins, as needed sublingual nitroglycerin, as needed IV morphine. (3) Achilles rupture, left Qualifiers: Encounter type: sequela Qualified Code(s): S86.012S - Strain of left Achilles tendon, sequela Is this a current diagnosis for this admission?: Yes Plan: Followed by orthopedic surgeon. Wearing orthopedic shoes. Outpatient PCP and orthopedic surgeon follow-up. (4) HLD (hyperlipidemia) Qualifiers: Is this a current diagnosis for this admission?: Yes Plan: Resume home meds. Will recheck lipid profile. (5) Perforateed acute diverticulitis Is this a current diagnosis for this admission?: Yes Plan: History of complicated acute diverticulitis, status post ostomy with abdominal wound infection, currently wound VAC in place, colostomy patent. Continue colostomy care. Outpatient PCP and surgery follow-up. - Time Time Spent with patient: 35 or more minutes Medications reviewed and adjusted accordingly: Yes Anticipated Discharge Disposition: [facility] Facility Anticipated Discharge Timeframe: within 48 hours
[2020-06-18] MEDS ORDERED: LABETALOL HCL INJ 20 MG/4 ML DISP.SYRIN IV PRN (17:24)
[2020-06-18] MEDS ORDERED: NITROGLYCERIN 0.4 MG/TAB 25 TAB/BOTTLE SL PRN (17:24)
[2020-06-18] MEDS ORDERED: MORPHINE SULFATE 10 MG/ML INJ IV PRN (17:24)
[2020-06-18] MEDS ORDERED: ASPIRIN 325 MG TABLET ONE (17:47)
[2020-06-18] MEDS ORDERED: ASPIRIN 300 MG SUPP, RECTAL PR ONE (17:47)
--- NOTE | 2020-06-18 18:53 | EKG REPORT ---
SEVERITY:- BORDERLINE ECG - SINUS RHYTHM NONSPECIFIC ST-T CHANGES- INFERIOR LEADS : Confirmed by: Woody Valentin MD 18-Jun-2020 18:52:00
[2020-06-18] MEDS: ASPIRIN 81 MG TABLET, CHEWABLE PO SCH (19:01)
[2020-06-18] MEDS: DOCUSATE SODIUM 100 MG CAPSULE PO SCH (19:01)
[2020-06-18] MEDS: IPRATROPIUM/ALBUTEROL 0.5-2.5 MG/3 ML AMPUL NEB SCH ×2 (20:26)
[2020-06-18] MEDS ORDERED: ATORVASTATIN CALCIUM 40 MG TABLET PO SCH (22:00)
[2020-06-18] MEDS: FAMOTIDINE 20 MG TABLET PO SCH (23:50)
[2020-06-18] MEDS: HEPARIN SOD (PORCINE) 5,000 UNIT/ML 1 ML VIAL SUBCUT SCH (23:50)
[2020-06-19] MEDS: IPRATROPIUM/ALBUTEROL 0.5-2.5 MG/3 ML AMPUL NEB SCH ×7 (02:05→19:51)
[2020-06-19] MEDS: TEMAZEPAM 15 MG CAPSULE PO PRN ×2 (02:37→21:26)
[2020-06-19] MEDS: HEPARIN SOD (PORCINE) 5,000 UNIT/ML 1 ML VIAL SUBCUT SCH ×3 (06:23→21:27)
[2020-06-19 07:29] LABS: ABSOLUTE EOSINOPHILS # (AUTO) 0.5 10^3/uL (0.0-0.6); ABSOLUTE LYMPHOCYTES (AUTO) 1.9 10^3/uL (0.5-4.7); ABSOLUTE MONOCYTES (AUTO) 1.1 10^3/uL (0.1-1.4); ABSOLUTE NEUT (AUTO) 7.8 10^3/uL (1.7-8.2); BASOPHILS % (AUTO) 0.3 % (0-2); HEMATOCRIT 29.9 % (36.0-47.0); HEMOGLOBIN 9.9 g/dL (12.0-15.5); LYMPHOCYTES % (AUTO) 16.6 % (13-45); MEAN CORPUSCULAR HEMOGLOBIN 26.9 pg (27.0-33.4); MEAN CORPUSCULAR HGB CONC 33.1 g/dL (32.0-36.0); MEAN CORPUSCULAR VOLUME 81 fl (80-97); MONOCYTES % (AUTO) 9.6 % (3-13); PLATELET COUNT 405 10^3/uL (150-450); RED BLOOD COUNT 3.68 10^6/uL (3.72-5.28); RED CELL DISTRIBUTION WIDTH 15.3 % (11.5-14.0); SEGMENTED NEUTROPHILS % (AUTO) 69.5 % (42-78); TOTAL CELLS COUNTED % (AUTO) 100 %; WHITE BLOOD COUNT 11.2 10^3/uL (4.0-10.5)
[2020-06-19 07:30] LABS: INTERNATIONAL RATION (INR) 0.97; PROTHROMBIN TIME 13.1 SEC (11.4-15.4)
[2020-06-19 07:47] LABS: ALBUMIN 3.4 g/dL (3.5-5.0); ALKALINE PHOSPHATASE 125 U/L (38-126); ANION GAP 9 (5-19); ASPARTATE AMINO TRANSFERASE 20 U/L (14-36); BILIRUBIN,DIRECT 0.1 mg/dL (0.0-0.4); BILIRUBIN,TOTAL 0.4 mg/dL (0.2-1.3); BLOOD UREA NITROGEN 11 mg/dL (7-20); CALCIUM 9.7 mg/dL (8.4-10.2); CARBON DIOXIDE 25 mmol/L (22-30); CHLORIDE 107 mmol/L (98-107); CHOLESTEROL 172.68 mg/dL (0-200); GLUCOSE 99 mg/dL (75-110); POTASSIUM 4.2 mmol/L (3.6-5.0); TOTAL PROTEIN 6.4 g/dL (6.3-8.2); TRIGLYCERIDES 182 mg/dL (<150)
[2020-06-19 07:58] LABS: DIRECT LDL 97 mg/dL (<100)
[2020-06-19 08:09] LABS: VLDL CHOLESTEROL 36.4 mg/dL (10-31)
--- NOTE | 2020-06-19 09:10 | RADIOLOGY REPORT (SQ) ---
EXAM DESCRIPTION: MRI HEAD WITHOUT IMAGES COMPLETED DATE/TIME: 06/19/2020 8:39 am REASON FOR STUDY: TIA COMPARISON: CT dated 06/18/2020 TECHNIQUE: Multiplanar imaging includes non-contrasted T1, T2, FLAIR, and Diffusion with ADC map seq uences. Images stored on PACS. LIMITATIONS: None. FINDINGS: ANATOMY: No anomalies. Normal vascular flow voids. Pituitary fossa normal. CSF SPACES: Normal in size and contour. No hemorrhage. CEREBRUM: Scattered high-signal intensity lesions scattered throughout the white matter on FLAIR imag ing with distribution suggesting chronic micro-vascular ischemic change. Sulci and gyri normal in si ze and contour. No evidence of hemorrhage, mass or extraaxial fluid collection. POSTERIOR FOSSA: Old right cerebellar infarct. Small area of high signal intensity in the left cereb ellar hemisphere most likely representing old infarct as well. DIFFUSION: Positive for acute infarct involving the left posterior frontal and bilateral parietal lob es. Distribution is most consistent with embolic infarcts. ORBITS: No masses. Globes normal. PARANASAL SINUSES: No fluid levels. Mucosa normal. OTHER: No other significant finding. IMPRESSION: 1. Acute infarct in the left posterior frontal and bilateral parietal lobes. Most likel y embolic in origin. 2. Mild small-vessel ischemic changes with small old infarcts in the right cerebellar and left cereb ellar hemispheres. EVIDENCE OF ACUTE STROKE: YES. TECHNICAL DOCUMENTATION: JOB ID: [id number] 2010 [employer]- All Rights Reserved Reading location - IP/workstation name: [email or web address]
--- NOTE | 2020-06-19 09:11 | RADIOLOGY REPORT (SQ) ---
EXAM DESCRIPTION: MRA HEAD WITHOUT IMAGES COMPLETED DATE/TIME: 06/19/2020 8:39 am REASON FOR STUDY: CVA COMPARISON: None. TECHNIQUE: Axial 3-D [id number] acquisition imaging performed through the brain in the area of t he [place] of [place]. Images reformatted using 3-D MIPS. LIMITATIONS: None. FINDINGS: SOURCE IMAGES: No unexpected findings on source images. No large masses. 3-D MIP: No aneurysm. No occlusions. No significant stenosis. OTHER: No other significant finding. IMPRESSION: NORMAL MRA OF THE [place]. TECHNICAL DOCUMENTATION: JOB ID: [id number] 2010 [employer]- All Rights Reserved Reading location - IP/workstation name: [email or web address]
[2020-06-19] MEDS: FAMOTIDINE 20 MG TABLET PO SCH ×2 (10:41→21:26)
[2020-06-19] MEDS: DOCUSATE SODIUM 100 MG CAPSULE PO SCH ×2 (10:41→17:19)
[2020-06-19] MEDS: ASPIRIN 81 MG TABLET, CHEWABLE PO SCH (10:41)
--- NOTE | 2020-06-19 14:38 | PDOC PROGRESS REPORT ---
Subjective Date:: 06/19/20 Subjective:: YVETTE HOYT is a 64 year old female past medical history of rheumatoid arthritis, hyperlipidemia, complicated diverticulitis with perforation status post colostomy which was complicated by abdominal wound infection currently wound VAC in place, Achilles tendon rupture currently wearing an orthopedic boot, who is staying at [facility] presenting to ED complaining of sudden onset right upper extremity weakness and numbness. Patient is stating that she was sleeping on her back, she was called for lunch, she got up and tried to have her lunch noted that she could not open her right fist and was feeling numb on the proximal right upper extremity, when she open her hand with the help of the left hand, she was not able to grab the fork, it lasted about 10 to 15 minutes and resolved spontaneously, patient denied having any slurred speech, dysarthria, aphasia, headache, vision changes, syncope or presyncope, EMS was called and patient was brought to ED. In ED a CT head showed old right cerebellar infarct, otherwise negative for any acute stroke. By the time she got to ED all her symptoms had resolved, EKG was sinus rhythm but troponin was mildly elevated at 0.027. Patient denies any previous history of CVA or CAD but states that CAD runs in her family and recently she was worked up by a garment patternmaker and was a started on aspirin and statins. On my encounter patient comfortable resting in bed, in no apparent distress, stating that all her neurologic symptoms has resolved, denies any headache, vision changes, slurred speech, aphasia, dysarthria, numbness, tingling, chest pain, shortness of breath, nausea, vomiting or any urinary symptoms. Patient has a wound VAC and colostomy in place and supposed to follow-up with surgery tomorrow. 06/19/2020. No acute events overnight. Unfortunately patient's MRI positive for acute infarct in the left posterior frontal and bilateral parietal lobes. Also mild small vessel ischemic changes with a small old infarct in the right cerebellar and left cerebellar hemispheres. Patient reporting complete resolution of her symptoms, eyes any headache, vision changes, numbness, tingling, chest pain, shortness of breath, nausea, vomiting, diarrhea, constipation or any urinary symptoms. Patient has been evaluated by PT ST OT. Patient could be discharged back to rehab once her re-authorization has been taken care of. Reason For Visit: TIA Physical Exam Vital Signs: Temp Pulse Resp BP Pulse Ox 97.4 F 95 19 125/69 92 06/19/20 10:43 06/19/20 12:00 06/19/20 12:00 06/19/20 12:00 06/19/20 12:00 Intake & Output 06/18/20 06/19/20 06/20/20 06:59 06:59 06:59 Intake Total 260 Output Total 900 Balance -640 Weight 76 kg General appearance: PRESENT: no acute distress, obese, well-developed, well- nourished Head exam: PRESENT: atraumatic, normocephalic Neck exam: ABSENT: carotid bruit, JVD, lymphadenopathy, thyromegaly Respiratory exam: PRESENT: clear to auscultation juliocesar. ABSENT: rales, rhonchi, wheezes Cardiovascular exam: PRESENT: RRR. ABSENT: diastolic murmur, rubs, systolic murmur GI/Abdominal exam: PRESENT: normal bowel sounds, soft, other - wound VAC in place, ostomy patent.. ABSENT: distended, guarding, mass, organolmegaly, rebound, tenderness Neurological exam: PRESENT: alert, awake, oriented to person, oriented to place, oriented to time, oriented to situation, CN II-XII grossly intact. ABSENT: motor sensory deficit Results Laboratory Results: 06/19/20 06:50 06/19/20 06:50 06/18/20 06/18/20 06/19/20 15:12 15:12 06:50 WBC 12.7 H 11.2 H RBC 3.87 3.68 L Hgb 10.5 L 9.9 L Hct 31.8 L 29.9 L MCV 82 81 MCH 27.0 26.9 L MCHC 32.9 33.1 RDW 15.2 H 15.3 H Plt Count 433 405 Seg Neutrophils % 74.4 69.5 Sodium 138.4 Potassium 3.9 Chloride 102 Carbon Dioxide 27 Anion Gap 9 BUN 12 Creatinine 0.65 Est GFR ( Amer) > 60 Glucose 147 H Calcium 10.1 Magnesium Total Bilirubin 0.3 AST 23 Alkaline Phosphatase 146 H Total Protein 7.1 Albumin 3.7 Triglycerides Cholesterol LDL Cholesterol Direct VLDL Cholesterol HDL Cholesterol 06/19/20 06:50 WBC RBC Hgb Hct MCV MCH MCHC RDW Plt Count Seg Neutrophils % Sodium 140.9 Potassium 4.2 Chloride 107 Carbon Dioxide 25 Anion Gap 9 BUN 11 Creatinine 0.52 Est GFR ( Amer) > 60 Glucose 99 Calcium 9.7 Magnesium 1.8 Total Bilirubin 0.4 AST 20 Alkaline Phosphatase 125 Total Protein 6.4 Albumin 3.4 L Triglycerides 182 H Cholesterol 172.68 LDL Cholesterol Direct 97 VLDL Cholesterol 36.4 H HDL Cholesterol 40 06/18/20 06/18/20 06/18/20 15:12 15:12 18:40 Creatine Kinase < 20 L CK-MB (CK-2) < 0.22 Troponin I 0.027 0.025 06/19/20 06/19/20 00:51 06:50 Creatine Kinase CK-MB (CK-2) Troponin I 0.031 0.028 Impressions: Chest X-Ray 06/18/20 14:40 IMPRESSION: NO ACUTE RADIOGRAPHIC FINDING IN THE CHEST. Head CT 06/18/20 14:40 IMPRESSION: Old right cerebellar infarct. No acute large territory supratentorial infarct. EVIDENCE OF ACUTE STROKE: NO. Brain MRI with MRA 06/19/20 00:00 IMPRESSION: NORMAL MRA OF THE [place]. Head MRI 06/19/20 00:00 IMPRESSION: 1. Acute infarct in the left posterior frontal and bilateral pariet al lobes. Most likely embolic in origin. 2. Mild small-vessel ischemic changes with small old infarcts in the right cerebellar and left cerebellar hemispheres. EVIDENCE OF ACUTE STROKE: YES. Assessment and Plan - Diagnosis (1) Acute ischemic stroke Is this a current diagnosis for this admission?: Yes Plan: MRI positive for acute infarct in the left posterior frontal and bilateral pa rietal lobes. Mild small vessel ischemic changes with a small old infarct in the right cerebellar and left cerebellar hemispheres. CT head negative for any acute abnormality except for left cerebellar infarct. Presented to ED complaining of complaining of right upper extremity weakness and numbness. Currently all symptoms resolved. At baseline. Continue statins, aspirin, PT, OT, ST, telemetry, monitor BP and optimize if needed, neurochecks, fall, aspiration and seizure precautions. Follow-up 2D echo and carotid Doppler results. (2) TIA (transient ischemic attack) Is this a current diagnosis for this admission?: Yes Plan: As per problem #1. (3) Elevated troponin Is this a current diagnosis for this admission?: Yes Plan: Denies any anginal symptoms. EKG sinus rhythm. Denies any history of CAD. Endorses family history of CAD. Troponin 0.025, 0.031, 0.028. I discussed the case with Dr. Henderson garment patternmaker who said that patient can follow-up with him as an outpatient and patient does not need any acute intervention at this point. We will continue aspirin, statin monitor BP and optimize. Outpatient PCP and cardiology follow-up. Follow-up 2D echo. (4) Achilles rupture, left Qualifiers: Encounter type: sequela Qualified Code(s): S86.012S - Strain of left Achilles tendon, sequela Is this a current diagnosis for this admission?: Yes Plan: Followed by orthopedic surgeon. Wearing orthopedic shoes. Outpatient PCP and orthopedic surgeon follow-up. (5) HLD (hyperlipidemia) Qualifiers: Is this a current diagnosis for this admission?: Yes Plan: Resume home meds. Will recheck lipid profile. (6) Perforateed acute diverticulitis Is this a current diagnosis for this admission?: Yes Plan: History of complicated acute diverticulitis, status post ostomy with abdominal wound infection, currently wound VAC in place, colostomy patent. Note: I run into Dr. Hunter from surgery while rounding, discussed the case with him and informed him that patient was supposed to follow-up with surgery as outpatient on 06/19/2020. Dr. Hunter stated that he is familiar with the patient and recommended to continue wound care, and follow-up as outpatient, they do not need to reconsult this point. Continue wound VAC. Continue colostomy care. Outpatient PCP and surgery follow-up. Please consult surgery if needed. - Time Time Spent with patient: 25-34 minutes Anticipated [facility]charge [facility]position[facility] Facility Anticipated Discharge Timeframe: when bed available
--- NOTE | 2020-06-19 14:51 | RADIOLOGY REPORT (SQ) ---
EXAM DESCRIPTION: CAROTID DOPPLER IMAGES COMPLETED DATE/TIME: 06/19/2020 2:25 pm REASON FOR STUDY: TIA COMPARISON: None. TECHNIQUE: Grayscale ultrasound, Doppler velocity and spectra, and color Doppler images acquired of the extra-cranial carotid and vertebral arteries. Images stored on PACS. LIMITATIONS: None. FINDINGS: RIGHT CAROTID CCA Velocities: Within normal limits. ICA Velocities Peak systolic 0.93 m/s. End diastolic 0.33 m/s. Proximal ICA/CCA peak systolic ratio 1.48. No significant plaque. LEFT CAROTID CCA Velocities: Within normal limits. ICA Velocities Peak systolic 0.93 m/s. End diastolic 0.35 m/s. Proximal ICA/CCA peak systolic ratio 1.39. Minimal plaque in the carotid bulb and proximal ICA. VERTEBRAL ARTERIES: Antegrade flow. Normal waveforms. SUBCLAVIAN ARTERIES: No finding. OTHER: No other significant finding. IMPRESSION: NO HEMODYNAMICALLY SIGNIFICANT STENOSIS. COMMENT: Quality ID #[id number]: Velocity criteria are extrapolated from the diameter data as defined by t he Society of Radiologists in Ultrasound Consensus Conference. Radiology 2003: 229; 340-346. TECHNICAL DOCUMENTATION: JOB ID: [id number] 2010 [employer]- All Rights Reserved Reading location - IP/workstation name: [email or web address]
--- NOTE | 2020-06-19 15:05 | PDOC CONSULTATION ---
Consultation-Blank Consultation: . CARDIOLOGY CONSULTATION BY DR. Leatha ACOSTA on 06/19/2020. Patient seen at 8 AM. 60 minutes spent on this patient with more than 50% of time spent in direct patient care. CONSULT REQUESTING PHYSICIAN: Dr. Mondragon. [facility] hospitalist physician group. 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 HISTORY OF PRESENT ILLNESS: YVETTE HOYT is a 64 year old female past medical history of rheumatoid arthritis, hyperlipidemia, complicated diverticulitis with perforation status post colostomy which was complicated by abdominal wound infection currently wound VAC in place, Achilles tendon rupture currently wearing an orthopedic boot, who is staying at [facility] presenting to ED complaining of sudden onset right upper extremity weakness and numbness. She stated that she could not open her clenched fist. 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 She has no chest pain or discomfort. She has a history of hypertension but no coronary artery disease or prior history of angina or SC. There is no history of congestive heart failure. Although she states is off and on she gets palpitations which she describes as feeling of fluttering in the chest. There is no PND orthopnea or leg edema or syncope. She has no history of diabetes mellitus. Her troponin is just slightly elevated and the EKG shows no acute changes. The patient has no history of coronary artery disease or chest pain of any kind. Past Medical History Cardiac Medical History: Reports: Hyperlipidema Denies: Myocardial Infarction, Hypertension Pulmonary Medical History: Denies: Asthma Neurological Medical History: Denies: Seizures Endocrine Medical History: Denies: Diabetes Mellitus Type 1, Diabetes Mellitus Type 2 GI Medical History: Reports: Diverticulitis, Gastroesophageal Reflux Disease, Hiatal Hernia Denies: Hepatitis Musculoskeltal Medical History: Reports: Arthritis - Rheumatoid arthritis Psychiatric Medical History: Denies: Depression Hematology: Denies: Anemia, Sickle Cell Disease Past Surgical History Past Surgical History: Reports: Colostomy, Other - Cataract surgery Denies: Amputation, Hysterectomy, Mastectomy, Pacemaker Social History Smoking Status: Never Smoker Electronic Cigarette use?: No Frequency of Alcohol Use: Rare Hx Recreational Drug Use: No Drugs: None Hx Prescription Drug Abuse: No Current Medications Acetaminophen (Acetaminophen 325 Mg Tablet) 325 mg PO Q4HP PRN PRN Reason: FEVER >101 Stop: 07/18/20 17:18 Last Admin: 06/19/20 13:44 Dose: 325 mg Documented by: Albuterol/Ipratropium (Ipratropium/Albuterol 0.5-2.5 Mg/3 Ml Ampul) 3 ml NEB [id number] [facility] Stop: 07/18/20 19:59 Last Admin: 06/19/20 14:23 Dose: 3 ml Documented by: Albuterol/Ipratropium (Ipratropium/Albuterol 0.5-2.5 Mg/3 Ml Ampul) 3 ml NEB RTQ6 [facility] Stop: 07/18/20 19:59 Last Admin: 06/19/20 14:23 Dose: Not Given Documented by: Aspirin (Aspirin 81 Mg Tablet, Chewable) 81 mg PO DAILY [facility] Stop: 07/18/20 17:29 Last Admin: 06/19/20 10:41 Dose: 81 mg Documented by: Atorvastatin Calcium (Atorvastatin Calcium 40 Mg Tablet) 80 mg PO QHS [facility] Stop: 07/19/20 21:59 Docusate Sodium (Docusate Sodium 100 Mg Capsule) 100 mg PO BID [facility] Stop: 07/18/20 17:59 Last Admin: 06/19/20 10:41 Dose: Not Given Documented by: Famotidine (Famotidine 20 Mg Tablet) 20 mg PO Q12 [facility] Stop: 07/18/20 21:59 Last Admin: 06/19/20 10:41 Dose: 20 mg Documented by: Heparin Sodium (Porcine) (Heparin Sod (Porcine) 5,000 Unit/Ml 1 Ml Vial) 5,000 unit SUBCUT Q8 [facility] Stop: 07/18/20 21:59 Last Admin: 06/19/20 13:29 Dose: 5,000 unit Documented by: Sodium Chloride (Nacl 0.9% 1000 Ml Iv Soln) 1,000 mls @ 80 mls/hr IV CONTINUOUS PRN PRN Reason: THIS MED IS NOT "PRN" Stop: 07/18/20 17:18 Last Admin: 06/18/20 19:01 Dose: 80 mls/hr Documented by: Labetalol HCl (Labetalol Hcl Inj 20 Mg/4 Ml Disp.Syrin) 10 mg IV Q6HP PRN PRN Reason: Give For Sbp > [150] Stop: 07/18/20 17:23 Morphine Sulfate (Morphine Sulfate 10 Mg/Ml Inj) 1 mg IV Q4HP PRN PRN Reason: chest pain Stop: 06/25/20 17:23 Nitroglycerin (Nitroglycerin 0.4 Mg/Tab 25 Tab/Bottle) 1 tab SL Q5MP PRN PRN Reason: FOR CHEST PAIN Stop: 07/18/20 17:23 Ondansetron HCl (Ondansetron Hcl Inj/Pf 4 Mg/2 Ml Sdv) 4 mg IV Q8HP PRN PRN Reason: FOR NAUSEA/VOMITING Stop: 07/18/20 17:18 Oxycodone/Acetaminophen (Oxycodone-Acetaminophen 5-325 Mg Tablet) 1 tab PO Q4HP PRN PRN Reason: FOR PAIN SCALE 3-5 Stop: 06/25/20 17:18 Promethazine HCl (Promethazine Hcl Inj 25 Mg/1 Ml Vial) 6.25 mg IV Q4HP PRN PRN Reason: FOR NAUSEA/VOMITING Stop: 07/18/20 17:18 Temazepam (Temazepam 15 Mg Capsule) 15 mg PO HSP PRN PRN Reason: SLEEP OR INSOMNIA Stop: 06/25/20 17:18 Last Admin: 06/19/20 02:37 Dose: 15 mg Documented by: Discontinued Medications Aspirin (Aspirin 300 Mg Supp, Rectal) Confirm Administered Dose 300 mg MT .STK- MED ONE Stop: 06/18/20 17:48 Last Admin: 06/18/20 19:01 Dose: Not Given Documented by: Aspirin (Aspirin 325 Mg Tablet) Confirm Administered Dose 325 mg .ROUTE .STK-MED ONE Stop: 06/18/20 17:48 Last Admin: 06/18/20 19:01 Dose: Not Given Documented by: Atorvastatin Calcium (Atorvastatin Calcium 40 Mg Tablet) 40 mg PO QHS [facility] Stop: 07/18/20 21:59 Last Admin: 06/18/20 23:50 Dose: Not Given Documented by: Family History Family History: CAD, Hyperlipidemia Parental Family History Reviewed: Yes Children Family History Reviewed: Yes Sibling(s) Family History Reviewed.: Yes Medication/Allergy Home Medications: Atorvastatin Calcium [Lipitor 40 mg Tablet] 40 mg PO QHS 03/30/20 Bromfenac Sodium [Prolensa] 1 drop OP DAILY 03/30/20 Meloxicam [Mobic] 7.5 mg PO DAILY 03/30/20 Pantoprazole Sodium 40 mg PO DAILY 03/30/20 Cholecalciferol (Vitamin D3) [Vitamin D3 1000 Unit Tablet] 2,000 unit PO DAILY 05/20/20 Moxifloxacin HCl [Moxifloxacin] 1 drop OP TID 05/20/20 Multivitamin with Folic Acid [Tab-A-Candido Tablet] 1 each PO DAILY 05/20/20 Ondansetron HCl [Zofran 8 mg Tablet] 4 mg PO BIDP PRN 05/20/20 Prednisolone Acetate [Pred Forte] 1 drop OS TID 05/20/20 Amoxicillin/Potassium Clav [Augmentin 875-125 Tablet] 1 tab PO Q12 #20 tablet 05/30/20 Acetaminophen 500 mg PO Q6HP PRN 06/01/20 Aspirin [Adult Aspirin Regimen] 81 mg PO DAILY 06/01/20 Tramadol HCl [Ultram 50 mg Tablet] 50 mg PO DAILYP PRN 06/01/20 Allergies/Adverse Reactions: No Known Allergies Allergy (Verified 05/19/20 16:30) Review of Systems: CONSTITUTIONAL: Denies any fever chills or rigors. Complains of some generalized fatigue. HEAD: Denies headaches or head injury. EYES: No history of amblyopia diplopia. No history of amaurosis fugax. NOSE: No history of hayfever. No history of nosebleeds. MOUTH: No history of altered taste sensation. No ulcers in the mouth. THROAT: No history of odynophagia or dysphagia. No history of recurrent sore throats. SKIN: No history of pruritus. No history of yellowish discoloration of the skin. NECK: No history of neck pain or neck swelling. LUNGS: No symptoms of upper or lower respiratory tract infection. No history of asthma COPD or sleep apnea. No history of pulmonary embolism. HEART: No history of myocardial infarction or angina. No history of coronary artery disease. No history of congestive heart failure. No history of congestive heart failure. Denies any PND orthopnea or leg edema. She states that she has occasional fluttering sensation but has not had clinical evidence of any cardiac arrhythmia. No syncope. ENDOCRINE: Denies diabetes mellitus or thyroid disease. No polydipsia polyuria no history of heat or cold intolerance. RENAL: No history of chronic kidney disease. Notes hematuria by her dysuria. GI: History of complicated diverticulitis needing surgical intervention and Blackmon's procedure. No recent GI bleed. No history of cirrhosis of liver. No history of fatty food intolerance. At present denies any abdominal pain. No altered bowel movements. No history of jaundice. MUSCULOSKELETAL: Recent tear of her left Achilles tendon. Notes history of rheumatoid arthritis present in remission. No acute joint swelling. HANDS: Patient admitted with what seems to be a CVA the symptoms have resolved almost completely resolved with no residual effects of any significance. No history of headaches migraines or seizures. PSYCHIATRIC: No history of suicidal ideation or homicidal ideation. HEMATOLOGICAL: No history of bleeding diathesis or clotting disorders. METAB OLIC: No history of obesity. History of hyperlipidemia present. No history of gout. PHYSICAL EXAMINATION: The patient is well-built and well-nourished. Patient is in no acute distress. Selected Entries 06/19/20 06/19/20 06/19/20 07:44 08:00 10:00 Temperature 97.6 F Pulse Rate 95 Respiratory 19 Rate Blood Pressure 125/69 Blood Pressure 87 Mean O2 Sat by Pulse 92 Oximetry Oxygen Delivery Room Air Method ( includes room air) HEAD: Is atraumatic normocephalic. EYES: Pupils are equal round regular reactive to light accommodation. Extraocular movements are normal. There is no conjunctival pallor. There is no scleral icterus. EARS: Tympanic membranes are intact. External auditory canals are clear. NOSE: There is no deviated nasal septum. There is no inflammation nasal mucous membrane. MOUTH: Mucous membranes of mouth are moist. Tongue is moist. There is no ulcers. There is a bleeding from the gums. THROAT: There is no redness of the oropharynx. There is no exudates. SKIN: There is no yellowish discoloration of the skin. There is no petechia or ecchymosis. There is no skin lesions or skin rashes. NECK: Is supple. There is no JVD. Carotids are equal there is no bruits. There is no lymphadenopathy. There is no goiter. There is no accessory muscle respiration use. Trachea central. LUNGS: Is clear to auscultation percussion without any rhonchi rales or wheezing. HEART: S1-S2 is heard. S1 is of normal intensity. There is no S3 gallop. There is no S4 gallop. There is systolic murmur left sternal border and the apex without radiation. There is no rub. ABDOMEN: Soft. Nontender there is no chest primary. Bowel sounds are well heard. Left-sided colostomy bag in situ. There is a wound VAC also present. EXTREMITIES: Femorals are well felt. There is no pedal edema. There is no DVT or cellulitis. There is no calf tenderness. Leg pulses are well felt. There is no cyanosis or clubbing. The left foot and lower leg is in a soft cast/boot. RESEARCH INTERN: Cannot exclude subtle weakness of the right upper extremity. She is awake alert oriented x3. Psychiatric: The patient judgment insight are intact and affect is normal. . EKG: SINUS RHYTHM [NSTTI] * NONSPECIFIC ST-T CHANGES- INFERIOR LEADS PRELIMINARY ECHO REPORT: Normal of normal (chamber size wall motion and wall thickness. Ejection fraction is normal in excess of 60%. There is no severe valvular lesions. Labs- Entire Visit 06/18/20 06/18/20 06/18/20 15:12 15:12 15:12 WBC 12.7 H RBC 3.87 Hgb 10.5 L Hct 31.8 L MCV 82 MCH 27.0 MCHC 32.9 RDW 15.2 H Plt Count 433 Lymph % (Auto) 11.7 L Owen % (Auto) 9.1 Eos % (Auto) 4.6 Baso % (Auto) 0.2 Absolute Neuts (auto) 9.4 H Absolute Lymphs (auto) 1.5 Absolute Monos (auto) 1.2 Absolute Eos (auto) 0.6 Absolute Basos (auto) 0.0 Seg Neutrophils % 74.4 PT 13.0 INR 0.96 APTT 32.7 Sodium 138.4 Potassium 3.9 Chloride 102 Carbon Dioxide 27 Anion Gap 9 BUN 12 Creatinine 0.65 Est GFR ( Amer) > 60 Est GFR (MDRD) Non-Af > 60 Glucose 147 H POC Glucose Hemoglobin A1c % Calcium 10.1 Magnesium Total Bilirubin 0.3 Direct Bilirubin 0.2 Neonat Total Bilirubin Not Reportable Neonat Direct Bilirubin Not Reportable Neonat Indirect Bili Not Reportable AST 23 ALT 23 Alkaline Phosphatase 146 H Creatine Kinase < 20 L CK-MB (CK-2) Troponin I Total Protein 7.1 Albumin 3.7 Triglycerides Cholesterol LDL Cholesterol Direct VLDL Cholesterol HDL Cholesterol Influenza A (RT-PCR) Influenza B (RT-PCR) RSV (RT-PCR) SARS-CoV-2 Rap RNA(RT-PCR) 11/29/20 11/29/20 11/29/20 15:12 15:18 18:40 WBC RBC Hgb Hct MCV MCH MCHC RDW Plt Count Lymph % (Auto) Owen % (Auto) Eos % (Auto) Baso % (Auto) Absolute Neuts (auto) Absolute Lymphs (auto) Absolute Monos (auto) Absolute Eos (auto) Absolute Basos (auto) Seg Neutrophils % PT INR APTT Sodium Potassium Chloride Carbon Dioxide Anion Gap BUN Creatinine Est GFR ( Amer) Est GFR (MDRD) Non-Af Glucose POC Glucose 144 H Hemoglobin A1c % Calcium Magnesium Total Bilirubin Direct Bilirubin Neonat Total Bilirubin Neonat Direct Bilirubin Neonat Indirect Bili AST ALT Alkaline Phosphatase Creatine Kinase CK-MB (CK-2) < 0.22 Troponin I 0.027 0.025 Total Protein Albumin Triglycerides Cholesterol LDL Cholesterol Direct VLDL Cholesterol HDL Cholesterol Influenza A (RT-PCR) Influenza B (RT-PCR) RSV (RT-PCR) SARS-CoV-2 Rap RNA(RT-PCR) 06/18/20 06/19/20 06/19/20 19:25 00:51 06:50 WBC RBC Hgb Hct MCV MCH MCHC RDW Plt Count Lymph % (Auto) Owen % (Auto) Eos % (Auto) Baso % (Auto) Absolute Neuts (auto) Absolute Lymphs (auto) Absolute Monos (auto) Absolute Eos (auto) Absolute Basos (auto) Seg Neutrophils % PT INR APTT Sodium Potassium Chloride Carbon Dioxide Anion Gap BUN Creatinine Est GFR ( Amer) Est GFR (MDRD) Non-Af Glucose POC Glucose Hemoglobin A1c % Calcium Magnesium Total Bilirubin Direct Bilirubin Neonat Total Bilirubin Neonat Direct Bilirubin Neonat Indirect Bili AST ALT Alkaline Phosphatase Creatine Kinase CK-MB (CK-2) Troponin I 0.031 0.028 Total Protein Albumin Triglycerides Cholesterol LDL Cholesterol Direct VLDL Cholesterol HDL Cholesterol Influenza A (RT-PCR) NEGATIVE Influenza B (RT-PCR) NEGATIVE RSV (RT-PCR) NEGATIVE SARS-CoV-2 Rap RNA(RT-PCR) NEGATIVE 06/19/20 06/19/20 06/19/20 06:50 06:50 06:50 WBC 11.2 H RBC 3.68 L Hgb 9.9 L Hct 29.9 L MCV 81 MCH 26.9 L MCHC 33.1 RDW 15.3 H Plt Count 405 Lymph % (Auto) 16.6 Owen % (Auto) 9.6 Eos % (Auto) 4.0 Baso % (Auto) 0.3 Absolute Neuts (auto) 7.8 Absolute Lymphs (auto) 1.9 Absolute Monos (auto) 1.1 Absolute Eos (auto) 0.5 Absolute Basos (auto) 0.0 Seg Neutrophils % 69.5 PT 13.1 INR 0.97 APTT Sodium 140.9 Potassium 4.2 Chloride 107 Carbon Dioxide 25 Anion Gap 9 BUN 11 Creatinine 0.52 Est GFR ( Amer) > 60 Est GFR (MDRD) Non-Af > 60 Glucose 99 POC Glucose Hemoglobin A1c % Calcium 9.7 Magnesium 1.8 Total Bilirubin 0.4 Direct Bilirubin 0.1 Neonat Total Bilirubin Not Reportable Neonat Direct Bilirubin Not Reportable Neonat Indirect Bili Not Reportable AST 20 ALT 19 Alkaline Phosphatase 125 Creatine Kinase CK-MB (CK-2) Troponin I Total Protein 6.4 Albumin 3.4 L Triglycerides 182 H Cholesterol 172.68 LDL Cholesterol Direct 97 VLDL Cholesterol 36.4 H HDL Cholesterol 40 Influenza A (RT-PCR) Influenza B (RT-PCR) RSV (RT-PCR) SARS-CoV-2 Rap RNA(RT-PCR) 06/19/20 06:50 WBC RBC Hgb Hct MCV MCH MCHC RDW Plt Count Lymph % (Auto) Owen % (Auto) Eos % (Auto) Baso % (Auto) Absolute Neuts (auto) Absolute Lymphs (auto) Absolute Monos (auto) Absolute Eos (auto) Absolute Basos (auto) Seg Neutrophils % PT INR APTT Sodium Potassium Chloride Carbon Dioxide Anion Gap BUN Creatinine Est GFR ( Amer) Est GFR (MDRD) Non-Af Glucose POC Glucose Hemoglobin A1c % 4.9 Calcium Magnesium Total Bilirubin Direct Bilirubin Neonat Total Bilirubin Neonat Direct Bilirubin Neonat Indirect Bili AST ALT Alkaline Phosphatase Creatine Kinase CK-MB (CK-2) Troponin I Total Protein Albumin Triglycerides Cholesterol LDL Cholesterol Direct VLDL Cholesterol HDL Cholesterol Influenza A (RT-PCR) Influenza B (RT-PCR) RSV (RT-PCR) SARS-CoV-2 Rap RNA(RT-PCR) Chest X-Ray 06/18/20 14:40 IMPRESSION: NO ACUTE RADIOGRAPHIC FINDING IN THE CHEST. Head CT 06/18/20 14:40 IMPRESSION: Old right cerebellar infarct. No acute large territory supratentorial infarct. EVIDENCE OF ACUTE STROKE: NO. Brain MRI with MRA 06/19/20 00:00 IMPRESSION: NORMAL MRA OF THE [place]. Carotid Doppler Study 06/19/20 00:00 IMPRESSION: NO HEMODYNAMICALLY SIGNIFICANT STENOSIS. Head MRI 06/19/20 00:00 IMPRESSION: 1. Acute infarct in the left posterior frontal and bilateral parietal lobes. Most likely embolic in origin. 2. Mild small-vessel ischemic changes with small old infarcts in the right cerebellar and left cerebellar hemispheres. EVIDENCE OF ACUTE STROKE: YES. IMPRESSION/RECOMMENDATION: 1. Acute CVA: Patient seems to have improved a lot with almost no residual. 2. Hypertension: Blood pressure well controlled 3. Symptoms of palpitations. Would recommend a 30-day event monitor to make sure the patient does not have paroxysmal atrial fibrillation, since it has been reported by the radiologist that the cerebral infarction could be embolic. 4. Borderline elevation of troponin levels. No evidence of non-ST relation SC or acute coronary syndrome. 5.Hyperlipidemia 6. Rheumatoid arthritis: Present stable. 7. History of left Achilles tendon tear patient being treated with a soft cast/ boot 8. History of diverticulitis status post Suzanna procedure, and colostomy telemeter believes he was in the hospital recently. Appears to be stable Medications reviewed. Medical regimen and management plan discussed with Dr. Mondragon. Medical decision making is of high complexity. 60 minutes spent on the patient, with more than 50% of time spent in direct patient care. The patient given my contact number to follow-up with me so that we can schedule a 30-day event monitor. This has been discussed with attending provider also. Note the patient is [facility]. Hence we will arrange so that the patient gets the monitor when she is at the rehab center.
--- NOTE | 2020-06-19 16:30 | PDOC CONSULTATION ---
Consultation Consult Date: 06/19/20 Attending physician:: MICHELLE HAY Provider Consulted: SUGEY MOYA Consult reason:: Midline wound History of Present Illness Admission Date/PCP: 06/18/20 17:22 DAVI KINSEY NP History of Present Illness: YVETTE HOYT is a 64 year old female Patient is well-known to the general surgery service. She is proximally 2-month status post exploratory laparotomy, sigmoid colectomy, colostomy, midline wound open for complicated diverticulitis. Patient been managed at [facility] with wound VAC. She was recently hospitalized at [facility] for stroke with complete neurologic recovery. Surgeries reconsulted for wound VAC management. Past Medical History Cardiac Medical History: Reports: Hyperlipidema Denies: Myocardial Infarction, Hypertension Pulmonary Medical History: Denies: Asthma Neurological Medical History: Denies: Seizures Endocrine Medical History: Denies: Diabetes Mellitus Type 1, Diabetes Mellitus Type 2 GI Medical History: Reports: Diverticulitis, Gastroesophageal Reflux Disease, Hiatal Hernia Denies: Hepatitis Musculoskeltal Medical History: Reports: Arthritis - Rheumatoid arthritis Psychiatric Medical History: Denies: Depression Hematology: Denies: Anemia, Sickle Cell Disease Past Surgical History Past Surgical History: As per HPI Past Surgical History: Reports: Colostomy, Other - Cataract surgery Denies: Amputation, Hysterectomy, Mastectomy, Pacemaker Social History Smoking Status: Former Smoker Electronic Cigarette use?: No Last Time Smoked: Frequency of Alcohol Use: Occasional Hx Recreational Drug Use: No Drugs: None Hx Prescription Drug Abuse: No Family History Family History: None, CAD, Hyperlipidemia Parental Family History Reviewed: No Children Family History Reviewed: No Sibling(s) Family History Reviewed.: No Medication/Allergy Home Medications: Atorvastatin Calcium [Lipitor 40 mg Tablet] 40 mg PO QHS 03/30/20 Bromfenac Sodium [Prolensa] 1 drop OP DAILY 03/30/20 Meloxicam [Mobic] 7.5 mg PO DAILY 03/30/20 Pantoprazole Sodium 40 mg PO DAILY 03/30/20 Cholecalciferol (Vitamin D3) [Vitamin D3 1000 Unit Tablet] 2,000 unit PO DAILY 05/20/20 Moxifloxacin HCl [Moxifloxacin] 1 drop OP TID 05/20/20 Ondansetron HCl [Zofran 8 mg Tablet] 4 mg PO BIDP PRN 05/20/20 Prednisolone Acetate [Pred Forte] 1 drop OS TID 05/20/20 Amoxicillin/Potassium Clav [Augmentin 875-125 Tablet] 1 tab PO Q12 #20 tablet 05/30/20 Acetaminophen 500 mg PO Q6HP PRN 06/01/20 Aspirin [Adult Aspirin Regimen] 81 mg PO DAILY 06/01/20 Tramadol HCl [Ultram 50 mg Tablet] 50 mg PO DAILYP PRN 06/01/20 Docusate Sodium [Colace 100 mg Capsule] 100 mg PO BID 06/19/20 Allergies/Adverse Reactions: No Known Allergies Allergy (Verified 05/19/20 16:30) Review of Systems Constitutional: PRESENT: as per HPI Eyes: ABSENT: visual disturbances Ears: ABSENT: hearing changes Gastrointestinal: PRESENT: other - Ostomy working satisfactorily; patient tolerating p.o. diet Physical Exam Vital Signs: Temp Pulse Resp BP Pulse Ox 97.4 F 92 18 125/69 94 06/19/20 10:43 06/19/20 14:20 06/19/20 14:20 06/19/20 12:00 06/19/20 14:20 Intake & Output 06/18/20 06/19/20 06/20/20 06:59 06:59 06:59 Intake Total 260 520 Output Total 900 Balance -640 520 Weight 76 kg General appearance: PRESENT: no acute distress Eye exam: PRESENT: EOMI Mouth exam: PRESENT: dry mucosa Neck exam: PRESENT: full ROM Respiratory exam: PRESENT: clear to auscultation juliocesar GI/Abdominal exam: PRESENT: other - Wound cavity clean, granulating; slightly macerated skin along the right wound margin. Wound is a 4 x 3 x 9 cm. No foul smell, drainage. Small less than 1 cm of dry fascia exposed superiorly. No suture exposed. Rectal exam: PRESENT: deferred Musculoskeletal exam: PRESENT: full ROM Neurological exam: PRESENT: oriented to person, oriented to place, oriented to time, oriented to situation Psychiatric exam: PRESENT: appropriate affect Results Laboratory Results: 06/19/20 06:50 06/19/20 06:50 06/19/20 06/19/20 06:50 06:50 WBC 11.2 H RBC 3.68 L Hgb 9.9 L Hct 29.9 L MCV 81 MCH 26.9 L MCHC 33.1 RDW 15.3 H Plt Count 405 Seg Neutrophils % 69.5 Sodium 140.9 Potassium 4.2 Chloride 107 Carbon Dioxide 25 Anion Gap 9 BUN 11 Creatinine 0.52 Est GFR ( Amer) > 60 Glucose 99 Calcium 9.7 Magnesium 1.8 Total Bilirubin 0.4 AST 20 Alkaline Phosphatase 125 Total Protein 6.4 Albumin 3.4 L Triglycerides 182 H Cholesterol 172.68 LDL Cholesterol Direct 97 VLDL Cholesterol 36.4 H HDL Cholesterol 40 06/18/20 06/18/20 06/18/20 15:12 15:12 18:40 Creatine Kinase < 20 L CK-MB (CK-2) < 0.22 Troponin I 0.027 0.025 06/19/20 06/19/20 00:51 06:50 Creatine Kinase CK-MB (CK-2) Troponin I 0.031 0.028 Impressions: Chest X-Ray 06/18/20 14:40 IMPRESSION: NO ACUTE RADIOGRAPHIC FINDING IN THE CHEST. Head CT 06/18/20 14:40 IMPRESSION: Old right cerebellar infarct. No acute large territory supratentorial infarct. EVIDENCE OF ACUTE STROKE: NO. Brain MRI with MRA 06/19/20 00:00 IMPRESSION: NORMAL MRA OF THE [place]. Carotid Doppler Study 06/19/20 00:00 IMPRESSION: NO HEMODYNAMICALLY SIGNIFICANT STENOSIS. Head MRI 06/19/20 00:00 IMPRESSION: 1. Acute infarct in the left posterior frontal and bilateral parietal lobes. Most likely embolic in origin. 2. Mild small-vessel ischemic changes with small old infarcts in the right cerebellar and left cerebellar hemispheres. EVIDENCE OF ACUTE STROKE: YES. Assessment & Plan - Diagnosis (1) Open wound Is this a current diagnosis for this admission?: Yes Plan: Impression: Stable, well granulating midline wound and patient with control dehiscence approximately 1.5 months ago following exploratory laparotomy, sigmoid colectomy, colostomy complicated diverticulitis with perforation. No indication for wound debridement. Commendations: 1. I believe the wound VAC has reached its point of maximum effectiveness. We discontinue wound VAC, switch to wet-to-dry dressing changes. The above discussed with nursing staff and ordered in the chart 2. Surgery will sign off; reconsult if clinically indicated. (2) Acute ischemic stroke Is this a current diagnosis for this admission?: Yes (3) Colon perforation Is this a current diagnosis for this admission?: Yes (4) Perforated diverticulum Is this a current diagnosis for this admission?: Yes
--- NOTE | 2020-06-19 19:34 | XCELERA REPORT ---
[address] [address] Transthoracic Echocardiogram Report Name: YVETTE HOYT Age: 64 yrs Gender: Female : 1955 Patient Status: Inpatient Patient Location: [address] [place] [address] Study Date: 06/19/2020 11:24 AM Height: 62 in Weight: 157 lb BSA: 1.7 m2 Procedure: A two-dimensional transthoracic echocardiogram with color flow and Doppler was performed. Study Quality: Poor. Poor endocardial visualisation and poor doppler interogation. Reason For Study: CVA r/o embolic source History: CVA r/o embolic source. Ordering Physician: MICHELLE HAY Performed By: Codi Russell Interpretation Summary There is no obvious cardiac source of embolus noted on this transthoracic echocardiogram. Follow-up with a [facility] is suggested if cardiac source is still suspected. But not a good study to look for cardiac source of emboli. Poor endocardial visualisation and poor doppler interogation. The left ventricle is normal in size. There is normal left ventricular wall thickness. Doppler measurements suggest impaired left ventricular relaxation, which is associated with grade I/IV or mild diastolic dysfunction Cannot assess for clots or ASD,VSD,or PFO. The right ventricle is not well visualized secondary to technical limitations The right atrium is normal. Right atrium not well visualized secondary to technical limitations The left atrial size is normal. There is no evidence of mitral valve prolapse. There is no vegetation seen on the mitral valve. There is no mitral valve stenosis. There is a trace amount of mitral regurgitation There is no aortic valvular vegetation. There is no aortic valve stenosis No aortic regurgitation is present. There is no tricuspid stenosis. There is a trace amount of tricuspid regurgitation Tricuspid regurgitation jet envelope not well defined to measure RV systolic pressure accurately. There is a trace amount of pulmonic regurgitation The aortic root is not well visualized but is probably normal size. The inferior vena cava appeared normal and decreased > 50% with respiration (RAP 5-10 mmHg) There is no pericardial effusion. But not a good study to look for cardiac source of emboli. MMode/2D Measurements & Calculations RVDd: 3.2 cm LVIDd: 4.8 cm FS: 32.5 % Ao root diam: 3.0 cm IVSd: 0.93 cm LVIDs: 3.2 cm EDV(Teich): Ao root area: LVPWd: 1.0 cm 105.5 ml 7.1 cm2 ESV(Teich): 41.4 mlLA dimension: 3.2 cm EF(Teich): 60.8 % LVLd ap4: 7.6 cm SV(MOD-sp4): EDV(MOD-sp4): 52.0 ml 92.0 ml LVLs ap4: 6.5 cm ESV(MOD-sp4): 40.0 ml EF(MOD-sp4): 56.5 % Doppler Measurements & Calculations MV E max nicole: MV P1/2t max nicole: Ao V2 max: LV V1 max P.4 cm/sec 43.1 cm/sec 99.9 cm/sec 2.0 mmHg MV A max nicole: MV P1/2t: 75.0 msec Ao max PG: LV V1 max: 58.2 cm/sec MVA(P1/2t): 2.9 cm2 4.0 mmHg 70.6 cm/sec MV E/A: 0.85 MV dec slope: 168.3 cm/sec2 MV dec time: 0.25 sec PA V2 max: MV P1/2t-pr_phl: 78.5 cm/sec 75.0 msec PA max P.5 mmHg Left Ventricle The left ventricle is normal in size. There is normal left ventricular wall thickness. Probably no reggional wall motion abnormality , but cannot br sure.Overall LVEF is greater than 60%. Doppler measurements suggest impaired left ventricular relaxation, which is associated with grade I/IV or mild diastolic dysfunction. Cannot assess for clots or ASD,VSD,or PFO. Right Ventricle The right ventricle is not well visualized secondary to technical limitations. Atria The right atrium is normal. Right atrium not well visualized secondary to technical limitations. The left atrial size is normal. Mitral Valve There is no evidence of mitral valve prolapse. There is no vegetation seen on the mitral valve. There is no mitral valve stenosis. There is a trace amount of mitral regurgitation. Aortic Valve There is no aortic valvular vegetation. There is no aortic valve stenosis. No aortic regurgitation is present. Tricuspid Valve There is no tricuspid stenosis. There is a trace amount of tricuspid regurgitation. Tricuspid regurgitation jet envelope not well defined to measure RV systolic pressure accurately. Pulmonic Valve There is no pulmonic valvular stenosis. There is a trace amount of pulmonic regurgitation. Great Vessels The aortic root is not well visualized but is probably normal size. The inferior vena cava appeared normal and decreased > 50% with respiration (RAP 5-10 mmHg). Effusions There is no pericardial effusion. : MICHELLE HAY Lakshmi
[2020-06-19] MEDS: ATORVASTATIN CALCIUM 40 MG TABLET PO SCH (21:26)
[2020-06-20] MEDS: IPRATROPIUM/ALBUTEROL 0.5-2.5 MG/3 ML AMPUL NEB SCH ×4 (02:14→14:54)
[2020-06-20] MEDS: HEPARIN SOD (PORCINE) 5,000 UNIT/ML 1 ML VIAL SUBCUT SCH ×3 (06:09→21:28)
[2020-06-20] MEDS ORDERED: IPRATROPIUM/ALBUTEROL 0.5-2.5 MG/3 ML AMPUL NEB PRN (10:13)
[2020-06-20] MEDS: DOCUSATE SODIUM 100 MG CAPSULE PO SCH ×3 (10:15→21:26)
[2020-06-20] MEDS: ASPIRIN 81 MG TABLET, CHEWABLE PO SCH (10:16)
[2020-06-20] MEDS: FAMOTIDINE 20 MG TABLET PO SCH (10:16)
[2020-06-20] MEDS ORDERED: TRAMADOL HCL 50 MG TABLET PO PRN (17:28)
[2020-06-20] MEDS ORDERED: ONDANSETRON HCL 8 MG TABLET PO PRN (17:28)
--- NOTE | 2020-06-20 17:48 | PDOC PROGRESS REPORT ---
Subjective Date:: 06/20/20 Subjective:: YVETTE HOYT is a 64 year old female past medical history of rheumatoid arthritis, hyperlipidemia, complicated diverticulitis with perforation status post colostomy which was complicated by abdominal wound infection, Achilles tendon rupture currently wearing an orthopedic boot, who is staying at [facility] who was admitted for TIA/CVA symptoms. Patient was seen on afternoon rounds. She was sitting up to the edge of the bed, comfortably, on room air. She states that all of her symptoms have resolved. She is somewhat anxious regarding her disposition. She would prefer to return to SNF for continued wound care. She does admit to some generalized anxiety regarding her recent, multiple, illnesses and complications. She does ask about possible medications. Otherwise, she has no questions or concerns at this time. She specifically denies headache, dizziness, focal deficits, chest pain, palpitations, dyspnea, abdominal pain, nausea vomiting. She has no other questions or concerns at this time. No concerns per nursing. Reason For Visit: TIA Physical Exam Vital Signs: Temp Pulse Resp BP Pulse Ox 98.0 F 100 16 113/66 96 06/20/20 16:53 06/20/20 16:53 06/20/20 16:53 06/20/20 16:53 06/20/20 16:53 Intake & Output 06/19/20 06/20/20 06/21/20 06:59 06:59 06:59 Intake Total 260 2280 437 Output Total 900 Balance -640 2280 437 Weight 76 kg 74.7 kg General appearance: PRESENT: no acute distress, cooperative, hard of hearing, obese, well-developed, well-nourished Head exam: PRESENT: atraumatic, normocephalic Eye exam: PRESENT: conjunctiva pink, EOMI, PERRLA. ABSENT: scleral icterus Mouth exam: PRESENT: moist, tongue midline Respiratory exam: PRESENT: clear to auscultation juliocesar, symmetrical, unlabored, other - room air. ABSENT: rales, rhonchi, wheezes Cardiovascular exam: PRESENT: RRR. ABSENT: diastolic murmur, rubs, systolic murmur Pulses: PRESENT: normal dorsalis pedis pul Vascular exam: PRESENT: normal capillary refill GI/Abdominal exam: PRESENT: normal bowel sounds, soft, other - ostomy. abd wound w/ clean, dry, dressing in place. ABSENT: distended, guarding, mass, organolmegaly, rebound, tenderness Rectal exam: PRESENT: deferred Extremities exam: PRESENT: full ROM. ABSENT: calf tenderness, clubbing, pedal edema Neurological exam: PRESENT: alert, awake, oriented to person, oriented to place, oriented to time, oriented to situation, CN II-XII grossly intact. ABSENT: motor sensory deficit Psychiatric exam: PRESENT: appropriate affect, normal mood. ABSENT: homicidal ideation, suicidal ideation Skin exam: PRESENT: dry, intact, warm. ABSENT: cyanosis, rash Results Laboratory Results: 06/19/20 06:50 06/19/20 06:50 06/18/20 06/18/20 06/18/20 15:12 15:12 18:40 Creatine Kinase < 20 L CK-MB (CK-2) < 0.22 Troponin I 0.027 0.025 06/19/20 06/19/20 00:51 06:50 Creatine Kinase CK-MB (CK-2) Troponin I 0.031 0.028 Impressions: Chest X-Ray 06/18/20 14:40 IMPRESSION: NO ACUTE RADIOGRAPHIC FINDING IN THE CHEST. Head CT 06/18/20 14:40 IMPRESSION: Old right cerebellar infarct. No acute large territory supratentorial infarct. EVIDENCE OF ACUTE STROKE: NO. Brain MRI with MRA 06/19/20 00:00 IMPRESSION: NORMAL MRA OF THE [place]. Carotid Doppler Study 06/19/20 00:00 IMPRESSION: NO HEMODYNAMICALLY SIGNIFICANT STENOSIS. Head MRI 06/19/20 00:00 IMPRESSION: 1. Acute infarct in the left posterior frontal and bilateral parietal lobes. Most likely embolic in origin. 2. Mild small-vessel ischemic changes with small old infarcts in the right cerebellar and left cerebellar hemispheres. EVIDENCE OF ACUTE STROKE: YES. Assessment and Plan - Diagnosis (1) Acute ischemic stroke Is this a current diagnosis for this admission?: Yes Plan: MRI positive for acute infarct in the left posterior frontal and bilateral parietal lobes. Mild small vessel ischemic changes with a small old infarct in the right cerebellar and left cerebellar hemispheres. CT head negative for any acute abnormality except for left cerebellar infarct. Echocardiogram reveals LVEF 60%, grade 1 diastolic dysfunction. Poor quality study. Carotid Dopplers were negative for hemodynamically significant stenosis. Currently all symptoms resolved. At baseline. Cardiology was consulted. Per Dr. Henderson's recommendations, recommends a 30-day event monitor to evaluate for PAF. Continue statins, aspirin PT, OT, ST consulted. Discharge planning consulted. Outpatient follow-up with cardiology for event monitoring. (2) Elevated troponin Is this a current diagnosis for this admission?: Yes Plan: Denies any anginal symptoms. EKG sinus rhythm. Denies any history of CAD. Endorses family history of CAD. Troponin 0.025, 0.031, 0.028. Previous provider discussed the case with Dr. Henderson, family service worker, who said that patient can follow-up with him as an outpatient and patient does not need any acute intervention at this point. We will continue aspirin, statin monitor BP and optimize. Outpatient PCP and cardiology follow-up. (3) TIA (transient ischemic attack) Is this a current diagnosis for this admission?: Yes Plan: As per problem #1. (4) Achilles rupture, left Qualifiers: Encounter type: sequela Qualified Code(s): S86.012S - Strain of left Achilles tendon, sequela Is this a current diagnosis for this admission?: Yes Plan: Followed by orthopedic surgeon. Wearing orthopedic shoes. Outpatient PCP and orthopedic surgeon follow-up. (5) HLD (hyperlipidemia) Qualifiers: Is this a current diagnosis for this admission?: Yes Plan: Triglycerides 182, total cholesterol 172, LDL 97, HDL 40. Continue high-dose statin. Cardiac diet. (6) Perforateed acute diverticulitis Is this a current diagnosis for this admission?: Yes Plan: History of complicated acute diverticulitis, status post ostomy with abdominal wound infection, currently wound VAC in place, colostomy patent. Surgery was consulted. Have removed wound VAC. Recommending wet-to-dry dressing changes twice daily. Continue routine colostomy care. Outpatient follow-up with surgery. (7) Anxiety Is this a current diagnosis for this admission?: Yes Plan: Patient reports generalized anxiety. Especially related to her recent, numerous, health concerns. We will start Lexapro 10 mg daily Start BuSpar 5mg every morning, 10mg nightly. - Time Time Spent with patient: 35 or more minutes Medications reviewed and adjusted accordingly: Yes Anticipated Discharge Disposition: [facility] Facility Anticipated Discharge Timeframe: when bed available - need prior auth
[2020-06-20] MEDS ORDERED: MOXIFLOXACIN HCL OP SCH (18:00)
[2020-06-20] MEDS: BUSPIRONE HCL 10 MG TABLET PO SCH (21:28)
[2020-06-20] MEDS: ATORVASTATIN CALCIUM 40 MG TABLET PO SCH (21:28)
[2020-06-20] MEDS: TEMAZEPAM 15 MG CAPSULE PO PRN (21:28)
[2020-06-21] MEDS: HEPARIN SOD (PORCINE) 5,000 UNIT/ML 1 ML VIAL SUBCUT SCH ×3 (05:21→21:36)
[2020-06-21] MEDS: BUSPIRONE HCL 10 MG TABLET PO SCH ×2 (08:33→21:36)
[2020-06-21] MEDS ORDERED: BROMFENAC SODIUM OP SCH (10:00)
[2020-06-21] MEDS: MELOXICAM 7.5 MG TABLET PO SCH (11:45)
[2020-06-21] MEDS: ESCITALOPRAM OXALATE 10 MG TABLET PO SCH (11:45)
[2020-06-21] MEDS: ASPIRIN 81 MG TABLET, CHEWABLE PO SCH (11:45)
[2020-06-21] MEDS: CHOLECALCIFEROL (D3) 1,000 UNIT (25 MCG) TABLET PO SCH (11:45)
[2020-06-21] MEDS: PANTOPRAZOLE SODIUM 40 MG TABLET.DR PO SCH (11:45)
[2020-06-21] MEDS: DOCUSATE SODIUM 100 MG CAPSULE PO SCH ×2 (11:46→18:06)
--- NOTE | 2020-06-21 15:36 | PDOC PROGRESS REPORT ---
Subjective Date:: 06/21/20 Subjective:: YVETTE HOYT is a 64 year old female past medical history of rheumatoid arthritis, hyperlipidemia, complicated diverticulitis with perforation status post colostomy which was complicated by abdominal wound infection, Achilles tendon rupture currently wearing an orthopedic boot, who is staying at [facility] who was admitted for TIA/CVA symptoms. Patient was seen on afternoon rounds. She was resting in bed, comfortably, on room air. She states she noticed she had difficulty with writing today; otherwise, her stroke symptoms have resolved. She is somewhat anxious regarding her disposition. She would prefer to return to SNF for continued wound care. Otherwise, she has no questions or concerns at this time. She denies headache, dizziness, focal deficits, chest pain, palpitations, dyspnea, abdominal pain, nausea vomiting. She has no other questions or concerns at this time. No concerns per nursing. Reason For Visit: TIA Physical Exam Vital Signs: Temp Pulse Resp BP Pulse Ox 97.7 F 89 16 115/73 95 06/21/20 11:01 06/21/20 11:01 06/21/20 11:01 06/21/20 11:01 06/21/20 11:01 Intake & Output 06/20/20 06/21/20 06/22/20 06:59 06:59 06:59 Intake Total 2280 897 357 Balance 2280 897 357 Weight 74.7 kg 69.4 kg General appearance: PRESENT: no acute distress, cooperative, hard of hearing, well-developed, well-nourished - overweight Head exam: PRESENT: atraumatic, normocephalic Eye exam: PRESENT: conjunctiva pink, EOMI, PERRLA. ABSENT: scleral icterus Mouth exam: PRESENT: moist, tongue midline Respiratory exam: PRESENT: clear to auscultation juliocesar, symmetrical, unlabored, other - room air. ABSENT: rales, rhonchi, wheezes Cardiovascular exam: PRESENT: RRR. ABSENT: diastolic murmur, rubs, systolic murmur Pulses: PRESENT: normal dorsalis pedis pul Vascular exam: PRESENT: normal capillary refill GI/Abdominal exam: PRESENT: normal bowel sounds, soft, other - Abdomen wound with wet-to-dry dressing in place; slight slough noted to the most proximal portion, otherwise wound bed is clean with healthy granulation tissue. No surrounding erythema. No drainage. Patent ostomy.. ABSENT: distended, guarding, mass, organolmegaly, rebound, tenderness Rectal exam: PRESENT: deferred Extremities exam: PRESENT: full ROM - Cam boot to left foot. ABSENT: calf tenderness, clubbing, pedal edema Musculoskeletal exam: PRESENT: ambulatory - With trial a walker Neurological exam: PRESENT: alert, awake, oriented to person, oriented to place, oriented to time, oriented to situation, CN II-XII grossly intact. ABSENT: motor sensory deficit Psychiatric exam: PRESENT: appropriate affect, normal mood. ABSENT: homicidal ideation, suicidal ideation Skin exam: PRESENT: dry, intact, warm. ABSENT: cyanosis, rash Results Laboratory Results: 06/19/20 06:50 06/19/20 06:50 06/18/20 06/18/20 06/18/20 15:12 15:12 18:40 Creatine Kinase < 20 L CK-MB (CK-2) < 0.22 Troponin I 0.027 0.025 06/19/20 06/19/20 00:51 06:50 Creatine Kinase CK-MB (CK-2) Troponin I 0.031 0.028 Impressions: Chest X-Ray 06/18/20 14:40 IMPRESSION: NO ACUTE RADIOGRAPHIC FINDING IN THE CHEST. Head CT 06/18/20 14:40 IMPRESSION: Old right cerebellar infarct. No acute large territory supratentorial infarct. EVIDENCE OF ACUTE STROKE: NO. Brain MRI with MRA 06/19/20 00:00 IMPRESSION: NORMAL MRA OF THE [place]ATINUM OF [place]. Carotid Doppler Study 06/19/20 00:00 IMPRESSION: NO HEMODYNAMICALLY SIGNIFICANT STENOSIS. Head MRI 06/19/20 00:00 IMPRESSION: 1. Acute infarct in the left posterior frontal and bilateral parietal lobes. Most likely embolic in origin. 2. Mild small-vessel ischemic changes with small old infarcts in the right cerebellar and left cerebellar hemispheres. EVIDENCE OF ACUTE STROKE: YES. Assessment and Plan - Diagnosis (1) Acute ischemic stroke Is this a current diagnosis for this admission?: Yes Plan: MRI positive for acute infarct in the left posterior frontal and bilateral parietal lobes. Mild small vessel ischemic changes with a small old infarct in the right cerebellar and left cerebellar hemispheres. CT head negative for any acute abnormality except for left cerebellar infarct. Echocardiogram reveals LVEF 60%, grade 1 diastolic dysfunction. Poor quality study. Carotid Dopplers were negative for hemodynamically significant stenosis. Currently all symptoms resolved. At baseline. Cardiology was consulted. Per Dr. Henderson's recommendations, recommends a 30-day event monitor to evaluate for PAF. Continue statins, aspirin PT, OT, ST consulted. Discharge planning consulted. Outpatient follow-up with cardiology for event monitoring. (2) Elevated troponin Is this a current diagnosis for this admission?: Yes Plan: Denies any anginal symptoms. EKG sinus rhythm. Denies any history of CAD. Endorses family history of CAD. Troponin 0.025, 0.031, 0.028. Previous provider discussed the case with Dr. Henderson, leather stamper, who said that patient can follow-up with him as an outpatient and patient does not need any acute intervention at this point. We will continue aspirin, statin Monitor BP and optimize. Outpatient PCP and cardiology follow-up. (3) Achilles rupture, left Qualifiers: Encounter type: sequela Qualified Code(s): S86.012S - Strain of left Achilles tendon, sequela Is this a current diagnosis for this admission?: Yes Plan: Followed by orthopedic surgeon. Wearing orthopedic shoes. Outpatient PCP and orthopedic surgeon follow-up. (4) HLD (hyperlipidemia) Qualifiers: Is this a current diagnosis for this admission?: Yes Plan: Triglycerides 182, total cholesterol 172, LDL 97, HDL 40. Continue high-dose statin. Cardiac diet. (5) Perforateed acute diverticulitis Is this a current diagnosis for this admission?: Yes Plan: History of complicated acute diverticulitis, status post ostomy with abdominal wound infection, currently wound VAC in place, colostomy patent. Surgery was consulted. Have removed wound VAC. Recommending wet-to-dry dressing changes twice daily. Continue routine colostomy care. Outpatient follow-up with surgery. (6) Anxiety Is this a current diagnosis for this admission?: Yes Plan: Patient reports generalized anxiety. Especially related to her recent, numerous, health concerns. We will start Lexapro 10 mg daily Start BuSpar 5mg every morning, 10mg nightly. (7) TIA (transient ischemic attack) Is this a current diagnosis for this admission?: Yes Plan: As per problem #1. (8) Depression with anxiety Is this a current diagnosis for this admission?: Yes Plan: Discussed w/ patient. Will start Lexapro. Buspar 5 mg qAM, 10 mg qHS - Time Time Spent with patient: 35 or more minutes Medications reviewed and adjusted accordingly: Yes Anticipated Discharge Disposition: Retirement Facility Anticipated Discharge Timeframe: when bed available - pending prior auth
[2020-06-21] MEDS: ATORVASTATIN CALCIUM 40 MG TABLET PO SCH (21:32)
[2020-06-21] MEDS: TEMAZEPAM 15 MG CAPSULE PO PRN (21:36)
[2020-06-22 05:51] LABS: HEMATOCRIT 32.1 % (36.0-47.0); HEMOGLOBIN 10.4 g/dL (12.0-15.5); MEAN CORPUSCULAR HEMOGLOBIN 26.3 pg (27.0-33.4); MEAN CORPUSCULAR HGB CONC 32.5 g/dL (32.0-36.0); MEAN CORPUSCULAR VOLUME 81 fl (80-97); PLATELET COUNT 421 10^3/uL (150-450); RED BLOOD COUNT 3.96 10^6/uL (3.72-5.28); RED CELL DISTRIBUTION WIDTH 15.3 % (11.5-14.0); WHITE BLOOD COUNT 11.7 10^3/uL (4.0-10.5)
[2020-06-22] MEDS: HEPARIN SOD (PORCINE) 5,000 UNIT/ML 1 ML VIAL SUBCUT SCH ×3 (05:56→21:43)
[2020-06-22 06:12] LABS: ANION GAP 8 (5-19); BLOOD UREA NITROGEN 14 mg/dL (7-20); CALCIUM 10.1 mg/dL (8.4-10.2); CARBON DIOXIDE 24 mmol/L (22-30); CHLORIDE 106 mmol/L (98-107); GLUCOSE 102 mg/dL (75-110); POTASSIUM 4.1 mmol/L (3.6-5.0)
[2020-06-22] MEDS: BUSPIRONE HCL 10 MG TABLET PO SCH ×2 (08:37→21:43)
[2020-06-22] MEDS: CHOLECALCIFEROL (D3) 1,000 UNIT (25 MCG) TABLET PO SCH (11:07)
[2020-06-22] MEDS: DOCUSATE SODIUM 100 MG CAPSULE PO SCH ×2 (11:07→18:31)
[2020-06-22] MEDS: ASPIRIN 81 MG TABLET, CHEWABLE PO SCH (11:07)
[2020-06-22] MEDS: MELOXICAM 7.5 MG TABLET PO SCH (11:08)
[2020-06-22] MEDS: ESCITALOPRAM OXALATE 10 MG TABLET PO SCH (11:08)
[2020-06-22] MEDS: PANTOPRAZOLE SODIUM 40 MG TABLET.DR PO SCH (11:08)
--- NOTE | 2020-06-22 16:55 | PDOC PROGRESS REPORT ---
Subjective Date:: 06/22/20 Subjective:: YVETTE HOYT is a 64 year old female past medical history of rheumatoid arthritis, hyperlipidemia, complicated diverticulitis with perforation status post colostomy which was complicated by abdominal wound infection, Achilles tendon rupture currently wearing an orthopedic boot, who is staying at [place] [facility] who was admitted for TIA/CVA symptoms. Patient was seen on morning rounds. She was resting in the recliner, comfortably, on room air. She states she is feeling well today. Hopeful to return to SNF soon; she is informed that we are waiting on prior auth. Also discussed that if insurance does not approve, we will need to plan on discharging to home with home health services. She denies headache, dizziness, focal deficits, chest pain, palpitations, dys pnea, abdominal pain, nausea vomiting. She has no other questions or concerns at this time. No concerns per nursing. Reason For Visit: TIA Physical Exam Vital Signs: Temp Pulse Resp BP Pulse Ox 97.7 F 92 16 124/76 94 06/22/20 11:17 06/22/20 11:17 06/22/20 11:17 06/22/20 11:17 06/22/20 11:17 Intake & Output 06/21/20 06/22/20 06/23/20 06:59 06:59 06:59 Intake Total 897 1492 360 Balance 897 1492 360 Weight 69.4 kg 69.5 kg General appearance: PRESENT: no acute distress, cooperative, hard of hearing, well-developed, well-nourished - overweight Head exam: PRESENT: atraumatic, normocephalic Eye exam: PRESENT: conjunctiva pink, EOMI, PERRLA. ABSENT: scleral icterus Mouth exam: PRESENT: moist, tongue midline Respiratory exam: PRESENT: clear to auscultation juliocesar, symmetrical, unlabored, other - room air. ABSENT: rales, rhonchi, wheezes Cardiovascular exam: PRESENT: RRR. ABSENT: diastolic murmur, rubs, systolic murmur GI/Abdominal exam: PRESENT: normal bowel sounds, soft, other - Abdomen wound with wet-to-dry dressing in place. Patent ostomy. ABSENT: distended, guarding, mass, organolmegaly, rebound, tenderness Rectal exam: PRESENT: deferred Extremities exam: PRESENT: other - cam boot left foot. ABSENT: calf tenderness, clubbing, full ROM, pedal edema Musculoskeletal exam: PRESENT: ambulatory - w/ FWW Neurological exam: PRESENT: alert, awake, oriented to person, oriented to place, oriented to time, oriented to situation, CN II-XII grossly intact. ABSENT: motor sensory deficit Psychiatric exam: PRESENT: appropriate affect, normal mood. ABSENT: homicidal ideation, suicidal ideation Skin exam: PRESENT: dry, intact, warm. ABSENT: cyanosis, rash Results Laboratory Results: 06/22/20 04:47 06/22/20 04:47 06/22/20 06/22/20 04:47 04:47 WBC 11.7 H RBC 3.96 Hgb 10.4 L Hct 32.1 L MCV 81 MCH 26.3 L MCHC 32.5 RDW 15.3 H Plt Count 421 Sodium 138.0 Potassium 4.1 Chloride 106 Carbon Dioxide 24 Anion Gap 8 BUN 14 Creatinine 0.59 Est GFR ( Amer) > 60 Glucose 102 Calcium 10.1 06/18/20 06/18/20 06/18/20 15:12 15:12 18:40 Creatine Kinase < 20 L CK-MB (CK-2) < 0.22 Troponin I 0.027 0.025 06/19/20 06/19/20 00:51 06:50 Creatine Kinase CK-MB (CK-2) Troponin I 0.031 0.028 Impressions: Chest X-Ray 06/18/20 14:40 IMPRESSION: NO ACUTE RADIOGRAPHIC FINDING IN THE CHEST. Head CT 06/18/20 14:40 IMPRESSION: Old right cerebellar infarct. No acute large territory supratentorial infarct. EVIDENCE OF ACUTE STROKE: NO. Brain MRI with MRA 06/19/20 00:00 IMPRESSION: NORMAL MRA OF THE [place] OF [place]. Carotid Doppler Study 06/19/20 00:00 IMPRESSION: NO HEMODYNAMICALLY SIGNIFICANT STENOSIS. Head MRI 06/19/20 00:00 IMPRESSION: 1. Acute infarct in the left posterior frontal and bilateral parietal lobes. Most likely embolic in origin. 2. Mild small-vessel ischemic changes with small old infarcts in the right cerebellar and left cerebellar hemispheres. EVIDENCE OF ACUTE STROKE: YES. Assessment and Plan - Diagnosis (1) Acute ischemic stroke Is this a current diagnosis for this admission?: Yes Plan: MRI positive for acute infarct in the left posterior frontal and bilateral parietal lobes. Mild small vessel ischemic changes with a small old infarct in the right cerebellar and left cerebellar hemispheres. CT head negative for any acute abnormality except for left cerebellar infarct. Echocardiogram reveals LVEF 60%, grade 1 diastolic dysfunction. Poor quality study. Carotid Dopplers were negative for hemodynamically significant stenosis. Currently all symptoms resolved. At baseline. Cardiology was consulted. Per Dr. Henderson's recommendations, recommends a 30-day event monitor to evaluate for PAF. Continue statins, aspirin PT, OT, ST consulted. Discharge planning consulted. Outpatient follow-up with cardiology for event monitoring. (2) Elevated troponin Is this a current diagnosis for this admission?: Yes Plan: Denies any anginal symptoms. EKG sinus rhythm. Denies any history of CAD. Endorses family history of CAD. Troponin 0.025, 0.031, 0.028. Previous provider discussed the case with Dr. Henderson, pool table operator, who said that patient can follow-up with him as an outpatient and patient does not need any acute intervention at this point. We will continue aspirin, statin Monitor BP and optimize. Outpatient PCP and cardiology follow-up. (3) Achilles rupture, left Qualifiers: Encounter type: sequela Qualified Code(s): S86.012S - Strain of left Achilles tendon, sequela Is this a current diagnosis for this admission?: Yes Plan: Followed by orthopedic surgeon. Wearing orthopedic shoes. Outpatient PCP and orthopedic surgeon follow-up. (4) HLD (hyperlipidemia) Qualifiers: Hyperlipidemia type: unspecified Is this a current diagnosis for this admission?: Yes Plan: Triglycerides 182, total cholesterol 172, LDL 97, HDL 40. Continue high-dose statin. Cardiac diet. (5) Perforateed acute diverticulitis Is this a current diagnosis for this admission?: Yes Plan: History of complicated acute diverticulitis, status post ostomy with abdominal wound infection, currently wound VAC in place, colostomy patent. Surgery was consulted. Have removed wound VAC. Recommending wet-to-dry dressing changes twice daily. Continue routine colostomy care. Outpatient follow-up with surgery. (6) Anxiety Is this a current diagnosis for this admission?: Yes Plan: Patient reports generalized anxiety. Especially related to her recent, numerous, health concerns. We will start Lexapro 10 mg daily Start BuSpar 5mg every morning, 10mg nightly. (7) TIA (transient ischemic attack) Is this a current diagnosis for this admission?: Yes Plan: As per problem #1. (8) Depression with anxiety Is this a current diagnosis for this admission?: Yes Plan: Discussed w/ patient. Will start Lexapro. Buspar 5 mg qAM, 10 mg qHS - Plan Summary Summary: Patient remains medically stable for discharge. Awaiting insurance prior authorization for SNF. - Time Time Spent with patient: 25-34 minutes Medications reviewed and adjusted accordingly: Yes Anticipated Discharge Disposition: Nursing Home Facility Anticipated Discharge Timeframe: when bed available
[2020-06-22] MEDS: TEMAZEPAM 15 MG CAPSULE PO PRN (21:43)
[2020-06-22] MEDS: ATORVASTATIN CALCIUM 40 MG TABLET PO SCH (21:43)
[2020-06-23] MEDS: HEPARIN SOD (PORCINE) 5,000 UNIT/ML 1 ML VIAL SUBCUT SCH ×2 (06:12→13:28)
[2020-06-23] MEDS: CHOLECALCIFEROL (D3) 1,000 UNIT (25 MCG) TABLET PO SCH (09:11)
[2020-06-23] MEDS: ESCITALOPRAM OXALATE 10 MG TABLET PO SCH (09:11)
[2020-06-23] MEDS: BUSPIRONE HCL 10 MG TABLET PO SCH (09:11)
[2020-06-23] MEDS: DOCUSATE SODIUM 100 MG CAPSULE PO SCH ×2 (09:12→17:57)
[2020-06-23] MEDS: ASPIRIN 81 MG TABLET, CHEWABLE PO SCH (09:12)
[2020-06-23] MEDS: PANTOPRAZOLE SODIUM 40 MG TABLET.DR PO SCH (09:12)
[2020-06-23] MEDS: MELOXICAM 7.5 MG TABLET PO SCH (09:13)
--- NOTE | 2020-06-23 13:55 | PDOC DISCHARGE SUMMARY ---
Impression - Admit/DC Date/PCP Admission Date/Primary Care Provider: 06/18/20 17:22 DAVI KINSEY NP Discharge Date: 06/23/20 - Discharge Diagnosis (1) Acute ischemic stroke Is this a current diagnosis for this admission?: Yes (2) Elevated troponin Is this a current diagnosis for this admission?: Yes (3) Achilles rupture, left Is this a current diagnosis for this admission?: Yes (4) HLD (hyperlipidemia) Is this a current diagnosis for this admission?: Yes (5) Perforateed acute diverticulitis Is this a current diagnosis for this admission?: Yes (6) Anxiety Is this a current diagnosis for this admission?: Yes (7) TIA (transient ischemic attack) Is this a current diagnosis for this admission?: Yes (8) Depression with anxiety Is this a current diagnosis for this admission?: Yes - Additional Information Discharge Diet: Cardiac Discharge Activity: Activity As Tolerated, Balance Activity w/Rest, Slowly Increase Activity Referrals: [facility] [Provider Group] (Follow up within 2 weeks.) DAVI KINSEY NP [Primary Care Provider] - Follow up as needed (Follow up within 1 week.) VALERIE LEE MD [NO LOCAL MD] - (Follow up at earliest available appointment.) FAM ACOSTA MD [ACTIVE STAFF] - (Follow up within 1 week for event monitor.) Prescriptions: Aspirin [Aspirin 325 mg Tablet] 325 mg PO DAILY PRN #1 pkg PRN Reason: Escitalopram Oxalate [Lexapro 10 mg Tablet] 10 mg PO DAILY #30 tablet Atorvastatin Calcium [Lipitor 80 mg Tablet] 80 mg PO QHS #30 tablet Home Medications: Bromfenac Sodium [Prolensa] 1 drop OP DAILY 03/30/20 Meloxicam [Mobic] 7.5 mg PO DAILY 03/30/20 Pantoprazole Sodium 40 mg PO DAILY 03/30/20 Cholecalciferol (Vitamin D3) [Vitamin D3 1000 Unit Tablet] 2,000 unit PO DAILY 05/20/20 Ondansetron HCl [Zofran 8 mg Tablet] 4 mg PO BIDP PRN 05/20/20 Tramadol HCl [Ultram 50 mg Tablet] 50 mg PO DAILYP PRN 06/01/20 Docusate Sodium [Colace 100 mg Capsule] 100 mg PO BID 06/19/20 Acetaminophen [Tylenol 325 mg Tablet] 325 mg PO Q4HP PRN tablet 06/23/20 Aspirin [Aspirin 325 mg Tablet] 325 mg PO DAILY PRN #1 pkg 06/23/20 Atorvastatin Calcium [Lipitor 80 mg Tablet] 80 mg PO QHS #30 tablet 06/23/20 Buspirone HCl [Buspar 10 mg Tablet] 5 mg PO ASDIR PRN #90 tablet 06/23/20 Escitalopram Oxalate [Lexapro 10 mg Tablet] 10 mg PO DAILY #30 tablet 06/23/20 History of Present Illiness History of Present Illness: Per H&P by Dr. Petty: YVETTE HOYT is a 64 year old female past medical history of rheumatoid arthritis, hyperlipidemia, complicated diverticulitis with perforation status post colostomy which was complicated by abdominal wound infection currently wound VAC in place, Achilles tendon rupture currently wearing an orthopedic boot, who is staying at [facility] presenting to ED complaining of sudden onset right upper extremity weakness and numbness. Patient is stating that she was sleeping on her back, she was called for lunch, she got up and tried to have her lunch noted that she could not open her right fist and was feeling numb on the proximal right upper extremity, when she open her hand with the help of the left hand, she was not able to grab the fork, it lasted about 10 to 15 minutes and resolved spontaneously, patient denied having any slurred speech, dysarthria, aphasia, headache, vision changes, syncope or presyncope, EMS was called and patient was brought to ED. In ED a CT head showed old right cerebellar infarct, otherwise negative for any acute stroke. By the time she got to ED all her symptoms had resolved, EKG was sinus rhythm but troponin was mildly elevated at 0.027. Patient denies any previous history of CVA or CAD but states that CAD runs in her family and recently she was worked up by a metalsmith and was a started on aspirin and statins. On my encounter patient comfortable resting in bed, in no apparent distress, stating that all her neurologic symptoms has resolved, denies any headache, visi on changes, slurred speech, aphasia, dysarthria, numbness, tingling, chest pain, shortness of breath, nausea, vomiting or any urinary symptoms. Patient has a wound VAC and colostomy in place and supposed to follow-up with surgery tomorrow. Hospital Course Hospital Course: (1) Acute ischemic stroke MRI positive for acute infarct in the left posterior frontal and bilateral parietal lobes. Mild small vessel ischemic changes with a small old infarct in the right cerebellar and left cerebellar hemispheres. CT head negative for any acute abnormality except for left cerebellar infarct. Echocardiogram reveals LVEF 60%, grade 1 diastolic dysfunction. Poor quality study. Carotid Dopplers were negative for hemodynamically significant stenosis. Currently all symptoms resolved. At baseline. Cardiology was consulted. Per Dr. Henderson's recommendations, recommends a 30-day event monitor to evaluate for PAF. Continue statins, aspirin PT, OT, ST consulted. No further rehab needs. Outpatient follow-up with cardiology for event monitoring. (2) Elevated troponin Denies any anginal symptoms. EKG sinus rhythm. Denies any history of CAD. Endorses family history of CAD. Troponin 0.025, 0.031, 0.028. Previous provider discussed the case with Dr. Henderson, metalsmith, who said that patient can follow-up with him as an outpatient and patient does not need any acute intervention at this point. We will continue aspirin, statin Outpatient PCP and cardiology follow-up. (3) Achilles rupture, left Followed by orthopedic surgeon. Wearing orthopedic shoes. Outpatient PCP and orthopedic surgeon follow-up. (4) HLD (hyperlipidemia) Triglycerides 182, total cholesterol 172, LDL 97, HDL 40. Continue high-dose statin. Cardiac diet. (5) Perforateed acute diverticulitis History of complicated acute diverticulitis, status post ostomy with abdominal wound infection, currently wound VAC in place, colostomy patent. Surgery was consulted. Have removed wound VAC. Recommending wet-to-dry dressing changes twice daily. Continue routine colostomy care. Outpatient follow-up with surgery. Discharged w/ home health services. (6) Anxiety Patient reports generalized anxiety. Especially related to her recent, numerous, health concerns. Lexapro 10 mg daily BuSpar 5mg every morning, 10mg nightly. (7) TIA (transient ischemic attack) As per problem #1. (8) Depression with anxiety Discussed w/ patient. Continue Lexapro. Continue Buspar 5 mg qAM, 10 mg qHS Physical Exam Vital Signs: Temp Pulse Resp BP Pulse Ox 97.8 F 82 18 114/75 93 06/23/20 00:08 06/23/20 07:00 06/23/20 00:08 06/23/20 00:08 06/23/20 00:08 Intake & Output 06/22/20 06/23/20 06/24/20 06:59 06:59 06:59 Intake Total 1492 820 Balance 1492 820 Weight 69.5 kg 69.2 kg General appearance: PRESENT: no acute distress, cooperative, hard of hearing, well-developed, well-nourished Head exam: PRESENT: atraumatic, normocephalic Eye exam: PRESENT: conjunctiva pink, EOMI, PERRLA. ABSENT: scleral icterus Mouth exam: PRESENT: moist, tongue midline Respiratory exam: PRESENT: clear to auscultation juliocesar, symmetrical, unlabored, other - room air. ABSENT: rales, rhonchi, wheezes Cardiovascular exam: PRESENT: RRR. ABSENT: diastolic murmur, rubs, systolic murmur Pulses: PRESENT: normal dorsalis pedis pul Vascular exam: PRESENT: normal capillary refill Extremities exam: PRESENT: full ROM - cam boot left foot. ABSENT: calf tenderness, clubbing, pedal edema Musculoskeletal exam: PRESENT: ambulatory - w/ walker Neurological exam: PRESENT: alert, awake, oriented to person, oriented to place, oriented to time, oriented to situation, CN II-XII grossly intact. ABSENT: motor sensory deficit Psychiatric exam: PRESENT: appropriate affect, normal mood. ABSENT: homicidal ideation, suicidal ideation Skin exam: PRESENT: dry, intact, warm. ABSENT: cyanosis, rash Results Laboratory Results: WBC 11.7 10^3/uL (4.0-10.5) H 06/22/20 04:47 RBC 3.96 10^6/uL (3.72-5.28) 06/22/20 04:47 Hgb 10.4 g/dL (12.0-15.5) L 06/22/20 04:47 Hct 32.1 % (36.0-47.0) L 06/22/20 04:47 MCV 81 fl (80-97) 06/22/20 04:47 MCH 26.3 pg (27.0-33.4) L 06/22/20 04:47 MCHC 32.5 g/dL (32.0-36.0) 06/22/20 04:47 RDW 15.3 % (11.5-14.0) H 06/22/20 04:47 Plt Count 421 10^3/uL (150-450) 06/22/20 04:47 Lymph % (Auto) 16.6 % (13-45) 06/19/20 06:50 Bryan % (Auto) 9.6 % (3-13) 06/19/20 06:50 Eos % (Auto) 4.0 % (0-6) 06/19/20 06:50 Baso % (Auto) 0.3 % (0-2) 06/19/20 06:50 Absolute Neuts (auto) 7.8 10^3/uL (1.7-8.2) 06/19/20 06:50 Absolute Lymphs (auto) 1.9 10^3/uL (0.5-4.7) 06/19/20 06:50 Absolute Monos (auto) 1.1 10^3/uL (0.1-1.4) 06/19/20 06:50 Absolute Eos (auto) 0.5 10^3/uL (0.0-0.6) 06/19/20 06:50 Absolute Basos (auto) 0.0 10^3/uL (0.0-0.2) 06/19/20 06:50 Seg Neutrophils % 69.5 % (42-78) 06/19/20 06:50 PT 13.1 SEC (11.4-15.4) 06/19/20 06:50 INR 0.97 06/19/20 06:50 APTT 32.7 SEC (23.5-35.8) 06/18/20 15:12 Sodium 138.0 mmol/L (137-145) 06/22/20 04:47 Potassium 4.1 mmol/L (3.6-5.0) 06/22/20 04:47 Chloride 106 mmol/L (98-107) 06/22/20 04:47 Carbon Dioxide 24 mmol/L (22-30) 06/22/20 04:47 Anion Gap 8 (5-19) 06/22/20 04:47 BUN 14 mg/dL (7-20) 06/22/20 04:47 Creatinine 0.59 mg/dL (0.52-1.25) 06/22/20 04:47 Est GFR ( Amer) > 60 (>60) 06/22/20 04:47 Est GFR (MDRD) Non-Af > 60 (>60) 06/22/20 04:47 Glucose 102 mg/dL (75-110) 06/22/20 04:47 POC Glucose 144 mg/dL (70-110) H 06/18/20 15:18 Hemoglobin A1c % 4.9 % (4.7-6.0) 06/19/20 06:50 Calcium 10.1 mg/dL (8.4-10.2) 06/22/20 04:47 Magnesium 1.8 mg/dL (1.6-2.3) 06/19/20 06:50 Total Bilirubin 0.4 mg/dL (0.2-1.3) 06/19/20 06:50 Direct Bilirubin 0.1 mg/dL (0.0-0.4) 06/19/20 06:50 Neonat Total Bilirubin Not Reportable 06/19/20 06:50 Neonat Direct Bilirubin Not Reportable 06/19/20 06:50 Neonat Indirect Bili Not Reportable 06/19/20 06:50 AST 20 U/L (14-36) 06/19/20 06:50 ALT 19 U/L (<35) 06/19/20 06:50 Alkaline Phosphatase 125 U/L (38-126) 06/19/20 06:50 Creatine Kinase < 20 U/L (30-135) L 06/18/20 15:12 CK-MB (CK-2) < 0.22 ng/mL (<4.55) 06/18/20 15:12 Troponin I 0.028 ng/mL 06/19/20 06:50 Total Protein 6.4 g/dL (6.3-8.2) 06/19/20 06:50 Albumin 3.4 g/dL (3.5-5.0) L 06/19/20 06:50 Triglycerides 182 mg/dL (<150) H 06/19/20 06:50 Cholesterol 172.68 mg/dL (0-200) 06/19/20 06:50 LDL Cholesterol Direct 97 mg/dL (<100) 06/19/20 06:50 VLDL Cholesterol 36.4 mg/dL (10-31) H 06/19/20 06:50 HDL Cholesterol 40 mg/dL (>40) 06/19/20 06:50 Influenza A (RT-PCR) NEGATIVE (NEGATIVE) 06/18/20 19:25 Influenza B (RT-PCR) NEGATIVE (NEGATIVE) 06/18/20 19:25 RSV (RT-PCR) NEGATIVE (NEGATIVE) 06/18/20 19:25 SARS-CoV-2 Rap RNA(RT-PCR) NEGATIVE (NEGATIVE) 06/18/20 19:25 06/18/20 06/18/20 06/19/20 15:12 18:40 00:51 CK-MB (CK-2) < 0.22 Troponin I 0.027 0.025 0.031 06/19/20 06:50 CK-MB (CK-2) Troponin I 0.028 Impressions: Chest X-Ray 06/18/20 14:40 IMPRESSION: NO ACUTE RADIOGRAPHIC FINDING IN THE CHEST. Head CT 06/18/20 14:40 IMPRESSION: Old right cerebellar infarct. No acute large territory supratentorial infarct. EVIDENCE OF ACUTE STROKE: NO. Brain MRI with MRA 06/19/20 00:00 IMPRESSION: NORMAL MRA OF THE [place]. Carotid Doppler Study 06/19/20 00:00 IMPRESSION: NO HEMODYNAMICALLY SIGNIFICANT STENOSIS. Head MRI 06/19/20 00:00 IMPRESSION: 1. Acute infarct in the left posterior frontal and bilateral parietal lobes. Most likely embolic in origin. 2. Mild small-vessel ischemic changes with small old infarcts in the right cerebellar and left cerebellar hemispheres. EVIDENCE OF ACUTE STROKE: YES. Plan Plan of Treatment: Patient is discharged home, in stable condition, with home health services. She is advised follow-up with her primary care provider within 1 week. Follow-up with Dr. Henderson, early next week as scheduled, for event monitoring. Follow-up with orthopedic surgeon at the earliest available appointment. Follow-up with the [facility] in 2 weeks. Take medications as prescribed. Eat a heart healthy diet. Return to the emergency department, as needed, for concerning symptoms. Time Spent: Greater than 30 Minutes Stroke Is this a Stroke Patient?: Yes Stroke Pt being discharged on Anti-thrombolytic therapy?: Yes Stroke Pt being discharged on Anti-coagulation therapy?: No Reason(s) for not prescribing Anti-coagulation therapy:: Not indicated Stroke Pt being discharged on Statins?: Yes Acute Heart Failure Is this a Heart Failure Patient?: No
[2020-06-23 17:50] VITALS: BP 130/75
--- NOTE | 2020-06-23 18:24 | Operative Report ---
Operative Report DATE OF SURGERY: 06/23/20 PREOPERATIVE DIAGNOSIS: Localized necrotic fascia on the superior bottom part of the open incision POSTOPERATIVE DIAGNOSIS: Same OPERATION: Debridement of small necrotic fascia on the superior part of the incision SURGEON: MARITZA SHELBY ANESTHESIA: Other TISSUE REMOVED OR ALTERED: About 1 cm of necrotic whitish fascia COMPLICATIONS: None ESTIMATED BLOOD LOSS: 1 cc QUANTITATIVE BLOOD LOSS: 1 INTRAOPERATIVE FINDINGS: About 1 cm necrotic whitish fascia on the superior aspect of the open wound. The rest of the open wound looks clean and the reddish. PROCEDURE: I was asked to check the wound of this patient who had a previous Blackmon's procedure with the incision that got infected and needed to be opened up with a fascia intact. The wound looks relatively clean with the subcu and fascial layer pink except small white is fascial necrotic area superior part of the wound. This was then debrided with use of scissors and remove about 1 cm of this white this fascia. Minimal bleeding noted at most 1 cc. Wet-to-dry dressings will be continued on a daily basis when she gets discharged today or tomorrow. She will be followed in the surgical clinic or the wound care center next week.
== END 2020-06-23 17:48 | disposition home health service (06) ==
LOC: ER 14:38 → INTOOBSV 17:22 → EH 17:22 → 3S 22:27 → 4N 06-20 22:39
PROVIDERS: ADMIT Internal Medicine; ATTEND Registered Nurse
DX: I63.89 Other cerebral infarction (principal); R77.8 Other specified abnormalities of plasma proteins; M06.9 Rheumatoid arthritis, unspecified; E78.5 Hyperlipidemia, unspecified; F41.8 Other specified anxiety disorders; T81.31XD Disruption of external operation (surgical) wound, not elsewhere classified, subsequent encounter; Y83.9 Surgical procedure, unspecified as the cause of abnormal reaction of the patient, or of later complication, without mention of misadventure at the time of the procedure; K57.20 Diverticulitis of large intestine with perforation and abscess without bleeding; R00.2 Palpitations; S86.012S Strain of left Achilles tendon, sequela; X58.XXXS Exposure to other specified factors, sequela; E66.9 Obesity, unspecified; H91.90 Unspecified hearing loss, unspecified ear; Z79.899 Other long term (current) drug therapy; Z82.49 Family history of ischemic heart disease and other diseases of the circulatory system; Z79.82 Long term (current) use of aspirin; Z93.3 Colostomy status; Z20.828 Contact with and (suspected) exposure to other viral communicable diseases; Z86.19 Personal history of other infectious and parasitic diseases; Z87.891 Personal history of nicotine dependence
CPT/HCPCS: 93005; 99285; 36415 ×3; 82553; 82962; 82550; 83735; 85025 ×2; 85027; 85610 ×2; 85730; 0241U ×4; 80048; 80053 ×2; 84484 ×2; 83036; 80061; 93306; 93880; 70551; 70544; 71045; 70450; 93010; 94640 ×2; 97116; 97162; 92523; 97535; 97165; 11043; G0378 ×7; J1644 ×5; J3490 ×7; J7030; C9803

== ENCOUNTER → 2020-07-27 | Outpatient (CLI) | payer BC ==
--- NOTE | 2020-07-27 15:30 | RADIOLOGY REPORT (SQ) ---
EXAM DESCRIPTION: KNEE BILATERAL 1-2 VIEWS IMAGES COMPLETED DATE/TIME: 07/27/2020 3:10 pm REASON FOR STUDY: (M25.561)PAIN IN RIGHT KNEE(M25.562)PAIN IN LEFT KNEE M25.561 PAIN IN RIGHT KNEE M25.562 PAIN IN LEFT KNEE M54.2 CERVICALGIA COMPARISON: None. NUMBER OF VIEWS: Four views. TECHNIQUE: AP and lateral radiographic images acquired of the right and left knee. LIMITATIONS: None. FINDINGS: MINERALIZATION: Normal. BONES: No acute fracture or dislocation. No worrisome bone lesions. No significant osteophytes. JOINT: Joint space narrowing patellofemoral compartments bilaterally. No effusions. OTHER: No other significant finding. IMPRESSION: Osteoarthritis patellofemoral compartments. TECHNICAL DOCUMENTATION: JOB ID: [id number] [employer]- All Rights Reserved Reading location - IP/workstation name: [email or web address]
--- NOTE | 2020-07-27 15:41 | RADIOLOGY REPORT (SQ) ---
EXAM DESCRIPTION: CERV SP 4 OR 5 VIEWS IMAGES COMPLETED DATE/TIME: 07/27/2020 2:10 pm REASON FOR STUDY: (M25.561)PAIN IN RIGHT KNEE(M25.562)PAIN IN LEFT KNEE(M54.2) M25.561 PAIN IN RIGH T KNEE M25.562 PAIN IN LEFT KNEE M54.2 CERVICALGIA COMPARISON: None. NUMBER OF VIEWS: 7 views TECHNIQUE: AP, lateral, oblique, swimmer's, luz and odontoid radiographic images acquired of the cervical spine. LIMITATIONS: None. FINDINGS: MINERALIZATION: Normal. ALIGNMENT: Anatomic. VERTEBRAE: Vertebral bodies of normal height. DISCS: Mild degenerative disc disease. FORAMINA: No osteophytes or foraminal narrowing. LATERAL AND POSTERIOR ELEMENTS: Facets, lateral masses and spinous processes without significant find ings. HARDWARE: None in the spine. SOFT TISSUES: No masses or calcifications. Lung apices clear. OTHER: No other significant finding. IMPRESSION: Mild degenerative disc disease. No acute fracture or dislocation. TECHNICAL DOCUMENTATION: JOB ID: [id number] [employer]- All Rights Reserved Reading location - IP/workstation name: [email or web address]
--- NOTE | 2020-07-27 15:41 | RADIOLOGY REPORT (SQ) ---
EXAM DESCRIPTION: L SPINE WHOLE IMAGES COMPLETED DATE/TIME: 07/27/2020 2:10 pm REASON FOR STUDY: (M25.561)PAIN IN RIGHT KNEE(M25.562)PAIN IN LEFT KNEE(M54.2) M25.561 PAIN IN RIGH T KNEE M25.562 PAIN IN LEFT KNEE M54.2 CERVICALGIA COMPARISON: None. NUMBER OF VIEWS: Five views including obliques. TECHNIQUE: AP, lateral, oblique, and sacral radiographic images acquired of the lumbar spine. LIMITATIONS: None. FINDINGS: MINERALIZATION: Normal. SEGMENTATION: Normal. No transitional anatomy. ALIGNMENT: Mild apex left scoliotic curvature centered at L2-L3. No significant spondylolisthesis. VERTEBRAE: No acute fracture or loss of vertebral body heights. Small marginal osteophytes at the en dplates. DISCS: Degenerative disc disease with loss of intervertebral disc heights. POSTERIOR ELEMENTS: Pedicles and facets are intact. No pars defect or posterior arch defects. There is facet arthropathy most prominent at L5-S1. HARDWARE: None in the spine. PARASPINAL SOFT TISSUES: Normal. PELVIS: Intact as visualized. No fractures or worrisome bone lesions. SI joints intact. OTHER: No other significant finding. IMPRESSION: No acute fracture or dislocation of the lumbar spine. Degenerative disc disease, spondy losis and facet arthropathy. TECHNICAL DOCUMENTATION: JOB ID: [id number] [employer]- All Rights Reserved Reading location - IP/workstation name: [email or web address]
== END ==
LOC: RAD 14:38
PROVIDERS: ATTEND Pain Medicine Pain Medicine
DX: M17.0 Bilateral primary osteoarthritis of knee (principal); M25.561 Pain in right knee; M25.562 Pain in left knee; M51.36 Other intervertebral disc degeneration, lumbar region; M54.5 Low back pain; M50.30 Other cervical disc degeneration, unspecified cervical region
CPT/HCPCS: 72050; 72110